=== PATIENT | male | born 1975 | race Caucasian/White ===

== ENCOUNTER 2020-07-18 20:31 | Emergency (ER) | payer OTHER, SELFPAY ==
[2020-07-18 20:39] VITALS: BP 130/70; PULSE 77; RESP 16; TEMP 36.6; O2SAT 97; BMI 44.6
[2020-07-18 20:55] LABS: Glucose, Whole Blood 136 mg/dL (60-115)
--- NOTE | 2020-07-18 21:54 | PC.NURSE ---
Pt asking for multiple sandwich and ice cream, offered and given diabetic friendly snacks/ liquids. Pt resting w/ eyes closed, appears to be in no apparent distress- no grimacing or guarding noted. Pt requesting fentanyl by name and dose.
--- NOTE | 2020-07-18 22:00 | ED_ITS ---
HPI - General Adult General Chief complaint: General Medical Stated complaint: leg pain Time Seen by Provider: 07/18/20 21:58 Source: patient Mode of arrival: EMS History of Present Illness HPI narrative: This is a 45-year-old male who presents with bilateral degenerative hip disease and was seen at [facility] earlier in the day where he had an x-ray that did not show any significant findings. Patient states that he began developing significant pain that he rated as a 10/10 and EMS provided him with IV push fentanyl. Otherwise patient states that he was recently discharged from [facility] after being an inpatient for 1 year, but states that he is now been considered competent to care for himself. He gets around with canes at baseline and is currently coordinating his outpatient medical care through the behavioral health care team. He denies fevers, chills, new onset of weakness/numbness/tingling in bilateral lower extremities. In addition, he denies any urinary pain/burning/frequency. Related Data Previous Rx's Medication Instructions Recorded cyclobenzaprine 5 mg PO BEDTIME PRN 2 Days #2 tab 07/19/20 ketorolac 10 mg PO Q6H PRN 5 Days #20 tab 07/19/20 Allergies Allergy/AdvReac Type Severity Reaction Status Date / Time shellfish derived Allergy Severe SWELLING Verified 07/18/20 22:56 [SHELLFISH DERIVED] WITH DIFFICULTY BREATHING haloperidol [From Haldol] Allergy Mild UNKNOWN Verified 07/18/20 22:56 garlic AdvReac Mild VOMITING Verified 07/18/20 22:56 Review of Systems Review of Systems: Pertinent positives and negatives as stated in HPI 10 point review of systems is otherwise negative. [facility] Past Medical History Source: nursing notes reviewed Medical History Acute diverticulitis Bipolar 1 disorder Cholecystectomy planned Degenerative disc disease Diabetes Kidney failure Surgical History H/O elbow surgery Social History Social History Alcohol intake: never Smoking Status: Never smoker Use of substances other than those prescribed or required for medical reasons: No Advance Directives: No Advance Directives Information Provided: No Physical Exam Vital Signs: Vital Signs: Last Vital Signs Temp 97.9 F 07/18/20 20:39 Pulse 97 07/18/20 22:55 Resp 16 07/18/20 22:55 BP 121/76 07/18/20 22:55 Pulse Ox 96 07/18/20 22:55 Body Mass Index 44.6 VITAL SIGNS: Reviewed. GENERAL: Well developed, well nourished, in no acute distress. HEAD: Normocephalic/atraumatic, EYES: PERRLA, EOMI NOSE: Nares patent bilateral OROPHARYNX: no oral lesions noted, posterior pharynx clear NECK: Supple, no adenopathy LUNGS: Normal breath sounds. No adventitious sounds or accessory muscle use. SpO2<96> CARDIOVASCULAR: Regular rate and rhythm without noted murmurs ABDOMEN: Obese, Soft, non-tender, non-distended with bowel sounds. Bilateral lower EXTREMITIES: Sensation intact, palpable DP/PT bilaterally, capillary refill less than 3 seconds NEUROLOGIC: Drowsy and oriented x 4. Strength and sensation to light touch were grossly intact x 4. Course Course Course Narrative: This is a 45-year-old male with history and clinical presentation consistent with chronic degenerative hip disease bilaterally and seen at [facility] earlier in the day with negative acute findings on imaging as per patient. As per patient he states that the EMS gave him fentanyl EN route and that that is why he is drowsy. It was explained to the patient that we would not be able to do any steroid injections here and that he would need to continue follow-up as an outpatient with his primary care provider for possible referral to Orthopedics. On review and re-evaluation there are no acute findings and patient has had good resolution of his pain. Patient states he use a walker/cane at baseline and he will be discharged in stable condition with recommendations to follow-up with his primary care provider for discussion regarding possible referral to Orthopedics. Medical Decision Making Lab Data Labs: Lab Results 07/18/20 07/18/20 Range/Units 20:50 23:04 POC Glucose 136 H (60-115) mg/dL Urine Color YELLOW Urine Appearance CLEAR Urine pH 6.5 (5.0-8.0) Ur Specific [place] 1.015 (1.005-1.025) Urine Protein NEG (NEG-TRACE) MG/DL Urine Glucose (UA) NEG (NEG) MG/DL Urine Ketones NEG (NEG) MG/DL Urine Blood NEG (NEG) Urine Nitrite NEG (NEG) Ur Leukocyte Esterase NEG (NEG) Discharge Plan Discharge Clinical Impression: Bilateral hip pain Patient Disposition: Home, Self-Care Instructions: Arthralgia (ED), Hip Pain (ED) Additional Instructions: Follow-up with your primary care provider by calling the office to set up an appointment for re-evaluation. Prescriptions: New ketorolac 10 mg tablet 10 mg PO Q6H PRN (Reason: pain) 5 Days Qty: 20 RF: 0 cyclobenzaprine 5 mg tablet 5 mg PO BEDTIME PRN (Reason: muscle spasm) 2 Days Qty: 2 RF: 0 Referrals: Physician,Unknown [Primary Care Provider] - 2 days
[2020-07-18 22:55] VITALS: BP 121/76; PULSE 97; RESP 16; O2SAT 96
[2020-07-18] MEDS: Ketorolac Tromethamine 15 MG/ML VIAL IM (22:57)
[2020-07-18] MEDS: Acetaminophen 325 MG TABLET 975 MG PO (22:57)
[2020-07-18 23:23] LABS: Glucose Urine UA NEG (NEG); Leukocyte Esterase Urine NEG (NEG); Nitrite Urine NEG (NEG); PH 6.5 (5.0-8.0); Specific Gravity - Urine 1.015 (1.005-1.025); Urine Blood NEG (NEG); Urine Ketones NEG (NEG); Urine Protein NEG (NEG-TRACE)
[2020-07-18 23:35] LABS: Appearance Urine CLEAR; Color Urine YELLOW
[2020-07-19 00:28] VITALS: BP 109/64; PULSE 78; RESP 16; O2SAT 96
--- NOTE | 2020-07-19 00:50 | PC.NURSE ---
pt ready for discharge, calling chair van for ride.
--- NOTE | 2020-07-19 01:46 | PC.NURSE ---
PT ABLE TO STAND AND USE WALKER FOR STABILITY. PT ABLE TO USE URINAL. PT THEN SEATED ON EMS STRETCHER FOR TRANSPORT HOME.
== END 2020-07-19 01:48 | disposition home or self-care (01) ==
PROVIDERS: Emergency Provider Student in an Organized Health Care Education/Training Program
DX: M25.552 Pain in left hip (principal); M25.551 Pain in right hip; E11.9 Type 2 diabetes mellitus without complications
CPT/HCPCS: 81003; 82947; 96372; 99284; J1885

== ENCOUNTER 2020-07-27 20:15 | Emergency (ER) | payer OTHER, SELFPAY ==
--- NOTE | ~2020-07-27 | CT_ITS ---
EXAMINATION: CT ABDOMEN AND PELVIS WITH CONTRAST CLINICAL INFORMATION: Abdominal pain. COMPARISON: 12/11/2013. TECHNIQUE: Contiguous axial thin section helical images of the abdomen and pelvis were performed following the administration of 85 mL of intravenous Omnipaque 350. The data set was reformatted in the coronal and sagittal planes and reviewed on an independent workstation. DLP: 1386 mGy-cm. FINDINGS: The visualized lung bases are clear. The visualized portions of the heart are unremarkable. The liver is of normal size and attenuation without focal lesions nor intrahepatic biliary ductal dilation. A normal gallbladder is identified. There is no wall thickening or discernible pericholecystic fluid. The spleen, pancreas, adrenal glands are unremarkable. Both kidneys are of normal size and attenuation without hydronephrosis or nephrolithiasis. Following the administration of IV contrast, prompt symmetric nephrograms are displayed. There is no abdominal free fluid. There is neither mesenteric nor retroperitoneal lymphadenopathy. Normal unopacified loops of small and large bowel are identified. A normal appendix is identified. There is no pelvic free fluid. The urinary bladder is unremarkable. There is neither pelvic nor inguinal lymphadenopathy. Bone windows: Neither sclerotic nor lytic bone lesions are identified. There is moderate to advanced degenerative change within each hip. There is flattening to each femoral head. CT/CT abdomen pelvis w con IMPRESSION: No acute abdominal or pelvic inflammatory or infectious processes. Moderate to advanced degenerative change within each hip. Automated exposure control (Care Dose) Adjustment of the mA and/or kv according to patient size (this includes techniques or standardized protocols for targeted exams where dose is matched to indication / reason for exam; i.e. extremities or head).
--- NOTE | ~2020-07-27 | CT_ITS ---
EXAMINATION: CT HEAD WITHOUT CONTRAST CLINICAL INFORMATION: Hypertension. COMPARISON: 03/22/2015. TECHNIQUE: Contiguous helical images of the brain were obtained without IV contrast. Multiplanar reconstructions were performed. DLP: 772 mGy-cm. FINDINGS: There are no pathologic extra-axial fluid collections. The lateral, third, fourth ventricles are nondilated and concordant with the appearance of the sulci. There is no evidence for acute intraparenchymal hemorrhage or infarct. There is neither mass nor mass effect. There is no shift of midline structures. The paranasal sinuses and mastoid air cells are clear. There are no osseous lesions. CT/CT head/brain wo con IMPRESSION: No evidence for acute intracranial injury. Automated exposure control (Care Dose) Adjustment of the mA and/or kv according to patient size (this includes techniques or standardized protocols for targeted exams where dose is matched to indication / reason for exam; i.e. extremities or head).
[2020-07-27 20:23] VITALS: BP 154/96; PULSE 87; RESP 20; TEMP 37.1; O2SAT 100; BMI 43.0
[2020-07-27 20:25] VITALS: BP 220/124; PULSE 90; O2SAT 99
--- NOTE | 2020-07-27 20:29 | ECG_ITS ---
Test Reason : ABDOMINAL PAIN Blood Pressure : / mmHG Vent. Rate : 071 BPM Atrial Rate : 071 BPM P-R Int : 132 ms QRS Dur : 096 ms QT Int : 362 ms P-R-T Axes : 057 073 054 degrees QTc Int : 393 ms Normal sinus rhythm with sinus arrhythmia Normal ECG When compared with ECG of 27-APR-2019 20:16, No significant change was found Referred By: Manpreet Del Cid Electronically Signed By:JESUS SUN MD
--- NOTE | 2020-07-27 21:06 | ED_ITS ---
HPI - Abdominal Pain General Chief Complaint: Abdominal Pain Stated Complaint: nausea abd pain Time Seen by Provider: 07/27/20 20:27 Source: patient Mode of arrival: ambulatory Limitations: no limitations History of Present Illness HPI narrative: Patient presents to ED for epigastric pain that started suddenly a couple hours ago. Patient states symptoms started after eating spicy food. Patient states nausea and vomiting. Related Data Previous Rx's Medication Instructions Recorded cyclobenzaprine 5 mg PO BEDTIME PRN 2 Days #2 tab 07/19/20 ketorolac 10 mg PO Q6H PRN 5 Days #20 tab 07/19/20 famotidine [Pepcid] 20 mg PO BID 10 Days #20 tab 07/28/20 ondansetron HCl [Zofran] 4 mg PO Q6H PRN 3 Days #12 tab 07/28/20 Allergies Allergy/AdvReac Type Severity Reaction Status Date / Time shellfish derived Allergy Severe SWELLING Verified 07/18/20 22:56 [SHELLFISH DERIVED] WITH DIFFICULTY BREATHING haloperidol [From Haldol] Allergy Mild UNKNOWN Verified 07/18/20 22:56 garlic AdvReac Mild VOMITING Verified 07/18/20 22:56 Review of Systems Review of Systems Yes all other systems are reviewed and are negative Constitutional: Reports as per HPI and Reports no additional constitutional complaints Eyes: Reports as per HPI and Reports no additional eye complaints Reports system reviewed and no additional complaints, except as documented and Reports as per HPI Cardiovascular: Reports as per HPI and Reports no additional cardiovascular comp laints Respiratory: Reports as per HPI and Reports no additional respiratory complaints Gastrointestinal: Reports as per HPI, Reports no additional gastrointestinal complaints, Reports abdominal pain, Reports nausea and Reports vomiting Genitourinary: Reports no additional male genitourinary complaints and Reports as per HPI Musculoskeletal: Reports no additional musculoskeletal complaints and Reports as per HPI Reports system reviewed and no additional complaints, except as documented and Reports as per HPI Psychiatric: Reports no additional psychiatric complaints and Reports as per HPI Physical Exam Vital Signs: Vital Signs: Last Vital Signs Temp 97.4 F 07/28/20 01:47 Pulse 80 07/28/20 04:14 Resp 18 07/28/20 03:50 BP 157/96 H 07/28/20 03:50 Pulse Ox 98 07/28/20 01:47 Body Mass Index 43.0 Const: General: acute distress Orientation/consciousness: patient oriented x3 HENMT: Head: Yes normal to inspection, Yes No palpable skull fracture present, Yes normocephalic, Yes atraumatic, No abrasion, No Osorio's sign, No contusion, No cranial bruits, No hematoma, No laceration, No occipital foramen tenderness, No palpable skull fracture, No raccoon eyes, No scalp lesion, No scalp tenderness, No Temporal artery tenderness present and No periorbital ecchymosis Eyes: General: appearance normal, both eyes and all related structures Neck: Neck: Yes normal visual inspection, Yes full ROM, Yes no lymphadenopathy, Yes no meningeal signs, Yes trachea midline, Yes supple and No tender Chest: Chest palpation & inspection: normal inspection of the chest and normal palpation of entire chest wall Resp: Effort & Inspection: normal respiratory effort and able to speak in complete sentences Auscultation: clear to auscultation bilaterally Cardio: Jugular venous distension: no JVD Heart sounds: S1 normal heart sound present and S2 normal heart sound present GI: Inspection: Yes normal to inspection and No abdominal wall ecchymosis Palpation (GI): Soft to palpation, not firm, Tenderness to palpation present (GI) in the epigastrum; not at McBurney's point, not periumbilically, not suprapubicly, Gupta's sign negative, obturator sign negative, psoas sign negative, with no rebound tenderness and Rovsing's sign negative, no guarding and not rigid : General: No CVA tenderness and Yes no CVA tenderness Back/Spine/Pelvis: Back: no CVA tenderness, No CVA tenderness and No back tenderness Skin: General skin exam: no rashes or lesions noted and elasticity normal Neuro: Other: negative for any neuro deficit. General: patient oriented x3, no meningeal signs and CN's II-XI intact bilaterally Cranial nerves: Yes CN's II-XII intact bilaterally Extrem: General: Yes normal to inspection and Yes full ROM Psych: Appearance: grossly normal, well kempt and not disheveled Course Course Course Narrative: Patient most likely having GERD exacerbation. Due to history diabetes and obesity will do cardiac evaluation. GI cocktail ordered. Reevaluation(s) Reevaluation #1: Patient labs are not alarming. Patient will be sent for CT scan for evaluation ( due to patient complaining of epigastric pain). Patient constantly asking for narcotics. Reevaluation #2: I spoke with patient's mother, ирина Kirkpatrick, who was patient legal and medical guardian. She states she makes medical decision for patient. As per Ирина she informed me she does not want patient receiving any narcotics. Patient has strong history of opiate abuse and recently came out of detox. She states patient have a history of coming to the ED with drug-seeking behavior for narcotics in the form of abdominal pain.. She states before coming to the ER soren castañeda had the 12 inch sandwich, Soup, cookies, 6 pieces of chicken, pork, and rice. She states patient presently is in court for due to patient being not responsible for himself. She states under no circumstances once again patient should receive narcotics. In ED visit patient insisted requesting to receive narcotics. Evaluate patient's prior visit and [facility] EMR which shows patient has similar presentation of abdominal pain, forced himself to vomit, and asking for narcotics. Reevaluation #3: CT scan normal. Patient refused to give urine to be evaluated for possible UTI. Spoke with mother ирина and inform her of patient's CT scan that was normal. She states patient has had multiple CT scans in the past are normal with similar presentation. Once again she does not recommend patient receiving narcotics and patient can be sent back home by ambulance wheelchair. Additional Reevaluation(s): Patient's discharge was held due to elevated blood pressure so head CT scan was ordered and repeat troponin. Head CT scan came back negative. I realize patient had small cuff on extremities which which contributed to patient's elevated blood pressure and heart rate during ED visit. Larger proper cuff was placed and patient was no longer tachycardic or hypertensive. Repeat blood with proper cuff is 157/96 with HR of 67. Patient awaiting 2nd troponin result and will be discharged if troponin is negative. At 04:11 patient refused 2nd troponin. Patient to be discharged. Patient for 2nd troponin and make sure there is no cardiac etiology, and possibly if positive, but patient refused and like to be discharged. MDM - Abdominal Pain MDM Narrative Medical decision making narrative: GERD. Lab Data Result diagrams: 07/27/20 21:17 07/27/20 21:16 Labs: Lab Results 07/27/20 07/27/20 07/27/20 Range/Units 21:16 21:16 21:16 WBC (4.8-10.8) X10*3/uL RBC (4.60-5.80) X10*6/uL Hgb (14.0-18.0) g/dl Hct (42-52) % MCV (80-98) fL MCH (27.0-33.0) pg MCHC (31.0-36.0) g/dl RDW (11.0-16.0) % Plt Count (160-400) X10*3/uL MPV (9.4-12.4) fL Immature Gran % (Auto) (0.0-0.4) % Neut % (Auto) (45-73) % Lymph % (Auto) (20-40) % Powell % (Auto) (2-11) % Eos % (Auto) (0-4) % Baso % (Auto) (0-2) % Lymph # (Auto) (1.2-4.9) X10*3/uL Powell # (Auto) (0.1-1.2) X10*3/uL Eos # (Auto) (0.0-0.4) X10*3/uL Baso # (Auto) (0.0-0.2) X10*3/uL Abs Immat Gran (auto) (0.00-0.03) X10*3/uL Absolute Neuts (auto) (2.0-8.3) X10*3/uL Absolute Nucleated RBC (0.0-0.012) X10*3/uL Nucleated RBC % (auto) (0.0-0.2) /100WBC PT 11.0 (10.8-13.0) SEC INR 0.9 (0.9-1.1) APTT 26.8 (24.1-38.0) SEC Sodium 143 (135-145) mmol/L Potassium 4.6 (3.3-5.1) mmol/L Chloride 105 (96-108) mmol/L Carbon Dioxide 30 H (22-29) mmol/L Anion Gap 13 (12-20) BUN 29 H (9-16) mg/dL Creatinine 1.18 (0.5-1.4) mg/dL Estim Creat Clear Calc 104.2 Estimated GFR > 60 Random Glucose 158 H (60-115) mg/dL Calcium 9.3 (8.4-10.2) mg/dL Total Bilirubin 0.2 (0.0-1.0) mg/dL Direct Bilirubin < 0.2 (0.0-0.5) mg/dL AST 13 (5-37) U/L ALT 29 (0-40) U/L Alkaline Phosphatase 108 (39-117) U/L Troponin I High Sens < 3.5 (<3.5-35.0) ng/L Total Protein 7.3 (6.5-8.0) g/dL Albumin 4.2 (3.5-5.0) g/dL Lipase 45 (8-78) U/L /08/13 Range/Units 21:17 WBC 13.5 H (4.8-10.8) X10*3/uL RBC 5.03 (4.60-5.80) X10*6/uL Hgb 14.0 (14.0-18.0) g/dl Hct 43.7 (42-52) % MCV 86.9 (80-98) fL MCH 27.8 (27.0-33.0) pg MCHC 32.0 (31.0-36.0) g/dl RDW 14.3 (11.0-16.0) % Plt Count 285 (160-400) X10*3/uL MPV 10.6 (9.4-12.4) fL Immature Gran % (Auto) 1.4 H (0.0-0.4) % Neut % (Auto) 80.3 H (45-73) % Lymph % (Auto) 9.1 L (20-40) % Powell % (Auto) 9.1 (2-11) % Eos % (Auto) 0.0 (0-4) % Baso % (Auto) 0.1 (0-2) % Lymph # (Auto) 1.2 (1.2-4.9) X10*3/uL Powell # (Auto) 1.2 (0.1-1.2) X10*3/uL Eos # (Auto) 0.0 (0.0-0.4) X10*3/uL Baso # (Auto) 0.0 (0.0-0.2) X10*3/uL Abs Immat Gran (auto) 0.19 H (0.00-0.03) X10*3/uL Absolute Neuts (auto) 10.9 H (2.0-8.3) X10*3/uL Absolute Nucleated RBC 0.000 (0.0-0.012) X10*3/uL Nucleated RBC % (auto) 0.0 (0.0-0.2) /100WBC PT (10.8-13.0) SEC INR (0.9-1.1) APTT (24.1-38.0) SEC Sodium (135-145) mmol/L Potassium (3.3-5.1) mmol/L Chloride (96-108) mmol/L Carbon Dioxide (22-29) mmol/L Anion Gap (12-20) BUN (9-16) mg/dL Creatinine (0.5-1.4) mg/dL Estim Creat Clear Calc Estimated GFR Random Glucose (60-115) mg/dL Calcium (8.4-10.2) mg/dL Total Bilirubin (0.0-1.0) mg/dL Direct Bilirubin (0.0-0.5) mg/dL AST (5-37) U/L ALT (0-40) U/L Alkaline Phosphatase (39-117) U/L Troponin I High Sens (<3.5-35.0) ng/L Total Protein (6.5-8.0) g/dL Albumin (3.5-5.0) g/dL Lipase (8-78) U/L ECG Data Interpretation: Normal sinus rhythm. Ventricular rate 71. CA interval 132. QRS 96. QTC 393. Negative STEMI Discharge Plan Discharge Clinical Impression: GERD (gastroesophageal reflux disease) Patient Disposition: Home, Self-Care Instructions: Gastroesophageal Reflux Disease (ED), Abdominal Pain (ED) Additional Instructions: Return to the ED immediately for worsening abdominal pain, nausea, vomiting, fever, chills, flank pain, dysuria, hematuria, or any other concerning symptoms. Prescriptions: New ondansetron HCl [Zofran] 4 mg tablet 4 mg PO Q6H PRN (Reason: nausea and vomiting) 3 Days Qty: 12 RF: 0 famotidine [Pepcid] 20 mg tablet 20 mg PO BID 10 Days Qty: 20 RF: 0 No Action ketorolac 10 mg tablet 10 mg PO Q6H PRN (Reason: pain) 5 Days Qty: 20 RF: 0 cyclobenzaprine 5 mg tablet 5 mg PO BEDTIME PRN (Reason: muscle spasm) 2 Days Qty: 2 RF: 0 Interventions: ED Discharge Assessment Last Done: 07/28/20 01:45 Discharge Date/Time: 07/28/20 05:09 Print Language: Ivorian [facility] Past Medical History Medical History (Updated 07/29/20 @ 00:00 by Sarah Maloney) Acute diverticulitis Bipolar 1 disorder Cholecystectomy planned Degenerative disc disease Diabetes Kidney failure Obese Surgical History H/O elbow surgery Social History Social History Alcohol intake: never Smoking Status: Never smoker Use of substances other than those prescribed or required for medical reasons: No Advance Directives: No Advance Directives Information Provided: Yes
[2020-07-27] MEDS: diphenhydrAMINE HCL 50 MG/ML VIAL IVPUSH (21:21)
[2020-07-27] MEDS: Magnesium Hydrox/Alum Hydrox 30 ML ORAL.SUSP PO (21:21)
[2020-07-27] MEDS: PHENobarb/Hyoscy/Atropine/Scop 10 ML ELIXIR PO (21:21)
[2020-07-27] MEDS: Famotidine/PF 20 MG/2 ML VIAL IVPUSH (21:21)
[2020-07-27 21:22] LABS: MANUAL DIFF FLAG NO
[2020-07-27 21:23] LABS: Basophils Percent Auto 0.1 % (0-2); Hematocrit 43.7 % (42-52); Imm Gran Abs Auto 0.19 X10*3/uL (0.00-0.03); Imm Gran Pct Auto 1.4 % (0.0-0.4); Lymphocytes Absolute Auto 1.2 X10*3/uL (1.2-4.9); Lymphocytes Percent Auto 9.1 % (20-40); Mean Corpuscular Hemoglobin 27.8 pg (27.0-33.0); Mean Corpuscular Volume 86.9 fL (80-98); Mean Platelet Volume 10.6 fL (9.4-12.4); Monocytes Absolute Auto 1.2 X10*3/uL (0.1-1.2); Monocytes Percent Auto 9.1 % (2-11); Neutrophils Absolute Auto 10.9 X10*3/uL (2.0-8.3); Neutrophils Percent Auto 80.3 % (45-73); Platelet Count 285 X10*3/uL (160-400); Red Blood Count 5.03 X10*6/uL (4.60-5.80); Red Cell Distribution Width 14.3 % (11.0-16.0); White Blood Count 13.5 X10*3/uL (4.8-10.8)
[2020-07-27 21:29] LABS: INTERNATIONAL NORM RATIO 0.9 (0.9-1.1)
[2020-07-27 21:31] LABS: Partial Thromboplastin Time 26.8 SEC (24.1-38.0)
[2020-07-27 21:52] LABS: Alanine Aminotransferase 29 U/L (0-40); Albumin Level 4.2 g/dL (3.5-5.0); Alkaline Phosphatase 108 U/L (39-117); Anion Gap 13 (12-20); Aspartate Amino Transferase 13 U/L (5-37); Bilirubin Direct < 0.2 mg/dL (0.0-0.5); Bilirubin Total 0.2 mg/dL (0.0-1.0); Blood Urea Nitrogen 29 mg/dL (9-16); Calcium 9.3 mg/dL (8.4-10.2); Carbon Dioxide 30 mmol/L (22-29); Chloride 105 mmol/L (96-108); Creatinine Clr Calc Pharmacy 104.2; Estimated Glomerular Filt Rate > 60; Glucose Random 158 mg/dL (60-115); Lipase 45 U/L (8-78); Potassium 4.6 mmol/L (3.3-5.1); Sodium 143 mmol/L (135-145); Total Protein 7.3 g/dL (6.5-8.0)
[2020-07-27 21:53] VITALS: BP 168/96; PULSE 70; RESP 18; TEMP 36.6; O2SAT 98
[2020-07-27 21:59] LABS: Troponin-I High Sensitivity < 3.5 ng/L (<3.5-35.0)
--- NOTE | 2020-07-27 23:05 | PC.NURSE ---
PT REPEATEDLY YELLING OUT REQUESTING SPECIFICALLY NARCOTIC MEDICATIONS, WHEN THIS RN ADVISED PT THE DR WOULD NOT BE ORDERING THEM HE APPEARED TO SELF INDUCE VOMITING ON THE FLOOR, SPITTING REPEATEDLY ON THE FLOOR. PT ASKING TO GET OOB TO COMMODE, NEEDS 1 PERSON ASSIST TO DO SO. PT ASSISTED TO COMMODE, PASSED FORMED BM.
[2020-07-27 23:32] VITALS: BP 162/100; PULSE 65; RESP 18; TEMP 36.6; O2SAT 96
[2020-07-27] MEDS: ondansetron HCL 4 MG/2 ML VIAL IVPUSH (23:32)
[2020-07-27] MEDS: LORazepam 2 MG/ML VIAL IVPUSH (23:32)
[2020-07-28] MEDS: Metoclopramide HCl 10 MG/2 ML VIAL IVPUSH (01:45)
[2020-07-28 01:47] VITALS: BP 188/111; PULSE 83; RESP 20; TEMP 36.3; O2SAT 98
[2020-07-28 03:50] VITALS: BP 157/96; PULSE 66; RESP 18
[2020-07-28 04:14] VITALS: PULSE 80
--- NOTE | 2020-07-28 04:14 | PC.NURSE ---
Report received from PEYMAN Stockton. Care assumed at 2300. Pt vomited multiple times despite of zofran and regran ivp. Refused to have trop drawn. Awaiting for ambulance for discharge. currently sleeping.
== END 2020-07-28 05:09 | disposition home or self-care (01) ==
PROVIDERS: Physician Assistant; Emergency Provider Internal Medicine
DX: K21.9 Gastro-esophageal reflux disease without esophagitis (principal); Z76.5 Malingerer [conscious simulation]; E11.9 Type 2 diabetes mellitus without complications; F11.10 Opioid abuse, uncomplicated
CPT/HCPCS: 36415; 70450; 74177; 80053; 80076; 82248; 83690; 84484; 85025; 85610; 85730; 93005; 96374; 96375; 99284; J1200; J2060; J2405; J2765; Q9967

== ENCOUNTER 2020-09-16 07:46 | Emergency (ER) | payer OTHER, SELFPAY ==
--- NOTE | ~2020-09-16 | CT_ITS ---
EXAMINATION: CT ABDOMEN AND PELVIS WITH CONTRAST CLINICAL INFORMATION: Upper abdominal pain. Rule out pancreatitis. COMPARISON: CT abdomen 07/28/2020 TECHNIQUE: Multidetector volumetric images were obtained from the superior aspect of the liver through the pubic symphysis following administration 85 mL of Omnipaque 350 intravenous contrast. Sagittal and coronal reformatted images were obtained on the technologist's workstation. Oral contrast: No This CT examination was performed using dose optimization techniques as appropriate, variously including the following: *Automated exposure control *Adjustment of mA and/or kV according to patient size (this includes techniques or standardized protocols for targeted exams where dose is matched to indication/reason for exam; i.e. extremities or head) *Use of iterative reconstruction technique DLP: 1641 mGy-cm FINDINGS: LUNG BASES: The visualized lung bases are unremarkable. Suspect small hiatal hernia. LIVER, GALLBLADDER, AND BILIARY TREE: The liver is normal in size, shape, and attenuation. No focal hepatic lesion or biliary ductal dilatation is present. The gallbladder is not visualized, contracted or removed. PANCREAS: Unremarkable. SPLEEN: Unremarkable. ADRENAL GLANDS: Unremarkable. KIDNEYS AND URETERS: The kidneys are normal in size, shape, and attenuation. No hydronephrosis, hydroureter, or calculi seen. No perinephric stranding. BLADDER: Unremarkable. GASTROINTESTINAL TRACT: There is scattered stool and gas seen throughout the colon without significant distention. The small bowel loops are normal caliber. Appendix is normal caliber. ABDOMINAL WALL: No significant hernia is appreciated. LYMPH NODES: Normal. VASCULAR: Unremarkable. PELVIC VISCERA: Unremarkable. OSSEOUS STRUCTURES: Unremarkable. CT/CT abdomen pelvis w con IMPRESSION: No acute intra-abdominal process seen. Especially the pancreas is unremarkable. Mild constipation.
[2020-09-16 07:54] VITALS: BP 149/93; BP 171/111; PULSE 94; PULSE 96; RESP 18; TEMP 36.6; O2SAT 96; O2SAT 97; BMI 44.9
[2020-09-16 08:13] VITALS: BP 153/101; PULSE 92; RESP 16; O2SAT 97
--- NOTE | 2020-09-16 08:16 | ECG_ITS ---
Test Reason : ABDOMINAL PAIN Blood Pressure : / mmHG Vent. Rate : 090 BPM Atrial Rate : 090 BPM P-R Int : 146 ms QRS Dur : 110 ms QT Int : 352 ms P-R-T Axes : 067 071 050 degrees QTc Int : 430 ms Normal sinus rhythm Normal ECG When compared with ECG of 27-JUL-2020 20:56, No significant change was found Referred By: Rachel Rodriguez Electronically Signed By:MARGUERITE SIMS
--- NOTE | 2020-09-16 08:20 | ED.ABDPAIN ---
HPI - Abdominal Pain General Chief Complaint: Abdominal Pain Stated Complaint: ABD PAIN Time Seen by Provider: 09/16/20 08:11 Source: patient and EMS Mode of arrival: EMS Limitations: no limitations History of Present Illness HPI narrative: 45-year-old male with a past medical history of uuk-xrcucen-ibgtaozay diabetes, polysubstance abuse here with complaints of upper abdominal pain. The patient tells me that he has had this pain for 4 days and has been seen at [facility] [place] several times with a diagnosis of pancreatitis. He tells me he was initially admitted and then was discharged home. He has worsening pain since last evening with nausea and vomiting. No diarrhea or constipation. No urinary symptoms. No fevers or chills. Related Data Previous Rx's Medication Instructions Recorded cyclobenzaprine 5 mg PO BEDTIME PRN 2 Days #2 tab 07/19/20 ketorolac 10 mg PO Q6H PRN 5 Days #20 tab 07/19/20 famotidine [Pepcid] 20 mg PO BID 10 Days #20 tab 07/28/20 ondansetron HCl [Zofran] 4 mg PO Q6H PRN 3 Days #12 tab 07/28/20 Allergies Allergy/AdvReac Type Severity Reaction Status Date / Time shellfish derived Allergy Severe SWELLING Verified 07/18/20 22:56 [SHELLFISH DERIVED] WITH DIFFICULTY BREATHING haloperidol [From Haldol] Allergy Mild UNKNOWN Verified 07/18/20 22:56 garlic AdvReac Mild VOMITING Verified 07/18/20 22:56 Review of Systems Review of Systems Yes all other systems are reviewed and are negative Constitutional: Reports no additional constitutional complaints, Denies body ache(s), Denies chills, Denies fever(s), Denies headache(s) and Denies weakness Eyes: Reports no additional eye complaints and Denies change in vision Reports system reviewed and no additional complaints, except as documented, Denies dizziness, Denies headache(s), Denies nasal congestion, Denies nasal discharge and Denies neck pain Cardiovascular: Reports no additional cardiovascular complaints, Denies chest pain, Denies leg edema and Denies dyspnea Respiratory: Reports no additional respiratory complaints, Denies cough and Denies dyspnea Gastrointestinal: Reports no additional gastrointestinal complaints, Reports abdominal pain, Denies constipation, Denies diarrhea, Denies nausea and Reports vomiting Genitourinary: Denies urinary incontinence Musculoskeletal: Reports no additional musculoskeletal complaints, Denies back pain, Denies arthralgias, Denies joint swelling, Denies neck pain, Denies numbness and Denies tingling Skin/Breast: Reports system reviewed and no additional complaints, except as docu and Denies rash Reports system reviewed and no additional complaints, except as documented, Denies Abnormal speech present, Denies dizziness, Denies headache(s), Denies numbness, Denies tingling and Denies weakness Physical Exam Vital Signs: Vital Signs: Last Vital Signs Temp 97.9 F 09/16/20 07:54 Pulse 94 09/16/20 11:39 Resp 16 09/16/20 11:39 BP 185/95 H 09/16/20 11:39 Pulse Ox 98 09/16/20 11:39 Body Mass Index 44.9 Const: General: cooperative, healthy appearing, comfortable and no acute distress Orientation/consciousness: patient oriented x3 Limitations: no limitations HENMT: Head: Yes normal to inspection Ears: hearing grossly normal bilaterally General nose exam: Normal external nose present Face and sinus: Yes normal facial exam Mouth: Normal oral and palatal mucosa present Throat: Yes posterior oropharynx normal Eyes: General: appearance normal, both eyes and all related structures Pupils: Equal, round and reactive pupils present Neck: Neck: Yes normal visual inspection Chest: Chest palpation & inspection: normal inspection of the chest Resp: Effort & Inspection: normal respiratory effort Auscultation: clear to auscultation bilaterally Cardio: Rate: regular rate Rhythm: regular rhythm Peripheral pulses: Peripheral pulses 2+ throughout GI: Inspection: Yes normal to inspection Palpation (GI): Soft to palpation and Tenderness to palpation present (GI) (Moderate. No rebound or guarding) in the epigastrum Auscultation: normal bowel sounds Back/Spine/Pelvis: Thoracic/Lumbar Spine: thoracic and lumbar spine normal to inspection Skin: General skin exam: no rashes or lesions noted Neuro: Other: Drowsy rouses to verbal General: patient oriented x3, no focal motor deficits and normal sensation to monofilament Cranial nerves: Yes Equal, round and reactive pupils present Cognition (Neuro): normal cognition Speech: No Abnormal speech present Gait exam (Neuro): Normal gait present Motor exam (neuro): 5/5 motor strength present throughout Extrem: General: Yes normal to inspection, Yes no pedal edema and Yes no calf tenderness Course Course Course Narrative: 45-year-old male here with epigastric pain, nausea and vomiting acute on chronic since yesterday. Per patient multiple ED visits with admission for pancreatitis a [facility] [place]. Feels pain is similar. Will need labs, UA, PIV, antiemetic,NSB. Will obtain records from [facility]. 1100-the nursing and phlebotomy have made multiple attempts to get blood work from the patient he continues to refuse. Nursing spoke to the patient's correction as well as his family. It appears that over the last 4-5 days he has gone to [facility] [place] as well as [facility] for similar complaints. Concern from both family and correction that patient is narcotic seeking. Per staff patient has a do not trespasss order currently at [facility] d/t poor behavior. He has been sleeping his entire time since being here >4hrs but when woken by staff he has been verbally abusive with profanities. 1230-Placed L EJG and labs sent. Patient had to be woken to place PIV and slept during entire procedure although when awake multiple requests for IV Dilaudid. 1340-labs show mild leukocytosis unchanged from previous. Otherwise unremarkable. Unable to obtain records from [facility]. Will check Ct A/P. 1600-CT abdomen and pelvis unremarkable. Patient has spent most of his time in the ER sleeping except when he is woken for interventions. When he is awake he is crying out multiple times asking for Dilaudid specifically. He has had multiple visits for same with no acute findings. At this point I am very concerned about his narcotic seeking behavior. Asked patient if he would like to be seen by our Care team but he declined this. No vomiting. Tolerating p.o.. After discharge patient fell back asleep. All records were faxed to the patient's correction and they will be picking him up. 1640-patient was picked up by correction staff. He drink 2 apple juices and a peanut butter sandwich with no issues MDM - Abdominal Pain Differential Diagnosis Differential diagnosis: Likely gastroenteritis, gastritis and pancreatitis Medical Records Attestation: I reviewed the patient's medical records. Lab Data Attestation: I reviewed the patient's lab results. Result diagrams: 09/16/20 12:24 09/16/20 12:24 Labs: Lab Results 05/09/16/20 09/16/20 Range/Units 09:18 12:24 12:24 WBC 14.0 H (4.8-10.8) X10*3/uL RBC 5.07 (4.60-5.80) X10*6/uL Hgb 14.3 (14.0-18.0) g/dl Hct 43.4 (42-52) % MCV 85.6 (80-98) fL MCH 28.2 (27.0-33.0) pg MCHC 32.9 (31.0-36.0) g/dl RDW 14.3 (11.0-16.0) % Plt Count 268 (160-400) X10*3/uL MPV 10.4 (9.4-12.4) fL Immature Gran % (Auto) 0.6 H (0.0-0.4) % Neut % (Auto) 85.8 H (45-73) % Lymph % (Auto) 7.2 L (20-40) % Gregory % (Auto) 6.2 (2-11) % Eos % (Auto) 0.0 (0-4) % Baso % (Auto) 0.2 (0-2) % Lymph # (Auto) 1.0 L (1.2-4.9) X10*3/uL Gregory # (Auto) 0.9 (0.1-1.2) X10*3/uL Eos # (Auto) 0.0 (0.0-0.4) X10*3/uL Baso # (Auto) 0.0 (0.0-0.2) X10*3/uL Abs Immat Gran (auto) 0.09 H (0.00-0.03) X10*3/uL Absolute Neuts (auto) 12.0 H (2.0-8.3) X10*3/uL Absolute Nucleated RBC 0.000 (0.0-0.012) X10*3/uL Nucleated RBC % (auto) 0.0 (0.0-0.2) /100WBC Hold Blue Top SEE NOTE Sodium (135-145) mmol/L Potassium (3.3-5.1) mmol/L Chloride (96-108) mmol/L Carbon Dioxide (22-29) mmol/L Anion Gap (12-20) BUN (9-16) mg/dL Creatinine (0.5-1.4) mg/dL Estim Creat Clear Calc Estimated GFR Random Glucose (60-115) mg/dL Calcium (8.4-10.2) mg/dL Magnesium (1.6-2.6) mg/dL Total Bilirubin (0.0-1.0) mg/dL Direct Bilirubin (0.0-0.5) mg/dL AST (5-37) U/L ALT (0-40) U/L Alkaline Phosphatase (39-117) U/L Total Protein (6.5-8.0) g/dL Albumin (3.5-5.0) g/dL Lipase (8-78) U/L Urine Color YELLOW Urine Appearance HAZY Urine pH 7.5 (5.0-8.0) Ur Specific [place] 1.015 (1.005-1.025) Urine Protein TRACE (NEG-TRACE) MG/DL Urine Glucose (UA) NEG (NEG) MG/DL Urine Ketones NEG (NEG) MG/DL Urine Blood NEG (NEG) Urine Nitrite NEG (NEG) Ur Leukocyte Esterase NEG (NEG) 09/16/20 Range/Units 12:24 WBC (4.8-10.8) X10*3/uL RBC (4.60-5.80) X10*6/uL Hgb (14.0-18.0) g/dl Hct (42-52) % MCV (80-98) fL MCH (27.0-33.0) pg MCHC (31.0-36.0) g/dl RDW (11.0-16.0) % Plt Count (160-400) X10*3/uL MPV (9.4-12.4) fL Immature Gran % (Auto) (0.0-0.4) % Neut % (Auto) (45-73) % Lymph % (Auto) (20-40) % Gregory % (Auto) (2-11) % Eos % (Auto) (0-4) % Baso % (Auto) (0-2) % Lymph # (Auto) (1.2-4.9) X10*3/uL Gregory # (Auto) (0.1-1.2) X10*3/uL Eos # (Auto) (0.0-0.4) X10*3/uL Baso # (Auto) (0.0-0.2) X10*3/uL Abs Immat Gran (auto) (0.00-0.03) X10*3/uL Absolute Neuts (auto) (2.0-8.3) X10*3/uL Absolute Nucleated RBC (0.0-0.012) X10*3/uL Nucleated RBC % (auto) (0.0-0.2) /100WBC Hold Blue Top Sodium 138 (135-145) mmol/L Potassium 4.3 (3.3-5.1) mmol/L Chloride 103 (96-108) mmol/L Carbon Dioxide 27 (22-29) mmol/L Anion Gap 12 (12-20) BUN 19 H (9-16) mg/dL Creatinine 0.84 (0.5-1.4) mg/dL Estim Creat Clear Calc 145.5 Estimated GFR > 60 Random Glucose 151 H (60-115) mg/dL Calcium 9.1 (8.4-10.2) mg/dL Magnesium 2.1 (1.6-2.6) mg/dL Total Bilirubin < 0.2 (0.0-1.0) mg/dL Direct Bilirubin < 0.2 (0.0-0.5) mg/dL AST 21 D (5-37) U/L ALT 43 H (0-40) U/L Alkaline Phosphatase 110 (39-117) U/L Total Protein 6.8 (6.5-8.0) g/dL Albumin 3.9 (3.5-5.0) g/dL Lipase 39 (8-78) U/L Urine Color Urine Appearance Urine pH (5.0-8.0) Ur Specific [place] (1.005-1.025) Urine Protein (NEG-TRACE) MG/DL Urine Glucose (UA) (NEG) MG/DL Urine Ketones (NEG) MG/DL Urine Blood (NEG) Urine Nitrite (NEG) Ur Leukocyte Esterase (NEG) Imaging Data CT scan - abdomen: Attestation: I personally reviewed and interpreted this imaging study as follows: Radiologist's impression: EXAMINATION: CT ABDOMEN AND PELVIS WITH CONTRAST CLINICAL INFORMATION: Upper abdominal pain. Rule out pancreatitis. COMPARISON: CT abdomen 07/28/2020 TECHNIQUE: Multidetector volumetric images were obtained from the superior aspect of the liver through the pubic symphysis following administration 85 mL of Omnipaque 350 intravenous contrast. Sagittal and coronal reformatted images were obtained on the technologist's workstation. Oral contrast: No This CT examination was performed using dose optimization techniques as appropriate, variously including the following: *Automated exposure control *Adjustment of mA and/or kV according to patient size (this includes techniques or standardized protocols for targeted exams where dose is matched to indication/reason for exam; i.e. extremities or head) *Use of iterative reconstruction technique DLP: 1641 mGy-cm FINDINGS: LUNG BASES: The visualized lung bases are unremarkable. Suspect small hiatal hernia. LIVER, GALLBLADDER, AND BILIARY TREE: The liver is normal in size, shape, and attenuation. No focal hepatic lesion or biliary ductal dilatation is present. The gallbladder is not visualized, contracted or removed. PANCREAS: Unremarkable. SPLEEN: Unremarkable. ADRENAL GLANDS: Unremarkable. KIDNEYS AND URETERS: The kidneys are normal in size, shape, and attenuation. No hydronephrosis, hydroureter, or calculi seen. No perinephric stranding. BLADDER: Unremarkable. GASTROINTESTINAL TRACT: There is scattered stool and gas seen throughout the colon without significant distention. The small bowel loops are normal caliber. Appendix is normal caliber. ABDOMINAL WALL: No significant hernia is appreciated. LYMPH NODES: Normal. VASCULAR: Unremarkable. PELVIC VISCERA: Unremarkable. OSSEOUS STRUCTURES: Unremarkable. CT/CT abdomen pelvis w con IMPRESSION: No acute intra-abdominal process seen. Especially the pancreas is unremarkable. Mild constipation. ECG Data Attestation: I personally reviewed and interpreted this ECG as follows: ECG interpretation date: 09/16/20 ECG interpretation time: 08:29 Interpretation: Normal sinus rhythm with a rate of 90, normal CO, normal QRS, normal QTC Discharge Plan Discharge Clinical Impression: Abdominal pain Qualifiers: Abdominal location: generalized Qualified Code(s): R10.84 - Generalized abdominal pain Patient Disposition: Home, Self-Care Instructions: Abdominal Pain (ED) Additional Instructions: Your CT scan today was normal Your bloodwork and urine tests were also normal You have been seen multiple times for the same complaint. You need to follow-up with your primary care doctor. Prescriptions: No Action ketorolac 10 mg tablet 10 mg PO Q6H PRN (Reason: pain) 5 Days Qty: 20 RF: 0 cyclobenzaprine 5 mg tablet 5 mg PO BEDTIME PRN (Reason: muscle spasm) 2 Days Qty: 2 RF: 0 ondansetron HCl [Zofran] 4 mg tablet 4 mg PO Q6H PRN (Reason: nausea and vomiting) 3 Days Qty: 12 RF: 0 famotidine [Pepcid] 20 mg tablet 20 mg PO BID 10 Days Qty: 20 RF: 0 Referrals: Physician,None [Primary Care Provider] - 2 days Interventions: ED Discharge Assessment Last Done: 09/16/20 16:32 Discharge Date/Time: 09/16/20 16:36 [facility] Past Medical History Attestation statement: The following information was validated with the patient. Source: old records reviewed and nursing notes reviewed Medical History Acute diverticulitis Bipolar 1 disorder Cholecystectomy planned Degenerative disc disease Diabetes Kidney failure Obese Surgical History H/O elbow surgery Social History Social History Alcohol intake: never Smoking Status: Never smoker Advance Directives: Yes Advance Directives Information Provided: No Advance Directives on File: No
--- NOTE | 2020-09-16 09:24 | PC.NURSE ---
pt is difficult to obtain labs and iv access, phlebotomy called
[2020-09-16 09:29] LABS: Appearance Urine HAZY; Color Urine YELLOW; Glucose Urine UA NEG (NEG); Leukocyte Esterase Urine NEG (NEG); Nitrite Urine NEG (NEG); PH 7.5 (5.0-8.0); Specific Gravity - Urine 1.015 (1.005-1.025); Urine Blood NEG (NEG); Urine Ketones NEG (NEG); Urine Protein TRACE MG/DL (NEG-TRACE)
--- NOTE | 2020-09-16 09:47 | PC.NURSE ---
pt refusing medications
--- NOTE | 2020-09-16 09:47 | PC.NURSE ---
pt refusing to have labs done
--- NOTE | 2020-09-16 09:48 | PC.NURSE ---
PT REFUSING BLOOD DRAW BY PHLEBOTOMY.
[2020-09-16 11:39] VITALS: BP 185/95; PULSE 94; RESP 16; O2SAT 98
[2020-09-16 12:28] LABS: MANUAL DIFF FLAG NO
[2020-09-16 12:30] LABS: Basophils Percent Auto 0.2 % (0-2); Hematocrit 43.4 % (42-52); Hemoglobin 14.3 g/dl (14.0-18.0); Imm Gran Abs Auto 0.09 X10*3/uL (0.00-0.03); Imm Gran Pct Auto 0.6 % (0.0-0.4); Lymphocytes Percent Auto 7.2 % (20-40); Mean Corpuscular HGB Conc 32.9 g/dl (31.0-36.0); Mean Corpuscular Hemoglobin 28.2 pg (27.0-33.0); Mean Corpuscular Volume 85.6 fL (80-98); Mean Platelet Volume 10.4 fL (9.4-12.4); Monocytes Absolute Auto 0.9 X10*3/uL (0.1-1.2); Monocytes Percent Auto 6.2 % (2-11); Neutrophils Percent Auto 85.8 % (45-73); Platelet Count 268 X10*3/uL (160-400); Red Blood Count 5.07 X10*6/uL (4.60-5.80); Red Cell Distribution Width 14.3 % (11.0-16.0)
[2020-09-16] MEDS: 0.9 % Sodium Chloride 1,000 ML 999 ML IV (12:46)
[2020-09-16] MEDS: ondansetron HCL 4 MG/2 ML VIAL IVPUSH (12:46)
[2020-09-16] MEDS: Famotidine/PF 20 MG/2 ML VIAL IVPUSH (12:46)
--- NOTE | 2020-09-16 12:50 | PC.NURSE ---
Addendum entered by Chloé French 09/16/20 13:25: pt has been sleeping since arrival, patient slept through ej placement Original Note: PT ATTEMPTED SEVERAL TIMES BY STAFF FOR IV ACCESS AND LAB WORK, BETWEEN PT REFUSING AND BEING A DIFFICULT STICK, DR LEYVA WAS ABLE TO OBTAIN A LEFT EJ, LABS SENT MEDS GIVEN ORDERED. PT IS DEMANDING IV DILATED, PROVIDER AWARE
[2020-09-16 12:59] LABS: Alanine Aminotransferase 43 U/L (0-40); Albumin Level 3.9 g/dL (3.5-5.0); Alkaline Phosphatase 110 U/L (39-117); Anion Gap 12 (12-20); Aspartate Amino Transferase 21 U/L (5-37); Bilirubin Direct < 0.2 mg/dL (0.0-0.5); Bilirubin Total < 0.2 mg/dL (0.0-1.0); Blood Urea Nitrogen 19 mg/dL (9-16); Calcium 9.1 mg/dL (8.4-10.2); Carbon Dioxide 27 mmol/L (22-29); Chloride 103 mmol/L (96-108); Creatinine Clr Calc Pharmacy 145.5; Estimated Glomerular Filt Rate > 60; Glucose Random 151 mg/dL (60-115); Lipase 39 U/L (8-78); Magnesium 2.1 mg/dL (1.6-2.6); Potassium 4.3 mmol/L (3.3-5.1); Sodium 138 mmol/L (135-145); Total Protein 6.8 g/dL (6.5-8.0)
[2020-09-16] MEDS: iohexoL 350 MG/ML 100 ML INFUS..BTL IV (14:29)
[2020-09-16] MEDS: Ketorolac Tromethamine 30 MG/ML VIAL IVPUSH (15:10)
== END 2020-09-16 16:36 | disposition home or self-care (01) ==
PROVIDERS: Nurse Practitioner Family; Emergency Provider Emergency Medicine
DX: R10.84 Generalized abdominal pain (principal); K59.00 Constipation, unspecified; R11.2 Nausea with vomiting, unspecified; Z76.5 Malingerer [conscious simulation]
CPT/HCPCS: 36415; 36569; 74177; 80048; 80076; 81003; 83690; 83735; 85025; 93005; 96361; 96374; 96375; 99284; 99285; J1885; J2405; Q9967

== ENCOUNTER → 2020-10-20 11:08 | Outpatient (BNVA) | payer OTHER, SELFPAY | PROVIDERS: Visit Provider Surgery | DX: E66.01 Morbid (severe) obesity due to excess calories (principal); Z68.42 Body mass index [BMI] 45.0-49.9, adult | CPT/HCPCS: 99202 ==

== ENCOUNTER → 2020-11-03 08:04 | Outpatient (BNVA) | payer OTHER, SELFPAY | PROVIDERS: Visit Provider Surgery | DX: E66.01 Morbid (severe) obesity due to excess calories (principal); Z68.42 Body mass index [BMI] 45.0-49.9, adult | CPT/HCPCS: 99212 ==

== ENCOUNTER 2020-11-07 10:14 | Emergency (ER) | payer OTHER, SELFPAY ==
--- NOTE | ~2020-11-07 | CT_ITS ---
EXAMINATION: CT ABDOMEN AND PELVIS WITHOUT CONTRAST CLINICAL INFORMATION: Two bouts of bloody stool and left-sided abdominal pain. COMPARISON: CT abdomen/pelvis 09/16/2020 TECHNIQUE: Multidetector volumetric imaging was performed from the superior aspect of the liver through the pubic symphysis. Sagittal and coronal reformatted images were obtained on the technologist's workstation. This CT examination was performed using dose optimization techniques as appropriate, variously including the following: *Automated exposure control *Adjustment of mA and/or kV according to patient size (this includes techniques or standardized protocols for targeted exams where dose is matched to indication/reason for exam; i.e. extremities or head) *Use of iterative reconstruction technique DLP: 1325 mGy-cm FINDINGS: LUNG BASES: There are mild atelectatic changes in both lung bases. The heart size is normal. LIVER, GALLBLADDER, AND BILIARY TREE: The liver is normal in size, shape, and attenuation. No focal hepatic lesion or biliary ductal dilatation is present. The gallbladder is not visualized. It was not visualized in the last exam, as well. PANCREAS: Unremarkable. SPLEEN: Unremarkable. ADRENAL GLANDS: Unremarkable. KIDNEYS AND URETERS: The kidneys are normal in size, shape, and attenuation. No hydronephrosis, hydroureter, or calculi seen. No perinephric stranding. BLADDER: Unremarkable. GASTROINTESTINAL TRACT: There is scattered stool and gas seen throughout the colon without any significant distention. The small bowel loops are normal caliber. The IC junction and the appendix are normal. The stomach is nondistended and appears unremarkable. No inflammatory process seen in the abdomen. There is no wall thickening. ABDOMINAL WALL: No significant hernia is appreciated. LYMPH NODES: Normal. VASCULAR: Unremarkable. PELVIC VISCERA: The prostate gland is normal size with central gland calcification. No free fluid. No abnormal pelvic or inguinal lymph nodes seen. OSSEOUS STRUCTURES: There is mild ventral spondylosis mid lumbar spine. No lytic or sclerotic process seen. There is moderate loss of bilateral hip joint space with subchondral cystic changes consistent with degenerative changes. CT/CT abdomen pelvis wo con IMPRESSION: No acute intra-abdominal process seen. Mild constipation. Normal appendix. No obstruction. Moderate degenerative changes bilateral hip joints.
[2020-11-07 10:23] VITALS: BP 118/72; PULSE 110; RESP 18; TEMP 36.8; O2SAT 96; BMI 47.5
--- NOTE | 2020-11-07 10:24 | ED_ITS ---
HPI - GI Bleed General Chief complaint: General Medical Stated complaint: gi bleed Time Seen by Provider: 11/07/20 10:24 Source: patient and EMS Mode of arrival: EMS Limitations: no limitations History of Present Illness HPI Narrative: 45 yo male with hx of obesity, diverticulosis, schizoaffective disorder here with LLQ pain and 2 bouts of bloody stools hx of diverticulosis no prior GIB not on ASA or AC therapy MD complaint: gross hematochezia Severity: moderate Relieving factors: none Exacerbating factors: none Context: other (diverticulosis) Associated symptoms: abdominal pain, nausea and other (has cough has been recently seen for bronchitis) Related Data Home Medications Medication Instructions Recorded Confirmed citalopram 20 mg tablet 20 mg PO DAILY 10/15/20 11/03/20 desmopressin 0.1 mg tablet 0.05 mg PO Q12H 10/15/20 11/03/20 metformin 1,000 mg tablet 1,000 mg PO BID 10/15/20 11/03/20 naproxen 500 mg tablet 500 mg PO BID 10/15/20 11/03/20 paliperidone palmitate 156 mg/mL 156 mg IM Q30D 10/15/20 11/03/20 intramuscular syringe topiramate 25 mg sprinkle capsule 25 mg PO BID 10/15/20 11/03/20 aluminum hydrox-magnesium carb 95 15 ml PO TID-QID PRN 10/20/20 11/03/20 mg-358 mg/15 mL oral suspension cyclobenzaprine 5 mg tablet 5 mg PO BEDTIME 10/20/20 11/03/20 famotidine 20 mg tablet 20 mg PO BEDTIME 10/20/20 11/03/20 nicotine (polacrilex) 2 mg gum 2 mg BUCCAL Q2H 10/20/20 11/03/20 omeprazole 10 mg capsule,delayed 20 mg PO BID cap 10/20/20 11/03/20 release ondansetron HCl 4 mg tablet 4 mg PO Q8H PRN 10/20/20 11/03/20 sucralfate 1 gram tablet 1 g PO QIDACHS 10/20/20 11/03/20 Previous Rx's Medication Instructions Recorded ondansetron HCl [Zofran] 4 mg PO Q6H PRN 3 Days #12 tab 07/28/20 amoxicillin-pot clavulanate 1 tab PO BID #14 tab 11/07/20 [Augmentin] hydrocodone-acetaminophen 1 tab PO Q6H PRN #12 tab 11/07/20 ondansetron 4 mg PO Q8H PRN #20 tab 11/07/20 prednisone 20 mg PO DAILY 5 Days #5 tab 11/07/20 Allergies Allergy/AdvReac Type Severity Reaction Status Date / Time shellfish derived Allergy Severe SWELLING Verified 11/03/20 10:53 [SHELLFISH DERIVED] WITH DIFFICULTY BREATHING haloperidol [From Haldol] Allergy Mild UNKNOWN Verified 11/03/20 10:53 pork derived (porcine) AdvReac Intermediate swelling Verified 11/03/20 10:53 garlic AdvReac Mild VOMITING Verified 11/03/20 10:53 Review of Systems Review of Systems: Constitutional : No Weight loss, No Fever, No Chills ENT/Mouth : No sore throat, No Rhinorrhea Eyes: No Swelling, No Redness Cardiovascular : No Chest Pain, No SOB, NoEdema Respiratory : No Cough, No Sputum, No Wheezing Gastrointestinal : Positive Nausea, no Vomiting, no Diarrhea, positive abdominal Pain, pos Hematochezia, No Melena Genitourinary : No Dysuria, No Urinary Frequency, No Hematuria, No Urgency Musculoskeletal : No joint pain, No Myalgias, No Joint Swelling Skin : No Skin Lesions, No rash Neuro : No Weakness, No Numbness, No Dizziness, No Headache Psych : No Anxiety/Panic, No Depression Heme/Lymph: No Bruising, No Lymphadenopathy Endocrine : No Polyuria, No Polydipsia All other systems reviewed and are negative. COUNTS INCLUDE 234 BEDS AT THE [facility] Past Medical History Attestation statement: The following information was validated with the patient. Medical History Anxiety Bipolar 1 disorder Degenerative disc disease Depression Diabetes Diverticulosis HTN (hypertension) Obese PTSD (post-traumatic stress disorder) Surgical History H/O elbow surgery History of surgery of head Hx of cholecystectomy Family History Family History Mother Hx of cholecystectomy Hypertension A-fib Father No problems noted. Brother No problems noted. Brother No problems noted. Son No problems noted. Social History Social History Alcohol intake: never Patient Tobacco Use Status: Current everyday Tobacco user Tobacco use type: Cigarette Cigarettes Per Day: 17 Substance Use Type: Marijuana Advance Directives: No Advance Directives Information Provided: No Physical Exam Vital Signs: Vital Signs: Last Vital Signs Temp 98.3 F 11/07/20 10:23 Pulse 114 H 11/07/20 10:41 Resp 18 11/07/20 10:23 BP 118/72 11/07/20 10:23 Pulse Ox 96 11/07/20 10:23 Body Mass Index 47.5 Appearance: Alert. Oriented X3. No acute distress. Eyes: Pupils equal, round and reactive to light. ENT: Pharynx normal. Neck: Normal inspection. Neck supple. CVS: Normal heart rate and rhythm. Pulses normal. Respiratory: No respiratory distress. Breath sounds diffuse mild end exp wheezes Abdomen: Soft and obese mild ttp in LLQ no rebound or guarding Rectal: brown stool Skin: Skin warm and dry. Normal skin color. Normal skin turgor. Extremities: No lower extremity edema. No calf ttp Neuro: Oriented X 3. No motor deficit. No sensory deficit. Course Course Course Narrative: H/H stable no bleeding while in ED - only 2 bouts at home, will DC home with augmentin and pain medications, referral to GI does not need admission or emergent scope he is tachy from [facility] MDM - GI Bleed MDM Narrative Medical decision making narrative: 45 yo male with hx of obesity, diverticulosis, schizoaffective disorder here with LLQ pain and 2 bouts of bloody stools hx of diverticulosis no prior GIB not on ASA or AC therapy at this time the patient will need labs, CT scan for diverticulitis, IV morphine for pain, dispo per results and findings. albuterol ordered for wheezing Lab Data Result diagrams: 11/07/20 10:49 11/07/20 10:49 Labs: Lab Results 11/07/20 11/07/20 11/07/20 Range/Units 10:39 10:49 10:49 WBC 11.8 H (4.8-10.8) X10*3/uL RBC 4.83 (4.60-5.80) X10*6/uL Hgb 13.5 L (14.0-18.0) g/dl Hct 40.7 L (42-52) % MCV 84.3 (80-98) fL MCH 28.0 (27.0-33.0) pg MCHC 33.2 (31.0-36.0) g/dl RDW 13.8 (11.0-16.0) % Plt Count 255 (160-400) X10*3/uL MPV 10.3 (9.4-12.4) fL Immature Gran % (Auto) 0.6 H (0.0-0.4) % Neut % (Auto) 73.9 H (45-73) % Lymph % (Auto) 15.0 L (20-40) % [place] % (Auto) 10.1 (2-11) % Eos % (Auto) 0.0 (0-4) % Baso % (Auto) 0.4 (0-2) % Lymph # (Auto) 1.8 (1.2-4.9) X10*3/uL [place] # (Auto) 1.2 (0.1-1.2) X10*3/uL Eos # (Auto) 0.0 (0.0-0.4) X10*3/uL Baso # (Auto) 0.1 (0.0-0.2) X10*3/uL Abs Immat Gran (auto) 0.07 H (0.00-0.03) X10*3/uL Absolute Neuts (auto) 8.7 H (2.0-8.3) X10*3/uL Absolute Nucleated RBC 0.000 (0.0-0.012) X10*3/uL Nucleated RBC % (auto) 0.0 (0.0-0.2) /100WBC Sodium 141 (135-145) mmol/L Potassium 4.6 (3.3-5.1) mmol/L Chloride 108 (96-108) mmol/L Carbon Dioxide 23 (22-29) mmol/L Anion Gap 15 (12-20) BUN 30 H D (9-16) mg/dL Creatinine 1.04 (0.5-1.4) mg/dL Estim Creat Clear Calc 125.2 Estimated GFR > 60 Random Glucose 166 H (60-115) mg/dL Lactic Acid (0.5-2.0) mmol/L Calcium 9.5 (8.4-10.2) mg/dL Magnesium (1.6-2.6) mg/dL Total Bilirubin (0.0-1.0) mg/dL Direct Bilirubin (0.0-0.5) mg/dL AST (5-37) U/L ALT (0-40) U/L Alkaline Phosphatase (39-117) U/L Total Protein (6.5-8.0) g/dL Albumin (3.5-5.0) g/dL Lipase (8-78) U/L Stool Occult Blood POSITIVE (NEGATIVE) 11/07/20 11/07/20 Range/Units 10:49 10:49 WBC (4.8-10.8) X10*3/uL RBC (4.60-5.80) X10*6/uL Hgb (14.0-18.0) g/dl Hct (42-52) % MCV (80-98) fL MCH (27.0-33.0) pg MCHC (31.0-36.0) g/dl RDW (11.0-16.0) % Plt Count (160-400) X10*3/uL MPV (9.4-12.4) fL Immature Gran % (Auto) (0.0-0.4) % Neut % (Auto) (45-73) % Lymph % (Auto) (20-40) % [place] % (Auto) (2-11) % Eos % (Auto) (0-4) % Baso % (Auto) (0-2) % Lymph # (Auto) (1.2-4.9) X10*3/uL [place] # (Auto) (0.1-1.2) X10*3/uL Eos # (Auto) (0.0-0.4) X10*3/uL Baso # (Auto) (0.0-0.2) X10*3/uL Abs Immat Gran (auto) (0.00-0.03) X10*3/uL Absolute Neuts (auto) (2.0-8.3) X10*3/uL Absolute Nucleated RBC (0.0-0.012) X10*3/uL Nucleated RBC % (auto) (0.0-0.2) /100WBC Sodium (135-145) mmol/L Potassium (3.3-5.1) mmol/L Chloride (96-108) mmol/L Carbon Dioxide (22-29) mmol/L Anion Gap (12-20) BUN (9-16) mg/dL Creatinine (0.5-1.4) mg/dL Estim Creat Clear Calc Estimated GFR Random Glucose (60-115) mg/dL Lactic Acid 1.9 (0.5-2.0) mmol/L Calcium (8.4-10.2) mg/dL Magnesium 1.9 (1.6-2.6) mg/dL Total Bilirubin 0.3 (0.0-1.0) mg/dL Direct Bilirubin < 0.2 (0.0-0.5) mg/dL AST 14 (5-37) U/L ALT 11 (0-40) U/L Alkaline Phosphatase 98 (39-117) U/L Total Protein 6.7 (6.5-8.0) g/dL Albumin 3.8 (3.5-5.0) g/dL Lipase 45 (8-78) U/L Stool Occult Blood (NEGATIVE) Discharge Plan Discharge Clinical Impression: Diverticulosis, Bronchitis GIB (gastrointestinal bleeding) Qualifiers: GI bleed type/associated pathology: unspecified gastrointestinal hemorrhage type Qualified Code(s): K92.2 - Gastrointestinal hemorrhage, unspecified Patient Disposition: Home, Self-Care Instructions: Gastrointestinal Bleeding (ED), Diverticulosis (ED), Acute Bronchitis (ED) Additional Instructions: return to ED for any worsening symptoms or concerns avoid aspirin, motrin, aleve, ibuprofen Prescriptions: New hydrocodone-acetaminophen 5-325 mg tablet 1 tab PO Q6H PRN (Reason: pain) Qty: 12 RF: 0 prednisone 20 mg tablet 20 mg PO DAILY 5 Days Qty: 5 RF: 0 ondansetron 4 mg tablet,disintegrating 4 mg PO Q8H PRN (Reason: nausea and vomiting) Qty: 20 RF: 0 amoxicillin-pot clavulanate [Augmentin] 875-125 mg tablet 1 tab PO BID Qty: 14 RF: 0 No Action ondansetron HCl [Zofran] 4 mg tablet 4 mg PO Q6H PRN (Reason: nausea and vomiting) 3 Days Qty: 12 RF: 0 desmopressin 0.1 mg tablet 0.05 mg PO Q12H RF: 0 naproxen [Naprosyn] 500 mg tablet 500 mg PO BID RF: 0 metformin 1,000 mg tablet 1,000 mg PO BID RF: 0 citalopram 20 mg tablet 20 mg PO DAILY RF: 0 Invega Sustenna 156 mg/mL syringe 156 mg IM Q30D RF: 0 topiramate 25 mg capsule, sprinkle 25 mg PO BID RF: 0 cyclobenzaprine 5 mg tablet 5 mg PO BEDTIME RF: 0 aluminum hydrox-magnesium carb 95-358 mg/15 mL suspension 15 ml PO TID-QID PRNRF: 0 nicotine (polacrilex) 2 mg gum 2 mg buccal Q2H RF: 0 famotidine 20 mg tablet 20 mg PO BEDTIME RF: 0 sucralfate 1 gram tablet 1 g PO QIDACHS RF: 0 omeprazole 10 mg capsule,delayed release(DR/EC) 20 mg PO BID RF: 0 ondansetron HCl 4 mg tablet 4 mg PO Q8H PRNRF: 0 Referrals: Physician,Unknown [Primary Care Provider] - 2 days (call PCP)
[2020-11-07] MEDS: Albuterol Sulfate (0.083%) 2.5 MG/3 ML VIAL.NEB INHALE (10:40)
[2020-11-07 10:41] VITALS: PULSE 114; O2SAT 96
[2020-11-07 10:55] LABS: MANUAL DIFF FLAG NO
[2020-11-07 10:56] LABS: Basophils Absolute Auto 0.1 X10*3/uL (0.0-0.2); Basophils Percent Auto 0.4 % (0-2); Hematocrit 40.7 % (42-52); Hemoglobin 13.5 g/dl (14.0-18.0); Imm Gran Abs Auto 0.07 X10*3/uL (0.00-0.03); Imm Gran Pct Auto 0.6 % (0.0-0.4); Lymphocytes Absolute Auto 1.8 X10*3/uL (1.2-4.9); Mean Corpuscular HGB Conc 33.2 g/dl (31.0-36.0); Mean Corpuscular Volume 84.3 fL (80-98); Mean Platelet Volume 10.3 fL (9.4-12.4); Monocytes Absolute Auto 1.2 X10*3/uL (0.1-1.2); Monocytes Percent Auto 10.1 % (2-11); Neutrophils Absolute Auto 8.7 X10*3/uL (2.0-8.3); Neutrophils Percent Auto 73.9 % (45-73); Platelet Count 255 X10*3/uL (160-400); Red Blood Count 4.83 X10*6/uL (4.60-5.80); Red Cell Distribution Width 13.8 % (11.0-16.0); White Blood Count 11.8 X10*3/uL (4.8-10.8)
[2020-11-07 11:04] LABS: OBS1 POSITIVE (NEGATIVE)
[2020-11-07 11:05] LABS: OBS Int Ctl Valid YES
[2020-11-07] MEDS: ondansetron HCL 4 MG/2 ML VIAL IVPUSH (11:17)
[2020-11-07] MEDS: Morphine Sulfate 4 MG/ML CARTRIDGE IVPUSH (11:17)
[2020-11-07] MEDS: diphenhydrAMINE HCL 50 MG/ML VIAL 25 MG IVPUSH (11:18)
[2020-11-07 11:19] LABS: Lactic Acid 1.9 mmol/L (0.5-2.0)
[2020-11-07 11:22] LABS: Anion Gap 15 (12-20); Blood Urea Nitrogen 30 mg/dL (9-16); Calcium 9.5 mg/dL (8.4-10.2); Carbon Dioxide 23 mmol/L (22-29); Chloride 108 mmol/L (96-108); Creatinine Clr Calc Pharmacy 125.2; Estimated Glomerular Filt Rate > 60; Glucose Random 166 mg/dL (60-115); Potassium 4.6 mmol/L (3.3-5.1); Sodium 141 mmol/L (135-145)
[2020-11-07 11:25] LABS: Alanine Aminotransferase 11 U/L (0-40); Albumin Level 3.8 g/dL (3.5-5.0); Alkaline Phosphatase 98 U/L (39-117); Aspartate Amino Transferase 14 U/L (5-37); Bilirubin Direct < 0.2 mg/dL (0.0-0.5); Bilirubin Total 0.3 mg/dL (0.0-1.0); Lipase 45 U/L (8-78); Magnesium 1.9 mg/dL (1.6-2.6); Total Protein 6.7 g/dL (6.5-8.0)
[2020-11-07] MEDS: Amoxicillin/Potassium Clav 875 MG TABLET PO (13:34)
--- NOTE | 2020-11-07 13:43 | PC.NURSE ---
patient medicated per order, discharge was reviewed with patient, ed hospital secretary securing transportation back to senior living.
== END 2020-11-07 14:57 | disposition home or self-care (01) ==
PROVIDERS: Emergency Provider Emergency Medicine
DX: K92.2 Gastrointestinal hemorrhage, unspecified (principal); K57.90 Diverticulosis of intestine, part unspecified, without perforation or abscess without bleeding; J40 Bronchitis, not specified as acute or chronic; E11.9 Type 2 diabetes mellitus without complications; I10 Essential (primary) hypertension; Z79.84 Long term (current) use of oral hypoglycemic drugs; Z79.899 Other long term (current) drug therapy
CPT/HCPCS: 36415; 74176; 80048; 80076; 82272; 83605; 83690; 83735; 85025; 87040; 94640; 96374; 96375; 99283; 99284; J1200; J2270; J2405

== ENCOUNTER 2020-11-16 05:54 | Emergency (ER) | payer OTHER, SELFPAY ==
--- NOTE | ~2020-11-16 | CT_ITS ---
EXAMINATION: CT ABDOMEN AND PELVIS WITHOUT CONTRAST CLINICAL INFORMATION: Right flank pain COMPARISON: 11/07/20 TECHNIQUE: Multidetector volumetric imaging was performed from the superior aspect of the liver through the pubic symphysis. Sagittal and coronal reformatted images were obtained on the technologist's workstation. This CT examination was performed using dose optimization techniques as appropriate, variously including the following: *Automated exposure control *Adjustment of mA and/or kV according to patient size (this includes techniques or standardized protocols for targeted exams where dose is matched to indication/reason for exam; i.e. extremities or head) *Use of iterative reconstruction technique DLP: 1505 mGy-cm FINDINGS: Digital Molding Technician: Gas and fecal residue throughout the colon to level of the rectum. No significant small bowel distention. There is some pleural reaction in the right lower chest. I suspect some lower right rib deformities. Arthritic changes around both hips. LUNG BASES: There is a small amount of pericardial fluid or thickening anteriorly. This is similar to 11/07/20. No suspicious abnormality in the visualized lower chest. LIVER, GALLBLADDER, AND BILIARY TREE: The liver contour appears smooth. No focal lesion. The gallbladder is not demonstrated and may be surgically absent. There is no biliary dilation. PANCREAS: No suspicious abnormality SPLEEN: Within normal limits ADRENAL GLANDS: Within normal limits KIDNEYS AND URETERS: There is no dilation of the urinary collecting system on either side. There is no opaque urinary calculus. No suspicious renal mass. BLADDER: Within normal limits GASTROINTESTINAL TRACT: Gas and fecal residue throughout the colon. No localized colonic wall thickening. No pericolonic fat stranding. The appendix is normal. There is no significant small bowel dilation. ABDOMINAL WALL: There are vascular collaterals in the lower abdominal wall. No significant hernia demonstrated. LYMPH NODES: There are no measurably enlarged abdominal or pelvic lymph nodes. There is no fringe peritoneal fluid. VASCULAR: There is no abdominal aortic aneurysm. PELVIC VISCERA: The uterus is not visualized and is likely surgically absent. No suspicious adnexal mass or collection. OSSEOUS STRUCTURES: Severe arthritic changes involving both femoral acetabular joints. There is an unchanged mild irregularity involving the superior endplate of S1 on the right. This is of uncertain if any significance. CT/CT abdomen pelvis wo con IMPRESSION: No evidence of urinary, biliary or GI tract obstruction. No abscess. No suspicious interval change
[2020-11-16 05:59] VITALS: BP 123/81; BP 150/100; PULSE 104; PULSE 112; RESP 18; TEMP 36.8; O2SAT 95; O2SAT 97; BMI 48.6
--- NOTE | 2020-11-16 06:14 | ED_ITS ---
HPI - Abdominal Pain General Chief Complaint: Abdominal Pain Stated Complaint: Abdominal pain x4 hours Time Seen by Provider: 11/16/20 06:04 Source: patient Mode of arrival: EMS Limitations: no limitations History of Present Illness HPI narrative: Patient comes emergency room complaining of right-sided flank pain. Patient states 4 hours ago he was sleeping, he woke up by a very sharp stabbing pain in the right flank. Patient states since then he has been having this pain. Complaining of nausea, no vomiting had 1 episode of diarrhea. MD elicited complaint: flank pain Related Data Home Medications Medication Instructions Recorded Confirmed citalopram 20 mg tablet 20 mg PO DAILY 10/15/20 11/03/20 desmopressin 0.1 mg tablet 0.05 mg PO Q12H 10/15/20 11/03/20 metformin 1,000 mg tablet 1,000 mg PO BID 10/15/20 11/03/20 naproxen 500 mg tablet 500 mg PO BID 10/15/20 11/03/20 paliperidone palmitate 156 mg/mL 156 mg IM Q30D 10/15/20 11/03/20 intramuscular syringe topiramate 25 mg sprinkle capsule 25 mg PO BID 10/15/20 11/03/20 aluminum hydrox-magnesium carb 95 15 ml PO TID-QID PRN 10/20/20 11/03/20 mg-358 mg/15 mL oral suspension cyclobenzaprine 5 mg tablet 5 mg PO BEDTIME 10/20/20 11/03/20 famotidine 20 mg tablet 20 mg PO BEDTIME 10/20/20 11/03/20 nicotine (polacrilex) 2 mg gum 2 mg BUCCAL Q2H 10/20/20 11/03/20 omeprazole 10 mg capsule,delayed 20 mg PO BID cap 10/20/20 11/03/20 release ondansetron HCl 4 mg tablet 4 mg PO Q8H PRN 10/20/20 11/03/20 sucralfate 1 gram tablet 1 g PO QIDACHS 10/20/20 11/03/20 Previous Rx's Medication Instructions Recorded ondansetron HCl [Zofran] 4 mg PO Q6H PRN 3 Days #12 tab 07/28/20 amoxicillin-pot clavulanate 1 tab PO BID #14 tab 11/07/20 [Augmentin] hydrocodone-acetaminophen 1 tab PO Q6H PRN #12 tab 11/07/20 ondansetron 4 mg PO Q8H PRN #20 tab 11/07/20 prednisone 20 mg PO DAILY 5 Days #5 tab 11/07/20 Allergies Allergy/AdvReac Type Severity Reaction Status Date / Time fish derived [fish] Allergy Severe Anaphylaxis Verified 11/16/20 06:06 shellfish derived Allergy Severe SWELLING Verified 11/03/20 10:53 [SHELLFISH DERIVED] WITH DIFFICULTY BREATHING haloperidol [From Haldol] Allergy Mild UNKNOWN Verified 11/03/20 10:53 pork derived (porcine) AdvReac Intermediate swelling Verified 11/03/20 10:53 garlic AdvReac Mild VOMITING Verified 11/03/20 10:53 Review of Systems Review of Systems Constitutional : No Weight loss, No Fever, No Chills, No Night Sweats, No Fatigue, No Malaise ENT/Mouth : No Hearing loss, No Ear Pain, No Nasal Congestion, No Sinus Pain, No Hoarseness, No sore throat, No Rhinorrhea, No Swallowing Difficulty Eyes: No Eye Pain, No Swelling, No Redness, No Foreign Body, No Discharge, No Vision Changes Cardiovascular : No Chest Pain, No SOB, No Dyspnea on Exertion, No Orthopnea, No Edema, No Palpitations Respiratory : No Cough, No Sputum, No Wheezing, No Smoke Exposure, No Dyspnea Gastrointestinal : Complaining of Nausea, No Vomiting, No Diarrhea, No Constipation, complaining of mild right lower quadrant pain, complaining of right flank pain No Hematochezia, No Melena Genitourinary : no irregular bleeding, No Dysuria, No Urinary Frequency, No Hematuria, No Urinary Incontinence, No Urgency, complaining of right flank pain , No Urinary Flow Changes, No Hesitancy Musculoskeletal : No joint pain, No Myalgias, No Joint Swelling Skin : No Skin Lesions, No rash Neuro : No Weakness, No Numbness, No Paresthesias, No Loss of Consciousness, No Dizziness, No Headache Psych : No Anxiety/Panic, No Depression, No SI/HI/AH/VH, No Social Issues, Heme/Lymph: No Bruising, No Bleeding,No Lymphadenopathy Endocrine : No Polyuria, No Polydipsia, No Temperature Intolerance Physical Exam Vital Signs: Vital Signs: Last Vital Signs Temp 98.3 F 11/16/20 05:59 Pulse 104 H 11/16/20 05:59 Resp 18 11/16/20 05:59 BP 123/81 11/16/20 05:59 Pulse Ox 95 11/16/20 05:59 Body Mass Index 48.6 Appearance: Alert. Oriented X3. No acute distress. Eyes: Pupils equal, round and reactive to light. ENT: Pharynx normal. Neck: Normal inspection. Neck supple. No lymph nodes noted. No crepitus CVS: Normal heart rate and rhythm. Pulses normal. Normal S1 and S2 Respiratory: No respiratory distress. Breath sounds normal. No Wheezing. No rales Abdomen: Soft , mild tenderness to palpation over the right lower quadrant, positive CVA tenderness right side No rigidity. No distention Skin: Skin warm and dry. Normal skin color. Normal skin turgor. Extremities: No lower extremity edema. No lower extremity edema. No Lacerations. No Rash Neuro: Oriented X 3. No motor deficit. No sensory deficit. Moving all extermities. No slurred speech. Course Course Course Narrative: All the labs and CT scan pending. Patient likely having renal colic versus appendicitis. Sign-out given to Dr. Montoya [facility] - Abdominal Pain Lab Data Result diagrams: 11/16/20 06:29 11/16/20 06:29 Discharge Plan Discharge Prescriptions: No Action hydrocodone-acetaminophen 5-325 mg tablet 1 tab PO Q6H PRN (Reason: pain) Qty: 12 RF: 0 prednisone 20 mg tablet 20 mg PO DAILY 5 Days Qty: 5 RF: 0 ondansetron 4 mg tablet,disintegrating 4 mg PO Q8H PRN (Reason: nausea and vomiting) Qty: 20 RF: 0 amoxicillin-pot clavulanate [Augmentin] 875-125 mg tablet 1 tab PO BID Qty: 14 RF: 0 ondansetron HCl [Zofran] 4 mg tablet 4 mg PO Q6H PRN (Reason: nausea and vomiting) 3 Days Qty: 12 RF: 0 desmopressin 0.1 mg tablet 0.05 mg PO Q12H RF: 0 naproxen [Naprosyn] 500 mg tablet 500 mg PO BID RF: 0 metformin 1,000 mg tablet 1,000 mg PO BID RF: 0 citalopram 20 mg tablet 20 mg PO DAILY RF: 0 Invega Sustenna 156 mg/mL syringe 156 mg IM Q30D RF: 0 topiramate 25 mg capsule, sprinkle 25 mg PO BID RF: 0 cyclobenzaprine 5 mg tablet 5 mg PO BEDTIME RF: 0 aluminum hydrox-magnesium carb 95-358 mg/15 mL suspension 15 ml PO TID-QID PRNRF: 0 nicotine (polacrilex) 2 mg gum 2 mg buccal Q2H RF: 0 famotidine 20 mg tablet 20 mg PO BEDTIME RF: 0 sucralfate 1 gram tablet 1 g PO QIDACHS RF: 0 omeprazole 10 mg capsule,delayed release(DR/EC) 20 mg PO BID RF: 0 ondansetron HCl 4 mg tablet 4 mg PO Q8H PRNRF: 0 PMFSH Past Medical History Medical History Anxiety Bipolar 1 disorder Degenerative disc disease Depression Diabetes Diabetes type 2, controlled Diverticulosis Hip problem HTN (hypertension) Obese Osteoarthritis PTSD (post-traumatic stress disorder) Surgical History H/O elbow surgery History of surgery of head Hx of cholecystectomy Family History Family History Mother Hx of cholecystectomy Hypertension A-fib Father No problems noted. Brother No problems noted. Brother No problems noted. Son No problems noted. Social History Social History Alcohol intake: never Patient Tobacco Use Status: Current everyday Tobacco user Tobacco use type: Cigarette Cigarettes Per Day: 17 Substance Use Type: Marijuana Advance Directives: No Advance Directives Information Provided: Yes
[2020-11-16 06:35] LABS: MANUAL DIFF FLAG NO
[2020-11-16 06:41] LABS: Basophils Percent Auto 0.4 % (0-2); Hematocrit 45.1 % (42-52); Hemoglobin 14.4 g/dl (14.0-18.0); Imm Gran Abs Auto 0.05 X10*3/uL (0.00-0.03); Imm Gran Pct Auto 0.5 % (0.0-0.4); Lymphocytes Absolute Auto 1.3 X10*3/uL (1.2-4.9); Lymphocytes Percent Auto 12.4 % (20-40); Mean Corpuscular HGB Conc 31.9 g/dl (31.0-36.0); Mean Corpuscular Hemoglobin 27.1 pg (27.0-33.0); Mean Corpuscular Volume 84.9 fL (80-98); Mean Platelet Volume 10.2 fL (9.4-12.4); Monocytes Percent Auto 10.3 % (2-11); Neutrophils Absolute Auto 7.7 X10*3/uL (2.0-8.3); Neutrophils Percent Auto 76.4 % (45-73); Platelet Count 277 X10*3/uL (160-400); Red Blood Count 5.31 X10*6/uL (4.60-5.80); Red Cell Distribution Width 14.1 % (11.0-16.0); White Blood Count 10.1 X10*3/uL (4.8-10.8)
[2020-11-16 07:00] LABS: Alanine Aminotransferase 12 U/L (0-40); Albumin Level 3.8 g/dL (3.5-5.0); Alkaline Phosphatase 87 U/L (39-117); Anion Gap 12 (12-20); Aspartate Amino Transferase 16 U/L (5-37); Bilirubin Direct 0.2 mg/dL (0.0-0.5); Bilirubin Total 0.3 mg/dL (0.0-1.0); Blood Urea Nitrogen 28 mg/dL (9-16); Calcium 9.4 mg/dL (8.4-10.2); Carbon Dioxide 23 mmol/L (22-29); Chloride 109 mmol/L (96-108); Creatinine Clr Calc Pharmacy 144.9; Estimated Glomerular Filt Rate > 60; Glucose Random 105 mg/dL (60-115); Lipase 28 U/L (8-78); Potassium 4.4 mmol/L (3.3-5.1); Sodium 140 mmol/L (135-145); Total Protein 6.9 g/dL (6.5-8.0)
--- NOTE | 2020-11-16 07:28 | PC.NURSE ---
pt with complaint of right flank pain. states it hurst when he coughs. Meds ordered; patient with challenging IV access. 1st IV inflitated per reporting RN. 2nd attempt failed.Hot packs applied in anticipation of obtaining access.
[2020-11-16] MEDS: Ketorolac Tromethamine 60 MG/2 ML VIAL IM (08:37)
[2020-11-16 08:48] LABS: Glucose Urine UA NEG (NEG); Leukocyte Esterase Urine NEG (NEG); Nitrite Urine NEG (NEG); PH 6.5 (5.0-8.0); Specific Gravity - Urine 1.015 (1.005-1.025); Urine Blood NEG (NEG); Urine Ketones NEG (NEG); Urine Protein NEG (NEG-TRACE)
[2020-11-16 08:49] LABS: Appearance Urine CLEAR; Color Urine YELLOW
== END 2020-11-16 09:40 | disposition home or self-care (01) ==
PROVIDERS: Emergency Provider Emergency Medicine
DX: M54.9 Dorsalgia, unspecified (principal); R10.31 Right lower quadrant pain
CPT/HCPCS: 36415; 74176; 80048; 80076; 81003; 83690; 85025; 96372; 96374; 99283; 99284; J1885

== ENCOUNTER → 2020-11-19 08:04 | Outpatient (BNVA) | payer OTHER, SELFPAY | PROVIDERS: Visit Provider Dietitian, Registered ==

== ENCOUNTER 2020-11-19 18:53 | Emergency (ER) | payer OTHER, SELFPAY ==
[2020-11-19 19:07] VITALS: BP 134/79; PULSE 93; RESP 18; TEMP 37.3; O2SAT 99; BMI 53.8
[2020-11-19 19:11] VITALS: BP 134/79; PULSE 94; RESP 18; TEMP 37.3; O2SAT 95
[2020-11-19 19:21] LABS: Glucose, Whole Blood 164 mg/dL (60-115)
--- NOTE | 2020-11-19 19:35 | ED.MEDCLEAR ---
HPI - Medical Clearance General Chief complaint: Medical Clearance Stated complaint: MED CLEARANCE Time Seen by Provider: 11/19/20 19:35 History of Present Illness HPI Narrative: Patient is a 45-year-old male going to rehab. On the way to rehab patient drank 2 cups of coffee. [place] nauseous got car sick vomited. Their care home felt that patient needs to be medically cleared prior to them accepting the patient again. He was brought to [facility] for further evaluation. Patient at this time is no longer nauseous. He is extremely hungry. He asked for sandwich. He wanted real zulay larissa he denies having any fever chills. No abdominal pain no nausea no vomiting. No dizziness. Patient has chronic pain to his hips. He is due for surgery in January. Patient is going to rehab to help strengthen his hips. Related Information Home Medications Medication Instructions Recorded Confirmed citalopram 20 mg tablet 20 mg PO DAILY 10/15/20 11/03/20 desmopressin 0.1 mg tablet 0.05 mg PO Q12H 10/15/20 11/03/20 metformin 1,000 mg tablet 1,000 mg PO BID 10/15/20 11/03/20 naproxen 500 mg tablet (Naprosyn) 500 mg PO BID 10/15/20 11/03/20 paliperidone palmitate 156 mg/mL 156 mg IM Q30D 10/15/20 11/03/20 intramuscular syringe (Invega Sustenna) topiramate 25 mg sprinkle capsule 25 mg PO BID 10/15/20 11/03/20 aluminum hydrox-magnesium carb 95 15 ml PO TID-QID PRN 10/20/20 11/03/20 mg-358 mg/15 mL oral suspension cyclobenzaprine 5 mg tablet 5 mg PO BEDTIME 10/20/20 11/03/20 famotidine 20 mg tablet 20 mg PO BEDTIME 10/20/20 11/03/20 nicotine (polacrilex) 2 mg gum 2 mg BUCCAL Q2H 10/20/20 11/03/20 omeprazole 10 mg capsule,delayed 20 mg PO BID cap 10/20/20 11/03/20 release ondansetron HCl 4 mg tablet 4 mg PO Q8H PRN 10/20/20 11/03/20 sucralfate 1 gram tablet 1 g PO QIDACHS 10/20/20 11/03/20 Previous Rx's Medication Instructions Recorded ondansetron HCl 4 mg tablet 4 mg PO Q6H PRN 3 Days #12 tab 07/28/20 (Zofran) amoxicillin 875 mg-potassium 1 tab PO BID #14 tab 11/07/20 clavulanate 125 mg tablet (Augmentin) hydrocodone 5 mg-acetaminophen 325 1 tab PO Q6H PRN #12 tab 11/07/20 mg tablet ondansetron 4 mg disintegrating 4 mg PO Q8H PRN #20 tab 11/07/20 tablet prednisone 20 mg tablet 20 mg PO DAILY 5 Days #5 tab 11/07/20 cyclobenzaprine 10 mg tablet 10 mg PO TID #10 tab 11/16/20 naproxen 500 mg tablet (Naprosyn) 500 mg PO BID #20 tab 11/16/20 Allergies Allergy/AdvReac Type Severity Reaction Status Date / Time fish derived [fish] Allergy Severe Anaphylaxis Verified 11/16/20 06:06 shellfish derived Allergy Severe SWELLING Verified 11/03/20 10:53 [SHELLFISH DERIVED] WITH DIFFICULTY BREATHING haloperidol [From Haldol] Allergy Mild UNKNOWN Verified 11/03/20 10:53 pork derived (porcine) AdvReac Intermediate swelling Verified 11/03/20 10:53 garlic AdvReac Mild VOMITING Verified 11/03/20 10:53 Review of Systems Review of Systems: No fever no chills no chest pain or shortness breath no cough no congestion or upper respiratory symptoms. Patient is vaccinated. Yes all other systems are reviewed and are negative PMFSH Past Medical History Attestation statement: The following information was validated with the patient. Medical History Anxiety Bipolar 1 disorder Degenerative disc disease Depression Diabetes Diabetes type 2, controlled Diverticulosis Hip problem HTN (hypertension) Obese Osteoarthritis PTSD (post-traumatic stress disorder) Surgical History H/O elbow surgery History of surgery of head Hx of cholecystectomy Family History Family History Mother Hx of cholecystectomy Hypertension A-fib Father No problems noted. Brother No problems noted. Brother No problems noted. Son No problems noted. Social History Social History Alcohol intake: current Patient Tobacco Use Status: Current everyday Tobacco user Tobacco use type: Cigarette Cigarettes Per Day: 17 Smoked in Last 30 Days: Yes Use of substances other than those prescribed or required for medical reasons: No Substance Use Type: Marijuana Advance Directives: No Advance Directives Information Provided: Yes Physical Exam Vital Signs: Vital Signs: Last Vital Signs Temp 99.1 F 11/19/20 19:11 Pulse 94 11/19/20 19:11 Resp 18 11/19/20 19:11 BP 134/79 11/19/20 19:11 Pulse Ox 95 11/19/20 19:11 Body Mass Index 53.8 Appearance: Alert. Oriented X3. No acute distress. Eyes: Pupils equal, round and reactive to light. ENT: Pharynx normal. Neck: Normal inspection. Neck supple. No lymph nodes noted. No crepitus CVS: Normal heart rate and rhythm. Pulses normal. Normal S1 and S2 Respiratory: No respiratory distress. Breath sounds normal. No Wheezing. No rales Abdomen: Soft and nontender. No rigidity. No distention. good BS x4 Skin: Skin warm and dry. Normal skin color. Normal skin turgor. Extremities: No lower extremity edema. Neurovascular intact to all extremities. No Lacerations. No Rash Neuro: Oriented X 3. No motor deficit. No sensory deficit. Moving all extermities. No slurred speech MDM - Medical Clearance MDM Narrative Medical decision making narrative: Patient is well-appearing no acute distress. Sugar is in the right 150 range. He is extremely hungry patient was given a sandwich in the emergency department. Given diet zulay larissa. He tolerated it without any difficulty. We will contact the care home/rehab to take patient back. Currently in stable condition. Repeat abdominal exam is soft nontender nondistended. Lab Data Labs: Lab Results 11/19/20 Range/Units 19:19 POC Glucose 164 H (60-115) mg/dL Discharge Plan Discharge Clinical Impression: Obese, Vomiting Patient Disposition: Home, Self-Care Instructions: Motion Sickness (ED) Prescriptions: No Action hydrocodone-acetaminophen 5-325 mg tablet 1 tab PO Q6H PRN (Reason: pain) Qty: 12 RF: 0 prednisone 20 mg tablet 20 mg PO DAILY 5 Days Qty: 5 RF: 0 ondansetron 4 mg tablet,disintegrating 4 mg PO Q8H PRN (Reason: nausea and vomiting) Qty: 20 RF: 0 amoxicillin-pot clavulanate [Augmentin] 875-125 mg tablet 1 tab PO BID Qty: 14 RF: 0 cyclobenzaprine 10 mg tablet 10 mg PO TID Qty: 10 RF: 0 naproxen [Naprosyn] 500 mg tablet 500 mg PO BID Qty: 20 RF: 0 ondansetron HCl [Zofran] 4 mg tablet 4 mg PO Q6H PRN (Reason: nausea and vomiting) 3 Days Qty: 12 RF: 0 desmopressin 0.1 mg tablet 0.05 mg PO Q12H RF: 0 naproxen [Naprosyn] 500 mg tablet 500 mg PO BID RF: 0 metformin 1,000 mg tablet 1,000 mg PO BID RF: 0 citalopram 20 mg tablet 20 mg PO DAILY RF: 0 Invega Sustenna 156 mg/mL syringe 156 mg IM Q30D RF: 0 topiramate 25 mg capsule, sprinkle 25 mg PO BID RF: 0 cyclobenzaprine 5 mg tablet 5 mg PO BEDTIME RF: 0 aluminum hydrox-magnesium carb 95-358 mg/15 mL suspension 15 ml PO TID-QID PRNRF: 0 nicotine (polacrilex) 2 mg gum 2 mg buccal Q2H RF: 0 famotidine 20 mg tablet 20 mg PO BEDTIME RF: 0 sucralfate 1 gram tablet 1 g PO QIDACHS RF: 0 omeprazole 10 mg capsule,delayed release(DR/EC) 20 mg PO BID RF: 0 ondansetron HCl 4 mg tablet 4 mg PO Q8H PRNRF: 0 Referrals: Physician,Unknown [Primary Care Provider] - 2 days
[2020-11-19 20:00] VITALS: RESP 18
--- NOTE | 2020-11-19 20:53 | PC.NURSE ---
RN MATHEW MADE THIS NURSE AWARE [facility] WAS REFUSING TO TAKE PT BACK. CHARGE NURSE I SPOKE TO LENS MOLDING EQUIPMENT OPERATOR LUIS ENRIQUE WHO HAD SPOKEN W/ [facility]. PT DOES HAVE AN APT THAT HE HAS BEEN GOING TO AND FROM THIS PAST WEEK. PT DOES HAVE KEYS, AND IS AGREEABLE TO GO BACK TO APT W/PLAN TO RE-EVAL IF [facility] IS NEEDED TOMORROW MORNING. LUIS ENRIQUE STATES PT IS AT THE [facility] A STEP DOWN W/THE PLAN TO PERMANENTLY RESIDE IN HIS APPT. [facility] WORKING ON TRANSPORTATION FOR PT, IF UNABLE TO OBTAIN PT DOES QUALIFY FOR AMBULACE [place] HOME D/T COMORBDITIES
[2020-11-19 22:00] VITALS: RESP 18
--- NOTE | 2020-11-19 22:01 | PC.NURSE ---
PT STATED TO THIS RN, I'M GOING TO VOMIT. WHEN SAT UP IN BED FUCKING PUT ME DOWN I DON'T WANT THIS FUCK YOU PT EDUCATED THAT SITTING UP IS TO PROMOTE AIRWAY CLEARANCE. PT CONTINUES TO BE VERBALLY AGRESSIVE TO THIS ART HISTORIAN AND OTHER STAFF AFTER EDUCATION. PT INSISTED TO LAY BACK DOWN AND THEN PRECEEDED TO SAY FUCK YOU BITCH .
== END 2020-11-19 22:19 | disposition home or self-care (01) ==
PROVIDERS: Emergency Provider Emergency Medicine Emergency Medical Services
DX: R11.10 Vomiting, unspecified (principal); E66.01 Morbid (severe) obesity due to excess calories; Z68.42 Body mass index [BMI] 45.0-49.9, adult
CPT/HCPCS: 82947; 99282; 99284

== ENCOUNTER 2020-12-01 17:46 | Emergency (ER) | payer OTHER, SELFPAY ==
--- NOTE | ~2020-12-01 | XR_ITS ---
EXAMINATION: XR BILATERAL HIPS WITH AP PELVIS CLINICAL INFORMATION: Hip pain. COMPARISON: CT dated 11/16/2020 TECHNIQUE: AP and frog-leg lateral views of each hip and an AP view of the pelvis. FINDINGS: Severe, end-stage degenerative arthritis is present in both hips, characterized by severe cephalad joint space narrowing, articular surface remodeling, atherosclerosis, marginal osteophytes, and osseous fragmentation. This appearance is similar to the prior study from 11/16/2020. No fractures are identified. Pubic symphysis and SI joints appear relatively well-preserved. Phleboliths are present in the pelvis. Soft tissues are otherwise unremarkable. XR/XR hip BI w PEL1V IMPRESSION: Severe end-stage osteoarthritis in both hips, unchanged from prior. No new findings.
[2020-12-01 18:39] VITALS: BP 150/82; PULSE 110; RESP 16; TEMP 36.9; O2SAT 97; BMI 48.6
--- NOTE | 2020-12-01 18:46 | ED_ITS ---
HPI - General Adult General Chief complaint: General Medical Stated complaint: lower back pain, no injury Time Seen by Provider: 12/01/20 18:39 History of Present Illness HPI narrative: PATIENT IS A 45-YEAR-OLD MALE WITH A HISTORY OF degenerative joint disease in bilateral hips. Complaining of back pain and hip pain that is chronic. No new bowel urinary incontinence. No focal weakness. Patient normally is on Flexeril, steroids, NSAIDs for this pain. Patient ran out of his medication. Denies any fever chills. No coughing or congestion or upper respiratory symptoms. Patient denies any focal weakness. Pain worsen with movement. Patient states that he needs a new hip. This pain is very similar to previous episodes which has brought him to the emergency department in the past. Related Data Home Medications Medication Instructions Recorded Confirmed citalopram 20 mg tablet 20 mg PO DAILY 10/15/20 11/03/20 desmopressin 0.1 mg tablet 0.05 mg PO Q12H 10/15/20 11/03/20 metformin 1,000 mg tablet 1,000 mg PO BID 10/15/20 11/03/20 naproxen 500 mg tablet (Naprosyn) 500 mg PO BID 10/15/20 11/03/20 paliperidone palmitate 156 mg/mL 156 mg IM Q30D 10/15/20 11/03/20 intramuscular syringe (Invega Sustenna) topiramate 25 mg sprinkle capsule 25 mg PO BID 10/15/20 11/03/20 aluminum hydrox-magnesium carb 95 15 ml PO TID-QID PRN 10/20/20 11/03/20 mg-358 mg/15 mL oral suspension cyclobenzaprine 5 mg tablet 5 mg PO BEDTIME 10/20/20 11/03/20 famotidine 20 mg tablet 20 mg PO BEDTIME 10/20/20 11/03/20 nicotine (polacrilex) 2 mg gum 2 mg BUCCAL Q2H 10/20/20 11/03/20 omeprazole 10 mg capsule,delayed 20 mg PO BID cap 10/20/20 11/03/20 release ondansetron HCl 4 mg tablet 4 mg PO Q8H PRN 10/20/20 11/03/20 sucralfate 1 gram tablet 1 g PO QIDACHS 10/20/20 11/03/20 Previous Rx's Medication Instructions Recorded ondansetron HCl 4 mg tablet 4 mg PO Q6H PRN 3 Days #12 tab 07/28/20 (Zofran) amoxicillin 875 mg-potassium 1 tab PO BID #14 tab 11/07/20 clavulanate 125 mg tablet (Augmentin) hydrocodone 5 mg-acetaminophen 325 1 tab PO Q6H PRN #12 tab 11/07/20 mg tablet ondansetron 4 mg disintegrating 4 mg PO Q8H PRN #20 tab 11/07/20 tablet prednisone 20 mg tablet 20 mg PO DAILY 5 Days #5 tab 11/07/20 cyclobenzaprine 10 mg tablet 10 mg PO TID #10 tab 11/16/20 naproxen 500 mg tablet (Naprosyn) 500 mg PO BID #20 tab 11/16/20 Allergies Allergy/AdvReac Type Severity Reaction Status Date / Time fish derived [fish] Allergy Severe Anaphylaxis Verified 12/01/20 18:42 shellfish derived Allergy Severe SWELLING Verified 12/01/20 18:42 [SHELLFISH DERIVED] WITH DIFFICULTY BREATHING haloperidol [From Haldol] Allergy Mild UNKNOWN Verified 12/01/20 18:42 pork derived (porcine) AdvReac Intermediate swelling Verified 12/01/20 18:42 garlic AdvReac Mild VOMITING Verified 12/01/20 18:42 Review of Systems Review of Systems: No new bowel or urinary issues. No focal weakness All systems reviewed otherwise negative Yes all other systems are reviewed and are negative COUNTS INCLUDE 234 BEDS AT THE [facility] Past Medical History Attestation statement: The following information was validated with the patient. Medical History Anxiety Bipolar 1 disorder Degenerative disc disease Depression Diabetes Diabetes type 2, controlled Diverticulosis Hip problem HTN (hypertension) Obese Osteoarthritis PTSD (post-traumatic stress disorder) Surgical History H/O elbow surgery History of surgery of head Hx of cholecystectomy Family History Family History Mother Hx of cholecystectomy Hypertension A-fib Father No problems noted. Brother No problems noted. Brother No problems noted. Son No problems noted. Social History Social History Alcohol intake: current Patient Tobacco Use Status: Current everyday Tobacco user Tobacco use type: Cigarette Cigarettes Per Day: 17 Substance Use Type: Marijuana Advance Directives: No Advance Directives Information Provided: Yes Physical Exam Vital Signs: Vital Signs: Last Vital Signs Temp 98.4 F 12/01/20 18:39 Pulse 110 H 12/01/20 18:39 Resp 16 12/01/20 18:39 Pulse Ox 97 12/01/20 18:39 Body Mass Index 48.6 Appearance: Alert. Oriented X3. No acute distress. Eyes: Pupils equal, round and reactive to light. ENT: Pharynx normal. Neck: Normal inspection. Neck supple. No lymph nodes noted. No crepitus CVS: Normal heart rate and rhythm. Pulses normal. Normal S1 and S2 Respiratory: No respiratory distress. Breath sounds normal. No Wheezing. No rales Abdomen: Soft and nontender. No rigidity. No distention. good BS x4 Skin: Skin warm and dry. Normal skin color. Normal skin turgor. Extremities: Positive bilateral lower edema. Neurovascular intact to all extremities. No Lacerations. No Rash. Pain on movement of bilateral hips. Able to flex hip but limited secondary to patient's size. Sensation in lower extremity intact. No rash noted. No spinal tenderness elicited on palpation no step-offs noted. Neuro: Oriented X 3. No motor deficit. No sensory deficit. Moving all exterm ities. No slurred speech Medical Decision Making MDM Narrative Medical decision making narrative: Patient's x-ray showed no acute fractures. Given pain medication. Patient still unable to ambulate. Patient states he needs additional services at home. Will get physical therapy to evaluate patien t in the a.m.. We will get case management to evaluate patient for possible placement. Lab Data Result diagrams: 12/01/20 20:52 12/01/20 20:52 Discharge Plan Discharge Clinical Impression: Osteoarth NOS-pelvis Prescriptions: No Action hydrocodone-acetaminophen 5-325 mg tablet 1 tab PO Q6H PRN (Reason: pain) Qty: 12 RF: 0 prednisone 20 mg tablet 20 mg PO DAILY 5 Days Qty: 5 RF: 0 ondansetron 4 mg tablet,disintegrating 4 mg PO Q8H PRN (Reason: nausea and vomiting) Qty: 20 RF: 0 amoxicillin-pot clavulanate [Augmentin] 875-125 mg tablet 1 tab PO BID Qty: 14 RF: 0 cyclobenzaprine 10 mg tablet 10 mg PO TID Qty: 10 RF: 0 naproxen [Naprosyn] 500 mg tablet 500 mg PO BID Qty: 20 RF: 0 ondansetron HCl [Zofran] 4 mg tablet 4 mg PO Q6H PRN (Reason: nausea and vomiting) 3 Days Qty: 12 RF: 0 desmopressin 0.1 mg tablet 0.05 mg PO Q12H RF: 0 naproxen [Naprosyn] 500 mg tablet 500 mg PO BID RF: 0 metformin 1,000 mg tablet 1,000 mg PO BID RF: 0 citalopram 20 mg tablet 20 mg PO DAILY RF: 0 Invega Sustenna 156 mg/mL syringe 156 mg IM Q30D RF: 0 topiramate 25 mg capsule, sprinkle 25 mg PO BID RF: 0 cyclobenzaprine 5 mg tablet 5 mg PO BEDTIME RF: 0 aluminum hydrox-magnesium carb 95-358 mg/15 mL suspension 15 ml PO TID-QID PRNRF: 0 nicotine (polacrilex) 2 mg gum 2 mg buccal Q2H RF: 0 famotidine 20 mg tablet 20 mg PO BEDTIME RF: 0 sucralfate 1 gram tablet 1 g PO QIDACHS RF: 0 omeprazole 10 mg capsule,delayed release(DR/EC) 20 mg PO BID RF: 0 ondansetron HCl 4 mg tablet 4 mg PO Q8H PRNRF: 0
[2020-12-01] MEDS: Ketorolac Tromethamine 15 MG/ML VIAL 30 MG IVPUSH (19:11)
[2020-12-01] MEDS: HYDROmorphone HCl 0.5 MG/0.5 ML SYRINGE 1 MG IVPUSH (19:11)
[2020-12-01 21:00] LABS: MANUAL DIFF FLAG NO
--- NOTE | 2020-12-01 21:00 | PC.NURSE ---
pt ambulated independently with walker though was in immense pain, unable to flatten his feet to the ground. he lives alone at home and stated he felt he needed more help at home as he cannot function and take care appropriate care of himself.
[2020-12-01 21:19] LABS: Basophils Absolute Auto 0.1 X10*3/uL (0.0-0.2); Basophils Percent Auto 0.4 % (0-2); Hemoglobin 12.9 g/dl (14.0-18.0); Imm Gran Abs Auto 0.04 X10*3/uL (0.00-0.03); Imm Gran Pct Auto 0.3 % (0.0-0.4); Lymphocytes Percent Auto 16.3 % (20-40); Mean Corpuscular HGB Conc 32.3 g/dl (31.0-36.0); Mean Corpuscular Hemoglobin 27.4 pg (27.0-33.0); Mean Corpuscular Volume 84.9 fL (80-98); Mean Platelet Volume 10.8 fL (9.4-12.4); Monocytes Absolute Auto 1.5 X10*3/uL (0.1-1.2); Monocytes Percent Auto 11.6 % (2-11); Neutrophils Percent Auto 71.4 % (45-73); Platelet Count 254 X10*3/uL (160-400); Red Blood Count 4.71 X10*6/uL (4.60-5.80); White Blood Count 12.6 X10*3/uL (4.8-10.8)
[2020-12-01 21:23] LABS: Anion Gap 15 (12-20); Blood Urea Nitrogen 21 mg/dL (9-16); Carbon Dioxide 22 mmol/L (22-29); Chloride 111 mmol/L (96-108); Creatinine Clr Calc Pharmacy 99.9; Estimated Glomerular Filt Rate 58; Glucose Random 229 mg/dL (60-115); Potassium 3.7 mmol/L (3.3-5.1); Sodium 144 mmol/L (135-145)
--- NOTE | 2020-12-01 22:00 | MHC.CM.ED ---
CM received consult for this patient. Pt had been yelling and screaming at staff. Verbally abusive. Pt now quiet and sleeping. CM will not wake pt at this time for interview. Reviewed medical record. Pt lives alone. Mother is contact-Briana Kirkpatrick ([phone]). No HCP on file. No PCP listed. Pt has PMHX of bipolar 1, anxiety, obesity, degenerative disc disease, osteoarthritis of both hips, HTN, DM, and PTSD. Pt has CCA. Will call in am to verify if any services. Pending PT evaluation in the am. CM to follow for d/c needs.
--- NOTE | 2020-12-01 23:00 | PC.NURSE ---
pt has been demanding since arrival to facility, using callbell frequently, demanding zulay dias. pt became belligerent after he was told he would not receive anymore after 3 had been given to him and he is a known diabetic. pt currently refusing COVID swab.
[2020-12-01 23:35] VITALS: BP 129/87; PULSE 90; RESP 20; O2SAT 95
[2020-12-02 05:54] LABS: Influenza A PCR NEGATIVE (Negative); Influenza B PCR NEGATIVE (Negative); Resp Syncy Virus RNA Qual PCR NEGATIVE (Negative); SARS COV2 PCR INHOUSE NEGATIVE (Negative)
--- NOTE | 2020-12-02 07:30 | PC.NURSE ---
Pt alert and oriented x3. vss, falls asleep easily while this senior copywriter at bedside. Pt woke up to eat breakfast and went back to sleep. Physical Therapy at bedside at this time.
[2020-12-02 07:32] VITALS: BP 129/87; PULSE 90; O2SAT 95
[2020-12-02 07:41] VITALS: BP 132/88; PULSE 86; RESP 17; TEMP 36.6; O2SAT 97
--- NOTE | 2020-12-02 09:46 | MHC.CM.ED ---
Patient remains in ER. Physical therapy eval completed. Home therapy is recommended. Met with patient in regards to discharge planning. Patient lives alone, ambulates with a walker and had no services prior to coming to the ER. PCP is Dr Paul. Patient received [employer] on 07/22/20. Patient will need a chair van for transport home. Patient requesting home health aide. Patient is active with [facility]. Spoke with Jillian at [facility]. They will authorize physical therapy through [facility]. Referral made via [employer]. Jillian will reach out to care transitions manager to assess for need for home health aide. [facility] chair van booked for 10:30am. Patient, Nora GÓMEZ and Adán RN are aware.
--- NOTE | 2020-12-02 10:16 | PHA.MEDREC ---
Pharmacy Consult ? Medication Reconciliation Pharmacy has completed the medication reconciliation.
--- NOTE | 2020-12-02 10:20 | PC.NURSE ---
Gavi, nurse from pt's long-term called for update on pt's plan of care. this mortgage loan underwriter updated Gavi with pt's permission.
[2020-12-02] MEDS: Sucralfate 1 GM TABLET PO (10:55)
[2020-12-02] MEDS: metFORMIN HCl 1,000 MG TABLET 1000 MG PO (10:55)
[2020-12-02] MEDS: Topiramate 25 MG TABLET PO (10:56)
[2020-12-02] MEDS: Omeprazole 20 MG CAPSULE.DR PO (10:56)
[2020-12-02] MEDS: NaPROXEN 500 MG TABLET PO (10:56)
== END 2020-12-02 10:59 | disposition home or self-care (01) ==
PROVIDERS: Emergency Provider Emergency Medicine Emergency Medical Services; PCP Internal Medicine
DX: M16.0 Bilateral primary osteoarthritis of hip (principal); M54.5 Low back pain; F17.210 Nicotine dependence, cigarettes, uncomplicated; Z20.822 Contact with and (suspected) exposure to COVID-19; Z71.6 Tobacco abuse counseling; Z79.899 Other long term (current) drug therapy
CPT/HCPCS: 0241U; 36415; 73521; 80048; 85025; 96374; 96375; 97162; 99284; 99285; J1170; J1885

== ENCOUNTER 2020-12-08 03:18 | Emergency (ER) | payer OTHER, SELFPAY ==
[2020-12-08 03:21] VITALS: BP 139/86; PULSE 102; RESP 18; TEMP 36.9; O2SAT 97; BMI 48.6
--- NOTE | 2020-12-08 03:48 | ED.GENADULT ---
HPI - General Adult General Chief complaint: General Medical Stated complaint: bilateral hip pain Time Seen by Provider: 12/08/20 03:48 Source: patient Mode of arrival: EMS History of Present Illness HPI narrative: This is a 45-year-old male with history of diabetes, schizoaffective disorder who comes in with significant bilateral hip pain for which he was evaluated on 12/01. He denies any associated fever, chills, shortness breath, chest pain/palpitations, GI or symptoms. Patient also states he is run out of his diabetic medication and has not seen his primary care provider ?for months?. Patient otherwise states that he has been at [facility] in [place] and has scheduled hip surgery in February but otherwise continues to complain of bilateral hip pain with difficulty in walking. He states that he left [facility] because he was ?tired of being there?. Related Data Home Medications Medication Instructions Recorded Confirmed citalopram 20 mg tablet 20 mg PO DAILY 10/15/20 12/02/20 desmopressin 0.1 mg tablet 0.2 mg PO Q12H 10/15/20 12/02/20 metformin 1,000 mg tablet 1,000 mg PO BID 10/15/20 12/02/20 naproxen 500 mg tablet (Naprosyn) 500 mg PO BID 10/15/20 12/02/20 paliperidone palmitate 156 mg/mL 156 mg IM Q30D 10/15/20 12/02/20 intramuscular syringe (Invega Sustenna) cyclobenzaprine 5 mg tablet 5 mg PO TID PRN 10/20/20 12/02/20 famotidine 20 mg tablet 20 mg PO BEDTIME 10/20/20 12/02/20 sucralfate 1 gram tablet 1 g PO QIDACHS 10/20/20 12/02/20 cyclobenzaprine 10 mg tablet 5 mg PO TID PRN 12/02/20 12/02/20 omeprazole 20 mg capsule,delayed 1 cap PO DAILY@0630 12/02/20 12/02/20 release topiramate 25 mg tablet 25 tab PO BID 12/02/20 12/02/20 trazodone 50 mg tablet 50 mg PO BEDTIME 12/02/20 12/02/20 Previous Rx's Medication Instructions Recorded ondansetron 4 mg disintegrating 4 mg PO Q8H PRN #20 tab 11/07/20 tablet prednisone 20 mg tablet 20 mg PO DAILY 5 Days #5 tab 11/07/20 hydrocodone 5 mg-acetaminophen 325 1 tab PO Q8H PRN #10 tab 12/02/20 mg tablet Allergies Allergy/AdvReac Type Severity Reaction Status Date / Time fish derived [fish] Allergy Severe Anaphylaxis Verified 12/08/20 03:21 shellfish derived Allergy Severe SWELLING Verified 12/08/20 03:21 [SHELLFISH DERIVED] WITH DIFFICULTY BREATHING haloperidol [From Haldol] Allergy Mild UNKNOWN Verified 12/08/20 03:21 pork derived (porcine) AdvReac Intermediate swelling Verified 12/08/20 03:21 garlic AdvReac Mild VOMITING Verified 12/08/20 03:21 Review of Systems Review of Systems: Pertinent positives and negatives as stated in HPI 10 point review of systems is otherwise negative. PMFSH Past Medical History Source: nursing notes reviewed Medical History Anxiety Bipolar 1 disorder Degenerative disc disease Depression Diabetes Diabetes type 2, controlled Diverticulosis Hip problem HTN (hypertension) Obese Osteoarthritis PTSD (post-traumatic stress disorder) Surgical History H/O elbow surgery History of surgery of head Hx of cholecystectomy Family History Family History Mother Hx of cholecystectomy Hypertension A-fib Father No problems noted. Brother No problems noted. Brother No problems noted. Son No problems noted. Social History Social History Alcohol intake: current Patient Tobacco Use Status: Current everyday Tobacco user Tobacco use type: Cigarette Cigarettes Per Day: 17 Substance Use Type: Marijuana Advance Directives: No Advance Directives Information Provided: Yes Physical Exam Vital Signs: Vital Signs: Last Vital Signs Temp 98.5 F 12/08/20 03:21 Pulse 102 H 12/08/20 03:21 Resp 18 12/08/20 03:21 BP 139/86 12/08/20 03:21 Pulse Ox 97 12/08/20 03:21 Body Mass Index 48.6 VITAL SIGNS: Reviewed. GENERAL: Well developed, well nourished, in no acute distress. HEAD: Normocephalic/atraumatic EYES: PERRLA, EOMI OROPHARYNX: no oral lesions noted, posterior pharynx clear LUNGS: Normal breath sounds. No adventitious sounds or accessory muscle use. SpO2<97> CARDIOVASCULAR: Regular rate and rhythm without noted murmurs ABDOMEN: Obese, Soft, non-tender, non-distended with bowel sounds. MUSCULOSKELETAL: No tenderness, deformities, or effusions noted on gross inspection. EXTREMITIES: No cyanosis, clubbing or edema, symmetrical palpable pulses, bilateral feet are warm to touch with good capillary refill and sensation is intact. SKIN: Inspection of the skin reveals no rashes NEUROLOGIC: Alert and oriented x 4. Strength and sensation to light touch were grossly intact x 4. Course Course Course Narrative: 45-year-old male with history and clinical presentation consistent with severe end-stage osteoarthritis in both hips and comes in with complaints of pain. Review of all investigations is negative for any acute findings and combination analgesics on re-evaluation was able to decrease patient's pain. Arrangements are being made through his primary care provider for follow-up today either through telemedicine interview and for refills on his medications. Review of all investigations is negative for any acute findings in on re-evaluation after patient received combination analgesics he has had good resolution of his discomfort and his hips. All results were discussed with him at bedside and he was discharged home in otherwise stable condition. Medical Decision Making Lab Data Result diagrams: 12/08/20 04:07 12/08/20 04:07 Labs: Lab Results 12/08/20 12/08/20 12/08/20 Range/Units 04:07 04:07 05:04 WBC 10.4 (4.8-10.8) X10*3/uL RBC 5.06 (4.60-5.80) X10*6/uL Hgb 13.8 L (14.0-18.0) g/dl Hct 42.9 (42-52) % MCV 84.8 (80-98) fL MCH 27.3 (27.0-33.0) pg MCHC 32.2 (31.0-36.0) g/dl RDW 14.2 (11.0-16.0) % Plt Count 239 (160-400) X10*3/uL MPV 10.7 (9.4-12.4) fL Immature Gran % (Auto) 0.4 (0.0-0.4) % Neut % (Auto) 75.5 H (45-73) % Lymph % (Auto) 14.1 L (20-40) % [place] % (Auto) 9.6 (2-11) % Eos % (Auto) 0.0 (0-4) % Baso % (Auto) 0.4 (0-2) % Lymph # (Auto) 1.5 (1.2-4.9) X10*3/uL [place] # (Auto) 1.0 (0.1-1.2) X10*3/uL Eos # (Auto) 0.0 (0.0-0.4) X10*3/uL Baso # (Auto) 0.0 (0.0-0.2) X10*3/uL Abs Immat Gran (auto) 0.04 H (0.00-0.03) X10*3/uL Absolute Neuts (auto) 7.9 (2.0-8.3) X10*3/uL Absolute Nucleated RBC 0.000 (0.0-0.012) X10*3/uL Nucleated RBC % (auto) 0.0 (0.0-0.2) /100WBC Sodium 141 (135-145) mmol/L Potassium 4.2 (3.3-5.1) mmol/L Chloride 109 H (96-108) mmol/L Carbon Dioxide 24 (22-29) mmol/L Anion Gap 12 (12-20) BUN 11 (9-16) mg/dL Creatinine 1.04 (0.5-1.4) mg/dL Estim Creat Clear Calc 126.9 Estimated GFR > 60 Random Glucose 158 H (60-115) mg/dL Calcium 8.9 (8.4-10.2) mg/dL Total Bilirubin 0.2 (0.0-1.0) mg/dL AST 10 (5-37) U/L ALT 13 (0-40) U/L Alkaline Phosphatase 93 (39-117) U/L Total Protein 6.3 L (6.5-8.0) g/dL Albumin 3.5 (3.5-5.0) g/dL Urine Color YELLOW Urine Appearance CLEAR Urine pH 6.5 (5.0-8.0) Ur Specific [place] 1.010 (1.005-1.025) Urine Protein NEG (NEG-TRACE) MG/DL Urine Glucose (UA) NEG (NEG) MG/DL Urine Ketones NEG (NEG) MG/DL Urine Blood NEG (NEG) Urine Nitrite NEG (NEG) Ur Leukocyte Esterase NEG (NEG) Discharge Plan Discharge Clinical Impression: Chronic hip pain Patient Disposition: Home, Self-Care Instructions: Hip Pain (ED) Additional Instructions: 1. Resume all home medications as prescribed. 2. Follow-up with your primary care provider, Dr Anai Delacruz, by calling the office today. Return to the ER for acute worsening of your symptoms. Prescriptions: No Action prednisone 20 mg tablet 20 mg PO DAILY 5 Days Qty: 5 RF: 0 ondansetron 4 mg tablet,disintegrating 4 mg PO Q8H PRN (Reason: nausea and vomiting) Qty: 20 RF: 0 trazodone 50 mg tablet 50 mg PO BEDTIME RF: 0 omeprazole 20 mg capsule,delayed release(DR/EC) 1 cap PO DAILY@0630 RF: 0 cyclobenzaprine 10 mg tablet 5 mg PO TID PRN (Reason: Muscle Spasm) RF: 0 topiramate 25 mg tablet 25 tab PO BID RF: 0 hydrocodone-acetaminophen 5-325 mg tablet 1 tab PO Q8H PRN (Reason: pain) Qty: 10 RF: 0 desmopressin 0.1 mg tablet 0.2 mg PO Q12H RF: 0 naproxen [Naprosyn] 500 mg tablet 500 mg PO BID RF: 0 metformin 1,000 mg tablet 1,000 mg PO BID RF: 0 citalopram 20 mg tablet 20 mg PO DAILY RF: 0 Invega Sustenna 156 mg/mL syringe 156 mg IM Q30D RF: 0 cyclobenzaprine 5 mg tablet 5 mg PO TID PRN (Reason: Muscle Spasm) RF: 0 famotidine 20 mg tablet 20 mg PO BEDTIME RF: 0 sucralfate 1 gram tablet 1 g PO QIDACHS RF: 0 Referrals: [facility] [Outside] - 2 days (Re-evaluation for bilateral chronic hip pain.)
[2020-12-08 04:12] LABS: MANUAL DIFF FLAG NO
[2020-12-08 04:13] LABS: Basophils Percent Auto 0.4 % (0-2); Hematocrit 42.9 % (42-52); Hemoglobin 13.8 g/dl (14.0-18.0); Imm Gran Abs Auto 0.04 X10*3/uL (0.00-0.03); Imm Gran Pct Auto 0.4 % (0.0-0.4); Lymphocytes Absolute Auto 1.5 X10*3/uL (1.2-4.9); Lymphocytes Percent Auto 14.1 % (20-40); Mean Corpuscular HGB Conc 32.2 g/dl (31.0-36.0); Mean Corpuscular Hemoglobin 27.3 pg (27.0-33.0); Mean Corpuscular Volume 84.8 fL (80-98); Mean Platelet Volume 10.7 fL (9.4-12.4); Monocytes Percent Auto 9.6 % (2-11); Neutrophils Absolute Auto 7.9 X10*3/uL (2.0-8.3); Neutrophils Percent Auto 75.5 % (45-73); Platelet Count 239 X10*3/uL (160-400); Red Blood Count 5.06 X10*6/uL (4.60-5.80); Red Cell Distribution Width 14.2 % (11.0-16.0); White Blood Count 10.4 X10*3/uL (4.8-10.8)
[2020-12-08 04:37] LABS: Alanine Aminotransferase 13 U/L (0-40); Albumin Level 3.5 g/dL (3.5-5.0); Alkaline Phosphatase 93 U/L (39-117); Anion Gap 12 (12-20); Aspartate Amino Transferase 10 U/L (5-37); Bilirubin Total 0.2 mg/dL (0.0-1.0); Blood Urea Nitrogen 11 mg/dL (9-16); Calcium 8.9 mg/dL (8.4-10.2); Carbon Dioxide 24 mmol/L (22-29); Chloride 109 mmol/L (96-108); Creatinine Clr Calc Pharmacy 126.9; Estimated Glomerular Filt Rate > 60; Glucose Random 158 mg/dL (60-115); Potassium 4.2 mmol/L (3.3-5.1); Sodium 141 mmol/L (135-145); Total Protein 6.3 g/dL (6.5-8.0)
--- NOTE | 2020-12-08 05:00 | PC.NURSE ---
This RN at bedside to administer medications. Pt sleeping in bed in NAD, wakes easily to verbal stimuli. Pt refusing Tylenol and Toradol, states THAT DOESN'T DO ANYTHING FOR ME! I DON'T WANT TYLENOL AND TORADOL! MD aware.
[2020-12-08 05:09] LABS: Glucose Urine UA NEG (NEG); Leukocyte Esterase Urine NEG (NEG); Nitrite Urine NEG (NEG); PH 6.5 (5.0-8.0); Urine Blood NEG (NEG); Urine Ketones NEG (NEG); Urine Protein NEG (NEG-TRACE)
[2020-12-08 05:10] LABS: Appearance Urine CLEAR; Color Urine YELLOW
[2020-12-08] MEDS: Ketorolac Tromethamine 15 MG/ML VIAL IM (05:56)
== END 2020-12-08 07:36 | disposition home or self-care (01) ==
PROVIDERS: Emergency Provider Student in an Organized Health Care Education/Training Program
DX: G89.29 Other chronic pain (principal); M25.552 Pain in left hip; M25.551 Pain in right hip; E11.9 Type 2 diabetes mellitus without complications; I10 Essential (primary) hypertension; F25.0 Schizoaffective disorder, bipolar type; F17.210 Nicotine dependence, cigarettes, uncomplicated; F12.90 Cannabis use, unspecified, uncomplicated; Z91.14 Patient's other noncompliance with medication regimen; E66.01 Morbid (severe) obesity due to excess calories; Z68.42 Body mass index [BMI] 45.0-49.9, adult
CPT/HCPCS: 36415; 80053; 81003; 85025; 96372; 99283; 99284; J1885

== ENCOUNTER 2020-12-13 02:36 | Emergency (ER) | payer OTHER, SELFPAY ==
[2020-12-13 02:38] VITALS: BP 136/67; PULSE 93; RESP 18; TEMP 37.1; O2SAT 94; BMI 51.5
--- NOTE | 2020-12-13 02:46 | PC.NURSE ---
pt is vauge historian and has flat affect. upon triage, pt asked for this policy writer sales to turn down the lights and let him sleep. Pt appears to be in no acute distress.
--- NOTE | 2020-12-13 04:13 | ED_ITS ---
HPI - Extremity Problem General Chief complaint: Extremity Problem Stated complaint: bilateral hip pain Time Seen by Provider: 12/13/20 04:13 Source: patient Mode of arrival: ambulatory Limitations: no limitations History of Present Illness HPI Narrative: Patient with known hip degenerative hips, needs surgery now with pain. Patient has been here weekly for the same. Onset (ago): month(s) Pain Consistency: constant Location: left, right and other (hips) Relieving factors: nothing Associated symptoms: denies other symptoms Context: recent travel Related Data Home Medications Medication Instructions Recorded Confirmed citalopram 20 mg tablet 20 mg PO DAILY 10/15/20 12/02/20 desmopressin 0.1 mg tablet 0.2 mg PO Q12H 10/15/20 12/02/20 metformin 1,000 mg tablet 1,000 mg PO BID 10/15/20 12/02/20 naproxen 500 mg tablet (Naprosyn) 500 mg PO BID 10/15/20 12/02/20 paliperidone palmitate 156 mg/mL 156 mg IM Q30D 10/15/20 12/02/20 intramuscular syringe (Invega Sustenna) cyclobenzaprine 5 mg tablet 5 mg PO TID PRN 10/20/20 12/02/20 famotidine 20 mg tablet 20 mg PO BEDTIME 10/20/20 12/02/20 sucralfate 1 gram tablet 1 g PO QIDACHS 10/20/20 12/02/20 cyclobenzaprine 10 mg tablet 5 mg PO TID PRN 12/02/20 12/02/20 omeprazole 20 mg capsule,delayed 1 cap PO DAILY@0630 12/02/20 12/02/20 release topiramate 25 mg tablet 25 tab PO BID 12/02/20 12/02/20 trazodone 50 mg tablet 50 mg PO BEDTIME 12/02/20 12/02/20 Previous Rx's Medication Instructions Recorded ondansetron 4 mg disintegrating 4 mg PO Q8H PRN #20 tab 11/07/20 tablet prednisone 20 mg tablet 20 mg PO DAILY 5 Days #5 tab 11/07/20 hydrocodone 5 mg-acetaminophen 325 1 tab PO Q8H PRN #10 tab 12/02/20 mg tablet meloxicam 15 mg tablet (Mobic) 15 mg PO DAILY #10 tab 12/13/20 Allergies Allergy/AdvReac Type Severity Reaction Status Date / Time fish derived [fish] Allergy Severe Anaphylaxis Verified 12/08/20 03:21 shellfish derived Allergy Severe SWELLING Verified 12/08/20 03:21 [SHELLFISH DERIVED] WITH DIFFICULTY BREATHING haloperidol [From Haldol] Allergy Mild UNKNOWN Verified 12/08/20 03:21 pork derived (porcine) AdvReac Intermediate swelling Verified 12/08/20 03:21 garlic AdvReac Mild VOMITING Verified 12/08/20 03:21 Review of Systems Constitutional: Constitutional: Reports no additional constitutional complaints Eyes: Eyes: Reports no additional eye complaints ENT: Denies dizziness Cardiovascular: Cardiovascular: Reports no additional cardiovascular compl aints Respiratory: Respiratory: Reports as per HPI Gastrointestinal: Gastrointestinal: Reports no additional gastrointestinal complaints Musculoskeletal: Musculoskeletal: Reports no additional musculoskeletal complaints Integumentary/Breasts: Skin/Breast: Denies rash Neurologic: Reports system reviewed and no additional complaints, except as documented, Denies dizziness and Denies Sensory deficit (Neuro) Psychiatric: Psychiatric: Denies anxiety PMFSH Past Medical History Medical History Anxiety Bipolar 1 disorder Degenerative disc disease Depression Diabetes Diabetes type 2, controlled Diverticulosis Hip problem HTN (hypertension) Obese Osteoarthritis PTSD (post-traumatic stress disorder) Surgical History H/O elbow surgery History of surgery of head Hx of cholecystectomy Family History Family History Mother Hx of cholecystectomy Hypertension A-fib Father No problems noted. Brother No problems noted. Brother No problems noted. Son No problems noted. Social History Social History Alcohol intake: current Patient Tobacco Use Status: Current everyday Tobacco user Tobacco use type: Cigarette Cigarettes Per Day: 17 Substance Use Type: Marijuana Advance Directives: No Advance Directives Information Provided: Yes Physical Exam Vital Signs: Vital Signs: Last Vital Signs Temp 98.7 F 12/13/20 02:38 Pulse 93 12/13/20 02:38 Resp 18 12/13/20 02:38 BP 136/67 12/13/20 02:38 Pulse Ox 94 12/13/20 02:38 Body Mass Index 51.5 Const: Other: morbidly obese male looking older than stated age Orientation/consciousness: oriented to person and patient oriented x3 Limitations: no limitations HENMT: Head: Yes normal to inspection Ears: external ears normal General nose exam: Normal external nose present Mouth: Normal oral and palatal mucosa present and oropharynx normal Throat: Yes posterior oropharynx normal Eyes: General: appearance normal, both eyes and all related structures Neck: Other: supple Neck: Yes normal visual inspection Chest: Chest palpation & inspection: normal inspection of the chest Resp: Auscultation: clear to auscultation bilaterally Cardio: Jugular venous distension: no JVD Rate: regular rate Rhythm: regular rhythm Heart sounds: S1 normal heart sound present and S2 normal heart sound present GI: Inspection: Yes normal to inspection Palpation (GI): Soft to palpation, nontender and No hepatosplenomegaly present Auscultation: normal bowel sounds : General: Yes no CVA tenderness Back/Spine/Pelvis: Back: no CVA tenderness Skin: General skin exam: no rashes or lesions noted Neuro: General: oriented to person and patient oriented x3 Cranial nerves: Yes CN's II-XII intact bilaterally Motor exam (neuro): 5/5 motor strength present throughout Sensory Exam: No Sensory deficit (Neuro) Extrem: General: Yes normal to inspection Psych: Appearance: grossly normal Course Reevaluation(s) Reevaluation #1: patient with chronic pain will give a shot of toradol and dc on mobic Time: 04:35 Discharge Plan Discharge Clinical Impression: Degenerative joint disease of both hips Qualifiers: Osteoarthritis type: primary Qualified Code(s): M16.0 - Bilateral primary osteoarthritis of hip Patient Disposition: Home, Self-Care Instructions: Hip Arthroscopy (DC), Steroid Joint Injection (DC), Joint Aspiration (DC) Prescriptions: New meloxicam [Mobic] 15 mg tablet 15 mg PO DAILY Qty: 10 RF: 0 No Action prednisone 20 mg tablet 20 mg PO DAILY 5 Days Qty: 5 RF: 0 ondansetron 4 mg tablet,disintegrating 4 mg PO Q8H PRN (Reason: nausea and vomiting) Qty: 20 RF: 0 trazodone 50 mg tablet 50 mg PO BEDTIME RF: 0 omeprazole 20 mg capsule,delayed release(DR/EC) 1 cap PO DAILY@0630 RF: 0 cyclobenzaprine 10 mg tablet 5 mg PO TID PRN (Reason: Muscle Spasm) RF: 0 topiramate 25 mg tablet 25 tab PO BID RF: 0 hydrocodone-acetaminophen 5-325 mg tablet 1 tab PO Q8H PRN (Reason: pain) Qty: 10 RF: 0 desmopressin 0.1 mg tablet 0.2 mg PO Q12H RF: 0 naproxen [Naprosyn] 500 mg tablet 500 mg PO BID RF: 0 metformin 1,000 mg tablet 1,000 mg PO BID RF: 0 citalopram 20 mg tablet 20 mg PO DAILY RF: 0 Invega Sustenna 156 mg/mL syringe 156 mg IM Q30D RF: 0 cyclobenzaprine 5 mg tablet 5 mg PO TID PRN (Reason: Muscle Spasm) RF: 0 famotidine 20 mg tablet 20 mg PO BEDTIME RF: 0 sucralfate 1 gram tablet 1 g PO QIDACHS RF: 0 Referrals: Physician,Unknown [Primary Care Provider] - 1 week
[2020-12-13 05:05] VITALS: BP 119/71; PULSE 90; RESP 16; TEMP 36.6; O2SAT 97
--- NOTE | 2020-12-13 05:06 | PC.NURSE ---
PER PATIENT FUCK YOU TORADOL NEVER WORK FOR ME ANYWAY. i'M NOT GOING TO TAKE THE MELOXICAM-ONLY REAL MEDS WORK FOR ME.
== END 2020-12-13 05:45 | disposition home or self-care (01) ==
PROVIDERS: Emergency Provider Emergency Medicine
DX: M16.0 Bilateral primary osteoarthritis of hip (principal); I10 Essential (primary) hypertension; E11.9 Type 2 diabetes mellitus without complications; E66.01 Morbid (severe) obesity due to excess calories; Z68.42 Body mass index [BMI] 45.0-49.9, adult; F25.0 Schizoaffective disorder, bipolar type; Z79.899 Other long term (current) drug therapy
CPT/HCPCS: 96372; 99283; 99284

== ENCOUNTER 2020-12-17 22:05 | Emergency (ER) | payer OTHER, SELFPAY ==
[2020-12-17 22:19] VITALS: BP 130/80; PULSE 115; O2SAT 95
[2020-12-17 22:38] VITALS: BP 129/80; PULSE 101; RESP 22; O2SAT 95
[2020-12-17 22:53] VITALS: BP 144/72; PULSE 74; RESP 16; TEMP 36.3; O2SAT 96; BMI 44.5
--- NOTE | 2020-12-18 00:32 | ED_ITS ---
HPI - General Adult General Chief complaint: Fall Stated complaint: bilaterial hip pain Time Seen by Provider: 12/18/20 00:32 Source: patient Mode of arrival: EMS History of Present Illness HPI narrative: 45-year-old male who states that he fell from his wheelchair by sliding out of it without head strike or loss of consciousness and called 911 for lift assist. On arrival EMS noted the patient was able to stand and pivot. However, patient reporting bilateral hip pain. Related Data Home Medications Medication Instructions Recorded Confirmed citalopram 20 mg tablet 20 mg PO DAILY 10/15/20 12/02/20 desmopressin 0.1 mg tablet 0.2 mg PO Q12H 10/15/20 12/02/20 metformin 1,000 mg tablet 1,000 mg PO BID 10/15/20 12/02/20 naproxen 500 mg tablet (Naprosyn) 500 mg PO BID 10/15/20 12/02/20 paliperidone palmitate 156 mg/mL 156 mg IM Q30D 10/15/20 12/02/20 intramuscular syringe (Invega Sustenna) cyclobenzaprine 5 mg tablet 5 mg PO TID PRN 10/20/20 12/02/20 famotidine 20 mg tablet 20 mg PO BEDTIME 10/20/20 12/02/20 sucralfate 1 gram tablet 1 g PO QIDACHS 10/20/20 12/02/20 cyclobenzaprine 10 mg tablet 5 mg PO TID PRN 12/02/20 12/02/20 omeprazole 20 mg capsule,delayed 1 cap PO DAILY@0630 12/02/20 12/02/20 release topiramate 25 mg tablet 25 tab PO BID 12/02/20 12/02/20 trazodone 50 mg tablet 50 mg PO BEDTIME 12/02/20 12/02/20 Previous Rx's Medication Instructions Recorded ondansetron 4 mg disintegrating 4 mg PO Q8H PRN #20 tab 11/07/20 tablet prednisone 20 mg tablet 20 mg PO DAILY 5 Days #5 tab 11/07/20 hydrocodone 5 mg-acetaminophen 325 1 tab PO Q8H PRN #10 tab 12/02/20 mg tablet meloxicam 15 mg tablet (Mobic) 15 mg PO DAILY #10 tab 12/13/20 Allergies Allergy/AdvReac Type Severity Reaction Status Date / Time fish derived [fish] Allergy Severe Anaphylaxis Verified 12/08/20 03:21 shellfish derived Allergy Severe SWELLING Verified 12/08/20 03:21 [SHELLFISH DERIVED] WITH DIFFICULTY BREATHING haloperidol [From Haldol] Allergy Mild UNKNOWN Verified 12/08/20 03:21 pork derived (porcine) AdvReac Intermediate swelling Verified 12/08/20 03:21 garlic AdvReac Mild VOMITING Verified 12/08/20 03:21 Review of Systems Review of Systems: Pertinent positives and negatives as stated in HPI 10 point review of systems is otherwise negative. PMFSH Past Medical History Source: nursing notes reviewed Medical History Anxiety Bipolar 1 disorder Degenerative disc disease Depression Diabetes Diabetes type 2, controlled Diverticulosis Hip problem HTN (hypertension) Obese Osteoarthritis PTSD (post-traumatic stress disorder) Surgical History H/O elbow surgery History of surgery of head Hx of cholecystectomy Family History Family History Mother Hx of cholecystectomy Hypertension A-fib Father No problems noted. Brother No problems noted. Brother No problems noted. Son No problems noted. Social History Social History Alcohol intake: current Patient Tobacco Use Status: Current everyday Tobacco user Tobacco use type: Cigarette Cigarettes Per Day: 17 Substance Use Type: Marijuana Advance Directives: No Advance Directives Information Provided: No Physical Exam Vital Signs: Vital Signs: Last Vital Signs Temp 97.3 F 12/17/20 22:53 Pulse 74 12/17/20 22:53 Resp 18 12/18/20 05:16 BP 144/72 H 12/17/20 22:53 Pulse Ox 96 12/17/20 22:53 Body Mass Index 44.5 VITAL SIGNS: Reviewed. GENERAL: Well developed, well nourished, in no acute distress. HEAD: Normocephalic/atraumatic EYES: PERRLA, EOMI LUNGS: Normal breath sounds. No adventitious sounds or accessory muscle use. SpO2<96> CARDIOVASCULAR: Regular rate and rhythm without noted murmurs, no JVD or lower extremity edema. ABDOMEN: Soft, non-tender, non-distended with bowel sounds. Pelvis is stable. MUSCULOSKELETAL: No tenderness, deformities, or effusions noted on gross inspection. EXTREMITIES: No cyanosis, clubbing or edema. SKIN: Inspection of the skin reveals no rashes, ulcerations, jaundice, pallor, or petechiae. NEUROLOGIC: Alert and oriented x 4. Strength and sensation to light touch were grossly intact x 4. Course Course Course Narrative: This is a 45-year-old male with history and clinical presentation consistent with chronic bilateral hip pain that is consistent with patient's known hip arthritis that he has had imaged several times here in the emergency room and has been tentatively scheduled for intervention, however it is unclear how well patient has been following up for the planned elective procedure. Otherwise, patient has rested comfortably here in the emergency room overnight and is not noted to be hyperglycemic and there are no clinical findings to suggest that patient is otherwise unstable. Medical Decision Making Lab Data Labs: Lab Results 12/18/20 Range/Units 00:49 POC Glucose 165 H (60-115) mg/dL Discharge Plan Discharge Clinical Impression: Chronic hip pain, Degenerative joint disease of both hips Patient Disposition: Home, Self-Care Instructions: Osteoarthritis (ED), Arthritis (ED) Additional Instructions: 1. Resume all home medications as prescribed. 2. Please continue to follow-up for further management of your known chronic hip condition for definitive treatment. 3. Follow-up with your primary care provider in the next 2-3 days for re- evaluation. Return to the ER for acute worsening of your symptoms. Prescriptions: No Action prednisone 20 mg tablet 20 mg PO DAILY 5 Days Qty: 5 RF: 0 ondansetron 4 mg tablet,disintegrating 4 mg PO Q8H PRN (Reason: nausea and vomiting) Qty: 20 RF: 0 meloxicam [Mobic] 15 mg tablet 15 mg PO DAILY Qty: 10 RF: 0 trazodone 50 mg tablet 50 mg PO BEDTIME RF: 0 omeprazole 20 mg capsule,delayed release(DR/EC) 1 cap PO DAILY@0630 RF: 0 cyclobenzaprine 10 mg tablet 5 mg PO TID PRN (Reason: Muscle Spasm) RF: 0 topiramate 25 mg tablet 25 tab PO BID RF: 0 hydrocodone-acetaminophen 5-325 mg tablet 1 tab PO Q8H PRN (Reason: pain) Qty: 10 RF: 0 desmopressin 0.1 mg tablet 0.2 mg PO Q12H RF: 0 naproxen [Naprosyn] 500 mg tablet 500 mg PO BID RF: 0 metformin 1,000 mg tablet 1,000 mg PO BID RF: 0 citalopram 20 mg tablet 20 mg PO DAILY RF: 0 Invega Sustenna 156 mg/mL syringe 156 mg IM Q30D RF: 0 cyclobenzaprine 5 mg tablet 5 mg PO TID PRN (Reason: Muscle Spasm) RF: 0 famotidine 20 mg tablet 20 mg PO BEDTIME RF: 0 sucralfate 1 gram tablet 1 g PO QIDACHS RF: 0 Referrals: Idalmis Paul MD [Primary Care Provider] - 2 days
[2020-12-18 00:52] LABS: Glucose, Whole Blood 165 mg/dL (60-115)
[2020-12-18 05:16] VITALS: RESP 18
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
== END 2020-12-18 06:30 | disposition home or self-care (01) ==
PROVIDERS: Emergency Provider Student in an Organized Health Care Education/Training Program; PCP Internal Medicine
DX: M16.0 Bilateral primary osteoarthritis of hip (principal); F17.210 Nicotine dependence, cigarettes, uncomplicated; Z71.6 Tobacco abuse counseling; Z79.899 Other long term (current) drug therapy
CPT/HCPCS: 82947; 99283

== ENCOUNTER 2021-02-05 18:02 | Emergency (ER) | payer OTHER, SELFPAY ==
--- NOTE | 2021-02-05 18:13 | ED.EXTPRO ---
HPI - Extremity Problem General Stated complaint: HIP PAIN Time Seen by Provider: 02/05/21 18:09 History of Present Illness HPI Narrative: Patient is a 45-year-old male with a history of osteoarthritis to bilateral hips. Ran out of his medication which include naproxen, steroid, muscle relaxant. Complaining of similar pain that he has had in the past. Patient has an orthopedic follow-up for surgery. However his increase in weight put him out of surgery range. Patient complaining of pain again. This is same as prior. There was no trauma. No fever no chills. Patient from home. Related Data Home Medications Medication Instructions Recorded Confirmed citalopram 20 mg tablet 20 mg PO DAILY 10/15/20 12/02/20 desmopressin 0.1 mg tablet 0.2 mg PO Q12H 10/15/20 12/02/20 metformin 1,000 mg tablet 1,000 mg PO BID 10/15/20 12/02/20 naproxen 500 mg tablet (Naprosyn) 500 mg PO BID 10/15/20 12/02/20 paliperidone palmitate 156 mg/mL 156 mg IM Q30D 10/15/20 12/02/20 intramuscular syringe (Invega Sustenna) cyclobenzaprine 5 mg tablet 5 mg PO TID PRN 10/20/20 12/02/20 famotidine 20 mg tablet 20 mg PO BEDTIME 10/20/20 12/02/20 sucralfate 1 gram tablet 1 g PO QIDACHS 10/20/20 12/02/20 cyclobenzaprine 10 mg tablet 5 mg PO TID PRN 12/02/20 12/02/20 omeprazole 20 mg capsule,delayed 1 cap PO DAILY@0630 12/02/20 12/02/20 release topiramate 25 mg tablet 25 tab PO BID 12/02/20 12/02/20 trazodone 50 mg tablet 50 mg PO BEDTIME 12/02/20 12/02/20 Previous Rx's Medication Instructions Recorded ondansetron 4 mg disintegrating 4 mg PO Q8H PRN #20 tab 11/07/20 tablet prednisone 20 mg tablet 20 mg PO DAILY 5 Days #5 tab 11/07/20 hydrocodone 5 mg-acetaminophen 325 1 tab PO Q8H PRN #10 tab 12/02/20 mg tablet meloxicam 15 mg tablet (Mobic) 15 mg PO DAILY #10 tab 12/13/20 cyclobenzaprine 10 mg tablet 10 mg PO TID PRN #14 tab 02/05/21 naproxen 500 mg tablet 500 mg PO BID PRN 14 Days #20 tab 02/05/21 prednisone 20 mg tablet 20 mg PO DAILY 5 Days #5 tab 02/05/21 Allergies Allergy/AdvReac Type Severity Reaction Status Date / Time fish derived [fish] Allergy Severe Anaphylaxis Verified 12/08/20 03:21 shellfish derived Allergy Severe SWELLING Verified 12/08/20 03:21 [SHELLFISH DERIVED] WITH DIFFICULTY BREATHING haloperidol [From Haldol] Allergy Mild UNKNOWN Verified 12/08/20 03:21 pork derived (porcine) AdvReac Intermediate swelling Verified 12/08/20 03:21 garlic AdvReac Mild VOMITING Verified 12/08/20 03:21 Review of Systems Review of Systems: Positive hip pain No chest pain or shortness of breath No bowel urinary incontinence No focal weakness All systems reviewed otherwise negative Yes all other systems are reviewed and are negative [facility] Past Medical History Attestation statement: The following information was validated with the patient. Medical History Anxiety Bipolar 1 disorder Degenerative disc disease Depression Diabetes Diabetes type 2, controlled Diverticulosis Hip problem HTN (hypertension) Obese Osteoarthritis PTSD (post-traumatic stress disorder) Surgical History H/O elbow surgery History of surgery of head Hx of cholecystectomy Family History Family History Mother Hx of cholecystectomy Hypertension A-fib Father No problems noted. Brother No problems noted. Brother No problems noted. Son No problems noted. Social History Social History Alcohol intake: current Patient Tobacco Use Status: Current everyday Tobacco user Tobacco use type: Cigarette Cigarettes Per Day: 17 Substance Use Type: Marijuana Advance Directives: No Advance Directives Information Provided: Yes Physical Exam Vital Signs: Appearance: Alert. Oriented X3. No acute distress. Eyes: Pupils equal, round and reactive to light. ENT: Pharynx normal. Neck: Normal inspection. Neck supple. No lymph nodes noted. No crepitus CVS: Normal heart rate and rhythm. Pulses normal. Normal S1 and S2 Respiratory: No respiratory distress. Breath sounds normal. No Wheezing. No rales Abdomen: Soft and nontender. No rigidity. No distention. good BS x4 Skin: Skin warm and dry. Normal skin color. Normal skin turgor. Extremities: No lower extremity edema. Neurovascular intact to all extremities. No Lacerations. No Rash Neuro: Oriented X 3. No motor deficit. No sensory deficit. Moving all extermities. No slurred speech MDM - Extremity (Nontraumatic) MDM Narrative Medical decision making narrative: Chronic hip pain ran out of medication. Will go ahead and refill patient's naproxen, Flexeril, steroids. Will have patient follow-up with orthopedics on an outpatient basis. He is in stable condition. No distress. There is no trauma. There is no gross exam evidence for fracture. Patient is in stable condition with discharge Discharge Plan Discharge Clinical Impression: Osteoarthritis Patient Disposition: Home, Self-Care Prescriptions: New prednisone 20 mg tablet 20 mg PO DAILY 5 Days Qty: 5 RF: 0 naproxen 500 mg tablet 500 mg PO BID PRN (Reason: pain) 14 Days Qty: 20 RF: 0 cyclobenzaprine 10 mg tablet 10 mg PO TID PRN (Reason: pain) Qty: 14 RF: 0 No Action prednisone 20 mg tablet 20 mg PO DAILY 5 Days Qty: 5 RF: 0 ondansetron 4 mg tablet,disintegrating 4 mg PO Q8H PRN (Reason: nausea and vomiting) Qty: 20 RF: 0 meloxicam [Mobic] 15 mg tablet 15 mg PO DAILY Qty: 10 RF: 0 trazodone 50 mg tablet 50 mg PO BEDTIME RF: 0 omeprazole 20 mg capsule,delayed release(DR/EC) 1 cap PO DAILY@0630 RF: 0 cyclobenzaprine 10 mg tablet 5 mg PO TID PRN (Reason: Muscle Spasm) RF: 0 topiramate 25 mg tablet 25 tab PO BID RF: 0 hydrocodone-acetaminophen 5-325 mg tablet 1 tab PO Q8H PRN (Reason: pain) Qty: 10 RF: 0 desmopressin 0.1 mg tablet 0.2 mg PO Q12H RF: 0 naproxen [Naprosyn] 500 mg tablet 500 mg PO BID RF: 0 metformin 1,000 mg tablet 1,000 mg PO BID RF: 0 citalopram 20 mg tablet 20 mg PO DAILY RF: 0 Invega Sustenna 156 mg/mL syringe 156 mg IM Q30D RF: 0 cyclobenzaprine 5 mg tablet 5 mg PO TID PRN (Reason: Muscle Spasm) RF: 0 famotidine 20 mg tablet 20 mg PO BEDTIME RF: 0 sucralfate 1 gram tablet 1 g PO QIDACHS RF: 0 Referrals: Physician,Unknown J [Primary Care Provider] - 2 days
[2021-02-05 18:24] VITALS: BP 136/85; BP 160/70; PULSE 100; PULSE 60; RESP 18; TEMP 36.9; O2SAT 96; BMI 46.9
[2021-02-05] MEDS: NaPROXEN 500 MG TABLET PO (18:31)
[2021-02-05] MEDS: predniSONE 20 MG TABLET PO (18:33)
[2021-02-05] MEDS: Cyclobenzaprine HCl 10 MG TABLET PO (18:33)
== END 2021-02-05 18:59 | disposition home or self-care (01) ==
PROVIDERS: Emergency Provider Emergency Medicine Emergency Medical Services
DX: M16.0 Bilateral primary osteoarthritis of hip (principal); I10 Essential (primary) hypertension; E11.9 Type 2 diabetes mellitus without complications
CPT/HCPCS: 99283

== ENCOUNTER 2021-02-10 20:24 | Emergency (ER) | payer OTHER, SELFPAY ==
--- NOTE | 2021-02-10 | ECG_ITS ---
Test Reason : TACHYCARDIA Blood Pressure : / mmHG Vent. Rate : 106 BPM Atrial Rate : 106 BPM P-R Int : 136 ms QRS Dur : 088 ms QT Int : 342 ms P-R-T Axes : 083 080 052 degrees QTc Int : 454 ms Sinus tachycardia RSR' or QR pattern in V1 suggests right ventricular conduction delay Otherwise normal ECG Heart rate has increased Referred By: Generic ED Physician Electronically Signed By:AVRIL RIZZO MD
--- NOTE | ~2021-02-10 | CT_ITS ---
EXAMINATION: CT ABDOMEN AND PELVIS WITHOUT CONTRAST CLINICAL INFORMATION: Abdominal pain, hip pain COMPARISON: 11/16/2020 TECHNIQUE: Multidetector volumetric imaging was performed from the superior aspect of the liver through the pubic symphysis. Sagittal and coronal reformatted images were obtained on the technologist's workstation. This CT examination was performed using dose optimization techniques as appropriate, variously including the following: *Automated exposure control *Adjustment of mA and/or kV according to patient size (this includes techniques or standardized protocols for targeted exams where dose is matched to indication/reason for exam; i.e. extremities or head) *Use of iterative reconstruction technique DLP: 1422 mGy-cm FINDINGS: LUNG BASES: The visualized lung bases are unremarkable. LIVER, GALLBLADDER, AND BILIARY TREE: The liver is normal in size, shape, and attenuation. No focal hepatic lesion or biliary ductal dilatation is present. The gallbladder is not visualized. PANCREAS: Unremarkable. SPLEEN: Unremarkable. ADRENAL GLANDS: Unremarkable. KIDNEYS AND URETERS: The kidneys are normal in size, shape, and attenuation. No hydronephrosis, hydroureter, or calculi seen. BLADDER: Unremarkable. GASTROINTESTINAL TRACT: The small and large bowel are unremarkable. The appendix is unremarkable. No free fluid or free air is seen. ABDOMINAL WALL: No significant hernia is appreciated. LYMPH NODES: Normal. VASCULAR: There is mild scattered atherosclerotic calcification. PELVIC VISCERA: Unremarkable. OSSEOUS STRUCTURES: There are severe degenerative changes of the bilateral hips with joint space narrowing, osteophyte formation, some flattening of the femoral heads, and subchondral cyst formation. CT/CT abdomen pelvis wo con IMPRESSION: No acute findings identified in the abdomen/pelvis. Severe degenerative changes of the hips.
[2021-02-10 20:38] VITALS: BP 150/90; PULSE 115; O2SAT 95
[2021-02-10 20:52] VITALS: BP 177/107; PULSE 117; RESP 20; TEMP 36.6; O2SAT 97; BMI 46.9
--- NOTE | 2021-02-10 21:51 | PC.NURSE ---
called pt to triage area for protocol blood draw and EKG. Pt did not wan t to get up, stated they can do it when I get in there . Pt is not chest pain protocol.
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
--- NOTE | 2021-02-11 00:41 | PC.NURSE ---
multiple attempts to place Iv line. provider is aware.
[2021-02-11 00:44] LABS: MANUAL DIFF FLAG NO
[2021-02-11 00:46] LABS: Basophils Absolute Auto 0.1 X10*3/uL (0.0-0.2); Basophils Percent Auto 0.3 % (0-2); Hematocrit 42.1 % (42-52); Hemoglobin 13.8 g/dl (14.0-18.0); Imm Gran Abs Auto 0.08 X10*3/uL (0.00-0.03); Imm Gran Pct Auto 0.5 % (0.0-0.4); Lymphocytes Absolute Auto 2.3 X10*3/uL (1.2-4.9); Lymphocytes Percent Auto 14.2 % (20-40); Mean Corpuscular HGB Conc 32.8 g/dl (31.0-36.0); Mean Corpuscular Volume 82.2 fL (80-98); Monocytes Absolute Auto 1.5 X10*3/uL (0.1-1.2); Monocytes Percent Auto 9.1 % (2-11); Neutrophils Absolute Auto 12.1 X10*3/uL (2.0-8.3); Neutrophils Percent Auto 75.9 % (45-73); Platelet Count 272 X10*3/uL (160-400); Red Blood Count 5.12 X10*6/uL (4.60-5.80); Red Cell Distribution Width 14.8 % (11.0-16.0)
[2021-02-11] MEDS: Ketorolac Tromethamine 60 MG/2 ML VIAL IM (01:07)
--- NOTE | 2021-02-11 01:10 | PC.NURSE ---
Pt back from Ct Scan. medicated per Jun.
[2021-02-11 01:19] LABS: Alanine Aminotransferase 15 U/L (0-40); Alkaline Phosphatase 101 U/L (39-117); Anion Gap 15 (12-20); Aspartate Amino Transferase 14 U/L (5-37); Bilirubin Direct 0.2 mg/dL (0.0-0.5); Bilirubin Total 0.4 mg/dL (0.0-1.0); Blood Urea Nitrogen 12 mg/dL (9-16); Calcium 9.8 mg/dL (8.4-10.2); Carbon Dioxide 26 mmol/L (22-29); Chloride 103 mmol/L (96-108); Creatinine Clr Calc Pharmacy 118.6; Estimated Glomerular Filt Rate > 60; Glucose Random 143 mg/dL (60-115); Lipase 13 U/L (8-78); Sodium 140 mmol/L (135-145); Total Protein 7.6 g/dL (6.5-8.0)
[2021-02-11] MEDS: Lidocaine HCl Viscous 2 % 15 ML SOLUTION MUCOUS MEM (01:25)
[2021-02-11] MEDS: Magnesium Hydrox/Alum Hydrox 30 ML ORAL.SUSP PO (01:25)
[2021-02-11 01:44] VITALS: RESP 16
--- NOTE | 2021-02-11 01:44 | PC.NURSE ---
pt sleeping with no sign of distress at this time.
--- NOTE | 2021-02-11 01:55 | PC.NURSE ---
provider in to assess pt. plan is for pt to be discharge home.
[2021-02-11 03:22] VITALS: RESP 16
== END 2021-02-11 03:32 | disposition home or self-care (01) ==
PROVIDERS: Emergency Provider Emergency Medicine
DX: R10.9 Unspecified abdominal pain (principal); M16.0 Bilateral primary osteoarthritis of hip; R11.10 Vomiting, unspecified; E11.9 Type 2 diabetes mellitus without complications; I10 Essential (primary) hypertension; Z91.81 History of falling
CPT/HCPCS: 36415; 74176; 80053; 82248; 83690; 85025; 93005; 96372; 99284; J1885

== ENCOUNTER 2021-02-12 22:32 | Emergency (ER) | payer OTHER, SELFPAY ==
--- NOTE | ~2021-02-12 | XR_ITS ---
EXAMINATION: XR CHEST CLINICAL INFORMATION: Cough COMPARISON: 08/08/2016 TECHNIQUE: Frontal view of the chest was obtained. FINDINGS: Lung volumes are symmetric. No focal consolidation is seen. Mild central peribronchial thickening. No evidence of pneumothorax, pleural effusion, or pulmonary edema. The cardiomediastinal contour is unremarkable. Chronic right rib deformities noted. XR/XR chest 1V IMPRESSION: Mild central peribronchial thickening may represent airways disease. No focal consolidation.
[2021-02-12 22:45] VITALS: BP 120/90; BP 130/80; PULSE 111; PULSE 115; RESP 22; TEMP 37; O2SAT 94; O2SAT 96; BMI 46.9
--- NOTE | 2021-02-12 23:40 | ED_ITS ---
HPI - URI/Sore Throat General Chief Complaint: Upper Respiratory Symptoms Stated Complaint: mulitple complaints Time Seen by Provider: 02/12/21 23:40 Source: patient Mode of arrival: EMS Limitations: no limitations History of Present Illness HPI Narrative: Patient with history of schizophrenia morbidly obese multiple ED visits comes by ambulance for few hours of cough chills mal[place] up-to-date in [facility]. On arrival patient was sleeping saturating 96% at room air patient was here 2 days ago for abdominal pain Related Data Home Medications Medication Instructions Recorded Confirmed citalopram 20 mg tablet 20 mg PO DAILY 10/15/20 12/02/20 desmopressin 0.1 mg tablet 0.2 mg PO Q12H 10/15/20 12/02/20 metformin 1,000 mg tablet 1,000 mg PO BID 10/15/20 12/02/20 naproxen 500 mg tablet (Naprosyn) 500 mg PO BID 10/15/20 12/02/20 paliperidone palmitate 156 mg/mL 156 mg IM Q30D 10/15/20 12/02/20 intramuscular syringe (Invega Sustenna) cyclobenzaprine 5 mg tablet 5 mg PO TID PRN 10/20/20 12/02/20 famotidine 20 mg tablet 20 mg PO BEDTIME 10/20/20 12/02/20 sucralfate 1 gram tablet 1 g PO QIDACHS 10/20/20 12/02/20 cyclobenzaprine 10 mg tablet 5 mg PO TID PRN 12/02/20 12/02/20 omeprazole 20 mg capsule,delayed 1 cap PO DAILY@0630 12/02/20 12/02/20 release topiramate 25 mg tablet 25 tab PO BID 12/02/20 12/02/20 trazodone 50 mg tablet 50 mg PO BEDTIME 12/02/20 12/02/20 Previous Rx's Medication Instructions Recorded ondansetron 4 mg disintegrating 4 mg PO Q8H PRN #20 tab 11/07/20 tablet prednisone 20 mg tablet 20 mg PO DAILY 5 Days #5 tab 11/07/20 hydrocodone 5 mg-acetaminophen 325 1 tab PO Q8H PRN #10 tab 12/02/20 mg tablet meloxicam 15 mg tablet (Mobic) 15 mg PO DAILY #10 tab 12/13/20 cyclobenzaprine 10 mg tablet 10 mg PO TID PRN #14 tab 02/05/21 naproxen 500 mg tablet 500 mg PO BID PRN 14 Days #20 tab 02/05/21 prednisone 20 mg tablet 20 mg PO DAILY 5 Days #5 tab 02/05/21 albuterol sulfate 90 mcg/actuation 2 puff INHALATION Q4-6H PRN #8.5 g 02/13/21 aerosol inhaler (ProAir HFA) doxycycline hyclate 100 mg tablet 100 mg PO BID #20 tab 02/13/21 prednisone 20 mg tablet 40 mg PO DAILY #10 tab 02/13/21 Allergies Allergy/AdvReac Type Severity Reaction Status Date / Time fish derived [fish] Allergy Severe Anaphylaxis Verified 02/10/21 20:51 haloperidol [From Haldol] Allergy Severe Seizure Verified 02/10/21 20:51 shellfish derived Allergy Severe SWELLING Verified 02/10/21 20:51 [SHELLFISH DERIVED] WITH DIFFICULTY BREATHING pork derived (porcine) AdvReac Intermediate swelling Verified 02/10/21 20:51 garlic AdvReac Mild VOMITING Verified 02/10/21 20:51 Review of Systems Review of Systems: Yes all other systems are reviewed and are negative PMF Past Medical History Medical History Anxiety Bipolar 1 disorder Degenerative disc disease Depression Diabetes Diabetes type 2, controlled Diverticulosis Hip problem HTN (hypertension) Obese Osteoarthritis PTSD (post-traumatic stress disorder) Surgical History H/O elbow surgery History of surgery of head Hx of cholecystectomy Family History Family History Mother Hx of cholecystectomy Hypertension A-fib Father No problems noted. Brother No problems noted. Brother No problems noted. Son No problems noted. Social History Social History Alcohol intake: current Alcohol intake frequency: holidays/special occasions only Patient Tobacco Use Status: Current everyday Tobacco user Tobacco use type: Cigarette Cigarettes Per Day: 17 Substance Use Type: Marijuana Advance Directives: No Physical Exam Vital Signs: Vital Signs: Last Vital Signs Temp 98.6 F 10/21/21 22:45 Pulse 104 H 02/13/21 00:18 Resp 22 H 02/12/21 22:45 BP 130/80 02/12/21 22:45 Pulse Ox 96 02/12/21 22:45 Body Mass Index 46.9 Appearance: Alert. Oriented X3. No acute distress. Obese sleeping Eyes: PERRLA, No Nystagmus ENT: Pharynx normal. Oral Mucosa moist Neck: Normal inspection. Neck supple. CVS: Normal heart rate and rhythm. Pulses normal. Respiratory: No respiratory distress. Equal air entry bilateral, bilateral wheezing no rales Abdomen: Soft and nontender. Bowel sounds are present, no mass palpable, no CVA tenderness Skin: Skin warm and dry. Normal skin color. Normal skin turgor. Extremities: No lower extremity edema. No calf tenderness Neuro: Oriented X 3. MDM - URI/Sore Throat Medical Records Attestation: I reviewed the patient's medical records. Lab Data Attestation: I reviewed the patient's lab results. Labs: Lab Results 02/13/21 Range/Units 00:32 COVID-19 (THI) Negative (Negative) COVID-19 Clin Com See Note Discharge Plan Discharge Clinical Impression: Bronchitis Patient Disposition: Home, Self-Care Instructions: Acute Bronchitis (ED) Additional Instructions: Take antibiotic and prednisone and inhaler as prescribed Stop smoking Follow with PCP Prescriptions: New prednisone 20 mg tablet 40 mg PO DAILY Qty: 10 RF: 0 albuterol sulfate [ProAir HFA] 90 mcg/actuation HFA aerosol inhaler 2 puff inhalation Q4-6H PRN (Reason: Wheezing) Qty: 8.5 RF: 0 doxycycline hyclate 100 mg tablet 100 mg PO BID Qty: 20 RF: 0 No Action prednisone 20 mg tablet 20 mg PO DAILY 5 Days Qty: 5 RF: 0 ondansetron 4 mg tablet,disintegrating 4 mg PO Q8H PRN (Reason: nausea and vomiting) Qty: 20 RF: 0 meloxicam [Mobic] 15 mg tablet 15 mg PO DAILY Qty: 10 RF: 0 trazodone 50 mg tablet 50 mg PO BEDTIME RF: 0 omeprazole 20 mg capsule,delayed release(DR/EC) 1 cap PO DAILY@0630 RF: 0 cyclobenzaprine 10 mg tablet 5 mg PO TID PRN (Reason: Muscle Spasm) RF: 0 topiramate 25 mg tablet 25 tab PO BID RF: 0 hydrocodone-acetaminophen 5-325 mg tablet 1 tab PO Q8H PRN (Reason: pain) Qty: 10 RF: 0 prednisone 20 mg tablet 20 mg PO DAILY 5 Days Qty: 5 RF: 0 naproxen 500 mg tablet 500 mg PO BID PRN (Reason: pain) 14 Days Qty: 20 RF: 0 cyclobenzaprine 10 mg tablet 10 mg PO TID PRN (Reason: pain) Qty: 14 RF: 0 desmopressin 0.1 mg tablet 0.2 mg PO Q12H RF: 0 naproxen [Naprosyn] 500 mg tablet 500 mg PO BID RF: 0 metformin 1,000 mg tablet 1,000 mg PO BID RF: 0 citalopram 20 mg tablet 20 mg PO DAILY RF: 0 Invega Sustenna 156 mg/mL syringe 156 mg IM Q30D RF: 0 cyclobenzaprine 5 mg tablet 5 mg PO TID PRN (Reason: Muscle Spasm) RF: 0 famotidine 20 mg tablet 20 mg PO BEDTIME RF: 0 sucralfate 1 gram tablet 1 g PO QIDACHS RF: 0
[2021-02-13] MEDS: Albuterol/Iprat 2.5/0.5MG 3 ML AMPUL.NEB INHALE (00:16)
[2021-02-13] MEDS: Albuterol Sulfate (0.083%) 2.5 MG/3 ML VIAL.NEB 5 MG INHALE (00:17)
[2021-02-13 00:18] VITALS: PULSE 104; O2SAT 94
[2021-02-13 00:52] LABS: COVID-19 Test Negative (Negative)
[2021-02-13] MEDS: Albuterol Sulfate 90 MCG 8 GM INHALER 2 PUFF INHALE (01:54)
[2021-02-13] MEDS: predniSONE 20 MG TABLET 40 MG PO (01:54)
== END 2021-02-13 04:41 | disposition home or self-care (01) ==
PROVIDERS: Emergency Provider Internal Medicine
DX: J20.9 Acute bronchitis, unspecified (principal); E11.9 Type 2 diabetes mellitus without complications; Z20.822 Contact with and (suspected) exposure to COVID-19; Z79.899 Other long term (current) drug therapy; Z79.84 Long term (current) use of oral hypoglycemic drugs; F17.210 Nicotine dependence, cigarettes, uncomplicated; Z71.6 Tobacco abuse counseling
CPT/HCPCS: 36415; 71045; 87635; 94640; 94644; 99283; 99285

== ENCOUNTER 2021-02-16 19:41 | Emergency (ER) | payer OTHER, SELFPAY ==
--- NOTE | ~2021-02-16 | XR_ITS ---
EXAMINATION: X-RAY OF BOTH KNEES CLINICAL INFORMATION: Status post fall with pain. COMPARISON: No similar priors. TECHNIQUE: 2 views of each knee were obtained. FINDINGS: Right knee: No evidence of acute fractures or malalignment. Moderate tricompartmental degenerative changes with joint space narrowing and subcortical sclerosis, more prominent in the medial compartment. Small joint effusion. No chondrocalcinosis or erosions. Scattered vascular calcifications. Left knee: No acute fractures or malalignment. Similar to the right side, there are moderate tricompartmental degenerative changes, more prominent in the medial compartment. Small joint effusion. Scattered vascular calcifications. No chondrocalcinosis or erosive changes. XR/XR knee LT 2V IMPRESSION: No acute fractures or malalignment. Moderate bilateral degenerative changes as above.
--- NOTE | ~2021-02-16 | XR_ITS ---
EXAMINATION: XR BILATERAL HIPS WITH AP PELVIS CLINICAL INFORMATION: History status post fall. Hip pain. COMPARISON: Radiograph of the hips dated from 12/01/2020. TECHNIQUE: AP view of the pelvis and single views of each hip were obtained. FINDINGS: Redemonstration of severe end-stage degenerative arthritis in both hips characterize by severe joint space narrowing, articular surface remodeling, sclerosis, marginal osteophytes, and osseous fragmentation. This appearance is similar to prior studies. No acute fracture identified. SI joints and pubic symphysis are relatively preserved. Pelvic phleboliths. Otherwise, the soft tissues are unremarkable. XR/XR hips EDISON min 3V IMPRESSION: Severe end-stage osteoarthritis in both hips without significant change. No new findings.
--- NOTE | ~2021-02-16 | XR_ITS ---
EXAMINATION: X-RAY OF BOTH KNEES CLINICAL INFORMATION: Status post fall with pain. COMPARISON: No similar priors. TECHNIQUE: 2 views of each knee were obtained. FINDINGS: Right knee: No evidence of acute fractures or malalignment. Moderate tricompartmental degenerative changes with joint space narrowing and subcortical sclerosis, more prominent in the medial compartment. Small joint effusion. No chondrocalcinosis or erosions. Scattered vascular calcifications. Left knee: No acute fractures or malalignment. Similar to the right side, there are moderate tricompartmental degenerative changes, more prominent in the medial compartment. Small joint effusion. Scattered vascular calcifications. No chondrocalcinosis or erosive changes. XR/XR knee RT 2V IMPRESSION: No acute fractures or malalignment. Moderate bilateral degenerative changes as above.
[2021-02-16 19:44] VITALS: BP 128/82; PULSE 110; O2SAT 95
[2021-02-16 20:59] VITALS: BP 136/83; PULSE 123; RESP 20; TEMP 36.7; O2SAT 97; BMI 46.9
--- NOTE | 2021-02-16 21:52 | ECG_ITS ---
Test Reason : MEDICAL CLEARANCE Blood Pressure : / mmHG Vent. Rate : 110 BPM Atrial Rate : 110 BPM P-R Int : 136 ms QRS Dur : 090 ms QT Int : 336 ms P-R-T Axes : 073 073 048 degrees QTc Int : 454 ms Sinus tachycardia Intra-ventricular conduction delay Borderline ECG When compared with ECG of 11-FEB-2021 00:20, No significant change was found Referred By: Nora Castañeda Electronically Signed By:AVRIL RIZZO MD
--- NOTE | 2021-02-16 21:52 | ED.LOWEXIN ---
HPI - Extremity Injury (Lower) General Chief Complaint: Extremity Injury, Lower Stated Complaint: bilat hip px Time Seen by Provider: 02/16/21 21:25 Source: patient Mode of arrival: wheelchair Limitations: no limitations History of Present Illness HPI Narrative: 45-year-old male with a past medical history obesity, bipolar 1 disorder, schizoaffective disorder, depression, anxiety, PTSD, hypertension, non-insulin diabetic diabetes, polysubstance abuse and osteo arthritis presenting to the ED with complaints of bilateral hip and knee pain after he had a mechanical fall approximately 4 days ago were someone was pushing him in a wheelchair and they hit a wall and he fell over onto his bilateral knees and since then he has been having bilateral knee pain and hip pain and increased difficulty walking. He reports that over the past year since he was diagnosed with arthritis with bilateral hips that he has been unable to care for himself at home with ADLs or even cleaning himself when he has to urinate or has a bowel movement. He denies head injury or loss of consciousness. He is not on any blood thinners. He denies any other injuries complaints or concerns at this time. MD complaint: hip injury, knee injury and fall Onset (ago): day(s) (Approximately 4 days ago) Type of Injury: blunt Place: home Severity: severe Severity scale (1-10): >10 Relieving factors: nothing Exacerbating factors: weight bearing, movement and palpation Context: fall Associated symptoms: ambulatory Other symptoms: none Related Data Home Medications Medication Instructions Recorded Confirmed citalopram 20 mg tablet 20 mg PO DAILY 10/15/20 02/16/21 desmopressin 0.1 mg tablet 0.2 mg PO Q12H 10/15/20 12/02/20 metformin 1,000 mg tablet 1,000 mg PO BID 10/15/20 12/02/20 paliperidone palmitate 156 mg/mL 156 mg IM Q30D 10/15/20 02/16/21 intramuscular syringe (Invega Sustenna) sucralfate 1 gram tablet 1 g PO TIDAC 10/20/20 02/16/21 omeprazole 20 mg capsule,delayed 1 cap PO DAILY@0630 12/02/20 02/16/21 release topiramate 25 mg tablet 25 tab PO BID 12/02/20 02/16/21 oxycodone-acetaminophen 10 mg-325 1 tab PO TID PRN 02/16/21 02/16/21 mg tablet Previous Rx's Medication Instructions Recorded prednisone 20 mg tablet 20 mg PO DAILY 5 Days #5 tab 11/07/20 cyclobenzaprine 10 mg tablet 10 mg PO TID PRN #14 tab 02/05/21 naproxen 500 mg tablet 500 mg PO BID PRN 14 Days #20 tab 02/05/21 albuterol sulfate 90 mcg/actuation 2 puff INHALATION Q4-6H PRN #8.5 g 02/13/21 aerosol inhaler (ProAir HFA) Allergies Allergy/AdvReac Type Severity Reaction Status Date / Time fish derived [fish] Allergy Severe Anaphylaxis Verified 02/10/21 20:51 haloperidol [From Haldol] Allergy Severe Seizure Verified 02/10/21 20:51 shellfish derived Allergy Severe SWELLING Verified 02/10/21 20:51 [SHELLFISH DERIVED] WITH DIFFICULTY BREATHING pork derived (porcine) AdvReac Intermediate swelling Verified 02/10/21 20:51 garlic AdvReac Mild VOMITING Verified 02/10/21 20:51 Review of Systems Review of Systems: Constitutional : No Weight loss, No Fever, No Chills, No Night Sweats, No Fatigue, No Malaise ENT/Mouth : No Hearing loss, No Ear Pain, No Nasal Congestion, No Sinus Pain, No Hoarseness, No sore throat, No Rhinorrhea, No Swallowing Difficulty Eyes: No Eye Pain, No Swelling, No Redness, No Foreign Body, No Discharge, No Vision Changes Cardiovascular : No Chest Pain, No SOB, No Dyspnea on Exertion, No Orthopnea, No Edema, No Palpitations Respiratory : No Cough, No Sputum, No Wheezing, No Smoke Exposure, No Dyspnea Gastrointestinal : No Nausea, No Vomiting, No Diarrhea, No Constipation, No abdominal Pain, No Hematochezia, No Melena Genitourinary : no irregular bleeding, No Dysuria, No Urinary Frequency, No Hematuria, No Urinary Incontinence, No Urgency, No Flank Pain, No Urinary Flow Changes, No Hesitancy Musculoskeletal : + b/l hip/knee joint pain, No Myalgias, No Joint Swelling Skin : No Skin Lesions, No rash Neuro : No Weakness, No Numbness, No Paresthesias, No Loss of Consciousness, No Dizziness, No Headache Psych : No Anxiety/Panic, No Depression, No SI/HI/AH/VH, No Social Issues, Heme/Lymph: No Bruising, No Bleeding,No Lymphadenopathy Endocrine : No Polyuria, No Polydipsia, No Temperature Intolerance Yes all other systems are reviewed and are negative [facility] Past Medical History Attestation statement: The following information was validated with the patient. Medical History Anxiety Bipolar 1 disorder Degenerative disc disease Depression Diabetes Diabetes type 2, controlled Diverticulosis Hip problem HTN (hypertension) Obese Osteoarthritis PTSD (post-traumatic stress disorder) Surgical History H/O elbow surgery History of surgery of head Hx of cholecystectomy Family History Family History Mother Hx of cholecystectomy Hypertension A-fib Father No problems noted. Brother No problems noted. Brother No problems noted. Son No problems noted. Social History Social History Alcohol intake: current Alcohol intake frequency: holidays/special occasions only Patient Tobacco Use Status: Current everyday Tobacco user Tobacco use type: Cigarette Cigarettes Per Day: 17 Substance Use Type: Marijuana Advance Directives: No Advance Directives Information Provided: Yes Physical Exam Vital Signs: Vital Signs: Last Vital Signs Temp 98.1 F 02/16/21 20:59 Pulse 123 H 02/16/21 20:59 Resp 20 02/16/21 20:59 BP 136/83 02/16/21 20:59 Pulse Ox 97 02/16/21 20:59 Body Mass Index 46.9 vital signs have been reviewed as normal and appeared to be correct. Blood pressure normal Heart rate tachycardic at 123. Respiratory rate normal. Temperature normal. Oxygen saturation normal. Appearance: Alert. Oriented X3. No acute distress. Patient is covered in feces and urine. Head: Normal external exam. Normocephalic. Atraumatic. No Osorio signs noted. No raccoon eyes noted Eyes: PERRLA. EOMI. Conjunctiva and sclera normal. Eyelids normal. ENT: Pharynx normal. Uvula midline. Moist mucous membranes. No trismus noted. No drooling noted. No muffled voice noted. Neck: Normal inspection. Neck supple. FROM. No adenopathy. Thyroid Normal. No meningeal signs. No neck mass noted. CVS: Normal heart rate and rhythm. Heart sound normal. Pulses normal throughout. No murmurs/rales/gallops. Respiratory: No respiratory distress. Painless inspiration. Breath sounds normal. No wheezes/rales/rhonchi noted. Chest nontender. No accessory muscle usage noted or decreased air movement noted. Abdomen: Soft and nontender. Bowel sounds normal in all 4 quadrants. No distention noted. No organomegaly noted. No visible injury noted. Back: No CVA tenderness. Full range of motion noted. No rashes/lesion/induration/fluctuance or signs of infection noted. Skin: Skin warm and dry. Normal skin color. Normal skin turgor. No rashes/lesions/lacerations noted. Extremities: Patient with tenderness palpation to bilateral hip/bilateral knees no obvious deformities or ligamentous/tendon injuries noted on my exam. Patient reports pain with flexion of bilateral knees and bilateral hips otherwise has full extension no other limited range of motion. No obvious signs of infection. No calf tenderness is noted bilaterally. No lower extremity edema. Otherwise all other Extremities exhibit normal range of motion. and nontender. Neuro: Oriented X 3. No motor deficit. No sensory deficit. Reflexes normal. Normal steady gait. No focal neuro deficits noted. Vascular: + radial pulses/+ 2 distal pedal pulses/+2 dorsalis pedis b/l. Normal cap refill. No cyanosis noted to upper extremity nails and lower extremity toes nails. Course Course Course Narrative: 21:45pm - 45-year-old male with a past medical history obesity, bipolar 1 disorder, schizoaffective disorder, depression, anxiety, PTSD, hypertension, non-insulin diabetic diabetes, polysubstance abuse and osteo arthritis presenting to the ED with complaints of bilateral hip and knee pain after he had a mechanical fall approximately 4 days ago were someone was pushing him in a wheelchair and they hit a wall and he fell over onto his bilateral knees and since then he has been having bilateral knee pain and hip pain and increased difficulty walking. He reports that over the past year since he was diagnosed with arthritis with bilateral hips that he has been unable to care for himself at home with ADLs or even cleaning himself when he has to urinate or has a bowel movement. He denies head injury or loss of consciousness. He is not on any blood thinners. He denies any other injuries complaints or concerns at this time. On exam patient was noted to be completely soiled and in feces had to be cleaned and changed by myself and PEYMAN Rm. Otherwise has a normal steady gait. Has limited range of motion to bilateral hips and knees although no obvious deformities or ligamentous/tendon injuries. Plan: Labs, XRays of b/l hips/knee, place a prn order for 500 mg of naproxen every 12 hours, 10 mg of Flexeril every 8 hours/p.r.n., 5 mg of oxycodone every 6 hours p.r.n. and prednisone 20 mg daily x5 days then if all labs and imaging within normal limits patient will be medically cleared and placed in physician observation for physical therapy and case management for possible short-term rehab versus long-term care placement. Patient understands agrees with this plan. Reevaluation(s) Reevaluation #1: - x-ray of bilateral knees revealed moderate bilateral degenerative changes otherwise no other acute processes were noted. - x-ray of bilateral hips revealed severe end-stage osteoarthritis in both hips without significant changes no new findings. - Awaiting labs and UA. - manager banquet found out from Mother that he has a long mental history and his Mother is his legal guardian and has a Nav's order and has a nurse who brings meds from [facility]. He is currently being followed by [facility] and was with [facility] for [address] years[address] has [address] date tomorrow for eviction. Mother reports that he is currently also using drugs that she just went over to his house a few days ago and he had a lot of friends over and they are doing crack cocaine on the table. He has home pt scheduled through [facility]. Twice a week and walks with a walker. He was going to weight management but was in going to his appointments therefore he is to start all over again. He has to lose at least 35-45 lb before he will get any type of surgery. He was hospitalized for 1 year from August 08, 2019- August 12, 2020. He was in a fci in [facility] from August-October 2020. Time: 22:46 Reevaluation #2: - patient has an elevated white blood cell count at 12,000. He has a mild baseline anemia similar compared to prior. BUN 19. Random glucose 149. Total protein 6.3. Otherwise all other labs are within normal limits. COVID swab is negative. - awaiting a UA. - although at this time patient is medically cleared and placed in physician observation because the patient is more time to be evaluated by Physical therapy for possible short-term rehab placement. Will continue to monitor. Time: 23:24 Reevaluation #3: Patient medically cleared and placed in physician observation because the patient is more time to be evaluated by Physical therapy for possible short-term rehab with case management and patient should also be evaluated by crisis just to clear him psychiatrically Time: 00:11 MDM - Extremity Injury (Lower) Medical Records Attestation: I reviewed the patient's medical records. Lab Data Attestation: I reviewed the patient's lab results. Result diagrams: 02/16/21 22:50 02/16/21 22:50 Labs: Lab Results 02/16/21 02/16/21 02/16/21 Range/Units 22:50 22:50 22:50 WBC 12.3 H (4.8-10.8) X10*3/uL RBC 4.81 (4.60-5.80) X10*6/uL Hgb 13.3 L (14.0-18.0) g/dl Hct 40.0 L (42-52) % MCV 83.2 (80-98) fL MCH 27.7 (27.0-33.0) pg MCHC 33.3 (31.0-36.0) g/dl RDW 15.7 (11.0-16.0) % Plt Count 216 (160-400) X10*3/uL MPV 10.1 (9.4-12.4) fL Immature Gran % (Auto) 0.6 H (0.0-0.4) % Neut % (Auto) 70.2 (45-73) % Lymph % (Auto) 19.2 L (20-40) % [place] % (Auto) 9.8 (2-11) % Eos % (Auto) 0.0 (0-4) % Baso % (Auto) 0.2 (0-2) % Lymph # (Auto) 2.4 (1.2-4.9) X10*3/uL [place] # (Auto) 1.2 (0.1-1.2) X10*3/uL Eos # (Auto) 0.0 (0.0-0.4) X10*3/uL Baso # (Auto) 0.0 (0.0-0.2) X10*3/uL Abs Immat Gran (auto) 0.07 H (0.00-0.03) X10*3/uL Absolute Neuts (auto) 8.6 H (2.0-8.3) X10*3/uL Absolute Nucleated RBC 0.000 (0.0-0.012) X10*3/uL Nucleated RBC % (auto) 0.0 (0.0-0.2) /100WBC PT 11.3 (9.9-13.0) SEC INR 1.0 (0.9-1.1) Sodium 142 (135-145) mmol/L Potassium 3.6 (3.3-5.1) mmol/L Chloride 106 (96-108) mmol/L Carbon Dioxide 26 (22-29) mmol/L Anion Gap 14 (12-20) BUN 19 H D (9-16) mg/dL Creatinine 1.10 (0.5-1.4) mg/dL Estim Creat Clear Calc 117.5 Estimated GFR > 60 Random Glucose 149 H (60-115) mg/dL Lactic Acid (0.5-2.0) mmol/L Calcium 9.5 (8.4-10.2) mg/dL Magnesium 1.9 (1.6-2.6) mg/dL Total Bilirubin 0.3 (0.0-1.0) mg/dL AST 10 (5-37) U/L ALT 8 (0-40) U/L Alkaline Phosphatase 94 (39-117) U/L B-Natriuretic Peptide (<100) pg/mL Total Protein 6.3 L (6.5-8.0) g/dL Albumin 3.5 (3.5-5.0) g/dL COVID-19 (THI) (Negative) COVID-19 Clin Com 02/16/21 02/16/21 02/16/21 Range/Units 22:50 22:50 23:39 WBC (4.8-10.8) X10*3/uL RBC (4.60-5.80) X10*6/uL Hgb (14.0-18.0) g/dl Hct (42-52) % MCV (80-98) fL MCH (27.0-33.0) pg MCHC (31.0-36.0) g/dl RDW (11.0-16.0) % Plt Count (160-400) X10*3/uL MPV (9.4-12.4) fL Immature Gran % (Auto) (0.0-0.4) % Neut % (Auto) (45-73) % Lymph % (Auto) (20-40) % [place] % (Auto) (2-11) % Eos % (Auto) (0-4) % Baso % (Auto) (0-2) % Lymph # (Auto) (1.2-4.9) X10*3/uL [place] # (Auto) (0.1-1.2) X10*3/uL Eos # (Auto) (0.0-0.4) X10*3/uL Baso # (Auto) (0.0-0.2) X10*3/uL Abs Immat Gran (auto) (0.00-0.03) X10*3/uL Absolute Neuts (auto) (2.0-8.3) X10*3/uL Absolute Nucleated RBC (0.0-0.012) X10*3/uL Nucleated RBC % (auto) (0.0-0.2) /100WBC PT (9.9-13.0) SEC INR (0.9-1.1) Sodium (135-145) mmol/L Potassium (3.3-5.1) mmol/L Chloride (96-108) mmol/L Carbon Dioxide (22-29) mmol/L Anion Gap (12-20) BUN (9-16) mg/dL Creatinine (0.5-1.4) mg/dL Estim Creat Clear Calc Estimated GFR Random Glucose (60-115) mg/dL Lactic Acid 1.7 (0.5-2.0) mmol/L Calcium (8.4-10.2) mg/dL Magnesium (1.6-2.6) mg/dL Total Bilirubin (0.0-1.0) mg/dL AST (5-37) U/L ALT (0-40) U/L Alkaline Phosphatase (39-117) U/L B-Natriuretic Peptide < 10 (<100) pg/mL Total Protein (6.5-8.0) g/dL Albumin (3.5-5.0) g/dL COVID-19 (THI) Negative (Negative) COVID-19 Clin Com See Note Imaging Data Bilateral hips/knees x-ray: Attestation: I personally reviewed and interpreted this imaging study as follows: Radiologist's impression: FINDINGS: Right knee: No evidence of acute fractures or malalignment. Moderate tricompartmental degenerative changes with joint space narrowing and subcortical sclerosis, more prominent in the medial compartment. Small joint effusion. No chondrocalcinosis or erosions. Scattered vascular calcifications. Left knee: No acute fractures or malalignment. Similar to the right side, there are moderate tricompartmental degenerative changes, more prominent in the medial compartment. Small joint effusion. Scattered vascular calcifications. No chondrocalcinosis or erosive changes.? XR/XR knee RT 2V IMPRESSION: No acute fractures or malalignment. ? Moderate bilateral degenerative changes as above.? FINDINGS: Redemonstration of severe end-stage degenerative arthritis in both hips characterize by severe joint space narrowing, articular surface remodeling, sclerosis, marginal osteophytes, and osseous fragmentation. This appearance is similar to prior studies. No acute fracture identified. SI joints and pubic symphysis are relatively preserved. Pelvic phleboliths. Otherwise, the soft tissues are unremarkable. XR/XR hips EDISON min 3V IMPRESSION: Severe end-stage osteoarthritis in both hips without significant change. No new findings. ECG Data Attestation: I personally reviewed and interpreted this ECG as follows: ECG interpretation date: 02/16/21 ECG interpretation time: 22:31 Interpretation: Sinus tachycardia with ventricular rate of 110 with a normal SD interval normal QRS duration normal QT/QTC interval. No acute ischemic change noted similar compared to prior EKG 02/11/2021 Discharge Plan Discharge Clinical Impression: Fall, Osteoarthritis of both hips, Degenerative arthritis of knee, bilateral Patient Disposition: Still a Patient Prescriptions: No Action prednisone 20 mg tablet 20 mg PO DAILY 5 Days Qty: 5 RF: 0 omeprazole 20 mg capsule,delayed release(DR/EC) 1 cap PO DAILY@0630 RF: 0 topiramate 25 mg tablet 25 tab PO BID RF: 0 albuterol sulfate [ProAir HFA] 90 mcg/actuation HFA aerosol inhaler 2 puff inhalation Q4-6H PRN (Reason: Wheezing) Qty: 8.5 RF: 0 oxycodone-acetaminophen 10-325 mg tablet 1 tab PO TID PRN (Reason: Pain) RF: 0 naproxen 500 mg tablet 500 mg PO BID PRN (Reason: pain) 14 Days Qty: 20 RF: 0 cyclobenzaprine 10 mg tablet 10 mg PO TID PRN (Reason: pain) Qty: 14 RF: 0 desmopressin 0.1 mg tablet 0.2 mg PO Q12H RF: 0 metformin 1,000 mg tablet 1,000 mg PO BID RF: 0 citalopram 20 mg tablet 20 mg PO DAILY RF: 0 Invega Sustenna 156 mg/mL syringe 156 mg IM Q30D RF: 0 sucralfate 1 gram tablet 1 g PO TIDAC RF: 0
--- NOTE | 2021-02-16 22:31 | PHA.MEDREC ---
Pharmacy Consult ? Medication Reconciliation Pharmacy has completed the medication reconciliation. Patient reports taking Desmopressin 4 mg daily, last filled 11/27/20 for 0.1 mg 4 tablets daily for urinary incontinence. Reports taking metformin last filled 10/22/2020 and sucralafte TIDAC list filled on 10/31/2020. I will have the AM pharmacist call [place] to verify the patient's prescriptions. Rhina Mejia, PanchitoD
[2021-02-16 22:57] LABS: MANUAL DIFF FLAG NO
[2021-02-16 22:58] LABS: Basophils Percent Auto 0.2 % (0-2); Hemoglobin 13.3 g/dl (14.0-18.0); Imm Gran Abs Auto 0.07 X10*3/uL (0.00-0.03); Imm Gran Pct Auto 0.6 % (0.0-0.4); Lymphocytes Absolute Auto 2.4 X10*3/uL (1.2-4.9); Lymphocytes Percent Auto 19.2 % (20-40); Mean Corpuscular HGB Conc 33.3 g/dl (31.0-36.0); Mean Corpuscular Hemoglobin 27.7 pg (27.0-33.0); Mean Corpuscular Volume 83.2 fL (80-98); Mean Platelet Volume 10.1 fL (9.4-12.4); Monocytes Absolute Auto 1.2 X10*3/uL (0.1-1.2); Monocytes Percent Auto 9.8 % (2-11); Neutrophils Absolute Auto 8.6 X10*3/uL (2.0-8.3); Neutrophils Percent Auto 70.2 % (45-73); Platelet Count 216 X10*3/uL (160-400); Red Blood Count 4.81 X10*6/uL (4.60-5.80); Red Cell Distribution Width 15.7 % (11.0-16.0); White Blood Count 12.3 X10*3/uL (4.8-10.8)
[2021-02-16 23:06] LABS: Prothrombin Time 11.3 SEC (9.9-13.0)
[2021-02-16] MEDS: predniSONE 20 MG TABLET PO (23:12)
[2021-02-16 23:14] LABS: Alanine Aminotransferase 8 U/L (0-40); Albumin Level 3.5 g/dL (3.5-5.0); Alkaline Phosphatase 94 U/L (39-117); Anion Gap 14 (12-20); Aspartate Amino Transferase 10 U/L (5-37); Bilirubin Total 0.3 mg/dL (0.0-1.0); Blood Urea Nitrogen 19 mg/dL (9-16); COVID-19 Test Negative (Negative); Calcium 9.5 mg/dL (8.4-10.2); Carbon Dioxide 26 mmol/L (22-29); Chloride 106 mmol/L (96-108); Creatinine Clr Calc Pharmacy 117.5; Estimated Glomerular Filt Rate > 60; Glucose Random 149 mg/dL (60-115); Magnesium 1.9 mg/dL (1.6-2.6); Potassium 3.6 mmol/L (3.3-5.1); Sodium 142 mmol/L (135-145); Total Protein 6.3 g/dL (6.5-8.0)
[2021-02-16 23:17] LABS: B Type Natriuretic Peptide < 10 pg/mL (<100)
--- NOTE | 2021-02-16 23:26 | MHC.CM.ED ---
CM met with patient. A&Ox3. Pleasant. Pt tells CM that his mother, Briana Kirkpatrick (c [phone]) is his court appointed guardian. Pt tells CM that his PCP is Anai Trejo. Pt tells CM that he went to weight management and lost 11 pounds, but missed several appointments and now must reschedule with them to begin treatment again. Pt told CM that he weights 318 pounds. Pt understands that PT will see him in the morning. Pt tells me that [facility] has provided home PT for him and that he has a visiting nurse from [facility] that gives him his medications. CM called pt guardian/mother Briana. Per Briana, she is his guardian and he has a Nav's order for his medications. Pt has long standing mental health history. Pt is Schizophrenic and has been ill for 27 years. Pt was at [facility] in [place] for 1 year and was d/c on 08/11/2020. Pt was in a [facility] in [place] until October and since then has been living in his own apartment. Briana tells me pt has a court date with the housing court and expects he will be evicted from his apartment for panhandling and solicitation. Briana also tells CM that pt has a long standing drug addiction to crack cocaine and she knows he is still using, as she witnessed it 2 weeks ago when bringing groceries to his apartment. CM requested that Briana bring in the guardianship and Nav's order to ED tomorrow. Briana will bring them tomorrow afternoon, as she is caring for her elderly mother and needs to bring her for an appointment. Nora Bourgeois and Rainer MORLEY aware. No referrals placed at this time pending PT recommendations. CM will follow for d/c needs.
[2021-02-16] MEDS: oxyCODONE HCl Immed Release 5 MG TABLET PO (23:48)
[2021-02-17 00:04] LABS: Lactic Acid 1.7 mmol/L (0.5-2.0)
[2021-02-17] MEDS: NaPROXEN 500 MG TABLET PO (01:18)
[2021-02-17] MEDS: Cyclobenzaprine HCl 10 MG TABLET PO ×2 (01:19→10:08)
--- NOTE | 2021-02-17 02:10 | PC.NURSE ---
patient ambulating to nurses desk with use of walker, patient became verbally hostile towards staff when told he cant have anymore jello, patient is calm and cooperative with primary nurse.
--- NOTE | 2021-02-17 02:13 | PC.NURSE ---
PATIENT IS UP AND WALKING TO THE NURSES STATION, YELLING AND CURSING AT STAFF. RAISING HIS VOICE AND YELLING THAT ITS MEAL TIME AND PATIENT NEEDS TO HAVE A MEAL FOR HIM. INFORMED HIM THAT THE KITCHEN WAS CLOSED, CONTINUED DOWN THE EM TOWARDS STAFF WITH ONLY THE ASSIST OF HIS WALKER. PATIENT IS STEADY AND ABLE TO USE ASSISTIVE DEVICE. PROVIDER MADE AWARE AND WITNESSING PATIENTS BEHAVIORS AND AMBULATING THROUGHOUT THE HALLS. ESCORTED BACK TO HIS BED AND GIVEN SNACK, INFORMING PATIENT BREAKFAST IS SERVED AROUND 7 AM.
[2021-02-17 02:34] VITALS: BP 143/73; PULSE 78; RESP 18; TEMP 37.1; O2SAT 98
[2021-02-17] MEDS: oxyCODONE HCl Immed Release 5 MG TABLET PO (07:34)
--- NOTE | 2021-02-17 07:53 | PC.NURSE ---
Assumed care of patient. Pt is up, ambulating with a walker. Pt medicated for complaints of hip pain. Pt waiting for a PT eval.
[2021-02-17 08:43] VITALS: BP 143/73; PULSE 78; O2SAT 98
[2021-02-17] MEDS: predniSONE 20 MG TABLET PO (09:11)
[2021-02-17 09:28] LABS: Appearance Urine CLEAR; Color Urine YELLOW; Glucose Urine UA NEG (NEG); Leukocyte Esterase Urine NEG (NEG); Nitrite Urine NEG (NEG); PH 6.5 (5.0-8.0); Urine Blood NEG (NEG); Urine Ketones NEG (NEG); Urine Protein NEG (NEG-TRACE)
[2021-02-17 09:45] LABS: Amphetamine Screen Urine Not Detected (Not Detect); Barbiturates, Urine Not Detected (Not Detect); Benzodiazepines Screen Urine Not Detected (Not Detect); Cannabinoid Screen Urine Not Detected (Not Detect); Cocaine Screen Urine POSITIVE (Not Detect); Fentanyl, urine Not Detected (Not Detect); Opiate Screen Urine Not Detected (Not Detect); Phencyclidine Screen Urine Not Detected (Not Detect)
--- NOTE | 2021-02-17 09:49 | MHC.CM.ED ---
Patient remains in ER. Copy of guardianship and Nav's order obtained from [employer] [place] office. Physical therapy eval completed. Short term rehab is recommended. Anticipate patient will be difficult to place. Referral broadcasted within 25 miles of patient's home residence, with all facilities contracted with patient's insurance. Patient is active with [facility] for [facility]. Referral made via [facility] for copy of patient's med list. Continue to monitor for d/c needs.
[2021-02-17] MEDS: Topiramate 25 MG TABLET PO (10:08)
[2021-02-17] MEDS: Omeprazole 20 MG CAPSULE.DR PO (10:08)
[2021-02-17] MEDS: metFORMIN HCl 1,000 MG TABLET 1000 MG PO (10:08)
[2021-02-17] MEDS: Sucralfate 1 GM TABLET PO (10:08)
--- NOTE | 2021-02-17 10:44 | MHC.CARE ---
CARE Team meets with pt in ED 19H. Pt is here with medical complaint, however, has an extensive mental health hx. He currently has a legal guardian and is on a alvarez order; pt has a documented hx of schizophrenia. Pt is resting in bed, and engages easily with CARE Team. His affect is euthymic, speech and eye contact are within normal limits. He complains of hip pain. He self reported a hx of bipolar disorder, with last inpt psychiatric admission approx 2 years ago at [facility]. Pt cannot recall what precipitated this last admission. He states that he has been compliant with medications and states that he feels good mentally. He denies any depression, or mood instability of any kind. He denies AVH, thought content appears WNL, with one exception of pt stating that psycho babies are after you. Pt then laughed and stated he was joking. He denies SI, and denies any hx of past attempts. He denies HI, and denies any past violence toward others. He denies having any current legal issues. Pt states that he does not currently have a therapist or psychiatrist, and he would be open to having these services. Pt is on board with the plan for rehab, and denies needing any further mental health intervention at this time. Pt appears to be at his baseline of functioning, given extensive chart review. Pt is known to CARE Team. Pt does not meet criteria for inpatient psychiatric level of care at this time. CARE Team recommends that pt work with the case mangagement team on placement in rehab. Recommendations were communicated with Karl Mcpherson RN.
--- NOTE | 2021-02-17 13:06 | MHC.CM.ED ---
Received notification from [employer] that patient has been walking out of the ER, outside to smoke cigarettes. Insurance will not authorize rehab if he is able to ambulate that far. Spoke with patient's mother/guardian, Briana via telephone at [phone]. Daily is aware of above information. Briana is concerned because patient has a substance abuse issues. T/W explained insurance would not authorize rehab in a facility if patient was able to ambulate that far. Also explained no facility would offer a bed if patient was so defiant will facility rules. Catalina from recovery team saw patient. Patient denies having substance abuse issues. T/W met with patient to explain insurance would not authorize rehab at a facility. Patient stated But I can't walk because of my hips! T/W explained patient has been ambulating all over ER and outside. Patient states he still can't walk. Patient informed he will be discharged home with resumption of services through [facility]. Patient started using profanity towards T/W. , Rachel GRIGSBY, Filiberto RN and patient's mother/guardian Briana aware. Continue to monitor for d/c needs.
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
--- NOTE | 2021-02-17 13:31 | MHC.RECOVRN ---
Met with pt after request from CM and hx cocaine use disorder. Pts UDS positive for cocaine. Pt states I don't do drugs. I don't even drink alcohol. I had a Starr someone gave me that was laced with cocaine. Pt denies ROSELIA or need for tx/supports. CM aware. T/w available as needed.
== END 2021-02-17 13:57 | disposition home or self-care (01) ==
PROVIDERS: Nurse Practitioner Family; Physician Assistant Medical; Emergency Provider Internal Medicine; PCP Internal Medicine
DX: M16.0 Bilateral primary osteoarthritis of hip (principal); M17.0 Bilateral primary osteoarthritis of knee; F14.90 Cocaine use, unspecified, uncomplicated; I10 Essential (primary) hypertension; E11.9 Type 2 diabetes mellitus without complications; F25.9 Schizoaffective disorder, unspecified; F43.10 Post-traumatic stress disorder, unspecified; Z79.899 Other long term (current) drug therapy; Z91.81 History of falling; Z20.822 Contact with and (suspected) exposure to COVID-19
CPT/HCPCS: 36415; 73522; 73560; 80053; 80307; 81003; 83605; 83735; 83880; 85025; 85610; 87040; 87635; 93005; 97162; 99284; 99285

== ENCOUNTER 2021-02-22 23:20 | Emergency (ER) | payer OTHER, SELFPAY ==
--- NOTE | 2021-02-22 23:25 | ED_ITS ---
HPI - Extremity Problem General Chief complaint: Extremity Problem Stated complaint: bilateral hip pain Time Seen by Provider: 02/22/21 23:23 Source: patient Mode of arrival: EMS History of Present Illness HPI Narrative: Patient history of schizophrenia PTSD chronic arthritis, depression, diabetes, hypertension, morbid obesity been here multiple times for multiple complaints last time was here on 02/17 and discharged home for osteoarthritis of bilateral hips was walking in the ER with walker without difficulty today comes by ambulance for same pain said he could not get the medication for pain last time was on the wheelchair outside the house no recent fall Related Data Home Medications Medication Instructions Recorded Confirmed citalopram 20 mg tablet 20 mg PO DAILY 10/15/20 02/16/21 desmopressin 0.1 mg tablet 0.4 mg PO DAILY 10/15/20 02/17/21 metformin 1,000 mg tablet 1,000 mg PO BID 10/15/20 02/17/21 paliperidone palmitate 156 mg/mL 156 mg IM Q30D 10/15/20 02/16/21 intramuscular syringe (Invega Sustenna) sucralfate 1 gram tablet 1 g PO TIDAC 10/20/20 02/16/21 omeprazole 20 mg capsule,delayed 1 cap PO DAILY@0630 12/02/20 02/16/21 release topiramate 25 mg tablet 25 tab PO BID 12/02/20 02/16/21 oxycodone-acetaminophen 10 mg-325 1 tab PO TID PRN 02/16/21 02/16/21 mg tablet Previous Rx's Medication Instructions Recorded prednisone 20 mg tablet 20 mg PO DAILY 5 Days #5 tab 11/07/20 cyclobenzaprine 10 mg tablet 10 mg PO TID PRN #14 tab 02/05/21 naproxen 500 mg tablet 500 mg PO BID PRN 14 Days #20 tab 02/05/21 albuterol sulfate 90 mcg/actuation 2 puff INHALATION Q4-6H PRN #8.5 g 02/13/21 aerosol inhaler (ProAir HFA) oxycodone 5 mg tablet 5 mg PO Q6H PRN #20 tab 02/23/21 Allergies Allergy/AdvReac Type Severity Reaction Status Date / Time fish derived [fish] Allergy Severe Anaphylaxis Verified 02/10/21 20:51 haloperidol [From Haldol] Allergy Severe Seizure Verified 02/10/21 20:51 shellfish derived Allergy Severe SWELLING Verified 02/10/21 20:51 [SHELLFISH DERIVED] WITH DIFFICULTY BREATHING pork derived (porcine) AdvReac Intermediate swelling Verified 02/10/21 20:51 garlic AdvReac Mild VOMITING Verified 02/10/21 20:51 Review of Systems Review of Systems: Yes all other systems are reviewed and are negative PMF Past Medical History Medical History Anxiety Bipolar 1 disorder Degenerative disc disease Depression Diabetes Diabetes type 2, controlled Diverticulosis Hip problem HTN (hypertension) Obese Osteoarthritis PTSD (post-traumatic stress disorder) Surgical History H/O elbow surgery History of surgery of head Hx of cholecystectomy Family History Family History Mother Hx of cholecystectomy Hypertension A-fib Father No problems noted. Brother No problems noted. Brother No problems noted. Son No problems noted. Social History Social History Alcohol intake: current Alcohol intake frequency: holidays/special occasions only Patient Tobacco Use Status: Current everyday Tobacco user Tobacco use type: Cigarette Cigarettes Per Day: 17 Substance Use Type: Marijuana Advance Directives: Yes Advance Directives on File: Yes Advance Directives Date on File: 02/17/21 Physical Exam Vital Signs: Vital Signs: Last Vital Signs Temp 98.9 F 02/22/21 23:33 Pulse 107 H 02/22/21 23:33 Resp 20 02/22/21 23:33 BP 117/69 02/22/21 23:33 Pulse Ox 97 02/22/21 23:33 Body Mass Index 46.9 Appearance: Alert. Oriented X3. No acute distress. Eyes: No pallor icterus ENT: Pharynx normal. Oral Mucosa moist Neck: Normal inspection. Neck supple. CVS: Normal heart rate and rhythm. Pulses normal. Respiratory: No respiratory distress. Equal air entry bilateral, no wheezi ng/rales/rhonchi Abdomen: Soft and nontender. Bowel sounds are present, no mass palpable, no CVA tenderness Skin: Skin warm and dry. Normal skin color. Normal skin turgor. Extremities: No lower extremity edema. No calf tenderness diffuse pain bilateral hip good range of movement Neuro: Oriented X 3. No motor deficit. No sensory deficit.No cerebellar signs , cranial nerves II-XII intact MDM - Extremity (Nontraumatic) MDM Narrative Medical decision making narrative: Patient with chronic osteoarthritis been here multiple times x-ray shows arthritis able to walk with walker and has a wheelchair at home advised to follow-up with orthopedics Discharge Plan Discharge Clinical Impression: Osteoarthritis Qualifiers: Osteoarthritis location: hip Osteoarthritis type: primary Laterality: bilateral Qualified Code(s): M16.0 - Bilateral primary osteoarthritis of hip Patient Disposition: Home, Self-Care Instructions: Osteoarthritis (ED) Additional Instructions: Take pain medications as advised Follow-up with orthopedics Use walker for ambulation Prescriptions: New oxycodone 5 mg tablet 5 mg PO Q6H PRN (Reason: Pain, Severe) Qty: 20 RF: 0 No Action prednisone 20 mg tablet 20 mg PO DAILY 5 Days Qty: 5 RF: 0 omeprazole 20 mg capsule,delayed release(DR/EC) 1 cap PO DAILY@0630 RF: 0 topiramate 25 mg tablet 25 tab PO BID RF: 0 albuterol sulfate [ProAir HFA] 90 mcg/actuation HFA aerosol inhaler 2 puff inhalation Q4-6H PRN (Reason: Wheezing) Qty: 8.5 RF: 0 oxycodone-acetaminophen 10-325 mg tablet 1 tab PO TID PRN (Reason: Pain) RF: 0 naproxen 500 mg tablet 500 mg PO BID PRN (Reason: pain) 14 Days Qty: 20 RF: 0 cyclobenzaprine 10 mg tablet 10 mg PO TID PRN (Reason: pain) Qty: 14 RF: 0 desmopressin 0.1 mg tablet 0.4 mg PO DAILY RF: 0 metformin 1,000 mg tablet 1,000 mg PO BID RF: 0 citalopram 20 mg tablet 20 mg PO DAILY RF: 0 Invega Sustenna 156 mg/mL syringe 156 mg IM Q30D RF: 0 sucralfate 1 gram tablet 1 g PO TIDAC RF: 0 Referrals: Jett Foster MD [Physician] - 1 week
[2021-02-22 23:33] VITALS: BP 117/69; BP 139/86; PULSE 107; PULSE 124; RESP 20; TEMP 37.2; O2SAT 97; O2SAT 98; BMI 46.9
[2021-02-22] MEDS: oxyCODONE HCl Immed Release 5 MG TABLET 10 MG PO (23:46)
== END 2021-02-23 02:13 | disposition home or self-care (01) ==
PROVIDERS: Emergency Provider Internal Medicine
DX: M16.0 Bilateral primary osteoarthritis of hip (principal); F43.10 Post-traumatic stress disorder, unspecified; I10 Essential (primary) hypertension; E11.9 Type 2 diabetes mellitus without complications; F32.9 Major depressive disorder, single episode, unspecified; F41.9 Anxiety disorder, unspecified; E66.01 Morbid (severe) obesity due to excess calories; Z68.42 Body mass index [BMI] 45.0-49.9, adult; F25.0 Schizoaffective disorder, bipolar type; Z79.899 Other long term (current) drug therapy
CPT/HCPCS: 99283

== ENCOUNTER 2021-02-25 02:12 | Emergency (ER) | payer OTHER, SELFPAY ==
[2021-02-25 02:25] VITALS: BP 138/82; BP 178/112; PULSE 112; PULSE 95; RESP 15; TEMP 37.1; O2SAT 100; O2SAT 98; BMI 45.1
--- NOTE | 2021-02-25 03:45 | ED.GENADULT ---
HPI - General Adult General Chief complaint: Headache Stated complaint: WEAKNESS Time Seen by Provider: 02/25/21 03:45 Source: patient Mode of arrival: EMS History of Present Illness HPI narrative: 45-year-old male who arrives via EMS for initial request on assistance in getting both the patient and his [place] patient[place]. Patient then stated that he had a headache, hip pain, and weakness and requested medical evaluation. Patient denies any new cough, shortness of breath, fever, chills, chest pain/palpitations, abdominal discomfort. Related Data Home Medications Medication Instructions Recorded Confirmed citalopram 20 mg tablet 20 mg PO DAILY 10/15/20 02/16/21 desmopressin 0.1 mg tablet 0.4 mg PO DAILY 10/15/20 02/17/21 metformin 1,000 mg tablet 1,000 mg PO BID 10/15/20 02/17/21 paliperidone palmitate 156 mg/mL 156 mg IM Q30D 10/15/20 02/16/21 [facility] sucralfate 1 gram tablet 1 g PO TIDAC 10/20/20 02/16/21 omeprazole 20 mg capsule,delayed 1 cap PO DAILY@0630 12/02/20 02/16/21 release topiramate 25 mg tablet 25 tab PO BID 12/02/20 02/16/21 oxycodone-acetaminophen 10 mg-325 1 tab PO TID PRN 02/16/21 02/16/21 mg tablet Previous Rx's Medication Instructions Recorded prednisone 20 mg tablet 20 mg PO DAILY 5 Days #5 tab 11/07/20 cyclobenzaprine 10 mg tablet 10 mg PO TID PRN #14 tab 02/05/21 naproxen 500 mg tablet 500 mg PO BID PRN 14 Days #20 tab 02/05/21 albuterol sulfate 90 mcg/actuation 2 puff INHALATION Q4-6H PRN #8.5 g 02/13/21 aerosol inhaler (ProAir HFA) oxycodone 5 mg tablet 5 mg PO Q6H PRN #20 tab 02/23/21 Allergies Allergy/AdvReac Type Severity Reaction Status Date / Time fish derived [fish] Allergy Severe Anaphylaxis Verified 02/10/21 20:51 haloperidol [From Haldol] Allergy Severe Seizure Verified 02/10/21 20:51 shellfish derived Allergy Severe SWELLING Verified 02/10/21 20:51 [SHELLFISH DERIVED] WITH DIFFICULTY BREATHING pork derived (porcine) AdvReac Intermediate swelling Verified 02/10/21 20:51 garlic AdvReac Mild VOMITING Verified 02/10/21 20:51 Review of Systems Review of Systems: Pertinent positives and negatives as stated in HPI 10 point review of symptoms is otherwise negative. PMFSH Past Medical History Source: nursing notes reviewed Medical History Anxiety Bipolar 1 disorder Degenerative disc disease Depression Diabetes Diabetes type 2, controlled Diverticulosis Hip problem HTN (hypertension) Obese Osteoarthritis PTSD (post-traumatic stress disorder) Surgical History H/O elbow surgery History of surgery of head Hx of cholecystectomy Family History Family History Mother Hx of cholecystectomy Hypertension A-fib Father No problems noted. Brother No problems noted. Brother No problems noted. Son No problems noted. Social History Social History Alcohol intake: never Patient Tobacco Use Status: Current everyday Tobacco user Tobacco use type: Cigarette Cigarettes Per Day: 17 Use of substances other than those prescribed or required for medical reasons: Yes Substance Use Type: Marijuana Substance Use Frequency: Daily Advance Directives: Yes Advance Directives on File: Yes Advance Directives Date on File: 02/17/21 Physical Exam Vital Signs: Vital Signs: Last Vital Signs Temp 98.7 F 02/25/21 02:25 Pulse 95 02/25/21 02:25 Resp 15 02/25/21 02:25 BP 138/82 02/25/21 02:25 Pulse Ox 98 02/25/21 02:25 Body Mass Index 45.1 VITAL SIGNS: Reviewed. GENERAL: Well developed, well nourished, in no acute distress. HEAD: Normocephalic/atraumatic EYES: PERRLA, EOMI OROPHARYNX: no oral lesions noted, posterior pharynx clear NECK: Supple, no adenopathy LUNGS: Normal breath sounds. No adventitious sounds or accessory muscle use. SpO2<98> CARDIOVASCULAR: Regular rate and rhythm without noted murmurs, no JVD or lower extremity edema. ABDOMEN: Obese, Soft, non-tender, non-distended with bowel sounds. MUSCULOSKELETAL: Hip pain without deformities, or effusions noted on gross inspection. EXTREMITIES: No cyanosis, clubbing or edema. SKIN: Inspection of the skin reveals no rashes NEUROLOGIC: Alert and oriented x 4. Strength and sensation to light touch were grossly intact x 4. Course Course Course Narrative: 45-year-old male with history and clinical presentation of multiple visits in the emergency room with most recent extensive workup on which was otherwise noted to be benign. Patient refusing point of care glucose as well as other investigations. Review of vital signs are stable and patient ready for discharge, but did not wish to leave. Patient is very belligerent and security escorted patient from the emergency room. Discharge Plan Discharge Clinical Impression: Osteoarthritis Patient Disposition: Home, Self-Care Instructions: Osteoarthritis (ED), Arthritis (ED) Additional Instructions: Return for worsening symptoms. Prescriptions: No Action prednisone 20 mg tablet 20 mg PO DAILY 5 Days Qty: 5 RF: 0 omeprazole 20 mg capsule,delayed release(DR/EC) 1 cap PO DAILY@0630 RF: 0 topiramate 25 mg tablet 25 tab PO BID RF: 0 albuterol sulfate [ProAir HFA] 90 mcg/actuation HFA aerosol inhaler 2 puff inhalation Q4-6H PRN (Reason: Wheezing) Qty: 8.5 RF: 0 oxycodone-acetaminophen 10-325 mg tablet 1 tab PO TID PRN (Reason: Pain) RF: 0 naproxen 500 mg tablet 500 mg PO BID PRN (Reason: pain) 14 Days Qty: 20 RF: 0 cyclobenzaprine 10 mg tablet 10 mg PO TID PRN (Reason: pain) Qty: 14 RF: 0 oxycodone 5 mg tablet 5 mg PO Q6H PRN (Reason: Pain, Severe) Qty: 20 RF: 0 desmopressin 0.1 mg tablet 0.4 mg PO DAILY RF: 0 metformin 1,000 mg tablet 1,000 mg PO BID RF: 0 citalopram 20 mg tablet 20 mg PO DAILY RF: 0 Invega Sustenna 156 mg/mL syringe 156 mg IM Q30D RF: 0 sucralfate 1 gram tablet 1 g PO TIDAC RF: 0 Interventions: ED Discharge Assessment Last Done: 02/25/21 05:34
--- NOTE | 2021-02-25 04:22 | PC.NURSE ---
pt refusing poc, MD aware.
--- NOTE | 2021-02-25 06:19 | PC.NURSE ---
Pt provided with DC paperwork and escorted by security to the waiting room. Pt has a transportation company that he arranges transport home with. Pt verbally aggressive with staff during discharge, yelling and swearing, noncompliant with care. Pt calling 911 from the stating to [facility] that he was discharged without transportation home. This RN explaining to [facility] that he has a transportation company that takes him home, per pt, they do not start until 0800. Pt refusing to wait in the [facility] until 0800 to obtain transportation home. This RN discussing with hospice patient care secretary chair van transportation home. Pt awaiting in 19H for EMS at this time. Pt provided with food/drink and warm blankets while waiting for EMS.
== END 2021-02-25 08:07 | disposition home or self-care (01) ==
PROVIDERS: Emergency Provider Student in an Organized Health Care Education/Training Program
DX: M19.90 Unspecified osteoarthritis, unspecified site (principal); E11.9 Type 2 diabetes mellitus without complications; I10 Essential (primary) hypertension
CPT/HCPCS: 99283; 99284

== ENCOUNTER 2021-03-14 09:29 | Emergency (ER) | payer OTHER, SELFPAY ==
--- NOTE | ~2021-03-14 | XR_ITS ---
EXAMINATION: XR WRIST, LEFT CLINICAL INFORMATION: Left wrist injury. COMPARISON: None TECHNIQUE: 4 views of the left wrist are acquired. FINDINGS: There is no evidence of acute fracture or dislocation. There is suggestion of exostosis/osseous projection from the radial and anterior aspect of the scaphoid. The remainder of the visualized osseous structures are unremarkable. No evidence of significant degenerative changes. No evidence of soft tissue air or radiopaque foreign body. XR/XR hand wrist LT IMPRESSION: No acute abnormality in the left wrist.
[2021-03-14 09:55] VITALS: BP 140/80; BP 161/96; PULSE 90; PULSE 94; RESP 16; O2SAT 98; BMI 46.9
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
== END 2021-03-14 12:30 | disposition home or self-care (01) ==
PROVIDERS: Emergency Provider Emergency Medicine Emergency Medical Services
DX: S63.502A Unspecified sprain of left wrist, initial encounter (principal); E11.9 Type 2 diabetes mellitus without complications; I10 Essential (primary) hypertension; X50.9XXA Other and unspecified overexertion or strenuous movements or postures, initial encounter; Y93.9 Activity, unspecified; Y92.239 Unspecified place in hospital as the place of occurrence of the external cause; Y99.9 Unspecified external cause status
CPT/HCPCS: 73110; 73130; 99283

== ENCOUNTER 2021-03-16 23:03 | Emergency (ER) | payer OTHER, SELFPAY ==
[2021-03-16 23:12] VITALS: BP 145/80; BP 150/80; PULSE 115; PULSE 120; TEMP 37; O2SAT 98; BMI 47.7
--- NOTE | 2021-03-16 23:25 | ED.GENADULT ---
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 Related Data Home Medications Medication Instructions Recorded Confirmed citalopram 20 mg tablet 20 mg PO DAILY 10/15/20 02/16/21 desmopressin 0.1 mg tablet 0.4 mg PO DAILY 10/15/20 02/17/21 metformin 1,000 mg tablet 1,000 mg PO BID 10/15/20 02/17/21 paliperidone palmitate 156 mg/mL 156 mg IM Q30D 10/15/20 02/16/21 intramuscular syringe (Invega Sustenna) sucralfate 1 gram tablet 1 g PO TIDAC 10/20/20 02/16/21 omeprazole 20 mg capsule,delayed 1 cap PO DAILY@0630 12/02/20 02/16/21 release topiramate 25 mg tablet 25 tab PO BID 12/02/20 02/16/21 oxycodone-acetaminophen 10 mg-325 1 tab PO TID PRN 02/16/21 02/16/21 mg tablet Previous Rx's Medication Instructions Recorded prednisone 20 mg tablet 20 mg PO DAILY 5 Days #5 tab 11/07/20 cyclobenzaprine 10 mg tablet 10 mg PO TID PRN #14 tab 02/05/21 naproxen 500 mg tablet 500 mg PO BID PRN 14 Days #20 tab 02/05/21 albuterol sulfate 90 mcg/actuation 2 puff INHALATION Q4-6H PRN #8.5 g 02/13/21 aerosol inhaler (ProAir HFA) oxycodone 5 mg tablet 5 mg PO Q6H PRN #20 tab 02/23/21 acetaminophen 500 mg tablet 1,000 mg PO QID PRN #20 tab 03/14/21 oxycodone 5 mg tablet 5 mg PO Q6H PRN #7 tab 03/14/21 oxycodone 5 mg tablet 5 mg PO Q8H PRN #7 tab 03/16/21 Allergies Allergy/AdvReac Type Severity Reaction Status Date / Time fish derived [fish] Allergy Severe Anaphylaxis Verified 02/10/21 20:51 haloperidol [From Haldol] Allergy Severe Seizure Verified 02/10/21 20:51 shellfish derived Allergy Severe SWELLING Verified 02/10/21 20:51 [SHELLFISH DERIVED] WITH DIFFICULTY BREATHING pork derived (porcine) AdvReac Intermediate swelling Verified 02/10/21 20:51 garlic AdvReac Mild VOMITING Verified 02/10/21 20:51 Review of Systems Review of Systems: All other systems are reviewed and are negative Constitutional: Reports as per HPI and Reports no additional constitutional complaints Eyes: Reports as per HPI and Reports no additional eye complaints Reports system reviewed and no additional complaints, except as documented Cardiovascular: Reports as per HPI and Reports no additional cardiovascular complaints Respiratory: Reports as per HPI and Reports no additional respiratory complaints Gastrointestinal: Reports as per HPI and Reports no additional gastrointestinal complaints Genitourinary: Reports no additional female genitourinary complaints Musculoskeletal: Reports no additional musculoskeletal complaints Skin/Breast: Reports system reviewed and no additional complaints, except as docu Psychiatric: Reports no additional psychiatric complaints Endocrine: Reports no additional endocrine complaints Hematologic/Lymphatic: Reports no additional hematologic/lymphatic complaints Allergic/Immunologic: Reports no additional allergic/immunologic complaints Reports system reviewed and no additional complaints, except as documented and Reports Abnormal speech present [facility] Past Medical History Medical History Anxiety Bipolar 1 disorder Degenerative disc disease Depression Diabetes Diabetes type 2, controlled Diverticulosis Hip problem HTN (hypertension) Obese Osteoarthritis PTSD (post-traumatic stress disorder) Surgical History H/O elbow surgery History of surgery of head Hx of cholecystectomy Family History Family History Mother Hx of cholecystectomy Hypertension A-fib Father No problems noted. Brother No problems noted. Brother No problems noted. Son No problems noted. Social History Social History Alcohol intake: never Patient Tobacco Use Status: Current everyday Tobacco user Tobacco use type: Cigarette Cigarettes Per Day: 17 Substance Use Type: Marijuana Advance Directives: Yes Advance Directives on File: Yes Advance Directives Date on File: 02/17/21 Physical Exam Vital Signs: Vital Signs: Last Vital Signs Temp 98.6 F 03/16/21 23:12 Pulse 115 H 03/16/21 23:12 BP 145/80 H 03/16/21 23:12 Pulse Ox 98 03/16/21 23:12 Body Mass Index 47.7 vital signs have been reviewed as appeared to be correct. Blood pressure Elevatedl. Heart rate elevated. Respiration rate normal. Temperature normal. Oxygen saturation normal. Appearance: Alert. Oriented X3. No acute distress. obese Head: Normal external exam. Normocephalic. Atraumatic. No Osorio signs noted. No raccoon eyes noted Eyes: PERRLA. EOMI. Conjunctiva and sclera normal. Eyelids normal. ENT: TM's Normal. Pharynx normal. Uvula midline. Moist mucous membranes. No trismus noted. No drooling noted. No muffled voice noted. Neck: Normal inspection. Neck supple. FROM. No adenopathy. Thyroid Normal. No meningeal signs. No neck mass noted. CVS: Normal heart rate and rhythm. Heart sound normal. No murmurs noted. Pulses normal throughout. Respiratory: No respiratory distress. Painless inspiration. Breath sounds normal. No wheezes/rales/rhonchi noted. Chest nontender. No accessory muscle usage noted or decreased air movement noted. Abdomen: Soft and nontender. Bowel sounds normal in all 4 quadrants. No distention noted. No organomegaly noted. No visible injury noted. Back: No CVA tenderness. Full range of motion noted. Skin: Skin warm and dry. Normal skin color. Normal skin turgor. No rashes/lesions/lacerations noted. Extremities: bilateral hips exam: No deformity, no step-off. Neuro: Oriented X 3. Cranial nerve exam: II-XII are grossly intact No motor deficit. No sensory deficit. Reflexes normal. Course Course Course Narrative: acute on chronic bilateral hip pain due to degenerative disease to both hips. as discussed with the patient to follow-up with his orthopedic doctor and in patient was encouraged to work with his primary doctor to lose weight in order to perform the surgery. Will prescribe few pills of oxycodone (as patient stated this is the only thing control his pain). Discharge Plan Discharge Clinical Impression: Obese, Osteoarthritis Patient Disposition: Home, Self-Care Instructions: Osteoarthritis (ED) Prescriptions: New oxycodone 5 mg tablet 5 mg PO Q8H PRN (Reason: pain) Qty: 7 RF: 0 No Action prednisone 20 mg tablet 20 mg PO DAILY 5 Days Qty: 5 RF: 0 omeprazole 20 mg capsule,delayed release(DR/EC) 1 cap PO DAILY@0630 RF: 0 topiramate 25 mg tablet 25 tab PO BID RF: 0 albuterol sulfate [ProAir HFA] 90 mcg/actuation HFA aerosol inhaler 2 puff inhalation Q4-6H PRN (Reason: Wheezing) Qty: 8.5 RF: 0 oxycodone-acetaminophen 10-325 mg tablet 1 tab PO TID PRN (Reason: Pain) RF: 0 acetaminophen 500 mg tablet 1,000 mg PO QID PRN (Reason: pain) Qty: 20 RF: 0 oxycodone 5 mg tablet 5 mg PO Q6H PRN (Reason: pain) Qty: 7 RF: 0 naproxen 500 mg tablet 500 mg PO BID PRN (Reason: pain) 14 Days Qty: 20 RF: 0 cyclobenzaprine 10 mg tablet 10 mg PO TID PRN (Reason: pain) Qty: 14 RF: 0 oxycodone 5 mg tablet 5 mg PO Q6H PRN (Reason: Pain, Severe) Qty: 20 RF: 0 desmopressin 0.1 mg tablet 0.4 mg PO DAILY RF: 0 metformin 1,000 mg tablet 1,000 mg PO BID RF: 0 citalopram 20 mg tablet 20 mg PO DAILY RF: 0 Invega Sustenna 156 mg/mL syringe 156 mg IM Q30D RF: 0 sucralfate 1 gram tablet 1 g PO TIDAC RF: 0 Referrals: Jett Foster MD [Physician] - 2 days Physician,Niki J [Primary Care Provider] - 2 days
[2021-03-17] MEDS: oxyCODONE HCl Immed Release 5 MG TABLET PO (01:15)
== END 2021-03-17 01:33 | disposition home or self-care (01) ==
PROVIDERS: Emergency Provider Emergency Medicine
DX: M16.0 Bilateral primary osteoarthritis of hip (principal); M25.552 Pain in left hip; M25.551 Pain in right hip; E66.9 Obesity, unspecified; E11.9 Type 2 diabetes mellitus without complications; I10 Essential (primary) hypertension
CPT/HCPCS: 99283

== ENCOUNTER 2021-07-18 08:22 | Emergency (ER) | payer OTHER, SELFPAY ==
[2021-07-18] VITALS (7 sets, daily range): BP systolic 146–172; BP diastolic 82–104; PULSE 88–112; RESP 13–21; O2SAT 88–100; BMI 50.2
--- NOTE | ~2021-07-18 | CT_ITS ---
EXAMINATION: CT ABDOMEN AND PELVIS WITH CONTRAST CLINICAL INFORMATION: Abdominal pain COMPARISON: Previous CT of the abdomen and pelvis most recent January 2021 TECHNIQUE: Multidetector volumetric images were obtained from the superior aspect of the liver through the pubic symphysis following administration 85 mL of Omnipaque 350 intravenous contrast. Sagittal and coronal reformatted images were obtained on the technologist's workstation. Oral contrast: Yes This CT examination was performed using dose optimization techniques as appropriate, variously including the following: *Automated exposure control *Adjustment of mA and/or kV according to patient size (this includes techniques or standardized protocols for targeted exams where dose is matched to indication/reason for exam; i.e. extremities or head) *Use of iterative reconstruction technique DLP: 1965 mGy-cm FINDINGS: LUNG BASES: The visualized lung bases are unremarkable. LIVER, GALLBLADDER, AND BILIARY TREE: The liver is normal in size and shape. There may be mild fatty infiltration of the liver. No focal hepatic lesion or biliary ductal dilatation is present. The gallbladder is unremarkable with no evidence of radiopaque gallstones, gallbladder wall thickening, or obvious pericholecystic inflammatory changes. PANCREAS: Unremarkable. SPLEEN: Unremarkable. ADRENAL GLANDS: Unremarkable. KIDNEYS AND URETERS: There is a small cyst in the upper pole of the right kidney. The kidneys are otherwise unremarkable. BLADDER: Unremarkable. GASTROINTESTINAL TRACT: The small and large bowel are unremarkable. The appendix is unremarkable. ABDOMINAL WALL: No significant hernia is appreciated. LYMPH NODES: Normal. VASCULAR: Unremarkable. PELVIC VISCERA: Unremarkable. OSSEOUS STRUCTURES: There is severe arthritis at both hip joints. CT/CT abdomen pelvis w con IMPRESSION: No acute findings. Severe arthritis at both hip joints. Question mild fatty infiltration of the liver. Small right renal cyst. Fleischner guidelines were followed.
--- NOTE | 2021-07-18 08:45 | ED.ABDPAIN ---
HPI - Abdominal Pain General Chief Complaint: Abdominal Pain Stated Complaint: LT SIDED ABD PAIN,N/V Time Seen by Provider: 07/18/21 08:42 Source: patient Mode of arrival: EMS Limitations: no limitations History of Present Illness HPI narrative: This is a 46 years old patient with history of schizoaffective disorder, anxiety, obesity, bilateral DJD of the hip will comes from the intermediate with a chief complaint of abdominal pain localized in the left upper left lower quadrant. There is no nausea no vomiting no fever no other systemic symptoms MD elicited complaint: abdominal pain Pertinent past history: other (Obesity) Onset (ago): hour(s) (6) Pain Consistency: constant Location: LUQ, LLQ and L flank Severity: moderate Radiation: none Migration to: no migration Exacerbating factors: nothing Related Data Home Medications Medication Instructions Recorded Confirmed citalopram 20 mg tablet 20 mg PO DAILY 10/15/20 02/16/21 desmopressin 0.1 mg tablet 0.4 mg PO DAILY 10/15/20 02/17/21 metformin 1,000 mg tablet 1,000 mg PO BID 10/15/20 02/17/21 paliperidone palmitate 156 mg/mL 156 mg IM Q30D 10/15/20 02/16/21 intramuscular syringe (Invega Sustenna) sucralfate 1 gram tablet 1 g PO TIDAC 10/20/20 02/16/21 omeprazole 20 mg capsule,delayed 1 cap PO DAILY@0630 12/02/20 02/16/21 release topiramate 25 mg tablet 25 tab PO BID 12/02/20 02/16/21 oxycodone-acetaminophen 10 mg-325 1 tab PO TID PRN 02/16/21 02/16/21 mg tablet Previous Rx's Medication Instructions Recorded prednisone 20 mg tablet 20 mg PO DAILY 5 Days #5 tab 11/07/20 cyclobenzaprine 10 mg tablet 10 mg PO TID PRN #14 tab 02/05/21 naproxen 500 mg tablet 500 mg PO BID PRN 14 Days #20 tab 02/05/21 albuterol sulfate 90 mcg/actuation 2 puff INHALATION Q4-6H PRN #8.5 g 02/13/21 aerosol inhaler (ProAir HFA) oxycodone 5 mg tablet 5 mg PO Q6H PRN #20 tab 02/23/21 acetaminophen 500 mg tablet 1,000 mg PO QID PRN #20 tab 03/14/21 oxycodone 5 mg tablet 5 mg PO Q6H PRN #7 tab 03/14/21 oxycodone 5 mg tablet 5 mg PO Q8H PRN #7 tab 03/16/21 Allergies Allergy/AdvReac Type Severity Reaction Status Date / Time fish derived [fish] Allergy Severe Anaphylaxis Verified 02/10/21 20:51 haloperidol [From Haldol] Allergy Severe Seizure Verified 02/10/21 20:51 shellfish derived Allergy Severe SWELLING Verified 02/10/21 20:51 [SHELLFISH DERIVED] WITH DIFFICULTY BREATHING pork derived (porcine) AdvReac Intermediate swelling Verified 02/10/21 20:51 garlic AdvReac Mild VOMITING Verified 02/10/21 20:51 Review of Systems Review of Systems Yes all other systems are reviewed and are negative Constitutional: Denies fever(s) Gastrointestinal: Denies diarrhea, Denies loose stools and Denies nausea PMFSH Past Medical History Medical History Anxiety Bipolar 1 disorder Degenerative disc disease Depression Diabetes Diabetes type 2, controlled Diverticulosis Hip problem HTN (hypertension) Obese Osteoarthritis PTSD (post-traumatic stress disorder) Surgical History H/O elbow surgery History of surgery of head Hx of cholecystectomy Family History Family History Mother Hx of cholecystectomy Hypertension A-fib Father No problems noted. Brother No problems noted. Brother No problems noted. Son No problems noted. Social History Social History Alcohol intake: never Patient Tobacco Use Status: Never used Tobacco Tobacco use type: Cigarette Cigarettes Per Day: 17 Use of substances other than those prescribed or required for medical reasons: No Substance Use Type: Marijuana Advance Directives: No Advance Directives Information Provided: No Advance Directives Date on File: 02/17/21 Physical Exam ED Vital Signs: Vital Signs - 24 hr 07/18/21 08:36 07/18/21 09:08 07/18/21 09:30 Pulse Rate 110 H 109 H Respiratory Rate 19 20 21 H Blood Pressure 171/101 H 146/82 H Pulse Oximetry 96 94 07/18/21 11:38 07/18/21 11:41 07/18/21 11:59 Pulse Rate 112 H 108 H 88 Respiratory Rate 13 15 Blood Pressure 154/99 H 154/99 H Pulse Oximetry 100 07/18/21 12:01 Pulse Rate 88 Respiratory Rate 20 Blood Pressure 154/99 H Pulse Oximetry 95 BMI result Body Mass Index 50.2 Const General: cooperative and no acute distress Nutritional Appearance: well nourished and overweight Orientation/consciousness: patient oriented x3 Limitations: no limitations HENMT Head: Yes normal to inspection Face and sinus: Yes normal facial exam Mouth: Normal oral and palatal mucosa present Throat: Yes posterior oropharynx normal Neck Neck: Yes normal visual inspection and Yes full ROM Chest Chest palpation & inspection: normal inspection of the chest Resp Effort & Inspection: normal respiratory effort Auscultation: clear to auscultation bilaterally Cardio Jugular venous distension: no JVD Rate: regular rate Rhythm: regular rhythm GI Inspection: Yes normal to inspection Palpation (GI): Soft to palpation, not firm, nontender and no guarding Percussion: Yes normal to percussion Skin General skin exam: no rashes or lesions noted and elasticity normal Neuro General: patient oriented x3 Course Reevaluation(s) Reevaluation #1: Patient was re-examined the noontime a his abdomen is obese, soft no tenderness no peritoneal signs, his CT scan of the abdomen and pelvis was read by the radiologist as no acute disease this was a test with IV contrast. His lipase is normal his white count was noted to be mildly elevated but reviewing his medical record he always has mildly elevated WBC. At this point will discharge the patient back to the intermediate, his vital signs are stable. MDM - Abdominal Pain Lab Data Result diagrams: 07/18/21 09:55 07/18/21 09:55 Labs: Lab Results 07/18/21 07/18/21 Range/Units 09:55 09:55 WBC 12.6 H (4.8-10.8) X10*3/uL RBC 5.18 (4.60-5.80) X10*6/uL Hgb 14.0 (14.0-18.0) g/dl Hct 43.7 (42.0-52.0) % MCV 84.4 (80.0-98.0) fL MCH 27.0 (27.0-33.0) pg MCHC 32.0 (31.0-36.0) g/dl RDW 15.9 (11.0-16.0) % Plt Count 269 (160-400) X10*3/uL MPV 10.1 (9.4-12.4) fL Immature Gran % (Auto) 0.8 H (0.0-0.4) % Neut % (Auto) 88.1 H (45-73) % Lymph % (Auto) 6.8 L (20-40) % Ford % (Auto) 4.0 (2-11) % Eos % (Auto) 0.0 (0-4) % Baso % (Auto) 0.3 (0-2) % Lymph # (Auto) 0.9 L (1.2-4.9) X10*3/uL Ford # (Auto) 0.5 (0.1-1.2) X10*3/uL Eos # (Auto) 0.0 (0.0-0.4) X10*3/uL Baso # (Auto) 0.0 (0.0-0.2) X10*3/uL Abs Immat Gran (auto) 0.10 H (0.00-0.03) X10*3/uL Absolute Neuts (auto) 11.1 H (2.0-8.3) x10*3/uL Absolute Nucleated RBC 0.000 (0.0-0.012) X10*3/uL Nucleated RBC % (auto) 0.0 (0.0-0.2) /100WBC Sodium 139 (135-145) mmol/L Potassium 4.2 (3.3-5.1) mmol/L Chloride 104 (96-108) mmol/L Carbon Dioxide 25 (22-29) mmol/L Anion Gap 14 (12-20) BUN 15 (9-16) mg/dL Creatinine 0.97 (0.5-1.4) mg/dL Estim Creat Clear Calc 137.1 Estimated GFR > 60 Random Glucose 182 H (60-115) mg/dL Calcium 9.5 (8.4-10.2) mg/dL Total Bilirubin 0.4 (0.0-1.0) mg/dL AST 10 (5-37) U/L ALT 12 (0-40) U/L Alkaline Phosphatase 97 (39-117) U/L Total Protein 7.7 D (6.5-8.0) g/dL Albumin 4.0 (3.5-5.0) g/dL Lipase 13 (8-78) U/L Imaging Data CT scan - abdomen: Radiologist's impression: iltration of the liver. No focal hepatic lesion or biliary ductal dilatation is present. The gallbladder is unremarkable with no evidence of radiopaque gallstones, gallbladder wall thickening, or obvious pericholecystic inflammatory changes.? PANCREAS: Unremarkable.? SPLEEN: Unremarkable.? ADRENAL GLANDS: Unremarkable.? KIDNEYS AND URETERS: There is a small cyst in the upper pole of the right kidney. The kidneys are otherwise unremarkable.? BLADDER: Unremarkable.? GASTROINTESTINAL TRACT: The small and large bowel are unremarkable. The appendix is unremarkable.? ABDOMINAL WALL: No significant hernia is appreciated.? LYMPH NODES: Normal. VASCULAR: Unremarkable. PELVIC VISCERA: Unremarkable.? OSSEOUS STRUCTURES: There is severe arthritis at both hip joints. CT/CT abdomen pelvis w con IMPRESSION: No acute findings. Severe arthritis at both hip joints. Question mild fatty infiltration of the liver. Small right renal cyst. ? Fleischner guidelines were followe Discharge Plan Discharge Clinical Impression: Abdominal pain Patient Disposition: Home, Self-Care Instructions: Abdominal Pain (ED) Prescriptions: No Action prednisone 20 mg tablet 20 mg PO DAILY 5 Days Qty: 5 0RF omeprazole 20 mg capsule,delayed release(DR/EC) 1 cap PO DAILY@0630 0RF topiramate 25 mg tablet 25 tab PO BID 0RF albuterol sulfate [ProAir HFA] 90 mcg/actuation HFA aerosol inhaler 2 puff inhalation Q4-6H PRN (Reason: Wheezing) Qty: 8.5 0RF oxycodone-acetaminophen 10-325 mg tablet 1 tab PO TID PRN (Reason: Pain) 0RF acetaminophen 500 mg tablet 1,000 mg PO QID PRN (Reason: pain) Qty: 20 0RF oxycodone 5 mg tablet 5 mg PO Q6H PRN (Reason: pain) Qty: 7 0RF oxycodone 5 mg tablet 5 mg PO Q8H PRN (Reason: pain) Qty: 7 0RF naproxen 500 mg tablet 500 mg PO BID PRN (Reason: pain) 14 Days Qty: 20 0RF cyclobenzaprine 10 mg tablet 10 mg PO TID PRN (Reason: pain) Qty: 14 0RF oxycodone 5 mg tablet 5 mg PO Q6H PRN (Reason: Pain, Severe) Qty: 20 0RF desmopressin 0.1 mg tablet 0.4 mg PO DAILY 0RF metformin 1,000 mg tablet 1,000 mg PO BID 0RF citalopram 20 mg tablet 20 mg PO DAILY 0RF Invega Sustenna 156 mg/mL syringe 156 mg IM Q30D 0RF sucralfate 1 gram tablet 1 g PO TIDAC 0RF Referrals: Physician,Unknown J [Primary Care Provider] - 2 days
[2021-07-18] MEDS: ondansetron HCL 4 MG/2 ML VIAL IVPUSH (09:08)
[2021-07-18] MEDS: Morphine Sulfate 4 MG/ML CARTRIDGE IVPUSH (09:08)
[2021-07-18] MEDS: LORazepam 2 MG/ML VIAL 0.5 MG IVPUSH (09:09)
[2021-07-18 09:59] LABS: MANUAL DIFF FLAG NO
[2021-07-18 10:03] LABS: Basophils Percent Auto 0.3 % (0-2); Hematocrit 43.7 % (42.0-52.0); Imm Gran Pct Auto 0.8 % (0.0-0.4); Lymphocytes Absolute Auto 0.9 X10*3/uL (1.2-4.9); Lymphocytes Percent Auto 6.8 % (20-40); Mean Corpuscular Volume 84.4 fL (80.0-98.0); Mean Platelet Volume 10.1 fL (9.4-12.4); Monocytes Absolute Auto 0.5 X10*3/uL (0.1-1.2); Neutrophils Absolute Auto 11.1 x10*3/uL (2.0-8.3); Neutrophils Percent Auto 88.1 % (45-73); Platelet Count 269 X10*3/uL (160-400); Red Blood Count 5.18 X10*6/uL (4.60-5.80); Red Cell Distribution Width 15.9 % (11.0-16.0); White Blood Count 12.6 X10*3/uL (4.8-10.8)
[2021-07-18 10:22] LABS: Alanine Aminotransferase 12 U/L (0-40); Alkaline Phosphatase 97 U/L (39-117); Anion Gap 14 (12-20); Aspartate Amino Transferase 10 U/L (5-37); Bilirubin Total 0.4 mg/dL (0.0-1.0); Blood Urea Nitrogen 15 mg/dL (9-16); Calcium 9.5 mg/dL (8.4-10.2); Carbon Dioxide 25 mmol/L (22-29); Chloride 104 mmol/L (96-108); Creatinine Clr Calc Pharmacy 137.1; Estimated Glomerular Filt Rate > 60; Glucose Random 182 mg/dL (60-115); Lipase 13 U/L (8-78); Potassium 4.2 mmol/L (3.3-5.1); Sodium 139 mmol/L (135-145); Total Protein 7.7 g/dL (6.5-8.0)
[2021-07-18] MEDS: iohexoL 350 MG/ML 100 ML INFUS..BTL IV (10:45)
[2021-07-18] MEDS: Ketorolac Tromethamine 15 MG/ML VIAL IVPUSH (12:06)
== END 2021-07-18 13:13 | disposition home or self-care (01) ==
PROVIDERS: Emergency Provider Emergency Medicine
DX: R10.9 Unspecified abdominal pain (principal); E11.9 Type 2 diabetes mellitus without complications; I10 Essential (primary) hypertension; F43.10 Post-traumatic stress disorder, unspecified
CPT/HCPCS: 36415; 74177; 80053; 83690; 85025; 96374; 96375; 99284; J1885; J2060; J2270; J2405; Q9967

== ENCOUNTER 2021-07-23 00:39 | Emergency (ER) | payer OTHER, SELFPAY ==
--- NOTE | ~2021-07-23 | XR_ITS ---
EXAMINATION: XR ABDOMEN KUB CLINICAL INDICATION: Discomfort COMPARISON: CT dated 07/18/2021 TECHNIQUE: 3 views of the abdomen. FINDINGS: Nonobstructive bowel gas pattern. No unusual soft tissue calcifications. Severe degenerative changes of the bilateral hips with bilateral coxa plana, worse on the left bulky marginal osteophytes with subchondral sclerosis. XR/XR KUB IMPRESSION: No evidence of obstruction.
--- NOTE | ~2021-07-23 | CT_ITS ---
EXAMINATION: CT ABDOMEN AND PELVIS WITH CONTRAST CLINICAL INFORMATION: Right flank pain COMPARISON: 07/18/2021 TECHNIQUE: Multidetector volumetric images were obtained from the superior aspect of the liver through the pubic symphysis following administration 85 mL of Omnipaque 350 intravenous contrast. Sagittal and coronal reformatted images were obtained on the technologist's workstation. Oral contrast: No This CT examination was performed using dose optimization techniques as appropriate, variously including the following: *Automated exposure control *Adjustment of mA and/or kV according to patient size (this includes techniques or standardized protocols for targeted exams where dose is matched to indication/reason for exam; i.e. extremities or head) *Use of iterative reconstruction technique DLP: 1392 mGy-cm FINDINGS: LUNG BASES: The visualized lung bases are unremarkable. LIVER, GALLBLADDER, AND BILIARY TREE: The liver is normal in size, shape, and attenuation. No focal hepatic lesion or biliary ductal dilatation is present. Cholecystectomy. PANCREAS: Unremarkable. SPLEEN: Unremarkable. ADRENAL GLANDS: Unremarkable. KIDNEYS AND URETERS: The kidneys are normal in size, shape, and attenuation. Subcentimeter right renal cyst is benign and requires no further follow-up. No hydronephrosis, hydroureter, or calculi seen. No perinephric stranding. BLADDER: Unremarkable. GASTROINTESTINAL TRACT: The small and large bowel are unremarkable. The appendix is unremarkable. ABDOMINAL WALL: No significant hernia is appreciated. LYMPH NODES: Normal. VASCULAR: Unremarkable. PELVIC VISCERA: Unremarkable. OSSEOUS STRUCTURES: Severe bilateral hip arthrosis with complete obliteration of the joint spaces, subchondral sclerosis, subchondral cystic changes and bulky marginal osteophytes with bilateral coxa plana. CT/CT abdomen pelvis w con IMPRESSION: No acute findings within the abdomen or pelvis to explain the patient's symptomatology.
[2021-07-23 01:01] VITALS: BP 162/84; BP 170/80; PULSE 104; PULSE 95; RESP 24; O2SAT 97; O2SAT 98; BMI 48.4
--- NOTE | 2021-07-23 01:15 | ED.ABDPAIN ---
HPI - Abdominal Pain General Chief Complaint: Abdominal Pain Stated Complaint: NAUSEA Time Seen by Provider: 07/23/21 00:47 Source: patient Mode of arrival: EMS History of Present Illness HPI narrative: 46-year-old male who presents via EMS from [facility] with complaints of epigastric pain and nausea and vomiting and reports a history of diverticulitis but denies any diarrhea or urinary symptoms and denies any fever or chills. Patient states that the pain is very similar to what he experienced a few days ago when he was evaluated at that time with lab work as well as a CT scan. Related Data Home Medications Medication Instructions Recorded Confirmed citalopram 20 mg tablet 20 mg PO DAILY 10/15/20 02/16/21 desmopressin 0.1 mg tablet 0.4 mg PO DAILY 10/15/20 02/17/21 metformin 1,000 mg tablet 1,000 mg PO BID 10/15/20 02/17/21 paliperidone palmitate 156 mg/mL 156 mg IM Q30D 10/15/20 02/16/21 intramuscular syringe (Invega Sustenna) sucralfate 1 gram tablet 1 g PO TIDAC 10/20/20 02/16/21 omeprazole 20 mg capsule,delayed 1 cap PO DAILY@0630 12/02/20 02/16/21 release topiramate 25 mg tablet 25 tab PO BID 12/02/20 02/16/21 oxycodone-acetaminophen 10 mg-325 1 tab PO TID PRN 02/16/21 02/16/21 mg tablet Previous Rx's Medication Instructions Recorded prednisone 20 mg tablet 20 mg PO DAILY 5 Days #5 tab 11/07/20 cyclobenzaprine 10 mg tablet 10 mg PO TID PRN #14 tab 02/05/21 naproxen 500 mg tablet 500 mg PO BID PRN 14 Days #20 tab 02/05/21 albuterol sulfate 90 mcg/actuation 2 puff INHALATION Q4-6H PRN #8.5 g 02/13/21 aerosol inhaler (ProAir HFA) oxycodone 5 mg tablet 5 mg PO Q6H PRN #20 tab 02/23/21 acetaminophen 500 mg tablet 1,000 mg PO QID PRN #20 tab 03/14/21 oxycodone 5 mg tablet 5 mg PO Q6H PRN #7 tab 11/20/21 oxycodone 5 mg tablet 5 mg PO Q8H PRN #7 tab 03/16/21 sucralfate 100 mg/mL oral 10 ml PO BID #420 ml 07/23/21 suspension (Carafate) Allergies Allergy/AdvReac Type Severity Reaction Status Date / Time fish derived [fish] Allergy Severe Anaphylaxis Verified 07/23/21 01:07 haloperidol [From Haldol] Allergy Severe Seizure Verified 07/23/21 01:07 shellfish derived Allergy Severe SWELLING Verified 07/23/21 01:07 [SHELLFISH DERIVED] WITH DIFFICULTY BREATHING pork derived (porcine) AdvReac Intermediate swelling Verified 07/23/21 01:07 garlic AdvReac Mild VOMITING Verified 07/23/21 01:07 Review of Systems Review of Systems Pertinent positives and negatives as stated in HPI and 10 point review of systems is otherwise negative. [facility] Past Medical History Source: nursing notes reviewed Medical History Anxiety Bipolar 1 disorder Degenerative disc disease Depression Diabetes Diabetes type 2, controlled Diverticulosis Hip problem HTN (hypertension) Obese Osteoarthritis PTSD (post-traumatic stress disorder) Surgical History H/O elbow surgery History of surgery of head Hx of cholecystectomy Family History Family History Mother Hx of cholecystectomy Hypertension A-fib Father No problems noted. Brother No problems noted. Brother No problems noted. Son No problems noted. Social History Social History Alcohol intake: never Patient Tobacco Use Status: Never used Tobacco Tobacco use type: Cigarette Cigarettes Per Day: 17 Substance Use Type: Marijuana Advance Directives: No Advance Directives Date on File: 02/17/21 Physical Exam ED Vital Signs: Vital Signs - 24 hr 07/23/21 01:01 Pulse Rate 104 H Respiratory Rate 24 H Blood Pressure 162/84 H Pulse Oximetry 97 BMI result Body Mass Index 48.4 VITAL SIGNS: Reviewed. GENERAL: Elevated BMI, in moderate distress. HEAD: Normocephalic/atraumatic EYES: PERRLA, EOMI EARS: Ext canals without abnormality OROPHARYNX: no oral lesions noted, posterior pharynx clear LUNGS: Normal breath sounds. No adventitious sounds or accessory muscle use. SpO2<97> CARDIOVASCULAR: Regular rate and rhythm without noted murmurs ABDOMEN: Examination limited by body habitus, Soft, non-distended with bowel sounds. SKIN: Inspection of the skin reveals no rashes NEUROLOGIC: Alert and oriented x 4. Strength and sensation to light touch were grossly intact x 4. Course Course Course Narrative: 46-year-old male, known to the emergency room, and urinated on himself upon arrival. Suspect that patient may be experiencing significant gastritis and/or ulcer like symptoms given the absence of infectious symptoms such as fever or chills and recent full workup which was otherwise negative for acute findings. Patient received IV fluids as well as antiemetic and a GI cocktail the latter of which he tolerated well. Patient specifically asks for morphine and on review of all investigations thus far there are no acute findings to suggest SBO or diverticulitis. On re-evaluation patient is noted to be resting comfortably and received additional medication for his stomach. On review of all investigations to include KUB there are no acute findings to suggest diverticulitis, bowel obstruction, pancreatitis, DKA, HHS. All results discussed with the patient at bedside and he was otherwise discharged home in stable condition. MDM - Abdominal Pain Lab Data Result diagrams: 07/23/21 01:39 07/23/21 02:02 Labs: Lab Results 07/23/21 07/23/21 Range/Units 01:39 02:02 WBC 12.5 H (4.8-10.8) X10*3/uL RBC 5.22 (4.60-5.80) X10*6/uL Hgb 14.1 (14.0-18.0) g/dl Hct 43.7 (42.0-52.0) % MCV 83.7 (80.0-98.0) fL MCH 27.0 (27.0-33.0) pg MCHC 32.3 (31.0-36.0) g/dl RDW 15.8 (11.0-16.0) % Plt Count 242 (160-400) X10*3/uL MPV 9.8 (9.4-12.4) fL Immature Gran % (Auto) 0.6 H (0.0-0.4) % Neut % (Auto) 85.0 H (45-73) % Lymph % (Auto) 8.8 L (20-40) % [place] % (Auto) 5.3 (2-11) % Eos % (Auto) 0.0 (0-4) % Baso % (Auto) 0.3 (0-2) % Lymph # (Auto) 1.1 L (1.2-4.9) X10*3/uL [place] # (Auto) 0.7 (0.1-1.2) X10*3/uL Eos # (Auto) 0.0 (0.0-0.4) X10*3/uL Baso # (Auto) 0.0 (0.0-0.2) X10*3/uL Abs Immat Gran (auto) 0.08 H (0.00-0.03) X10*3/uL Absolute Neuts (auto) 10.6 H (2.0-8.3) x10*3/uL Absolute Nucleated RBC 0.000 (0.0-0.012) X10*3/uL Nucleated RBC % (auto) 0.0 (0.0-0.2) /100WBC Sodium 140 (135-145) mmol/L Potassium 4.0 (3.3-5.1) mmol/L Chloride 102 (96-108) mmol/L Carbon Dioxide 26 (22-29) mmol/L Anion Gap 16 (12-20) BUN 11 (9-16) mg/dL Creatinine 0.96 (0.5-1.4) mg/dL Estim Creat Clear Calc 123.4 Estimated GFR > 60 Random Glucose 186 H (60-115) mg/dL Calcium 9.4 (8.4-10.2) mg/dL Total Bilirubin 0.3 (0.0-1.0) mg/dL AST 9 (5-37) U/L ALT 15 (0-40) U/L Alkaline Phosphatase 96 (39-117) U/L Total Protein 7.3 (6.5-8.0) g/dL Albumin 3.9 (3.5-5.0) g/dL Lipase 13 (8-78) U/L Discharge Plan Discharge Clinical Impression: Obese, HTN (hypertension), Osteoarthritis, Gastritis Patient Disposition: Home, Self-Care Instructions: Gastritis (ED), Diet for Stomach Ulcers and Gastritis (ED) Additional Instructions: 1. Resume all home medications as prescribed. 2. You have been started on a medication that should significantly help you with your epigastric pain that you have been experiencing. 3. There are no acute findings today to suggest that you have diverticulitis or a blockage. 4. Recommend possible follow-up with Gastroenterology, a referral has been provided to you below. 5. Follow-up with your primary care provider in the next 2-3 days for re-evaluation. Return to the ER for worsening symptoms. Prescriptions: New sucralfate [Carafate] 100 mg/mL suspension 10 ml PO BID Qty: 420 0RF No Action prednisone 20 mg tablet 20 mg PO DAILY 5 Days Qty: 5 0RF omeprazole 20 mg capsule,delayed release(DR/EC) 1 cap PO DAILY@0630 0RF topiramate 25 mg tablet 25 tab PO BID 0RF albuterol sulfate [ProAir HFA] 90 mcg/actuation HFA aerosol inhaler 2 puff inhalation Q4-6H PRN (Reason: Wheezing) Qty: 8.5 0RF oxycodone-acetaminophen 10-325 mg tablet 1 tab PO TID PRN (Reason: Pain) 0RF acetaminophen 500 mg tablet 1,000 mg PO QID PRN (Reason: pain) Qty: 20 0RF oxycodone 5 mg tablet 5 mg PO Q6H PRN (Reason: pain) Qty: 7 0RF oxycodone 5 mg tablet 5 mg PO Q8H PRN (Reason: pain) Qty: 7 0RF naproxen 500 mg tablet 500 mg PO BID PRN (Reason: pain) 14 Days Qty: 20 0RF cyclobenzaprine 10 mg tablet 10 mg PO TID PRN (Reason: pain) Qty: 14 0RF oxycodone 5 mg tablet 5 mg PO Q6H PRN (Reason: Pain, Severe) Qty: 20 0RF desmopressin 0.1 mg tablet 0.4 mg PO DAILY 0RF metformin 1,000 mg tablet 1,000 mg PO BID 0RF citalopram 20 mg tablet 20 mg PO DAILY 0RF Invega Sustenna 156 mg/mL syringe 156 mg IM Q30D 0RF sucralfate 1 gram tablet 1 g PO TIDAC 0RF
[2021-07-23] MEDS: ondansetron HCL 4 MG/2 ML VIAL IVPUSH (01:44)
[2021-07-23 01:46] LABS: Basophils Percent Auto 0.3 % (0-2); Hematocrit 43.7 % (42.0-52.0); Hemoglobin 14.1 g/dl (14.0-18.0); Imm Gran Abs Auto 0.08 X10*3/uL (0.00-0.03); Imm Gran Pct Auto 0.6 % (0.0-0.4); Lymphocytes Absolute Auto 1.1 X10*3/uL (1.2-4.9); Lymphocytes Percent Auto 8.8 % (20-40); MANUAL DIFF FLAG NO; Mean Corpuscular HGB Conc 32.3 g/dl (31.0-36.0); Mean Corpuscular Volume 83.7 fL (80.0-98.0); Mean Platelet Volume 9.8 fL (9.4-12.4); Monocytes Absolute Auto 0.7 X10*3/uL (0.1-1.2); Monocytes Percent Auto 5.3 % (2-11); Neutrophils Absolute Auto 10.6 x10*3/uL (2.0-8.3); Platelet Count 242 X10*3/uL (160-400); Red Blood Count 5.22 X10*6/uL (4.60-5.80); Red Cell Distribution Width 15.8 % (11.0-16.0); White Blood Count 12.5 X10*3/uL (4.8-10.8)
[2021-07-23] MEDS: Lidocaine HCl Viscous 2 % 15 ML SOLUTION 10 ML MUCOUS MEM (02:16)
[2021-07-23] MEDS: Magnesium Hydrox/Alum Hydrox 30 ML ORAL.SUSP PO (02:16)
[2021-07-23 02:29] LABS: Alanine Aminotransferase 15 U/L (0-40); Albumin Level 3.9 g/dL (3.5-5.0); Alkaline Phosphatase 96 U/L (39-117); Anion Gap 16 (12-20); Aspartate Amino Transferase 9 U/L (5-37); Bilirubin Total 0.3 mg/dL (0.0-1.0); Blood Urea Nitrogen 11 mg/dL (9-16); Calcium 9.4 mg/dL (8.4-10.2); Carbon Dioxide 26 mmol/L (22-29); Chloride 102 mmol/L (96-108); Creatinine Clr Calc Pharmacy 123.4; Estimated Glomerular Filt Rate > 60; Glucose Random 186 mg/dL (60-115); Lipase 13 U/L (8-78); Sodium 140 mmol/L (135-145); Total Protein 7.3 g/dL (6.5-8.0)
[2021-07-23] MEDS: Ketorolac Tromethamine 30 MG/ML VIAL 15 MG IVPUSH (02:45)
[2021-07-23] MEDS: Sucralfate Oral Suspension 1 GM/10 ML ORAL.SUSP PO (02:46)
[2021-07-23 03:22] VITALS: BP 176/117; PULSE 113; RESP 24; O2SAT 98
[2021-07-23 04:10] VITALS: RESP 18
[2021-07-23] MEDS: fentaNYL citrate/PF 100 MCG/2 ML VIAL 25 MCG IVPUSH (04:10)
[2021-07-23] MEDS: iohexoL 350 MG/ML 100 ML INFUS..BTL 97 ML IV (04:37)
[2021-07-23 05:57] VITALS: BP 117/105; PULSE 91; RESP 20; O2SAT 95
== END 2021-07-23 06:17 | disposition home or self-care (01) ==
PROVIDERS: Emergency Provider Student in an Organized Health Care Education/Training Program
DX: K29.70 Gastritis, unspecified, without bleeding (principal); E66.9 Obesity, unspecified; I10 Essential (primary) hypertension; R10.13 Epigastric pain; M19.90 Unspecified osteoarthritis, unspecified site; E11.9 Type 2 diabetes mellitus without complications; F17.200 Nicotine dependence, unspecified, uncomplicated; F12.90 Cannabis use, unspecified, uncomplicated; Z79.899 Other long term (current) drug therapy
CPT/HCPCS: 36415; 74018; 74177; 80053; 83690; 85025; 96374; 96375; 99284; J1885; J2405; J3010; Q9967

== ENCOUNTER 2021-07-25 06:00 | Emergency (ER) | payer OTHER, SELFPAY ==
--- NOTE | ~2021-07-25 | CT_ITS ---
EXAMINATION: CT ABDOMEN AND PELVIS WITHOUT CONTRAST CLINICAL INFORMATION: Left lower quadrant pain COMPARISON: CT abdomen pelvis 07/23/2021 TECHNIQUE: Multidetector volumetric imaging was performed from the superior aspect of the liver through the pubic symphysis. Sagittal and coronal reformatted images were obtained on the technologist's workstation. This CT examination was performed using dose optimization techniques as appropriate, variously including the following: *Automated exposure control *Adjustment of mA and/or kV according to patient size (this includes techniques or standardized protocols for targeted exams where dose is matched to indication/reason for exam; i.e. extremities or head) *Use of iterative reconstruction technique DLP: 1455 mGy-cm FINDINGS: Visualized lung bases demonstrate atelectasis. The liver is normal in size but demonstrates diffusely decreased attenuation suggesting hepatic steatosis. The gallbladder is not visualized and presumed to be surgically absent. The pancreas, spleen and right adrenal gland are unremarkable. Minimal diffuse hypertrophy of the left adrenal gland. Symmetrically sized kidneys. No renal calculi or hydronephrosis of either kidney. Normal caliber loops of small and large bowel. Normal appendix. Normal caliber abdominal aorta. No gross retroperitoneal lymphadenopathy. The bladder is normal in appearance. The prostate gland is normal in size. No gross free pelvic fluid. No inguinal lymphadenopathy. Severe degenerative changes of both hips again demonstrated. There are mild degenerative changes of the spine. Old healed right lateral rib fractures. CT/CT abdomen pelvis wo con IMPRESSION: -No CT evidence for acute abnormality within the abdomen or pelvis. -Diffusely decreased liver attenuation suggesting hepatic steatosis. Correlation with liver enzymes recommended. Fleischner guidelines were followed.
[2021-07-25 06:09] VITALS: BP 167/94; PULSE 100; O2SAT 97
[2021-07-25 06:12] VITALS: BP 167/103; PULSE 104; RESP 24; O2SAT 95; BMI 50.5
[2021-07-25 06:17] VITALS: PULSE 112; RESP 16; O2SAT 97
--- NOTE | 2021-07-25 06:33 | ED.ABDPAIN ---
HPI - Abdominal Pain General Chief Complaint: Abdominal Pain Stated Complaint: abd pain Time Seen by Provider: 07/25/21 06:06 Source: patient and old records reviewed Mode of arrival: ambulatory Limitations: no limitations History of Present Illness MD elicited complaint: abdominal pain Pertinent past history: diverticulitis Onset (ago): hour(s) (3am) Pain Consistency: constant Location: LUQ and LLQ Severity: severe Quality: stabbing Radiation: none Migration to: no migration Exacerbating factors: movement Relieving factors: nothing Context: history of similar episodes Associated symptoms: nausea and vomiting Related Data Home Medications Medication Instructions Recorded Confirmed citalopram 20 mg tablet 20 mg PO DAILY 10/15/20 02/16/21 desmopressin 0.1 mg tablet 0.4 mg PO DAILY 10/15/20 02/17/21 metformin 1,000 mg tablet 1,000 mg PO BID 10/15/20 02/17/21 paliperidone palmitate 156 mg/mL 156 mg IM Q30D 10/15/20 02/16/21 intramuscular syringe (Invega Sustenna) sucralfate 1 gram tablet 1 g PO TIDAC 10/20/20 02/16/21 omeprazole 20 mg capsule,delayed 1 cap PO DAILY@0630 12/02/20 02/16/21 release topiramate 25 mg tablet 25 tab PO BID 12/02/20 02/16/21 oxycodone-acetaminophen 10 mg-325 1 tab PO TID PRN 02/16/21 02/16/21 mg tablet Previous Rx's Medication Instructions Recorded prednisone 20 mg tablet 20 mg PO DAILY 5 Days #5 tab 11/07/20 cyclobenzaprine 10 mg tablet 10 mg PO TID PRN #14 tab 02/05/21 naproxen 500 mg tablet 500 mg PO BID PRN 14 Days #20 tab 02/05/21 albuterol sulfate 90 mcg/actuation 2 puff INHALATION Q4-6H PRN #8.5 g 02/13/21 aerosol inhaler (ProAir HFA) oxycodone 5 mg tablet 5 mg PO Q6H PRN #20 tab 02/23/21 acetaminophen 500 mg tablet 1,000 mg PO QID PRN #20 tab 03/14/21 oxycodone 5 mg tablet 5 mg PO Q6H PRN #7 tab 11/20/21 oxycodone 5 mg tablet 5 mg PO Q8H PRN #7 tab 03/16/21 sucralfate 100 mg/mL oral 10 ml PO BID #420 ml 07/23/21 suspension (Carafate) ondansetron 4 mg disintegrating 4 mg PO Q8H PRN #20 tab 07/25/21 tablet Allergies Allergy/AdvReac Type Severity Reaction Status Date / Time fish derived [fish] Allergy Severe Anaphylaxis Verified 07/23/21 01:07 haloperidol [From Haldol] Allergy Severe Seizure Verified 07/23/21 01:07 shellfish derived Allergy Severe SWELLING Verified 07/23/21 01:07 [SHELLFISH DERIVED] WITH DIFFICULTY BREATHING pork derived (porcine) AdvReac Intermediate swelling Verified 07/23/21 01:07 garlic AdvReac Mild VOMITING Verified 07/23/21 01:07 Review of Systems Review of Systems Constitutional : No Weight loss, No Fever, No Chills ENT/Mouth : No sore throat, No Rhinorrhea Eyes: No Swelling, No Redness Cardiovascular : No Chest Pain, No SOB, NoEdema Respiratory : No Cough, No Sputum, No Wheezing Gastrointestinal : Positive Nausea, Positive Vomiting, no Diarrhea, positive abdominal Pain, No Hematochezia, No Melena Genitourinary : No Dysuria, No Urinary Frequency, No Hematuria, No Urgency Musculoskeletal : No joint pain, No Myalgias, No Joint Swelling Skin : No Skin Lesions, No rash Neuro : No Weakness, No Numbness, No Dizziness, No Headache Psych : No Anxiety/Panic, No Depression Heme/Lymph: No Bruising, No Lymphadenopathy Endocrine : No Polyuria, No Polydipsia All other systems reviewed and are negative. [facility] Past Medical History Attestation statement: The following information was validated with the patient. Medical History Anxiety Bipolar 1 disorder Degenerative disc disease Depression Diabetes Diabetes type 2, controlled Diverticulosis Hip problem HTN (hypertension) Obese Osteoarthritis PTSD (post-traumatic stress disorder) Surgical History H/O elbow surgery History of surgery of head Hx of cholecystectomy Family History Family History Mother Hx of cholecystectomy Hypertension A-fib Father No problems noted. Brother No problems noted. Brother No problems noted. Son No problems noted. Social History Social History Alcohol intake: never Patient Tobacco Use Status: Never used Tobacco Tobacco use type: Cigarette Cigarettes Per Day: 17 Substance Use Type: Marijuana Advance Directives: No Advance Directives Date on File: 02/17/21 Physical Exam ED Vital Signs: Vital Signs - 24 hr 07/25/21 06:12 07/25/21 06:17 07/25/21 06:40 Temperature 97.8 F Pulse Rate 104 H 112 H Respiratory Rate 24 H 16 16 Blood Pressure 167/103 H Pulse Oximetry 95 97 99 BMI result Body Mass Index 50.5 Appearance: Alert. Oriented X3. No acute distress. Eyes: Pupils equal, round and reactive to light. ENT: Pharynx normal. Neck: Normal inspection. Neck supple. CVS: Normal heart rate and rhythm. Pulses normal. Respiratory: No respiratory distress. Breath sounds normal. Abdomen: Soft and obese, moderate ttp in L mid abdomen no rebound Skin: Skin warm and dry. Normal skin color. Normal skin turgor. Extremities: No lower extremity edema. No calf ttp Neuro: Oriented X 3. No motor deficit. No sensory deficit. Course Course Course Narrative: CT scan negative, labs negative, refusing COVID swab, repeat visits with negative CT scans again discussed findings with patient normal labs negative lactic CT scan negative - similar workup 07/23 - he is again asking for IV morphine for pain I explained his workup is negative and that he can have tylenol if he would like he is very upset we are not giving him morphine at this time. MDM - Abdominal Pain MDM Narrative Medical decision making narrative: 46 yo male with hx of PTSD, osteoarthritis, DM, depression, HTN, bipolar disorder, BMI, schizoaffective, diverticulitis, here with c/o L sided abdominal pain and n/v at this time he had to be woken up has very large abdomen on exam. Will obtain labs, UA, CT scan for diverticulitis. Attempt oral medications. He is asking for IV morphine on exam. Dispo per results and findings. Differential Diagnosis Differential diagnosis: Likely abdominal pain, constipation, diverticulitis and renal colic; Unlikely aortic dissection or acute appendicitis Lab Data Result diagrams: 07/25/21 08:29 07/25/21 08:29 Labs: Lab Results 07/25/21 07/25/21 07/25/21 Range/Units 08:29 08:29 08:29 WBC 11.5 H (4.8-10.8) X10*3/uL RBC 5.27 (4.60-5.80) X10*6/uL Hgb 14.3 (14.0-18.0) g/dl Hct 44.8 (42.0-52.0) % MCV 85.0 (80.0-98.0) fL MCH 27.1 (27.0-33.0) pg MCHC 31.9 (31.0-36.0) g/dl RDW 15.9 (11.0-16.0) % Plt Count 257 (160-400) X10*3/uL MPV 10.5 (9.4-12.4) fL Immature Gran % (Auto) 0.7 H (0.0-0.4) % Neut % (Auto) 80.8 H (45-73) % Lymph % (Auto) 12.0 L (20-40) % [place] % (Auto) 6.2 (2-11) % Eos % (Auto) 0.0 (0-4) % Baso % (Auto) 0.3 (0-2) % Lymph # (Auto) 1.4 (1.2-4.9) X10*3/uL [place] # (Auto) 0.7 (0.1-1.2) X10*3/uL Eos # (Auto) 0.0 (0.0-0.4) X10*3/uL Baso # (Auto) 0.0 (0.0-0.2) X10*3/uL Abs Immat Gran (auto) 0.08 H (0.00-0.03) X10*3/uL Absolute Neuts (auto) 9.3 H (2.0-8.3) x10*3/uL Absolute Nucleated RBC 0.000 (0.0-0.012) X10*3/uL Nucleated RBC % (auto) 0.0 (0.0-0.2) /100WBC Sodium 140 (135-145) mmol/L Potassium 4.3 (3.3-5.1) mmol/L Chloride 103 (96-108) mmol/L Carbon Dioxide 29 (22-29) mmol/L Anion Gap 12 (12-20) BUN 10 (9-16) mg/dL Creatinine 1.03 (0.5-1.4) mg/dL Estim Creat Clear Calc 129.6 Estimated GFR > 60 Random Glucose 160 H (60-115) mg/dL Lactic Acid 1.3 (0.5-2.0) mmol/L Calcium 9.7 (8.4-10.2) mg/dL Magnesium 2.1 (1.6-2.6) mg/dL Total Bilirubin 0.5 (0.0-1.0) mg/dL Direct Bilirubin 0.2 (0.0-0.5) mg/dL AST 10 (5-37) U/L ALT 12 (0-40) U/L Alkaline Phosphatase 95 (39-117) U/L Total Protein 7.5 (6.5-8.0) g/dL Albumin 4.0 (3.5-5.0) g/dL Lipase 11 (8-78) U/L Discharge Plan Discharge Clinical Impression: Abdominal pain Qualifiers: Abdominal location: left lower quadrant Qualified Code(s): R10.32 - Left lower quadrant pain Patient Disposition: Home, Self-Care Instructions: Abdominal Pain (ED) Additional Instructions: return to ED for any worsening symptoms or concerns CT scan normal labs normal Prescriptions: New ondansetron 4 mg tablet,disintegrating 4 mg PO Q8H PRN (Reason: nausea and vomiting) Qty: 20 0RF No Action prednisone 20 mg tablet 20 mg PO DAILY 5 Days Qty: 5 0RF omeprazole 20 mg capsule,delayed release(DR/EC) 1 cap PO DAILY@0630 0RF topiramate 25 mg tablet 25 tab PO BID 0RF albuterol sulfate [ProAir HFA] 90 mcg/actuation HFA aerosol inhaler 2 puff inhalation Q4-6H PRN (Reason: Wheezing) Qty: 8.5 0RF oxycodone-acetaminophen 10-325 mg tablet 1 tab PO TID PRN (Reason: Pain) 0RF acetaminophen 500 mg tablet 1,000 mg PO QID PRN (Reason: pain) Qty: 20 0RF oxycodone 5 mg tablet 5 mg PO Q6H PRN (Reason: pain) Qty: 7 0RF oxycodone 5 mg tablet 5 mg PO Q8H PRN (Reason: pain) Qty: 7 0RF sucralfate [Carafate] 100 mg/mL suspension 10 ml PO BID Qty: 420 0RF naproxen 500 mg tablet 500 mg PO BID PRN (Reason: pain) 14 Days Qty: 20 0RF cyclobenzaprine 10 mg tablet 10 mg PO TID PRN (Reason: pain) Qty: 14 0RF oxycodone 5 mg tablet 5 mg PO Q6H PRN (Reason: Pain, Severe) Qty: 20 0RF desmopressin 0.1 mg tablet 0.4 mg PO DAILY 0RF metformin 1,000 mg tablet 1,000 mg PO BID 0RF citalopram 20 mg tablet 20 mg PO DAILY 0RF Invega Sustenna 156 mg/mL syringe 156 mg IM Q30D 0RF sucralfate 1 gram tablet 1 g PO TIDAC 0RF Referrals: Physician,Unknown J [Primary Care Provider] - 2 days (if not better)
[2021-07-25 06:40] VITALS: RESP 16; TEMP 36.6; O2SAT 99
[2021-07-25] MEDS: Lidocaine HCl Viscous 2 % 15 ML SOLUTION MUCOUS MEM (07:25)
[2021-07-25] MEDS: Magnesium Hydrox/Alum Hydrox 30 ML ORAL.SUSP 15 ML PO (07:25)
[2021-07-25] MEDS: Ondansetron ODT 4 MG TAB.RAPDIS TRANSLINGU (07:27)
[2021-07-25] MEDS: Morphine Sulfate Immed Release 15 MG TABLET PO (07:27)
[2021-07-25 08:33] LABS: MANUAL DIFF FLAG NO
[2021-07-25 08:45] LABS: Basophils Percent Auto 0.3 % (0-2); Hematocrit 44.8 % (42.0-52.0); Hemoglobin 14.3 g/dl (14.0-18.0); Imm Gran Abs Auto 0.08 X10*3/uL (0.00-0.03); Imm Gran Pct Auto 0.7 % (0.0-0.4); Lymphocytes Absolute Auto 1.4 X10*3/uL (1.2-4.9); Mean Corpuscular HGB Conc 31.9 g/dl (31.0-36.0); Mean Corpuscular Hemoglobin 27.1 pg (27.0-33.0); Mean Platelet Volume 10.5 fL (9.4-12.4); Monocytes Absolute Auto 0.7 X10*3/uL (0.1-1.2); Monocytes Percent Auto 6.2 % (2-11); Neutrophils Absolute Auto 9.3 x10*3/uL (2.0-8.3); Neutrophils Percent Auto 80.8 % (45-73); Platelet Count 257 X10*3/uL (160-400); Red Blood Count 5.27 X10*6/uL (4.60-5.80); Red Cell Distribution Width 15.9 % (11.0-16.0); White Blood Count 11.5 X10*3/uL (4.8-10.8)
[2021-07-25 08:55] LABS: Lactic Acid 1.3 mmol/L (0.5-2.0)
[2021-07-25 09:01] LABS: Alanine Aminotransferase 12 U/L (0-40); Alkaline Phosphatase 95 U/L (39-117); Anion Gap 12 (12-20); Aspartate Amino Transferase 10 U/L (5-37); Bilirubin Direct 0.2 mg/dL (0.0-0.5); Bilirubin Total 0.5 mg/dL (0.0-1.0); Blood Urea Nitrogen 10 mg/dL (9-16); Calcium 9.7 mg/dL (8.4-10.2); Carbon Dioxide 29 mmol/L (22-29); Chloride 103 mmol/L (96-108); Creatinine Clr Calc Pharmacy 129.6; Estimated Glomerular Filt Rate > 60; Glucose Random 160 mg/dL (60-115); Lipase 11 U/L (8-78); Magnesium 2.1 mg/dL (1.6-2.6); Potassium 4.3 mmol/L (3.3-5.1); Sodium 140 mmol/L (135-145); Total Protein 7.5 g/dL (6.5-8.0)
--- NOTE | 2021-07-25 09:21 | PC.NURSE ---
pt yelling out im in pain, i want more morphine . provider at bedside to discuss normal image and laboratory findings. provider educating pt about necessity for narcotic pain medication. pt educated about discharge planning. pt asking to be sent home.
== END 2021-07-25 11:03 | disposition home or self-care (01) ==
PROVIDERS: Emergency Provider Emergency Medicine
DX: R10.32 Left lower quadrant pain (principal); R11.2 Nausea with vomiting, unspecified; E11.9 Type 2 diabetes mellitus without complications; I10 Essential (primary) hypertension
CPT/HCPCS: 36415; 74176; 80048; 80076; 83605; 83690; 83735; 85025; 99284

== ENCOUNTER 2021-09-01 20:13 | Emergency (ER) | payer OTHER, SELFPAY ==
[2021-09-01 20:19] VITALS: BP 120/90; PULSE 110; O2SAT 96
[2021-09-01 21:19] VITALS: BP 140/85; PULSE 100; RESP 16; TEMP 36; O2SAT 99; BMI 47.2
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
--- NOTE | 2021-09-01 22:44 | ED.GENADULT ---
HPI - General Adult General Chief complaint: Extremity Problem Stated complaint: hip pain Time Seen by Provider: 09/01/21 22:18 Source: patient Mode of arrival: ambulatory Limitations: no limitations Related Data Home Medications Medication Instructions Recorded Confirmed citalopram 20 mg tablet 20 mg PO DAILY 10/15/20 02/16/21 desmopressin 0.1 mg tablet 0.4 mg PO DAILY 10/15/20 02/17/21 metformin 1,000 mg tablet 1,000 mg PO BID 10/15/20 02/17/21 paliperidone palmitate 156 mg/mL 156 mg IM Q30D 10/15/20 02/16/21 intramuscular syringe (Invega Sustenna) sucralfate 1 gram tablet 1 g PO TIDAC 10/20/20 02/16/21 omeprazole 20 mg capsule,delayed 1 cap PO DAILY@0630 12/02/20 02/16/21 release topiramate 25 mg tablet 25 tab PO BID 12/02/20 02/16/21 oxycodone-acetaminophen 10 mg-325 1 tab PO TID PRN 02/16/21 02/16/21 mg tablet Previous Rx's Medication Instructions Recorded prednisone 20 mg tablet 20 mg PO DAILY 5 Days #5 tab 11/07/20 cyclobenzaprine 10 mg tablet 10 mg PO TID PRN #14 tab 02/05/21 naproxen 500 mg tablet 500 mg PO BID PRN 14 Days #20 tab 02/05/21 albuterol sulfate 90 mcg/actuation 2 puff INHALATION Q4-6H PRN #8.5 g 02/13/21 aerosol inhaler (ProAir HFA) oxycodone 5 mg tablet 5 mg PO Q6H PRN #20 tab 02/23/21 acetaminophen 500 mg tablet 1,000 mg PO QID PRN #20 tab 03/14/21 oxycodone 5 mg tablet 5 mg PO Q6H PRN #7 tab 03/14/21 oxycodone 5 mg tablet 5 mg PO Q8H PRN #7 tab 03/16/21 sucralfate 100 mg/mL oral 10 ml PO BID #420 ml 07/23/21 suspension (Carafate) ondansetron 4 mg disintegrating 4 mg PO Q8H PRN #20 tab 07/25/21 tablet Allergies Allergy/AdvReac Type Severity Reaction Status Date / Time fish derived [fish] Allergy Severe Anaphylaxis Verified 07/23/21 01:07 haloperidol [From Haldol] Allergy Severe Seizure Verified 07/23/21 01:07 shellfish derived Allergy Severe SWELLING Verified 07/23/21 01:07 [SHELLFISH DERIVED] WITH DIFFICULTY BREATHING pork derived (porcine) AdvReac Intermediate swelling Verified 07/23/21 01:07 garlic AdvReac Mild VOMITING Verified 07/23/21 01:07 PMF Past Medical History Medical History Anxiety Bipolar 1 disorder Degenerative disc disease Depression Diabetes Diabetes type 2, controlled Diverticulosis Hip problem HTN (hypertension) Obese Osteoarthritis PTSD (post-traumatic stress disorder) Surgical History H/O elbow surgery History of surgery of head Hx of cholecystectomy Family History Family History Mother Hx of cholecystectomy Hypertension A-fib Father No problems noted. Brother No problems noted. Brother No problems noted. Son No problems noted. Social History Social History Alcohol intake: never Patient Tobacco Use Status: Never used Tobacco Tobacco use type: Cigarette Cigarettes Per Day: 17 Substance Use Type: Marijuana Advance Directives Date on File: 02/17/21 Physical Exam ED Vital Signs: Vital Signs - 24 hr 09/01/21 21:19 Temperature 96.8 F Pulse Rate 100 Respiratory Rate 16 Blood Pressure 140/85 H Pulse Oximetry 99 BMI result Body Mass Index 47.2 Discharge Plan Discharge Prescriptions: No Action prednisone 20 mg tablet 20 mg PO DAILY 5 Days Qty: 5 0RF omeprazole 20 mg capsule,delayed release(DR/EC) 1 cap PO DAILY@0630 0RF topiramate 25 mg tablet 25 tab PO BID 0RF albuterol sulfate [ProAir HFA] 90 mcg/actuation HFA aerosol inhaler 2 puff inhalation Q4-6H PRN (Reason: Wheezing) Qty: 8.5 0RF oxycodone-acetaminophen 10-325 mg tablet 1 tab PO TID PRN (Reason: Pain) 0RF acetaminophen 500 mg tablet 1,000 mg PO QID PRN (Reason: pain) Qty: 20 0RF oxycodone 5 mg tablet 5 mg PO Q6H PRN (Reason: pain) Qty: 7 0RF oxycodone 5 mg tablet 5 mg PO Q8H PRN (Reason: pain) Qty: 7 0RF sucralfate [Carafate] 100 mg/mL suspension 10 ml PO BID Qty: 420 0RF ondansetron 4 mg tablet,disintegrating 4 mg PO Q8H PRN (Reason: nausea and vomiting) Qty: 20 0RF naproxen 500 mg tablet 500 mg PO BID PRN (Reason: pain) 14 Days Qty: 20 0RF cyclobenzaprine 10 mg tablet 10 mg PO TID PRN (Reason: pain) Qty: 14 0RF oxycodone 5 mg tablet 5 mg PO Q6H PRN (Reason: Pain, Severe) Qty: 20 0RF desmopressin 0.1 mg tablet 0.4 mg PO DAILY 0RF metformin 1,000 mg tablet 1,000 mg PO BID 0RF citalopram 20 mg tablet 20 mg PO DAILY 0RF Invega Sustenna 156 mg/mL syringe 156 mg IM Q30D 0RF sucralfate 1 gram tablet 1 g PO TIDAC 0RF
--- NOTE | 2021-09-01 23:11 | PC.NURSE ---
Pt LWT from room.
== END 2021-09-01 23:11 | disposition left against medical advice (07) ==
PROVIDERS: Emergency Provider Emergency Medicine
DX: M25.551 Pain in right hip (principal); M25.552 Pain in left hip; Z79.899 Other long term (current) drug therapy
CPT/HCPCS: 99281; 99282

== ENCOUNTER 2021-09-01 23:18 | Emergency (ER) | payer OTHER, SELFPAY ==
--- NOTE | ~2021-09-01 | XR_ITS ---
EXAMINATION: XR BILATERAL HIPS WITH AP PELVIS CLINICAL INFORMATION: Bilateral hip pain COMPARISON: 02/16/2021 TECHNIQUE: AP view of the pelvis and single views of each hip were obtained. FINDINGS: There is no fracture or dislocation. There are severe degenerative changes of both hips. Narrowing of the joint space with flattening of the femoral heads. Prominent osteophytes with subchondral sclerosis. The pelvic rim is intact. Sacroiliac joints and pubic symphysis are intact. Normal bowel gas pattern. XR/XR hip BI w PEL1V IMPRESSION: Severe degenerative changes of both hips. This is similar to prior.
[2021-09-01 23:42] VITALS: BP 140/85; PULSE 100; RESP 16; TEMP 36; O2SAT 99; BMI 47.2
--- NOTE | 2021-09-02 00:20 | ED_ITS ---
HPI - Extremity Problem General Chief complaint: Extremity Problem Stated complaint: Hip pain Time Seen by Provider: 09/02/21 00:04 Source: EMS Mode of arrival: EMS Limitations: no limitations History of Present Illness HPI Narrative: Patient comes to the emergency room complaining of chronic bilateral hip pain. Patient states that he would like to get back in [place]. Reports no falls, no new issues. Per EMS, patient was picked up at the corner of [facility]. Brought to the emergency room here at [facility]. When patient was called in, patient did not answer. Patient took our wheel chair, went to buy cigarettes. Patient did not feel like wheeling himself back, called EMS and brought him back to the emergency room along with our wheelchair Related Data Home Medications Medication Instructions Recorded Confirmed citalopram 20 mg tablet 20 mg PO DAILY 10/15/20 02/16/21 desmopressin 0.1 mg tablet 0.4 mg PO DAILY 10/15/20 02/17/21 metformin 1,000 mg tablet 1,000 mg PO BID 10/15/20 02/17/21 paliperidone palmitate 156 mg/mL 156 mg IM Q30D 10/15/20 02/16/21 intramuscular syringe (Invega Sustenna) sucralfate 1 gram tablet 1 g PO TIDAC 10/20/20 02/16/21 omeprazole 20 mg capsule,delayed 1 cap PO DAILY@0630 12/02/20 02/16/21 release topiramate 25 mg tablet 25 tab PO BID 12/02/20 02/16/21 oxycodone-acetaminophen 10 mg-325 1 tab PO TID PRN 02/16/21 02/16/21 mg tablet Previous Rx's Medication Instructions Recorded prednisone 20 mg tablet 20 mg PO DAILY 5 Days #5 tab 11/07/20 cyclobenzaprine 10 mg tablet 10 mg PO TID PRN #14 tab 02/05/21 naproxen 500 mg tablet 500 mg PO BID PRN 14 Days #20 tab 02/05/21 albuterol sulfate 90 mcg/actuation 2 puff INHALATION Q4-6H PRN #8.5 g 02/13/21 aerosol inhaler (ProAir HFA) oxycodone 5 mg tablet 5 mg PO Q6H PRN #20 tab 02/23/21 acetaminophen 500 mg tablet 1,000 mg PO QID PRN #20 tab 03/14/21 oxycodone 5 mg tablet 5 mg PO Q6H PRN #7 tab 03/14/21 oxycodone 5 mg tablet 5 mg PO Q8H PRN #7 tab 03/16/21 sucralfate 100 mg/mL oral 10 ml PO BID #420 ml 07/23/21 suspension (Carafate) ondansetron 4 mg disintegrating 4 mg PO Q8H PRN #20 tab 07/25/21 tablet Allergies Allergy/AdvReac Type Severity Reaction Status Date / Time fish derived [fish] Allergy Severe Anaphylaxis Verified 09/02/21 00:23 haloperidol [From Haldol] Allergy Severe Seizure Verified 09/02/21 00:23 shellfish derived Allergy Severe SWELLING Verified 09/02/21 00:23 [SHELLFISH DERIVED] WITH DIFFICULTY BREATHING pork derived (porcine) AdvReac Intermediate swelling Verified 09/02/21 00:23 garlic AdvReac Mild VOMITING Verified 09/02/21 00:23 Review of Systems Review of Systems: Constitutional : No Weight loss, No Fever, No Chills, No Night Sweats, No Fatigue, No Malaise ENT/Mouth : No Hearing loss, No Ear Pain, No Nasal Congestion, No Sinus Pain, No Hoarseness, No sore throat, No Rhinorrhea, No Swallowing Difficulty Eyes: No Eye Pain, No Swelling, No Redness, No Foreign Body, No Discharge, No Vision Changes Cardiovascular : No Chest Pain, No SOB, No Dyspnea on Exertion, No Orthopnea, No Edema, No Palpitations Respiratory : No Cough, No Sputum, No Wheezing, No Smoke Exposure, No Dyspnea Gastrointestinal : No Nausea, No Vomiting, No Diarrhea, No Constipation, No abdominal Pain, No Hematochezia, No Melena Genitourinary : no irregular bleeding, No Dysuria, No Urinary Frequency, No Hematuria, No Urinary Incontinence, No Urgency, No Flank Pain, No Urinary Flow Changes, No Hesitancy Musculoskeletal : Complaining of chronic bilateral hip pain, No Myalgias, No Joint Swelling Skin : No Skin Lesions, No rash Neuro : No Weakness, No Numbness, No Paresthesias, No Loss of Consciousness, No Dizziness, No Headache Psych : No Anxiety/Panic, No Depression, No SI/HI/AH/VH, No Social Issues, Heme/Lymph: No Bruising, No Bleeding,No Lymphadenopathy Endocrine : No Polyuria, No Polydipsia, No Temperature Intolerance [facility] Past Medical History Medical History Anxiety Bipolar 1 disorder Degenerative disc disease Depression Diabetes Diabetes type 2, controlled Diverticulosis Hip problem HTN (hypertension) Obese Osteoarthritis PTSD (post-traumatic stress disorder) Surgical History H/O elbow surgery History of surgery of head Hx of cholecystectomy Family History Family History Mother Hx of cholecystectomy Hypertension A-fib Father No problems noted. Brother No problems noted. Brother No problems noted. Son No problems noted. Social History Social History Alcohol intake: never Patient Tobacco Use Status: Never used Tobacco Tobacco use type: Cigarette Cigarettes Per Day: 17 Substance Use Type: Marijuana Advance Directives: No Advance Directives Date on File: 02/17/21 Physical Exam Vital Signs: Vital Signs: Last Vital Signs Temp 96.8 F 09/01/21 23:42 Pulse 100 09/01/21 23:42 Resp 16 09/01/21 23:42 BP 140/85 H 09/01/21 23:42 Pulse Ox 99 09/01/21 23:42 BMI result Body Mass Index 47.2 Const: Other: Appearance: Alert. Oriented X3. No acute distress. Morbidly obese Eyes: Pupils equal, round and reactive to light. ENT: Pharynx normal. Neck: Normal inspection. Neck supple. No lymph nodes noted. No crepitus CVS: Normal heart rate and rhythm. Pulses normal. Normal S1 and S2 Respiratory: No respiratory distress. Breath sounds normal. No Wheezing. No rales Abdomen: Soft and nontender. No rigidity. No distention. Skin: Skin warm and dry. Normal skin color. Normal skin turgor. Extremities: No lower extremity edema. Patient has a walker, able to stand Neuro: Oriented X 3. No motor deficit. No sensory deficit. Moving all extremities. No slurred speech. CN 2 through 12 grossly intact Psych: calm, cooperative, normal affect Course Course Course Narrative: X-rays pending. Case management and physical therapy pending Physician observation started 00:45 MDM - Extremity (Nontraumatic) Imaging Data Bilateral hip x-rays: Radiologist's impression: FINDINGS: There is no fracture or dislocation. There are severe degenerative changes of both hips. Narrowing of the joint space with flattening of the femoral heads. Prominent osteophytes with subchondral sclerosis. The pelvic rim is intact. Sacroiliac joints and pubic symphysis are intact. Normal bowel gas pattern. XR/XR hip BI w PEL1V IMPRESSION: Severe degenerative changes of both hips. This is similar to prior. Discharge Plan Discharge Clinical Impression: Chronic hip pain Patient Disposition: Still a Patient Prescriptions: No Action prednisone 20 mg tablet 20 mg PO DAILY 5 Days Qty: 5 0RF omeprazole 20 mg capsule,delayed release(DR/EC) 1 cap PO DAILY@0630 0RF topiramate 25 mg tablet 25 tab PO BID 0RF albuterol sulfate [ProAir HFA] 90 mcg/actuation HFA aerosol inhaler 2 puff inhalation Q4-6H PRN (Reason: Wheezing) Qty: 8.5 0RF oxycodone-acetaminophen 10-325 mg tablet 1 tab PO TID PRN (Reason: Pain) 0RF acetaminophen 500 mg tablet 1,000 mg PO QID PRN (Reason: pain) Qty: 20 0RF oxycodone 5 mg tablet 5 mg PO Q6H PRN (Reason: pain) Qty: 7 0RF oxycodone 5 mg tablet 5 mg PO Q8H PRN (Reason: pain) Qty: 7 0RF sucralfate [Carafate] 100 mg/mL suspension 10 ml PO BID Qty: 420 0RF ondansetron 4 mg tablet,disintegrating 4 mg PO Q8H PRN (Reason: nausea and vomiting) Qty: 20 0RF naproxen 500 mg tablet 500 mg PO BID PRN (Reason: pain) 14 Days Qty: 20 0RF cyclobenzaprine 10 mg tablet 10 mg PO TID PRN (Reason: pain) Qty: 14 0RF oxycodone 5 mg tablet 5 mg PO Q6H PRN (Reason: Pain, Severe) Qty: 20 0RF desmopressin 0.1 mg tablet 0.4 mg PO DAILY 0RF metformin 1,000 mg tablet 1,000 mg PO BID 0RF citalopram 20 mg tablet 20 mg PO DAILY 0RF Invega Sustenna 156 mg/mL syringe 156 mg IM Q30D 0RF sucralfate 1 gram tablet 1 g PO TIDAC 0RF
--- NOTE | 2021-09-02 01:12 | PC.NURSE ---
Per MD, plan for CM per pt request.
[2021-09-02 01:56] VITALS: BP 118/72; PULSE 84; RESP 16; O2SAT 100
[2021-09-02 02:18] LABS: COVID-19 Test Negative (Negative)
[2021-09-02 06:24] VITALS: BP 113/61; PULSE 88; TEMP 36.4; O2SAT 95
[2021-09-02 08:27] LABS: Glucose, Whole Blood 116 mg/dL (60-115)
--- NOTE | 2021-09-02 10:33 | PHA.MEDREC ---
Pharmacy Consult ? Medication Reconciliation Pharmacy has completed the medication reconciliation. Patient refused to wake up to speak about his medication. Phone number for his mother is EMR does not work. Med rec based on claim history. Will need to F/U on last Invega dose. Rhina Mejia, PharmD
--- NOTE | 2021-09-02 11:22 | MHC.CM.ED ---
Addendum entered by Jie Mcpherson 09/02/21 11:27: [facility] is unable to accept patient back. He is a corporate denial. Original Note: Case management consult received overnight. Patient came to ER due to hip pain. Patient needs hip surgery. However, orthopedics will not operate until patient loses weight. Physical therapy eval completed. Short term rehab is being recommended. Patient is well known to case management. Patient's PCP is Idalmis Paul. Patient is active with [facility]. Patient was at [facility] from 06/30/2021-07/31/2021. Patient was Covid positive on 06/01/2021. Patient received Moderna vaccine on 06/25/2021.Patient weighh 320lbs. Anticipate patient will be difficult to place due to vaccine status and weight. Referral broadcasted within 20 miles of patient's residence to all facilities contracted with [facility] via [employer]. Patient's mother, Briana, is her guardian. Continue to monitor for d/c needs.
[2021-09-02 11:45] VITALS: BP 100/66; PULSE 88; RESP 16; O2SAT 95
[2021-09-02] MEDS: Escitalopram Oxalate 20 MG TABLET PO (11:49)
[2021-09-02] MEDS: Omeprazole 20 MG CAPSULE.DR PO (11:49)
[2021-09-02] MEDS: metFORMIN HCl 1,000 MG TABLET 1000 MG PO ×2 (11:50→20:48)
[2021-09-02] MEDS: Metoprolol Succinate ER 25 MG TAB.ER.24H PO (11:50)
[2021-09-02] MEDS: cloNIDine HCL 0.2 MG TABLET PO ×2 (11:50→20:48)
[2021-09-02] MEDS: Furosemide 20 MG TABLET PO (11:50)
[2021-09-02] MEDS: Topiramate 25 MG TABLET PO ×2 (11:50→20:48)
[2021-09-02 12:23] LABS: Amphetamine Screen Urine Not Detected (Not Detect); Barbiturates, Urine Not Detected (Not Detect); Benzodiazepines Screen Urine Not Detected (Not Detect); Cannabinoid Screen Urine Not Detected (Not Detect); Cocaine Screen Urine Not Detected (Not Detect); Fentanyl, urine Not Detected (Not Detect); Opiate Screen Urine POSITIVE (Not Detect); Phencyclidine Screen Urine Not Detected (Not Detect)
--- NOTE | 2021-09-02 13:20 | MHC.CM.ED ---
Patient remains in ER. No bed offers have been made yet. Referral broadcasted within 100 miles of patient's home to all facilities that are contracted with patient's insurance. 72 referrals have been made. Continue to monitor for d/c needs.
[2021-09-02 15:48] VITALS: BP 105/67; PULSE 89; RESP 18; O2SAT 96
[2021-09-02 19:15] VITALS: RESP 17; O2SAT 98
--- NOTE | 2021-09-02 21:20 | PC.NURSE ---
pt given a sandwich and cranberry juice per request. resting in bed at this time
[2021-09-02 21:38] VITALS: RESP 16
[2021-09-03 03:12] VITALS: BP 149/86; PULSE 73; RESP 18; O2SAT 99
[2021-09-03 06:10] VITALS: BP 117/75; PULSE 79; RESP 15; O2SAT 97
--- NOTE | 2021-09-03 06:13 | PC.NURSE ---
this RN went to medicate pt with AM omeprazole. pt was told that the HOB needs to be elevated so that he can take the medication, pt agreeable, while raising HOB pt stated, thats enough! this RN explained that pt needs to be more upright rather than supine to take medication. pt stated, no dont put my head any higher explained to pt that this RN was not comfortable giving him medication lying down as it is a choking hazard. pt stated, fine I wont take it MD Goss notified. pt resting in bed at this time
--- NOTE | 2021-09-03 09:07 | MHC.CM.ED ---
Patient remains in ER. 74 referals have been made. No bed offers yet. Will reach out to facilities that haven't responded in [employer]. Continue to monitor for d/c needs.
[2021-09-03] MEDS: Topiramate 25 MG TABLET PO (09:23)
[2021-09-03] MEDS: Furosemide 20 MG TABLET PO (09:23)
[2021-09-03] MEDS: cloNIDine HCL 0.2 MG TABLET PO (09:23)
[2021-09-03] MEDS: metFORMIN HCl 1,000 MG TABLET 1000 MG PO (09:23)
[2021-09-03] MEDS: Escitalopram Oxalate 20 MG TABLET PO (09:23)
[2021-09-03] MEDS: Omeprazole 20 MG CAPSULE.DR PO (09:23)
[2021-09-03] MEDS: Metoprolol Succinate ER 25 MG TAB.ER.24H PO (09:25)
[2021-09-03] MEDS: Ibuprofen 800 MG TABLET PO (10:22)
--- NOTE | 2021-09-03 12:41 | PC.NURSE ---
report obtained from dalia, patient a&ox3, sitting at bedside, c/o hip pain, call franklin within reach, no distress noted, will continue to monitor
--- NOTE | 2021-09-03 13:51 | PC.NURSE ---
patient requested cell phone to be charged, it was brought to the secretaries desk to be charged per his request
--- NOTE | 2021-09-03 14:11 | PC.NURSE ---
patient a&ox3, pt continues to ask for food, and assorted items and is demanding when they are not brought to him immediately, patient has been spoken to about [facility] while he awaits jail placement.
[2021-09-03 15:33] VITALS: BP 128/90; PULSE 95; RESP 16; TEMP 36.6; O2SAT 96
--- NOTE | 2021-09-03 16:22 | PC.NURSE ---
patient spoke with case management and is not wanting to wait in the ED for placement, provider was notified and patient to discharge home with self care.
--- NOTE | 2021-09-03 20:42 | MHC.CM.ED ---
CM met with patient at 1630. Pt is upset that STR has not been found for him yet. Referrals have been place 100 miles. Pt is very difficult to place secondary to morbid obesity, >320 lbs, expulsion from [facility] and all facilities associated with them for behaviors, and not being fully vaccinated. CM told pt there are still several facilities in [facility] that have not yet responded. Pt states last time he waited for 7 days at [facility] and then they could not find a STR and he left. Pt states he will leave and stay at a hotel. Pt has his luggage bag and is ready to leave. CM spoke with Renetta GÓMEZ regarding conversation. Pt will be d/c home as requested.
== END 2021-09-03 16:24 | disposition home or self-care (01) ==
PROVIDERS: Nurse Practitioner Family; Emergency Provider Emergency Medicine; PCP Internal Medicine
DX: M25.551 Pain in right hip (principal); M25.552 Pain in left hip; F17.210 Nicotine dependence, cigarettes, uncomplicated; Z20.822 Contact with and (suspected) exposure to COVID-19; Z71.6 Tobacco abuse counseling; Z79.899 Other long term (current) drug therapy
CPT/HCPCS: 73521; 80307; 82947; 87635; 97162; 99285

== ENCOUNTER 2021-09-03 20:33 | Emergency (ER) | payer OTHER, SELFPAY ==
--- NOTE | 2021-09-03 22:08 | PC.NURSE ---
spoke with Susi and pt was seen camilo today and to follow up with his HCP pt when home and came back to seek a shelter. pt choose earlier to leave. no services in 100 miles. pt will be leaving after his diner is delivered.
== END 2021-09-03 22:25 | disposition left against medical advice (07) ==
PROVIDERS: Emergency Provider Emergency Medicine
DX: M25.551 Pain in right hip (principal); M25.552 Pain in left hip

== ENCOUNTER 2021-09-04 05:13 | Emergency (ER) | payer OTHER, SELFPAY ==
[2021-09-04 06:09] VITALS: BP 139/87; PULSE 90; RESP 16; TEMP 36.3; O2SAT 98; BMI 46.5
--- NOTE | 2021-09-04 07:47 | ED_ITS ---
HPI - Extremity Problem General Chief complaint: Extremity Problem Stated complaint: hip pain Time Seen by Provider: 09/04/21 07:46 Source: patient and old records reviewed Mode of arrival: EMS Limitations: no limitations History of Present Illness MD Complaint: other (homeless chronic hip pain wants a place to stay) Onset (ago): year(s) Pain Consistency: constant Location: left, right and lower extremity Quality: aching and dull Radiation: none Relieving factors: immobilization and rest Exacerbating factors: weight bearing and walking Associated symptoms: denies other symptoms Context: other (chronic hip degenerative disease, homelessness) Related Data Home Medications Medication Instructions Recorded Confirmed citalopram 20 mg tablet 40 mg PO DAILY 10/15/20 09/02/21 metformin 1,000 mg tablet 1,000 mg PO BID 10/15/20 09/02/21 paliperidone palmitate 156 mg/mL 156 mg IM Q30D 10/15/20 09/02/21 intramuscular syringe (Invega Sustenna) omeprazole 20 mg capsule,delayed 1 cap PO DAILY@0630 12/02/20 09/02/21 release topiramate 25 mg tablet 25 mg PO BID 12/02/20 09/02/21 acetaminophen 325 mg tablet 650 mg PO Q6H PRN 09/02/21 09/02/21 aluminum-mag hydroxide-simethicone 10 ml PO TID PRN 09/02/21 09/02/21 200 mg-200 mg-20 mg/5 mL oral susp (Gaye-Lanta) clonidine HCl 0.2 mg tablet 1 tab PO BID 09/02/21 09/02/21 furosemide 20 mg tablet 1 tab PO DAILY 09/02/21 09/02/21 gabapentin 400 mg capsule 1 cap PO TID 09/02/21 09/02/21 metoprolol succinate 25 mg 1 tab PO DAILY 09/02/21 09/02/21 tablet,extended release 24 hr morphine 15 mg immediate release 1 tab PO TID PRN 09/02/21 09/02/21 tablet Previous Rx's Medication Instructions Recorded cyclobenzaprine 10 mg tablet 10 mg PO TID PRN #14 tab 02/05/21 albuterol sulfate 90 mcg/actuation 2 puff INHALATION Q4-6H PRN #8.5 g 02/13/21 aerosol inhaler (ProAir HFA) Allergies Allergy/AdvReac Type Severity Reaction Status Date / Time fish derived [fish] Allergy Severe Anaphylaxis Verified 09/02/21 00:23 haloperidol [From Haldol] Allergy Severe Seizure Verified 09/02/21 00:23 shellfish derived Allergy Severe SWELLING Verified 09/02/21 00:23 [SHELLFISH DERIVED] WITH DIFFICULTY BREATHING pork derived (porcine) AdvReac Intermediate swelling Verified 09/02/21 00:23 garlic AdvReac Mild VOMITING Verified 09/02/21 00:23 Review of Systems Review of Systems: Constitutional : No Fever, No Chills ENT/Mouth : No Ear Pain, No Hoarseness, No sore throat Eyes: No Eye Pain, No Swelling, No Redness, No Foreign Body Cardiovascular : No Chest Pain, No SOB Respiratory : No Cough, No Dyspnea Gastrointestinal : No Nausea, No Vomiting, No Diarrhea, No abdominal Pain Genitourinary : No Dysuria, No Hematuria Musculoskeletal : positive joint pain, No Myalgias, No Joint Swelling Skin : No Skin lacerations, No rash Neuro : No Weakness, No Numbness, No Loss of Consciousness, No Dizziness, No Headache Psych : No Anxiety/Panic, No Depression Heme/Lymph: no easy bruising, no Lymphadenopathy Endocrine : No Polyuria, No Polydipsia All other systems reviewed and are negative PMFSH Past Medical History Attestation statement: The following information was validated with the patient. Source: old records reviewed Medical History Anxiety Bipolar 1 disorder Degenerative disc disease Depression Diabetes Diabetes type 2, controlled Diverticulosis Hip problem HTN (hypertension) Obese Osteoarthritis PTSD (post-traumatic stress disorder) Surgical History H/O elbow surgery History of surgery of head Hx of cholecystectomy Family History Family History Mother Hx of cholecystectomy Hypertension A-fib Father No problems noted. Brother No problems noted. Brother No problems noted. Son No problems noted. Social History Social History Alcohol intake: never Patient Tobacco Use Status: Never used Tobacco Tobacco use type: Cigarette Cigarettes Per Day: 17 Substance Use Type: Marijuana Advance Directives: No Advance Directives Information Provided: Yes Advance Directives Date on File: 02/17/21 Physical Exam Vital Signs: Vital Signs: Last Vital Signs Temp 97.4 F 09/04/21 06:09 Pulse 90 09/04/21 06:09 Resp 16 09/04/21 06:09 BP 139/87 09/04/21 06:09 Pulse Ox 98 09/04/21 06:09 BMI result Body Mass Index 46.5 Appearance: Alert. Oriented X3. No acute distress. Sitting in wheelchair Eyes: Pupils equal, round and reactive to light. Eyes are blood shot ENT: Pharynx normal. Neck: Normal inspection. Neck supple. CVS: Normal heart rate and rhythm. Pulses normal. Respiratory: No respiratory distress. Breath sounds normal. Abdomen: Soft and non-tender. Skin: Skin warm and dry. Normal skin color. Normal skin turgor. Extremities: No lower extremity edema. Neuro: Oriented X 3. No motor deficit. No sensory deficit. Course Course Course Narrative: Patient placed in physician observation at 822am. The indication for observation is that the patient needs more time to see if CM can help with placement. At this time the patient is well developed well nourished, lungs clear, CV RRR, abd nontender, neuro is intact. Physician observation ended at 1153am Patient seen and cleared by CARE team. exhausted all efforts for placement, given long term information. NAD, lungs clear, CV RRR, Abd nontender, Neuro intact. Disposition is for home. MDM - Extremity (Nontraumatic) MDM Narrative Medical decision making narrative: 46 yo male with hx of PTSD, arthritis, HTN, DM, depression, obesity with known advanced degenerative changes of both hips here requesting placement for homelessness and inability to get around due to chronic hip issues. Was just medically cleared and search in place by CM but has poor behaviors and facilities have declined him. Will obtain drug screen and COVID swab. Notify CM. Patient aware they will try briefly but he cannot stay in ED for prolonged time at this point. Lab Data Labs: Lab Results 09/04/21 Range/Units 08:00 COVID-19 (THI) Negative (Negative) COVID-19 Clin Com See Note Discharge Plan Discharge Clinical Impression: Chronic hip pain, bilateral Patient Disposition: Home, Self-Care Instructions: Hip Pain (ED) Additional Instructions: return to ED for any worsening symptoms or concerns Prescriptions: No Action omeprazole 20 mg capsule,delayed release(DR/EC) 1 cap PO DAILY@0630 0RF topiramate 25 mg tablet 25 mg PO BID 0RF albuterol sulfate [ProAir HFA] 90 mcg/actuation HFA aerosol inhaler 2 puff inhalation Q4-6H PRN (Reason: Wheezing) Qty: 8.5 0RF acetaminophen 325 mg tablet 650 mg PO Q6H PRN (Reason: Pain) 0RF gabapentin 400 mg capsule 1 cap PO TID 0RF clonidine HCl 0.2 mg tablet 1 tab PO BID 0RF furosemide 20 mg tablet 1 tab PO DAILY 0RF metoprolol succinate 25 mg tablet extended release 24 hr 1 tab PO DAILY 0RF alum-mag hydroxide-simeth [Gaye-Lanta] 200-200-20 mg/5 mL suspension 10 ml PO TID PRN (Reason: Acid Reflux) 0RF morphine 15 mg tablet 1 tab PO TID PRN (Reason: Pain) 0RF cyclobenzaprine 10 mg tablet 10 mg PO TID PRN (Reason: pain) Qty: 14 0RF metformin 1,000 mg tablet 1,000 mg PO BID 0RF citalopram 20 mg tablet 40 mg PO DAILY 0RF Invega Sustenna 156 mg/mL syringe 156 mg IM Q30D 0RF Print Language: [place]
[2021-09-04 08:25] LABS: COVID-19 Test Negative (Negative)
[2021-09-04] MEDS: Ibuprofen 600 MG TABLET PO (09:02)
--- NOTE | 2021-09-04 12:14 | MHC.CM.ED ---
Received case management consult from Dr Mares. Patient was in the ER and left yesterday. He was waiting for STR placement. However, due to no bed availability due to his weight, he left. He apparently slept on the lawn of [facility] and then called EMS this morning when he woke up. He is again requesting STR. Patient weighs 320lbs. He was at [facility] in June 2021. He is a corporate denial from all of their facilities. Patient also has a history of leaving facilities AMA and being non-compliant with medication. Referral broadcasted within 200 miles to all facilities contracted with [facility]. No bed offers have been made. It is unlikely there will be any bed offers. Dr Mares is aware and will discharge patient.
== END 2021-09-04 12:23 | disposition home or self-care (01) ==
PROVIDERS: Emergency Provider Emergency Medicine
DX: M25.551 Pain in right hip (principal); M25.552 Pain in left hip; G89.29 Other chronic pain; E11.9 Type 2 diabetes mellitus without complications; I10 Essential (primary) hypertension; Z79.84 Long term (current) use of oral hypoglycemic drugs; Z79.891 Long term (current) use of opiate analgesic; Z79.899 Other long term (current) drug therapy; Z59.02 Unsheltered homelessness; Z20.822 Contact with and (suspected) exposure to COVID-19
CPT/HCPCS: 87635; 99283

== ENCOUNTER 2022-12-02 08:50 | Inpatient (IN) | payer OTHER, SELFPAY ==
[2022-12-02] VITALS (7 sets, daily range): BP systolic 104–144; BP diastolic 0–99; PULSE 102–120; RESP 14–182; TEMP 36.4–36.9; O2SAT 84–99; BMI 53.2
--- NOTE | ~2022-12-02 | XR_ITS ---
EXAMINATION: XR CHEST CLINICAL INFORMATION: Cough. COMPARISON: 02/13/2021 TECHNIQUE: 2 views of the chest were obtained. FINDINGS: The lungs are moderately expanded. No focal consolidation. No pleural effusion. Cardiac silhouette is unchanged. Multiple old right sided rib fractures with pleural thickening. XR/XR chest 2V IMPRESSION: No acute abnormality.
--- NOTE | ~2022-12-02 | CT_ITS ---
EXAMINATION: CT ABDOMEN AND PELVIS WITH CONTRAST CLINICAL INFORMATION: Abdominal pain. Nausea and vomiting. COMPARISON: 07/25/2021, 07/23/2021 and 07/18/2021 TECHNIQUE: Multidetector volumetric images were obtained from the superior aspect of the liver through the pubic symphysis following administration 85 mL of Omnipaque 350 intravenous contrast. Sagittal and coronal reformatted images were obtained on the technologist's workstation. Oral contrast: No This CT examination was performed using dose optimization techniques as appropriate, variously including the following: *Automated exposure control *Adjustment of mA and/or kV according to patient size (this includes techniques or standardized protocols for targeted exams where dose is matched to indication/reason for exam; i.e. extremities or head) *Use of iterative reconstruction technique DLP: 1811 mGy-cm FINDINGS: Motion artifact technically degrades image quality. LUNG BASES: No pleural or pericardial effusion. LIVER, GALLBLADDER, AND BILIARY TREE: The liver is decreased in attenuation. No biliary ductal dilatation is present. The gallbladder is nonvisualized. PANCREAS: Unremarkable. SPLEEN: Unremarkable. ADRENAL GLANDS: Unremarkable. KIDNEYS AND URETERS: The kidneys are lobulated in contour. There is heterogeneous enhancement pattern. Evaluation is limited by motion artifact. There is a questionable solid mass in the interpolar region of the left kidney measuring 4.6 x 3.1 cm on image 61 of series 7. No hydronephrosis. Nonspecific perinephric stranding. BLADDER: Decompressed. GASTROINTESTINAL TRACT: No small bowel obstruction. Appendix is unremarkable. ABDOMINAL WALL: No significant hernia is appreciated. LYMPH NODES: No bulky abdominal or pelvic lymphadenopathy. VASCULAR: Normal caliber abdominal aorta. PELVIC VISCERA: The prostate gland and seminal vesicles are unremarkable. OSSEOUS STRUCTURES: Severe degenerative changes of bilateral hips. CT/CT abdomen pelvis w IV con IMPRESSION: Limited study due to motion artifact. Possible solid enhancing mass interpolar region of the left kidney measuring 4.6 x 3.1 cm. The appearance is more notable on the coronal images. MRI is recommended for further characterization.
--- NOTE | 2022-12-02 09:11 | ECG_ITS ---
Test Reason : TACHY Blood Pressure : / mmHG Vent. Rate : 114 BPM Atrial Rate : 114 BPM P-R Int : 142 ms QRS Dur : 090 ms QT Int : 346 ms P-R-T Axes : 076 076 058 degrees QTc Int : 476 ms Sinus tachycardia Otherwise normal ECG When compared with ECG of 16-FEB-2021 22:31, No significant change was found Referred By: Nguyen Ritchie Electronically Signed By:Antelmo Moore
--- NOTE | 2022-12-02 09:11 | ED.GENADULT ---
HPI - General Adult General Chief complaint: General Medical Stated complaint: Body pain Time Seen by Provider: 12/02/22 09:11 Source: patient and EMS Mode of arrival: EMS Limitations: no limitations History of Present Illness HPI narrative: Patient is a 47 year old assigned male at with a history of bilateral chronic hip pain, HTN, bipolar disorder, anxiety, and schizoaffective disorder presenting to the emergency department today with feeling generally unwell with abdominal pain and dizziness. Patient states that he was just seen at [facility] yesterday where he left against medical advice despite being told he is septic. Patient states that he was not sure where the infectious source was for this sepsis diagnosis. Patient denies any lightheadedness, nausea, vomiting, fever, chills, blurry vision, double vision, loss of vision, chest pain, difficulty breathing, shortness of breath, back pain, night sweats, pain with urination, increased urinary frequency, increased urinary urgency, blood in his urine or stool, syncope or a near syncopal episode, recent trauma or falls, bowel incontinence, bladder incontinence, bowel retention, bladder retention, or any other complaints at this time. Onset (ago): day(s) Location: abdomen Radiation: non-radiation Severity: mild Severity scale (1-10): 4 Quality: aching and dull Pain Consistency: constant Relieving factors: none Exacerbating factors: none Associated symptoms: denies other symptoms Treatments prior to arrival: none Related Data Home Medications Medication Instructions Recorded Confirmed amoxicillin 875 mg-potassium 1 tab PO BID 12/02/22 12/02/22 clavulanate 125 mg tablet Allergies Allergy/AdvReac Type Severity Reaction Status Date / Time fish derived [fish] Allergy Severe Anaphylaxis Verified 09/02/21 00:23 haloperidol [From Haldol] Allergy Severe Seizure Verified 09/02/21 00:23 shellfish derived Allergy Severe SWELLING Verified 09/02/21 00:23 [SHELLFISH DERIVED] WITH DIFFICULTY BREATHING pork derived (porcine) AdvReac Intermediate swelling Verified 09/02/21 00:23 garlic AdvReac Mild VOMITING Verified 09/02/21 00:23 Review of Systems Constitutional: Constitutional: Reports no additional constitutional complaints, Denies chills, Denies fever(s) and Denies night sweats Eyes: Eyes: Reports no additional eye complaints, Denies blurry vision, Denies change in vision, Denies diplopia, Denies eye discharge, Denies loss of vision and Denies eye pain ENT: Denies dizziness Cardiovascular: Cardiovascular: Reports no additional cardiovascular complaints, Denies chest pain, Denies lightheadedness, Denies Loss of Consciousness and Denies dyspnea Respiratory: Respiratory: Reports no additional respiratory complaints and Denies dyspnea Gastrointestinal: Gastrointestinal: Reports no additional gastrointestinal complaints, Reports abdominal pain, Denies melena, Denies hematochezia, Denies change in bowel habits and Denies change in stool character Genitourinary: Genitourinary: Reports no additional male genitourinary complaints, Denies hematuria, Denies oliguria, Denies difficulty urinating, Denies dysuria, Denies urinary frequency, Denies urinary hesitancy, Denies urinary incontinence and Denies urinary urgency Musculoskeletal: Musculoskeletal: Reports no additional musculoskeletal complaints, Denies numbness and Denies tingling Neurologic: Denies dizziness, Denies loss of vision, Denies numbness and Denies tingling Psychiatric: Psychiatric: Reports no additional psychiatric complaints Endocrine: Endocrine: Reports no additional endocrine complaints Hematologic/Lymphatic: Hematologic/Lymphatic: Reports no additional hematologic/lymphatic complaints Allergic/Immunologic: Allergic/Immunologic: Reports no additional allergic/immunologic complaints PMF Past Medical History Attestation statement: The following information was validated with the patient. Source: old records reviewed and nursing notes reviewed Medical History Anxiety Bipolar 1 disorder BMI 45.0-49.9, adult Degenerative disc disease Depression Diabetes Diabetes type 2, controlled Diverticulosis Hip problem HTN (hypertension) Morbid obesity due to excess calories Obese Osteoarthritis Preoperative examination PTSD (post-traumatic stress disorder) Shortness of breath Surgical History H/O elbow surgery History of surgery of head Hx of cholecystectomy Family History Family History Mother Hx of cholecystectomy Hypertension A-fib Father No problems noted. Brother No problems noted. Brother No problems noted. Son No problems noted. Social History Social History Alcohol intake: current Alcohol intake frequency: 3 or more drinks per day Patient Tobacco Use Status: Never used Tobacco Tobacco use type: Cigarette Cigarettes Per Day: 17 Smoked in Last 30 Days: No Use of substances other than those prescribed or required for medical reasons: Yes Substance Use Type: Marijuana Last Used Substance: Days (ago) Advance Directives: No Advance Directives Information Provided: Yes Advance Directives Date on File: 02/17/21 Physical Exam ED Vital Signs: Vital Signs - 24 hr 12/02/22 09:09 12/02/22 11:15 12/02/22 13:37 Temperature 98.5 F 97.8 F Pulse Rate 116 H 115 H 120 H Respiratory Rate 15 22 H 20 Blood Pressure 144/99 H 113/75 Pulse Oximetry 84 L 95 88 L Oxygen Delivery Method Room Air Room Air 12/02/22 16:00 Temperature 98.2 F Pulse Rate 114 H Respiratory Rate 14 Blood Pressure 104/57 L Pulse Oximetry 87 L Oxygen Delivery Method Room Air BMI result Body Mass Index 53.2 Const General: cooperative, no acute distress, alert and awake Nutritional Appearance: well nourished Orientation/consciousness: patient oriented x3 Limitations: no limitations HENMT Head: Yes normal to inspection and Yes atraumatic Ears: hearing grossly normal bilaterally and external ears normal General nose exam: Normal external nose present, no nasal discharge noted and no epistaxis Face and sinus: Yes normal facial exam, No abrasion and No laceration Mouth: Normal oral and palatal mucosa present, no drooling and no muffled voice Eyes General: appearance normal, both eyes and all related structures Periorbital: periorbital findings normal Eyelids: Yes eyelids normal Conjunctivae: conjunctivae normal Pupils: Equal, round and reactive pupils present EOM: EOMs intact bilaterally Neck Neck: Yes normal visual inspection, Yes full ROM and Yes no lymphadenopathy Chest Chest palpation & inspection: normal inspection of the chest Resp Effort & Inspection: normal respiratory effort and able to speak in complete sentences Auscultation: clear to auscultation bilaterally Cardio Rate: tachycardic Rhythm: regular rhythm GI Inspection: Yes normal to inspection Palpation (GI): Soft to palpation, not firm, Tenderness to palpation present (GI) other, no guarding and not rigid Neuro General: patient oriented x3 and moves all extremities Cranial nerves: Yes Equal, round and reactive pupils present Cognition (Neuro): normal cognition Motor exam (neuro): 5/5 motor strength present throughout Sensory Exam: Normal double simultaneous stimulation for sensation Coordination: [id number] test normal Extrem General: Yes normal to inspection, Yes full ROM and Yes capillary refill normal Psych Appearance: grossly normal Mental Status: mental status grossly normal Affect: normal affect Attitude: cooperative Thought process: Normal thought process present Thought content: Normal thought content present Insight: Good insight present (Psych) Medications Administered Discontinued Medications Generic Name Dose Route Start Last Admin Trade Name Rosenda PRN Reason Stop Dose Admin Ceftriaxone Sodium 1 gm/ 50 mls @ 100 mls/hr 12/02/22 12:22 12/02/22 14:20 Sodium Chloride IV 12/02/22 12:51 0 mls/hr ONCE ONE Infusion Iohexol 100 ml 12/02/22 13:11 12/02/22 13:12 Iohexol 350 Mg/Ml 100 Ml Infus..Btl IV 12/02/22 13:12 85 ml ONCE ONE Administration Medical Decision Making Medical Decision Making [facility] Narrative: Patient is a 47 year old assigned male at with a history of bilateral chronic hip pain, HTN, bipolar disorder, anxiety, and schizoaffective disorder presenting to the emergency department today with dizziness and abdominal pain. Patient's physical exam was as noted in the physical exam portion of this note. Patient continually desaturated to the low 80% range however, the patient adamantly refuses to wear oxygen. Patient's blood work showed an elevated WBC count of 16.4 but the rest of the patient's labs were grossly normal. Patient's urine is pending at this time. Patient's EKG showed sinus tachycardia. Patient's chest x-ray was read as negative however, compared to his previous here, the left upper lobe appears more hazy. Question infiltrate. Patient's abdomen / pelvis CT showed a solid enhancing mass to the interpolar region of the left kidney measuring 4.6 x 3.1cm. Rad recommends MRI for further characterization. I reviewed the records from the patient's most recent visit at [facility] (12/01/2022) which shows results from a CT PE study that was negative for any emboli. I spoke to the hospitalist team who agreed to admission. Covered the patient with IV rocephin. Patient is not considered septic (@1620). I explained my physical exam findings as well as all test results to the patient. I answered all questions asked by the patient. Patient verbalized understanding and agreement with this treatment plan and admission. Differential Diagnosis Differential Diagnoses: The differential diagnosis associated with the presentation includes Kidney mass Pneumonia Kidney abscess Admission/Observation Consideration of admission/observation: Escalation of care including admission/observation considered Patient to be admitted. Consult Healthcare Provider Management of the patient was discussed with: Hospitalist (agreed to admission as noted.) Lab Data [facility] Lab Attestation statement: I reviewed the patient's lab results. My interpretation of these results is in the MDM portion of this note. 12/02/22 11:49 12/02/22 11:49 Labs: Lab Results 12/02/22 12/02/22 12/02/22 Range/Units 10:24 11:49 11:49 WBC 16.4 H (4.8-10.8) X10*3/uL RBC 4.69 (4.60-5.80) X10*6/uL Hgb 12.0 L (14.0-18.0) g/dl Hct 38.2 L (42.0-52.0) % MCV 81.4 (80.0-98.0) fL MCH 25.6 L (27.0-33.0) pg MCHC 31.4 (31.0-36.0) g/dl RDW 17.3 H (11.0-16.0) % Plt Count 261 (160-400) X10*3/uL MPV 10.7 (9.4-12.4) fL Immature Gran % (Auto) 0.8 H (0.0-0.4) % Neut % (Auto) 81.6 H (45-73) % Lymph % (Auto) 9.7 L (20-40) % [place] % (Auto) 7.4 (2-11) % Eos % (Auto) 0.0 (0-4) % Baso % (Auto) 0.5 (0-2) % Lymph # (Auto) 1.6 (1.2-4.9) X10*3/uL [place] # (Auto) 1.2 (0.1-1.2) X10*3/uL Eos # (Auto) 0.0 (0.0-0.4) X10*3/uL Baso # (Auto) 0.1 (0.0-0.2) X10*3/uL Abs Immat Gran (auto) 0.13 H (0.00-0.03) X10*3/uL Absolute Neuts (auto) 13.4 H (2.0-8.3) x10*3/uL Absolute Nucleated RBC 0.000 (0.0-0.012) X10*3/uL Nucleated RBC % (auto) 0.0 (0.0-0.2) /100WBC Sodium 138 (135-145) mmol/L Potassium 3.9 (3.3-5.1) mmol/L Chloride 98 (96-108) mmol/L Carbon Dioxide 32 H (22-29) mmol/L Anion Gap 12 (12-20) BUN 9 (9-16) mg/dL Creatinine 1.03 (0.5-1.4) mg/dL Estim Creat Clear Calc 128.2 Estimated GFR > 60 POC Glucose 291 H (60-115) mg/dL Random Glucose 291 H (60-115) mg/dL Lactic Acid (0.5-2.0) mmol/L Calcium 9.0 D (8.4-10.2) mg/dL Magnesium 1.7 (1.6-2.6) mg/dL Total Bilirubin 0.2 (0.0-1.0) mg/dL AST 12 (5-37) U/L ALT 17 (0-40) U/L Alkaline Phosphatase 90 (39-117) U/L Troponin I High Sens (<3.5-35.0) ng/L Total Protein 7.0 (6.5-8.0) g/dL Albumin 3.1 L (3.5-5.0) g/dL Urine Color Urine Appearance Urine pH (5.0-9.0) Ur Specific [place] (1.005-1.025) Urine Protein (Neg-Trace) mg/dL Urine Glucose (UA) (Negative) mg/dL Urine Ketones (Negative) mg/dL Urine Blood (Negative) Urine Nitrite (Negative) Ur Leukocyte Esterase (Negative) Ethyl Alcohol mg/dL 12/02/22 12/02/22 12/02/22 Range/Units 11:49 11:49 11:49 WBC (4.8-10.8) X10*3/uL RBC (4.60-5.80) X10*6/uL Hgb (14.0-18.0) g/dl Hct (42.0-52.0) % MCV (80.0-98.0) fL MCH (27.0-33.0) pg MCHC (31.0-36.0) g/dl RDW (11.0-16.0) % Plt Count (160-400) X10*3/uL MPV (9.4-12.4) fL Immature Gran % (Auto) (0.0-0.4) % Neut % (Auto) (45-73) % Lymph % (Auto) (20-40) % [place] % (Auto) (2-11) % Eos % (Auto) (0-4) % Baso % (Auto) (0-2) % Lymph # (Auto) (1.2-4.9) X10*3/uL [place] # (Auto) (0.1-1.2) X10*3/uL Eos # (Auto) (0.0-0.4) X10*3/uL Baso # (Auto) (0.0-0.2) X10*3/uL Abs Immat Gran (auto) (0.00-0.03) X10*3/uL Absolute Neuts (auto) (2.0-8.3) x10*3/uL Absolute Nucleated RBC (0.0-0.012) X10*3/uL Nucleated RBC % (auto) (0.0-0.2) /100WBC Sodium (135-145) mmol/L Potassium (3.3-5.1) mmol/L Chloride (96-108) mmol/L Carbon Dioxide (22-29) mmol/L Anion Gap (12-20) BUN (9-16) mg/dL Creatinine (0.5-1.4) mg/dL Estim Creat Clear Calc Estimated GFR POC Glucose (60-115) mg/dL Random Glucose (60-115) mg/dL Lactic Acid 1.4 (0.5-2.0) mmol/L Calcium (8.4-10.2) mg/dL Magnesium (1.6-2.6) mg/dL Total Bilirubin (0.0-1.0) mg/dL AST (5-37) U/L ALT (0-40) U/L Alkaline Phosphatase (39-117) U/L Troponin I High Sens 4.0 (<3.5-35.0) ng/L Total Protein (6.5-8.0) g/dL Albumin (3.5-5.0) g/dL Urine Color Urine Appearance Urine pH (5.0-9.0) Ur Specific [place] (1.005-1.025) Urine Protein (Neg-Trace) mg/dL Urine Glucose (UA) (Negative) mg/dL Urine Ketones (Negative) mg/dL Urine Blood (Negative) Urine Nitrite (Negative) Ur Leukocyte Esterase (Negative) Ethyl Alcohol < 10 mg/dL 12/02/22 Range/Units 15:10 WBC (4.8-10.8) X10*3/uL RBC (4.60-5.80) X10*6/uL Hgb (14.0-18.0) g/dl Hct (42.0-52.0) % MCV (80.0-98.0) fL MCH (27.0-33.0) pg MCHC (31.0-36.0) g/dl RDW (11.0-16.0) % Plt Count (160-400) X10*3/uL MPV (9.4-12.4) fL Immature Gran % (Auto) (0.0-0.4) % Neut % (Auto) (45-73) % Lymph % (Auto) (20-40) % [place] % (Auto) (2-11) % Eos % (Auto) (0-4) % Baso % (Auto) (0-2) % Lymph # (Auto) (1.2-4.9) X10*3/uL [place] # (Auto) (0.1-1.2) X10*3/uL Eos # (Auto) (0.0-0.4) X10*3/uL Baso # (Auto) (0.0-0.2) X10*3/uL Abs Immat Gran (auto) (0.00-0.03) X10*3/uL Absolute Neuts (auto) (2.0-8.3) x10*3/uL Absolute Nucleated RBC (0.0-0.012) X10*3/uL Nucleated RBC % (auto) (0.0-0.2) /100WBC Sodium (135-145) mmol/L Potassium (3.3-5.1) mmol/L Chloride (96-108) mmol/L Carbon Dioxide (22-29) mmol/L Anion Gap (12-20) BUN (9-16) mg/dL Creatinine (0.5-1.4) mg/dL Estim Creat Clear Calc Estimated GFR POC Glucose (60-115) mg/dL Random Glucose (60-115) mg/dL Lactic Acid (0.5-2.0) mmol/L Calcium (8.4-10.2) mg/dL Magnesium (1.6-2.6) mg/dL Total Bilirubin (0.0-1.0) mg/dL AST (5-37) U/L ALT (0-40) U/L Alkaline Phosphatase (39-117) U/L Troponin I High Sens (<3.5-35.0) ng/L Total Protein (6.5-8.0) g/dL Albumin (3.5-5.0) g/dL Urine Color Yellow Urine Appearance Clear Urine pH 6.5 (5.0-9.0) Ur Specific [place] >= 1.030 H (1.005-1.025) Urine Protein 100 (2+) H (Neg-Trace) mg/dL Urine Glucose (UA) Negative (Negative) mg/dL Urine Ketones Negative (Negative) mg/dL Urine Blood Negative (Negative) Urine Nitrite Negative (Negative) Ur Leukocyte Esterase Negative (Negative) Ethyl Alcohol mg/dL Independent Interpretation I performed an independent interpretation of an: EKG, Plain X-Ray and CT Scan Interpretation: My interpretation is in agreement with the radiologist's impression of these imaging studies. EXAMINATION: XR CHEST CLINICAL INFORMATION: Cough. COMPARISON: 02/13/2021 TECHNIQUE: 2 views of the chest were obtained. FINDINGS: The lungs are moderately expanded. No focal consolidation. No pleural effusion. Cardiac silhouette is unchanged. Multiple old right sided rib fractures with pleural thickening. XR/XR chest 2V IMPRESSION: No acute abnormality. Dictated By: Dariela Ward MD Signed By: Electronically signed by Dariela Ward MD 12/02/22 1001 EXAMINATION: CT ABDOMEN AND PELVIS WITH CONTRAST? CLINICAL INFORMATION: Abdominal pain. Nausea and vomiting.? COMPARISON: 07/25/2021, 07/23/2021 and 07/18/2021 TECHNIQUE: Multidetector volumetric images were obtained from the superior aspect of the liver through the pubic symphysis following administration 85 mL of Omnipaque 350 intravenous contrast. Sagittal and coronal reformatted images were obtained on the technologist's workstation.? Oral contrast: No This CT examination was performed using dose optimization techniques as appropriate, variously including the following: *Automated exposure control *Adjustment of mA and/or kV according to patient size (this includes techniques or standardized protocols for targeted exams where dose is matched to indication/reason for exam; i.e. extremities or head) *Use of iterative reconstruction technique DLP: 1811 mGy-cm FINDINGS: Motion artifact technically degrades image quality. LUNG BASES: No pleural or pericardial effusion.? LIVER, GALLBLADDER, AND BILIARY TREE: The liver is decreased in attenuation. No biliary ductal dilatation is present. The gallbladder is nonvisualized.? PANCREAS: Unremarkable.? SPLEEN: Unremarkable.? ADRENAL GLANDS: Unremarkable.? KIDNEYS AND URETERS: The kidneys are lobulated in contour. There is heterogeneous enhancement pattern. Evaluation is limited by motion artifact. There is a questionable solid mass in the interpolar region of the left kidney measuring 4.6 x 3.1 cm on image 61 of series 7. No hydronephrosis. Nonspecific perinephric stranding.? BLADDER: Decompressed.? GASTROINTESTINAL TRACT: No small bowel obstruction. Appendix is unremarkable. ABDOMINAL WALL: No significant hernia is appreciated.? LYMPH NODES: No bulky abdominal or pelvic lymphadenopathy. VASCULAR: Normal caliber abdominal aorta. PELVIC VISCERA: The prostate gland and seminal vesicles are unremarkable.? OSSEOUS STRUCTURES: Severe degenerative changes of bilateral hips.? CT/CT abdomen pelvis w IV con IMPRESSION: Limited study due to motion artifact. Possible solid enhancing mass interpolar region of the left kidney measuring 4.6 x 3.1 cm. The appearance is more notable on the coronal images. MRI is recommended for further characterization. Dictated By: Dariela Ward MD Signed By: Electronically signed by Dariela Ward MD 12/02/22 1359 Vent. Rate: 114 BPM ? ? Atrial Rate: 114 BPM P-R Int: 142 ms? QRS Dur: 090 ms QT Int: 346 ms ? ? ? P-R-T Axes: 076 076 058 degrees QTc Int: 476 ms ? Sinus tachycardia Otherwise normal ECG When compared with ECG of 16-FEB-2021 22:31, No significant change was found DD/ 0922 Radiology Impression Discussion of test interpretation with radiology: I have reviewed the radiologist's reading. Independent Historian Clinical information obtained from an independent historian. History obtained from or confirmed by: EMS (EMS provided additional history and confirmed the history provided by the patient.) External Record Review External record reviewed: Outside ED record (reviewed [facility] records from 12/01/2022) Chronic Conditions Patient?s care impacted by: Hypertension Critical Care Time Critical Care Time Critical Care Time: Yes Total Critical Care Time: 40 Attestation: I spent 40 minutes of Critical Care Time with this patient. This does not include time spent on separately reported billable procedures. Discharge Plan Discharge Clinical Impression: Elevated WBC count, Hypoxia, Kidney mass Patient Disposition: Admitted As Inpatient Prescriptions: No Action amoxicillin-pot clavulanate 875-125 mg tablet 1 tab PO BID
--- NOTE | 2022-12-02 09:55 | PC.NURSE ---
pt BIBA, EMS reports pt was found on the ground in [place] of a [place] [facility], ETOH. pt reports last drink was yesterday afternoon. pt reported lowering himself to the ground. pt c/o abd/groin pain, body aches for 1hr 7/10, chills, SOB. pt reports going to [facility] yesterday and leaving AMA after dx of sepsis. given amoxicillin. pt presents flushed, slightly diaphoretic on his face, tachycardia 116, low O2 84-89%. pt adamantly refusing to wear O2, said he was not on it last time so will not wear it now'. Sheila GÓMEZ aware. this RN noted 2 wounds posterior on bilat thighs: L side open, 2 inch in diameter, no pus, inflammation, drainage or redness noted. R side closed.
--- NOTE | 2022-12-02 10:03 | MHC.EDTECH ---
washed and cleaned patient. Total bed change, rona garza, patient c/o pain everywhere with full assist to move.
--- NOTE | 2022-12-02 10:13 | PC.NURSE ---
pt O2 dropped to 75%, this RN explained to pt that he was hypoxic and needed to take the blanket off his face and sit up in bed. pt agreed to wear O2 at this time. O2 went up to 96% on 2L NC. pt aware of plan at this time
--- NOTE | 2022-12-02 10:25 | PC.NURSE ---
POC 291
[2022-12-02 10:28] LABS: Glucose, Whole Blood 291 mg/dL (60-115)
--- NOTE | 2022-12-02 10:57 | PC.NURSE ---
pt verbally unhappy, unable to obtain IV at this time after 2 RNs attempted. Nguyen GÓMEZ in to see pt. pt now appears slightly more calm and willing to have IV placed.
--- NOTE | 2022-12-02 11:34 | PC.NURSE ---
this RN in to see pt. unable to awake pt. pt laying with head turned to the left, NC with 2L at 94%. pt did not respond to verbal stimuli nor multiple sternal rubs by RN. in to assess. pt awoke extremely upset and agitated and swearing at MD. pt a/o x4 at this time. pt aware or plan of care
[2022-12-02 11:58] LABS: MANUAL DIFF FLAG NO
--- NOTE | 2022-12-02 12:01 | PC.NURSE ---
20G IV placed right forearm, labs drawn.
[2022-12-02 12:05] LABS: Basophils Absolute Auto 0.1 X10*3/uL (0.0-0.2); Basophils Percent Auto 0.5 % (0-2); Hematocrit 38.2 % (42.0-52.0); Imm Gran Abs Auto 0.13 X10*3/uL (0.00-0.03); Imm Gran Pct Auto 0.8 % (0.0-0.4); Lymphocytes Absolute Auto 1.6 X10*3/uL (1.2-4.9); Lymphocytes Percent Auto 9.7 % (20-40); Mean Corpuscular HGB Conc 31.4 g/dl (31.0-36.0); Mean Corpuscular Hemoglobin 25.6 pg (27.0-33.0); Mean Corpuscular Volume 81.4 fL (80.0-98.0); Mean Platelet Volume 10.7 fL (9.4-12.4); Monocytes Absolute Auto 1.2 X10*3/uL (0.1-1.2); Monocytes Percent Auto 7.4 % (2-11); Neutrophils Absolute Auto 13.4 x10*3/uL (2.0-8.3); Neutrophils Percent Auto 81.6 % (45-73); Platelet Count 261 X10*3/uL (160-400); Red Blood Count 4.69 X10*6/uL (4.60-5.80); Red Cell Distribution Width 17.3 % (11.0-16.0); White Blood Count 16.4 X10*3/uL (4.8-10.8)
[2022-12-02 12:17] LABS: Ethanol < 10 mg/dL; Lactic Acid 1.4 mmol/L (0.5-2.0)
[2022-12-02 12:18] LABS: Alanine Aminotransferase 17 U/L (0-40); Albumin Level 3.1 g/dL (3.5-5.0); Alkaline Phosphatase 90 U/L (39-117); Anion Gap 12 (12-20); Aspartate Amino Transferase 12 U/L (5-37); Bilirubin Total 0.2 mg/dL (0.0-1.0); Blood Urea Nitrogen 9 mg/dL (9-16); Carbon Dioxide 32 mmol/L (22-29); Chloride 98 mmol/L (96-108); Creatinine Clr Calc Pharmacy 128.2; Estimated Glomerular Filt Rate > 60; Glucose Random 291 mg/dL (60-115); Magnesium 1.7 mg/dL (1.6-2.6); Potassium 3.9 mmol/L (3.3-5.1); Sodium 138 mmol/L (135-145)
[2022-12-02] MEDS: iohexoL 350 MG/ML 100 ML INFUS..BTL IV (13:12)
--- NOTE | 2022-12-02 13:45 | MHC.EDTECH ---
pt refusing oxygen at this time, RN aware
[2022-12-02] MEDS: cefTRIAXone sodium 1 GM in 0.9 % Sodium Chloride 50 ML IV (14:00)
--- NOTE | 2022-12-02 14:30 | PC.NURSE ---
pt did not receive total amount of abx d/t pt disconnecting himself. estimated 40 out of 50 ml received. MD sawyer
--- NOTE | 2022-12-02 14:55 | PC.NURSE ---
pt disconnected himself from his IV abx. wanted to leave. RICO Cedillo in to see pt. pt now agrees to stay. pt aware of plan.
--- NOTE | 2022-12-02 15:20 | PHA.MEDREC ---
Addendum entered by Rhina Mejia RPh 12/02/22 17:27: Spoke with RICO Arreola. While patient could not confirm any medication he would like me to add his medications he is suppose to be on. Called [facility] to confirm directions and update list. Unsure when the list time patient took any of the medications. Emerita aware unknown time meds were taken. Original Note: Pharmacy Consult ? Medication Reconciliation Pharmacy has completed the medication reconciliation. Spoke to patient to confirm meds. Patient was very somnolent and didn't want to engage in a conversation. Patient told me to look it up in the computer and said let me fucking sleep . Only medication patient confirmed was the Augmentin previously sent to their [facility] pharmacy on 12/01/22. [facility] to see if patient was on any other medications. [facility] stated that patient had multiple medications sent over to their pharmacy, but were never picked up. [facility] stated only medication patient sent out with was Augmentin before they left AMA.
[2022-12-02 15:26] LABS: Appearance Urine Clear; Color Urine Yellow; Glucose Urine UA Negative (Negative); Leukocyte Esterase Urine Negative (Negative); Nitrite Urine Negative (Negative); PH 6.5 (5.0-9.0); Specific Gravity - Urine >= 1.030 (1.005-1.025); UMIC TRIGGER UACC YES; Urine Blood Negative (Negative); Urine Ketones Negative (Negative); Urine Protein 100 (2+) mg/dL (Neg-Trace)
--- NOTE | 2022-12-02 16:06 | PM.IMHP ---
History of Present Illness Date of Service: 12/02/22 Attending physician on admission: Soledad Fishman Chief Complaint: Abdominal pain, dizziness Pt is a 47-year-old male with a PMH significant for?HTN, HLD, CHF unspecified, unspecified diabetes type 2, bilateral chronic hip pain, bipolar disorder, and schizoaffective disorder who presents to the ED with?2-3 days of shortness of breath, cough, and generalized weakness. Patient alert and oriented but minimally cooperative with HPI and physical exam. Patient states that he has been ?not feeling well? for the past couple of days and initially refuses to further clarify. Pt eventually reports having a productive cough, SOB, nausea but no vomiting. Has been experiencing chest and abdominal pain associated with coughing. Says at one point he just ?lay on the floor? d/t to feeling weak and tired. Denies falling or losing consciousness. No polyuria or dysuria. Patient initially presented to [facility] emergency department with the symptoms last night but left AMA despite being told he was septic because he got tired of being in the hospital. Pt lives alone but states he has been having increasing difficulty getting around and taking care of himself. Inquires after home services. Of note, pt with multiple comorbidities but seemingly noncompliant with his home medications for an unknown period of time. In the ED patient was afebrile but tachycardic up to 120, tachypneic to 22, slightly hypertensive at 144/99, and satting 84% on RA. Labs were significant for leukocytosis of 16.4, H&H 12.0/38.2. Renal function baseline. Electrolytes WNL. Lactic acid WNL at 1.4. Hepatic function WNL. Troponin 4.0. UA negative for UTI. CXR showed no acute abnormality. CT?of abdomen and pelvis limited due to motion artifact but showed possible solid enhancing mass on the interpolar region of the left kidney measuring 4.6 x 3.1 cm, recommend MRI for further characterization. EKG demonstrated sinus tachycardia of rate of 114 with no evidence of ST elevations or depressions. Pt was treated with ceftriaxone. Pt will be admitted to the hospital for treatment further evaluation acute hypoxic respiratory failure in the setting likely pulmonary infection. Review of Systems Review of Systems: Shortness of breath Productive cough Generalized weakness Chest and abdominal pain with coughing Denies chest pressure, palpitations PMFSH Medical History Anxiety Bipolar 1 disorder BMI 45.0-49.9, adult Degenerative disc disease Depression Diabetes Diabetes type 2, controlled Diverticulosis Hip problem HTN (hypertension) Morbid obesity due to excess calories Obese Osteoarthritis Preoperative examination PTSD (post-traumatic stress disorder) Shortness of breath Family History Mother Hx of cholecystectomy Hypertension A-fib Father No problems noted. Brother No problems noted. Brother No problems noted. Son No problems noted. Surgical History H/O elbow surgery History of surgery of head Hx of cholecystectomy Social History Household Members: Other Housing: Homeless Do you presently have visiting nurse or other home services: No Alcohol intake: current Alcohol intake frequency: 3 or more drinks per day Patient Tobacco Use Status: Current everyday Tobacco user Tobacco use type: Cigarette Cigarettes Per Day: 7 Smoked in Last 30 Days: Yes Patient Interested in Nicotine Replacement: No Use of substances other than those prescribed or required for medical reasons: Yes Substance Use Type: Marijuana Substance Use Frequency: Weekly Last Used Substance: Days (ago) Currently Displaying Signs/Symptoms of Drug Intoxication Withdrawal: No Any prior treatment program specific to substance use: No Have you been hit, kicked, punched, or otherwise hurt by someone within the past year? If so, by whom?: No Do you feel safe in your current relationship?: No Current Relationship Is there a partner from a previous relationship who is making you feel unsafe now?: No Are you made to feel afraid or neglected: No [facility] Healthcare Practices: n/a Advance Directives: No Advance Directives Information Provided: Yes Advance Directives Date on File: 02/17/21 Do you have thoughts of harming others: None Do you have a plan to hurt others: No Plan Recently lost weight without trying: No Eating poorly because of decreased appetite: No Nutrition Risks: No Nutritional Risk Poor oral hygiene: No Meds Allergies Allergy/AdvReac Type Severity Reaction Status Date / Time fish derived [fish] Allergy Severe Anaphylaxis Verified 09/02/21 00:23 haloperidol [From Haldol] Allergy Severe Seizure Verified 09/02/21 00:23 shellfish derived Allergy Severe SWELLING Verified 09/02/21 00:23 [SHELLFISH DERIVED] WITH DIFFICULTY BREATHING pork derived (porcine) AdvReac Intermediate swelling Verified 09/02/21 00:23 garlic AdvReac Mild VOMITING Verified 09/02/21 00:23 Active Medications: Current Medications Sodium Chloride (Ns) 1,000 mls @ 999 mls/hr IV .Q1H1M GARETT Stop: 12/02/22 17:00 Pharmacy Consult (Consult Rx Perform Med Rec) 1 each MISCELLANE ONCE PRN PRN Reason: Consult order Home Medications Medication Instructions Recorded Confirmed Last Taken Type albuterol sulfate 90 mcg/actuation 2 puff inhalation Q4H PRN 12/02/22 12/02/22 Unknown History aerosol inhaler (Ventolin HFA) Shortness Of Breath amoxicillin 875 mg-potassium 1 tab PO BID 12/02/22 12/02/22 12/01/22 History clavulanate 125 mg tablet clonidine HCl 0.2 mg tablet 0.2 mg PO TID 12/02/22 12/02/22 Unknown History cyclobenzaprine 5 mg tablet 5 mg PO TID PRN Muscle Spasm 12/02/22 12/02/22 Unknown History furosemide 40 mg tablet 40 mg PO DAILY 12/02/22 12/02/22 Unknown History gabapentin 300 mg capsule 600 mg PO TID 12/02/22 12/02/22 Unknown History insulin aspart U-100 100 unit/mL 2 unit subcut TID 12/02/22 12/02/22 Unknown History (3 mL) subcutaneous pen (Novolog FlexPen U-100 Insulin aspart) insulin glargine 100 unit/mL (3 25 unit subcut BEDTIME 12/02/22 12/02/22 Unknown History mL) subcutaneous pen (Lantus Solostar U-100 Insulin) losartan 25 mg tablet 25 mg PO DAILY 12/02/22 12/02/22 Unknown History metformin 1,000 mg tablet 1,000 mg PO BID 12/02/22 12/02/22 Unknown History metoprolol tartrate 25 mg tablet 25 mg PO BID 12/02/22 12/02/22 Unknown History pantoprazole 40 mg tablet,delayed 40 mg PO DAILY 12/02/22 12/02/22 Unknown History release Physical Exam Vital Signs and Narrative: Vital Signs: Last Vital Signs Temp 97.8 F 12/02/22 13:37 Pulse 120 H 12/02/22 13:37 Resp 20 12/02/22 13:37 BP 113/75 12/02/22 13:37 Pulse Ox 88 L 12/02/22 13:37 O2 Del Method Room Air 12/02/22 13:37 BMI result Body Mass Index 53.2 Constitutional: Alert, in no acute distress. Mental Status: Oriented to person, place and time. Eyes: Pupils are equal, round, and reactive to light. Ear, Nose, and Throat: Oropharynx clear, mucous membranes moist. Ears and nose without deformities. Trachea midline. Respiratory: Difficult to appreciate breath sounds d/t body habitus. Cardiovascular: S1, S2 regular. No murmurs, rubs, or gallops. Gastrointestinal: Abdomen soft, non-tender, obese. +bowel sounds. Neurologic: Cranial nerves II-XII are grossly intact bilaterally. No focal neurological deficits. Moves all extremities spontaneously. Skin: No rashes or lesions noted. Musculoskeletal: No cyanosis or clubbing. Extremities: No edema. Psychiatric: Irritable, minimally cooperative. Results Labs 12/02/22 11:49 12/02/22 11:49 Labs: Laboratory Results - last 24 hr 12/02/22 12/02/22 12/02/22 10:24 11:49 11:49 MCV 81.4 MCH 25.6 L MCHC 31.4 RDW 17.3 H Plt Count 261 MPV 10.7 Immature Gran % (Auto) 0.8 H Neut % (Auto) 81.6 H Lymph % (Auto) 9.7 L Dixie % (Auto) 7.4 Eos % (Auto) 0.0 Baso % (Auto) 0.5 Lymph # (Auto) 1.6 Dixie # (Auto) 1.2 Eos # (Auto) 0.0 Baso # (Auto) 0.1 Abs Immat Gran (auto) 0.13 H Absolute Neuts (auto) 13.4 H Absolute Nucleated RBC 0.000 Nucleated RBC % (auto) 0.0 Anion Gap 12 Estim Creat Clear Calc 128.2 Estimated GFR > 60 POC Glucose 291 H Random Glucose 291 H Lactic Acid Calcium 9.0 D Magnesium 1.7 Total Bilirubin 0.2 AST 12 ALT 17 Alkaline Phosphatase 90 Total Protein 7.0 Albumin 3.1 L Urine Color Urine Appearance Urine pH Ur Specific Smock Urine Protein Urine Glucose (UA) Urine Ketones Urine Blood Urine Nitrite Ur Leukocyte Esterase Ethyl Alcohol 12/02/22 12/02/22 12/02/22 11:49 11:49 15:10 MCV MCH MCHC RDW Plt Count MPV Immature Gran % (Auto) Neut % (Auto) Lymph % (Auto) Dixie % (Auto) Eos % (Auto) Baso % (Auto) Lymph # (Auto) Dixie # (Auto) Eos # (Auto) Baso # (Auto) Abs Immat Gran (auto) Absolute Neuts (auto) Absolute Nucleated RBC Nucleated RBC % (auto) Anion Gap Estim Creat Clear Calc Estimated GFR POC Glucose Random Glucose Lactic Acid 1.4 Calcium Magnesium Total Bilirubin AST ALT Alkaline Phosphatase Total Protein Albumin Urine Color Yellow Urine Appearance Clear Urine pH 6.5 Ur Specific Smock >= 1.030 H Urine Protein 100 (2+) H Urine Glucose (UA) Negative Urine Ketones Negative Urine Blood Negative Urine Nitrite Negative Ur Leukocyte Esterase Negative Ethyl Alcohol < 10 Imaging Radiologist's Impressions: Impressions Chest X-Ray 12/02/22 09:46 IMPRESSION: No acute abnormality. Abdomen/Pelvis CT 12/02/22 12:56 IMPRESSION: Limited study due to motion artifact. Possible solid enhancing mass interpolar region of the left kidney measuring 4.6 x 3.1 cm. The appearance is more notable on the coronal images. MRI is recommended for further characterization. Assessment and Plan (1) Hypoxia: Status: Acute Plan Pt is a 47-year-old male with a PMH significant for?HTN, HLD, CHF unspecified, unspecified diabetes type 2, bilateral chronic hip pain, bipolar disorder, and schizoaffective disorder who presents to the ED with?2-3 days of shortness of breath, cough, and generalized weakness. Patient alert and oriented but minimally cooperative with HPI and physical exam. Pt was treated with ceftriaxone. Pt will be admitted to the hospital for treatment further evaluation acute hypoxic respiratory failure in the setting likely pulmonary infection. Acute hypoxic respiratory failure in the setting of likely pulmonary infection Patient initially presented to the ED satting at 84% O2 on RA, patient not on home O2 Bacterial versus viral versus reactive Meets sepsis criteria: WBC, tachycardia, tachypnea. Lactic acid WNL at 1.4 Patient received IVF and ceftriaxone in ED Will continue to cover empirically with ceftriaxone, started 12/02/2022 Check respiratory panel Follow cultures Titrate O2 <92%, wean as tolerated Monitor respiratory status HTN Continue home meds Hx of CHF, unspecified Continue furosemide Insulin-dependent diabetes type [address] sliding scale insulin, Lantus Diabetic diet GERD PPI Obesity class III Encourage weight loss PT evaluation Social Work evaluation Full Code Attending:?Dr. Fishman DVT Prophylaxis: Lovenox Pt will require a hospitalization of at least two nights for treatment of? with . Time Spent With Patient Time: Total time managing care of this patient today ____ minutes. Quality Stroke Does the patient have a stroke diagnosis?: No VTE Prior VTE?: No VTE Risk Level:: Medical - moderate - high VTE Device Contraindication: Treatment Not Indicated VTE Drug Contraindication: N/A - Med Ordered
--- NOTE | 2022-12-02 16:17 | MHC.EDTECH ---
PATIENT REFUSED TO WEAR OXYGEN ,PROVIDER AWARE [facility] AND [facility] .
--- NOTE | 2022-12-02 16:32 | PM.EVENT ---
Event Note Date of Service: 12/02/22 Event Note: the patient was seen and evaluated with RICO Hyatt. I agree with his note, assessment and plan with the following. A 47 years old male with PMH of HTN, Bipolar, anxiety, schizoaffective, homeless who presents to the hospital with reported weakness, cough and generally unwell. He reports feeling unwell for the last few days with increase weakness, cough, difficulties breathing and nausea. denies any headache, LOC, falls, fever, vomiting, diarrhea or urinary symptoms. Leukocytosis infectious; bacterial vs viral or Reactive check resp viral panel empiric Ceftriaxone for now PT eval SW consult Rest of evaluations by RICO note. Time Spent With Patient Time: Total time managing care of this patient today ____ minutes.
[2022-12-02 17:01] LABS: Bacteria Urine None Seen (None Seen); Hyaline Casts Urine 0-2 /LPF (0-2); RBC Urine 0-2 /HPF (0-2); Squamous Epithelial Cell Urine 0-2 /HPF (0-2); WBC Urine 0-5 /HPF (0-5)
[2022-12-02 17:25] LABS: VBG Base Excess 5.9 mmol/L; VBG HCO3 32 mmol/L (22-26); VBG pCO2 56 mmHg; VBG pH 7.37 (7.32-7.43); VBG pO2 58 mmHg
[2022-12-02 17:27] LABS: Venous Blood Gas Refer to POC result
--- NOTE | 2022-12-02 19:06 | PC.NURSE ---
this Rn spoke to pt's mother with his permission to inform her of infection and mass in kidney. she reports pt is homeless and has mental health issues and involved with [facility], mother is hoping he will receive more help to get into a specialized mental and nursing facility. mother is aware of the plan for admission.
--- NOTE | 2022-12-02 19:11 | PC.NURSE ---
mother's phone number: [employer] [phone]
--- NOTE | 2022-12-02 20:09 | MHC.EDTECH ---
patient refused to wear oxygen ,rn tiarra aware ,patient bp is high patient refused to have it recheck ,rn aware ,patient drank 720 ml juice .
[2022-12-02] MEDS: Insulin Lispro 100 UNIT/ML 3 ML VIAL SUBCUT (21:01)
[2022-12-02] MEDS: Insulin Glargine,Hum.rec.anlog 100 UNIT/ML 10 ML VIAL 19 UNIT SUBCUT (21:01)
[2022-12-02] MEDS: cloNIDine HCL 0.2 MG TABLET PO (21:02)
[2022-12-02] MEDS: Metoprolol Tartrate 25 MG TABLET PO (21:02)
[2022-12-02 21:03] LABS: Glucose, Whole Blood 278 mg/dL (60-115)
[2022-12-03] VITALS: BP 125/71; PULSE 88; RESP 14; TEMP 36.5; O2SAT 94
[2022-12-03] MEDS: Acetaminophen 325 MG TABLET 650 MG PO (02:10)
[2022-12-03 03:36] VITALS: BP 132/67; PULSE 85; RESP 18; TEMP 36.8; O2SAT 94
[2022-12-03 04:54] LABS: IDNOW Serial# BCCEAD1C
[2022-12-03 04:55] LABS: COVID-19 Test Negative (Negative)
[2022-12-03 07:14] LABS: Hematocrit 40.4 % (42.0-52.0); Hemoglobin 12.3 g/dl (14.0-18.0); Mean Corpuscular HGB Conc 30.4 g/dl (31.0-36.0); Mean Corpuscular Hemoglobin 25.5 pg (27.0-33.0); Mean Corpuscular Volume 83.8 fL (80.0-98.0); Platelet Count 269 X10*3/uL (160-400); Red Blood Count 4.82 X10*6/uL (4.60-5.80); Red Cell Distribution Width 17.5 % (11.0-16.0)
[2022-12-03 07:34] LABS: Anion Gap 10 (12-20); Blood Urea Nitrogen 8 mg/dL (9-16); Calcium 9.4 mg/dL (8.4-10.2); Carbon Dioxide 34 mmol/L (22-29); Chloride 100 mmol/L (96-108); Creatinine Clr Calc Pharmacy 130.8; Estimated Glomerular Filt Rate > 60; Glucose Random 231 mg/dL (60-115); Potassium 4.3 mmol/L (3.3-5.1); Sodium 140 mmol/L (135-145)
[2022-12-03 07:50] VITALS: BP 130/79; PULSE 98; RESP 20; TEMP 36.4; O2SAT 92
[2022-12-03 07:56] LABS: Glucose, Whole Blood 218 mg/dL (60-115)
[2022-12-03] MEDS: cloNIDine HCL 0.2 MG TABLET PO (08:11)
[2022-12-03] MEDS: Furosemide 40 MG TABLET PO (08:11)
[2022-12-03] MEDS: Omeprazole 20 MG CAPSULE.DR PO (08:11)
[2022-12-03] MEDS: Insulin Lispro 100 UNIT/ML 3 ML VIAL SUBCUT (08:12)
[2022-12-03] MEDS: Losartan Potassium 25 MG TABLET PO (08:12)
[2022-12-03] MEDS: 0.9 % Sodium Chloride Flush 3 ML SYRINGE IVFLUSH (08:12)
[2022-12-03] MEDS: Metoprolol Tartrate 25 MG TABLET PO (08:12)
[2022-12-03 09:30] LABS: Adenovirus PCR Not Detected (Not Detect.); Bordetella parapertussis PCR Not Detected (Not Detect.); Bordetella pertussis PCR Not Detected (Not Detect.); Chlamydia pneumoniae PCR Not Detected (Not Detect.); Coronavirus 229E PCR Not Detected (Not Detect.); Coronavirus HKU1 PCR Not Detected (Not Detect.); Coronavirus NL63 PCR Not Detected (Not Detect.); Coronavirus OC43 PCR Not Detected (Not Detect.); Human metapneumovirus PCR Not Detected (Not Detect.); Influenza A PCR Not Detected (Not Detect.); Influenza B PCR Not Detected (Not Detect.); Mycoplasma pneumoniae PCR Not Detected (Not Detect.); Parainfluenza 1 PCR Not Detected (Not Detect.); Parainfluenza 2 PCR Not Detected (Not Detect.); Parainfluenza 3 PCR Not Detected (Not Detect.); Parainfluenza 4 PCR Not Detected (Not Detect.); RSV PCR Not Detected (Not Detect.); Rhino/Enterovirus PCR Not Detected (Not Detect.); SARS-CoV-2 PCR Not Detected (Not Detect.)
--- NOTE | 2022-12-03 09:54 | PC.NURSE ---
When in to see the pt. at 8am, upon entering the room pt. was noticeably agitated stating that he wanted his breakfast immediately and that he wanted to leave to go outside for a cigarette. I informed that pt. that breakfast would be coming soon and that he was not able to go outside for a cigarette. Pt. then agreed to take his morning medications and stated that he was going to wait for breakfast. 20 minutes later the pt. was seen wheeling out of his room stating that he was going to look for his breakfast. One of the aids on the floor then stopped him and he stated that he was going to the elevators to go outside for a cigarette. I explained to him before he got into the elevator that if he was to go outside he would then have to reenter through the emergency department. The pt. was very frustrated by this response and stated that he was going to leave AMA and that we were keeping him as a prisoner. We went back to his room, i removed the IV and [place] cath along with tele monitor. Pt. was then informed on the paperwork that was to be signed to leave AMA and pt. then refused to sign AMA form stating that we were kicking him out. pt. was taken outside via his wheelchair with the help of patient observer.
--- NOTE | 2022-12-03 11:04 | P.DS_ITS ---
DS: Providers Provider Date of Service: 12/03/22 Date of admission: 12/02/22 16:59 Primary care physician: Unknown Physician DS: Diagnosis Discharge Diagnosis (1) Hypoxia: Status: Acute (2) Elevated WBC count: Status: Acute (3) Kidney mass: Status: Acute DS: Summary Hospital Course Hospital Course: The patient was admitted for monitoring of hypoxia and elevated WBCs. A Kidney mass was noted that requires evaluation. He did not want to wait for evaluation and left the hospital AMA. Time Spent with Patient Time attestation: Total time managing care of this patient today ____ minutes. Discharge coordination time: Less than 30 minutes Quality: Safe Use of Opioids Does Pt have an Active Cancer Diagnosis on the Problem List?: No Quality: Stroke Does the patient have a stroke diagnosis?: No Physical Exam Vital Signs: Vital Signs: Last Vital Signs Temp 97.6 F 12/03/22 07:50 Pulse 98 12/03/22 07:50 Resp 20 12/03/22 07:50 BP 130/79 12/03/22 07:50 Pulse Ox 92 12/03/22 07:50 O2 Del Method Room Air 12/03/22 07:50 O2 Flow Rate 2 12/03/22 03:36 BMI result Body Mass Index 53.2 Const: Other: AMA DS: Data Data Completed and Pending Labs on day of discharge: Laboratory Results - last 24 hr 12/02/22 12/02/22 12/02/22 11:49 11:49 11:49 WBC 16.4 H RBC 4.69 Hgb 12.0 L Hct 38.2 L MCV 81.4 MCH 25.6 L MCHC 31.4 RDW 17.3 H Plt Count 261 MPV 10.7 Immature Gran % (Auto) 0.8 H Neut % (Auto) 81.6 H Lymph % (Auto) 9.7 L [place] % (Auto) 7.4 Eos % (Auto) 0.0 Baso % (Auto) 0.5 Lymph # (Auto) 1.6 [place] # (Auto) 1.2 Eos # (Auto) 0.0 Baso # (Auto) 0.1 Abs Immat Gran (auto) 0.13 H Absolute Neuts (auto) 13.4 H Absolute Nucleated RBC 0.000 Nucleated RBC % (auto) 0.0 VBG pH VBG pCO2 VBG pO2 VBG HCO3 VBG O2 Saturation VBG Base Excess Sodium 138 Potassium 3.9 Chloride 98 Carbon Dioxide 32 H Anion Gap 12 BUN 9 Creatinine 1.03 Estim Creat Clear Calc 128.2 Estimated GFR > 60 POC Glucose Random Glucose 291 H Lactic Acid Calcium 9.0 D Magnesium 1.7 Total Bilirubin 0.2 AST 12 ALT 17 Alkaline Phosphatase 90 Troponin I High Sens 4.0 Total Protein 7.0 Albumin 3.1 L Urine Color Urine Appearance Urine pH Ur Specific [place] Urine Protein Urine Glucose (UA) Urine Ketones Urine Blood Urine Nitrite Ur Leukocyte Esterase Urine RBC Urine WBC Ur Squamous Epith Cells Urine Bacteria Hyaline Casts Ethyl Alcohol Respiratory Panel [place] Adenovirus (Rapid PCR) B.pert (TEM-PCR) B.parapertussis DNA PCR C. pneumoniae DNA (PCR) Coronavirus OC43 (PCR) Coronavirus HKU1 (PCR) Coronavirus 229E (PCR) COVID-19 (THI) COVID-19 Clin Com Coronavirus NL63 (PCR) Human Metapneumovir PCR Influenza A (RT-PCR) Influenza B (RT-PCR) M. pneumoniae (PCR) Parainfluenza 1 (PCR) Parainfluenza 2 (PCR) Parainfluenza 3 (PCR) Parainfluenza 4 (PCR) RSV (PCR) Entero/Rhino (PCR) SARS-CoV-2 RNA (RT-PCR) 12/02/22 12/02/22 12/02/22 11:49 11:49 11:50 WBC RBC Hgb Hct MCV MCH MCHC RDW Plt Count MPV Immature Gran % (Auto) Neut % (Auto) Lymph % (Auto) [place] % (Auto) Eos % (Auto) Baso % (Auto) Lymph # (Auto) [place] # (Auto) Eos # (Auto) Baso # (Auto) Abs Immat Gran (auto) Absolute Neuts (auto) Absolute Nucleated RBC Nucleated RBC % (auto) VBG pH VBG pCO2 VBG pO2 VBG HCO3 VBG O2 Saturation VBG Base Excess Sodium Potassium Chloride Carbon Dioxide Anion Gap BUN Creatinine Estim Creat Clear Calc Estimated GFR POC Glucose Random Glucose Lactic Acid 1.4 Calcium Magnesium Total Bilirubin AST ALT Alkaline Phosphatase Troponin I High Sens Total Protein Albumin Urine Color Urine Appearance Urine pH Ur Specific [place] Urine Protein Urine Glucose (UA) Urine Ketones Urine Blood Urine Nitrite Ur Leukocyte Esterase Urine RBC Urine WBC Ur Squamous Epith Cells Urine Bacteria Hyaline Casts Ethyl Alcohol < 10 Respiratory Panel [place] Adenovirus (Rapid PCR) B.pert (TEM-PCR) B.parapertussis DNA PCR C. pneumoniae DNA (PCR) Coronavirus OC43 (PCR) Coronavirus HKU1 (PCR) Coronavirus 229E (PCR) COVID-19 (THI) Negative COVID-19 Clin Com See Note Coronavirus NL63 (PCR) Human Metapneumovir PCR Influenza A (RT-PCR) Influenza B (RT-PCR) M. pneumoniae (PCR) Parainfluenza 1 (PCR) Parainfluenza 2 (PCR) Parainfluenza 3 (PCR) Parainfluenza 4 (PCR) RSV (PCR) Entero/Rhino (PCR) SARS-CoV-2 RNA (RT-PCR) 12/02/22 12/02/22 12/02/22 15:10 17:14 17:48 WBC RBC Hgb Hct MCV MCH MCHC RDW Plt Count MPV Immature Gran % (Auto) Neut % (Auto) Lymph % (Auto) [place] % (Auto) Eos % (Auto) Baso % (Auto) Lymph # (Auto) [place] # (Auto) Eos # (Auto) Baso # (Auto) Abs Immat Gran (auto) Absolute Neuts (auto) Absolute Nucleated RBC Nucleated RBC % (auto) VBG pH 7.37 VBG pCO2 56 VBG pO2 58 VBG HCO3 32 H VBG O2 Saturation 88.0 VBG Base Excess 5.9 Sodium Potassium Chloride Carbon Dioxide Anion Gap BUN Creatinine Estim Creat Clear Calc Estimated GFR POC Glucose Random Glucose Lactic Acid Calcium Magnesium Total Bilirubin AST ALT Alkaline Phosphatase Troponin I High Sens Total Protein Albumin Urine Color Yellow Urine Appearance Clear Urine pH 6.5 Ur Specific [place] >= 1.030 H Urine Protein 100 (2+) H Urine Glucose (UA) Negative Urine Ketones Negative Urine Blood Negative Urine Nitrite Negative Ur Leukocyte Esterase Negative Urine RBC 0-2 Urine WBC 0-5 Ur Squamous Epith Cells 0-2 Urine Bacteria None Seen Hyaline Casts 0-2 Ethyl Alcohol Respiratory Panel [place] See Note Adenovirus (Rapid PCR) Not Detected B.pert (TEM-PCR) Not Detected B.parapertussis DNA PCR Not Detected C. pneumoniae DNA (PCR) Not Detected Coronavirus OC43 (PCR) Not Detected Coronavirus HKU1 (PCR) Not Detected Coronavirus 229E (PCR) Not Detected COVID-19 (THI) COVID-19 Clin Com Coronavirus NL63 (PCR) Not Detected Human Metapneumovir PCR Not Detected Influenza A (RT-PCR) Not Detected Influenza B (RT-PCR) Not Detected M. pneumoniae (PCR) Not Detected Parainfluenza 1 (PCR) Not Detected Parainfluenza 2 (PCR) Not Detected Parainfluenza 3 (PCR) Not Detected Parainfluenza 4 (PCR) Not Detected RSV (PCR) Not Detected Entero/Rhino (PCR) Not Detected SARS-CoV-2 RNA (RT-PCR) Not Detected 12/02/22 12/03/22 12/03/22 20:38 06:52 06:52 WBC 12.0 H RBC 4.82 Hgb 12.3 L Hct 40.4 L MCV 83.8 MCH 25.5 L MCHC 30.4 L RDW 17.5 H Plt Count 269 MPV 11.0 Immature Gran % (Auto) Neut % (Auto) Lymph % (Auto) [place] % (Auto) Eos % (Auto) Baso % (Auto) Lymph # (Auto) [place] # (Auto) Eos # (Auto) Baso # (Auto) Abs Immat Gran (auto) Absolute Neuts (auto) Absolute Nucleated RBC 0.000 Nucleated RBC % (auto) 0.0 VBG pH VBG pCO2 VBG pO2 VBG HCO3 VBG O2 Saturation VBG Base Excess Sodium 140 Potassium 4.3 Chloride 100 Carbon Dioxide 34 H Anion Gap 10 L BUN 8 L Creatinine 1.01 Estim Creat Clear Calc 130.8 Estimated GFR > 60 POC Glucose 278 H Random Glucose 231 H Lactic Acid Calcium 9.4 Magnesium Total Bilirubin AST ALT Alkaline Phosphatase Troponin I High Sens Total Protein Albumin Urine Color Urine Appearance Urine pH Ur Specific [place] Urine Protein Urine Glucose (UA) Urine Ketones Urine Blood Urine Nitrite Ur Leukocyte Esterase Urine RBC Urine WBC Ur Squamous Epith Cells Urine Bacteria Hyaline Casts Ethyl Alcohol Respiratory Panel [place] Adenovirus (Rapid PCR) B.pert (TEM-PCR) B.parapertussis DNA PCR C. pneumoniae DNA (PCR) Coronavirus OC43 (PCR) Coronavirus HKU1 (PCR) Coronavirus 229E (PCR) COVID-19 (THI) COVID-19 Clin Com Coronavirus NL63 (PCR) Human Metapneumovir PCR Influenza A (RT-PCR) Influenza B (RT-PCR) M. pneumoniae (PCR) Parainfluenza 1 (PCR) Parainfluenza 2 (PCR) Parainfluenza 3 (PCR) Parainfluenza 4 (PCR) RSV (PCR) Entero/Rhino (PCR) SARS-CoV-2 RNA (RT-PCR) 12/03/22 07:49 WBC RBC Hgb Hct MCV MCH MCHC RDW Plt Count MPV Immature Gran % (Auto) Neut % (Auto) Lymph % (Auto) [place] % (Auto) Eos % (Auto) Baso % (Auto) Lymph # (Auto) [place] # (Auto) Eos # (Auto) Baso # (Auto) Abs Immat Gran (auto) Absolute Neuts (auto) Absolute Nucleated RBC Nucleated RBC % (auto) VBG pH VBG pCO2 VBG pO2 VBG HCO3 VBG O2 Saturation VBG Base Excess Sodium Potassium Chloride Carbon Dioxide Anion Gap BUN Creatinine Estim Creat Clear Calc Estimated GFR POC Glucose 218 H Random Glucose Lactic Acid Calcium Magnesium Total Bilirubin AST ALT Alkaline Phosphatase Troponin I High Sens Total Protein Albumin Urine Color Urine Appearance Urine pH Ur Specific [place] Urine Protein Urine Glucose (UA) Urine Ketones Urine Blood Urine Nitrite Ur Leukocyte Esterase Urine RBC Urine WBC Ur Squamous Epith Cells Urine Bacteria Hyaline Casts Ethyl Alcohol Respiratory Panel [place] Adenovirus (Rapid PCR) B.pert (TEM-PCR) B.parapertussis DNA PCR C. pneumoniae DNA (PCR) Coronavirus OC43 (PCR) Coronavirus HKU1 (PCR) Coronavirus 229E (PCR) COVID-19 (THI) COVID-19 Clin Com Coronavirus NL63 (PCR) Human Metapneumovir PCR Influenza A (RT-PCR) Influenza B (RT-PCR) M. pneumoniae (PCR) Parainfluenza 1 (PCR) Parainfluenza 2 (PCR) Parainfluenza 3 (PCR) Parainfluenza 4 (PCR) RSV (PCR) Entero/Rhino (PCR) SARS-CoV-2 RNA (RT-PCR) Discharge Plan Discharge Patient Disposition: Left Against Medical Advice Discharge Diagnosis: AMA Referrals: Physician,Unknown J [Primary Care Provider] - 1 Week Discharge Medications: No Action amoxicillin-pot clavulanate 875-125 mg tablet 1 tab PO BID furosemide 40 mg tablet 40 mg PO DAILY clonidine HCl 0.2 mg tablet 0.2 mg PO TID pantoprazole 40 mg tablet,delayed release (DR/EC) 40 mg PO DAILY metformin 1,000 mg tablet 1,000 mg PO BID losartan 25 mg tablet 25 mg PO DAILY gabapentin 300 mg capsule 600 mg PO TID albuterol sulfate [Ventolin HFA] 90 mcg/actuation HFA aerosol inhaler 2 puff inhalation Q4H PRN (Reason: Shortness Of Breath) insulin aspart U-100 [Novolog FlexPen U-100 Insulin] 100 unit/mL (3 mL) insulin pen 2 unit subcut TID cyclobenzaprine 5 mg tablet 5 mg PO TID PRN (Reason: Muscle Spasm) metoprolol tartrate 25 mg Tablet 25 mg PO BID insulin glargine [Lantus Solostar U-100 Insulin] 100 unit/mL (3 mL) insulin pen 25 unit subcut BEDTIME Discharge Orders: Discharge Order (Routine); Ordered 12/03/22 Ordered By: Soledad Fishman Care Plan Goals: . Health Concerns: . Plan of Treatment: . Assessment: . Discharge Date/Time: 12/03/22 09:30
== END 2022-12-03 09:30 | disposition left against medical advice (07) | DRG 193 ==
LOC: HO.ED 16:31 → HO.EDOVER 17:17 → HO.IMC 19:17
PROVIDERS: Physician Assistant Medical; Admitting Provider Student in an Organized Health Care Education/Training Program; Emergency Provider Student in an Organized Health Care Education/Training Program; Visit Provider Student in an Organized Health Care Education/Training Program
DX: J18.9 Pneumonia, unspecified organism (principal); J96.01 Acute respiratory failure with hypoxia; Z68.43 Body mass index [BMI] 50.0-59.9, adult; F31.9 Bipolar disorder, unspecified; F41.9 Anxiety disorder, unspecified; E11.9 Type 2 diabetes mellitus without complications; E66.01 Morbid (severe) obesity due to excess calories; F17.210 Nicotine dependence, cigarettes, uncomplicated; N28.89 Other specified disorders of kidney and ureter; I11.0 Hypertensive heart disease with heart failure; Z71.6 Tobacco abuse counseling; K21.9 Gastro-esophageal reflux disease without esophagitis; I50.9 Heart failure, unspecified; D72.829 Elevated white blood cell count, unspecified; Z20.822 Contact with and (suspected) exposure to COVID-19; Z59.02 Unsheltered homelessness; Z79.4 Long term (current) use of insulin; Z79.84 Long term (current) use of oral hypoglycemic drugs; Z79.899 Other long term (current) drug therapy
CPT/HCPCS: 36415; 71046; 74177; 80048; 80053; 80307; 81001; 82803; 82947; 83605; 83735; 84484; 85025; 85027; 87040; 87633; 87635; 93005; 99285; J0696; Q9967

== ENCOUNTER → 2022-12-02 09:11 | Outpatient (BNV) | payer OTHER, SELFPAY | PROVIDERS: Admitting Provider Student in an Organized Health Care Education/Training Program; Emergency Provider Student in an Organized Health Care Education/Training Program; Visit Provider Internal Medicine Cardiovascular Disease | DX: R00.0 Tachycardia, unspecified (principal) | CPT/HCPCS: 93010 ==

== ENCOUNTER → 2022-12-02 10:03 | Outpatient (BNV) | payer OTHER, SELFPAY | PROVIDERS: Emergency Provider Student in an Organized Health Care Education/Training Program; Visit Provider Student in an Organized Health Care Education/Training Program | DX: J96.01 Acute respiratory failure with hypoxia (principal); D72.829 Elevated white blood cell count, unspecified; N28.89 Other specified disorders of kidney and ureter; Z53.29 Procedure and treatment not carried out because of patient's decision for other reasons | CPT/HCPCS: 99223; 99238; 99499 ==

== ENCOUNTER 2023-09-28 19:28 | Emergency (ER) | payer MEDICARE, MEDICAID, SELFPAY ==
--- NOTE | 2023-09-28 19:32 | ECG_ITS ---
Test Reason : TACHYCARDIA Blood Pressure : / mmHG Vent. Rate : 125 BPM Atrial Rate : 125 BPM P-R Int : 136 ms QRS Dur : 088 ms QT Int : 318 ms P-R-T Axes : 079 092 027 degrees QTc Int : 458 ms Sinus tachycardia Rightward axis Borderline ECG When compared with ECG of 02-DEC-2022 09:22, T wave inversion now evident in Inferior leads Referred By: Generic ED Physician Electronically Signed By:JESUS SUN MD
[2023-09-28 19:41] VITALS: BP 148/82; PULSE 136; O2SAT 91
[2023-09-28 19:43] LABS: Glucose, Whole Blood 242 mg/dL (60-115)
[2023-09-28 19:44] VITALS: BP 137/85; PULSE 124; RESP 20; TEMP 36.8; O2SAT 91; BMI 56.1
[2023-09-28 20:19] LABS: Mean Corpuscular HGB Conc 31.5 g/dl (31.0-36.0); SCAN SMEAR FLAG 1
[2023-09-28 20:21] LABS: Basophils Absolute Auto 0.1 X10*3/uL (0.0-0.2); Basophils Percent Auto 0.6 % (0-2); Hematocrit 42.9 % (42.0-52.0); Hemoglobin 13.5 g/dl (14.0-18.0); Imm Gran Abs Auto 0.08 X10*3/uL (0.00-0.03); Imm Gran Pct Auto 0.4 % (0.0-0.4); Lymphocytes Absolute Auto 1.6 X10*3/uL (1.2-4.9); Lymphocytes Percent Auto 8.9 % (20-40); MANUAL DIFF FLAG SCAN; Mean Corpuscular Hemoglobin 23.7 pg (27.0-33.0); Mean Corpuscular Volume 75.4 fL (80.0-98.0); Mean Platelet Volume 10.5 fL (9.4-12.4); Monocytes Absolute Auto 1.4 X10*3/uL (0.1-1.2); Neutrophils Absolute Auto 14.8 x10*3/uL (2.0-8.3); Neutrophils Percent Auto 82.1 % (45-73); Platelet Count 297 X10*3/uL (160-400); Red Blood Count 5.69 X10*6/uL (4.60-5.80); Red Cell Distribution Width 20.6 % (11.0-16.0)
[2023-09-28 20:23] LABS: PLT ABN DIST 1
[2023-09-28 20:34] LABS: Alanine Aminotransferase 7 U/L (0-40); Albumin Level 3.5 g/dL (3.5-5.0); Alkaline Phosphatase 148 U/L (39-117); Anion Gap 16 (12-20); Aspartate Amino Transferase 14 U/L (5-37); Bilirubin Total 0.3 mg/dL (0.0-1.0); Blood Urea Nitrogen 18 mg/dL (9-16); Calcium 9.8 mg/dL (8.4-10.2); Carbon Dioxide 25 mmol/L (22-29); Chloride 102 mmol/L (96-108); Estimated Glomerular Filt Rate > 60; Glucose Random 260 mg/dL (60-115); Potassium 3.9 mmol/L (3.3-5.1); Sodium 139 mmol/L (135-145); Total Protein 7.9 g/dL (6.5-8.0)
[2023-09-28 20:36] LABS: Troponin-I High Sensitivity 3.2 ng/L (<3.5-35.0)
--- NOTE | 2023-09-28 21:09 | ED_ITS ---
HPI - General Adult General Chief complaint: General Medical Stated complaint: SI, FEELING UNWELL, TACHY Time Seen by Provider: 09/28/23 21:08 Source: patient Mode of arrival: EMS Limitations: no limitations History of Present Illness ED Provider: Dr. Eagle Reeder HPI narrative: 47 year old male with a history of bilateral chronic hip pain, HTN, bipolar disorder, anxiety, and schizoaffective disorder presenting to the emergency department today left-sided headache, jaw pain, abdominal pain and ?failure to thrive ?. Patient told me that he was at [facility] and was being evaluated for possible respite placement that he fell in the hospital and struck the left side of his head and jaw. It is that he had a CT scan of his brain but did not wait for the results and left against medical advice. He states that the social media manager was going to get him placed in some type of facility since he was no longer able to take care of himself. States that he has no glucometer and he can not check his blood sugars. Patient states that when he left [facility] he took a bus to [place]. When he got to [place] he then called an ambulance and was brought here to the emergency department for evaluation. Patient's point of care glucose by EMS was 308 but the patient told paramedics that he would taken a dose of insulin prior to calling the ambulance. EMS reported an elevated heart rate of 140, O2 saturation of 91% on room air. Patient reported to the paramedics that he was feeling helpless and he was having suicidal ideation without a specific plan to injure himself. Related Data Home Medications ?Medication ?Instructions ?Recorded ?Confirmed albuterol sulfate 90 mcg/actuation 2 puff inhalation Q4H PRN 12/02/22 12/02/22 aerosol inhaler (Ventolin HFA) Shortness Of Breath amoxicillin 875 mg-potassium 1 tab PO BID 12/02/22 12/02/22 clavulanate 125 mg tablet clonidine HCl 0.2 mg tablet 0.2 mg PO TID 12/02/22 12/02/22 cyclobenzaprine 5 mg tablet 5 mg PO TID PRN Muscle Spasm 12/02/22 12/02/22 furosemide 40 mg tablet 40 mg PO DAILY 12/02/22 12/02/22 gabapentin 300 mg capsule 600 mg PO TID 12/02/22 12/02/22 insulin aspart U-100 100 unit/mL 2 unit subcut TID 12/02/22 12/02/22 (3 mL) subcutaneous pen (Novolog FlexPen U-100 Insulin aspart) insulin glargine 100 unit/mL (3 25 unit subcut BEDTIME 12/02/22 12/02/22 mL) subcutaneous pen (Lantus Solostar U-100 Insulin) losartan 25 mg tablet 25 mg PO DAILY 12/02/22 12/02/22 metformin 1,000 mg tablet 1,000 mg PO BID 12/02/22 12/02/22 metoprolol tartrate 25 mg tablet 25 mg PO BID 12/02/22 12/02/22 pantoprazole 40 mg tablet,delayed 40 mg PO DAILY 12/02/22 12/02/22 release Allergies Allergy/AdvReac Type Severity Reaction Status Date / Time fish derived [fish] Allergy Severe Anaphylaxis Verified 09/28/23 19:50 haloperidol [From Haldol] Allergy Severe Seizure Verified 09/28/23 19:50 shellfish derived Allergy Severe SWELLING Verified 09/28/23 19:50 [SHELLFISH DERIVED] WITH DIFFICULTY BREATHING pork derived (porcine) AdvReac Intermediate swelling Verified 09/28/23 19:50 garlic AdvReac Mild VOMITING Verified 09/28/23 19:50 Review of Systems 2 Review of Systems: Yes all other systems are reviewed and are negative PMF Past Medical History Medical History Anxiety Bipolar 1 disorder BMI 45.0-49.9, adult Degenerative disc disease Depression Diabetes Diabetes type 2, controlled Diverticulosis Hip problem HTN (hypertension) Morbid obesity due to excess calories Obese Osteoarthritis Preoperative examination PTSD (post-traumatic stress disorder) Shortness of breath Surgical History H/O elbow surgery History of surgery of head Hx of cholecystectomy Family History Family History Mother Hx of cholecystectomy Hypertension A-fib Father No problems noted. Brother No problems noted. Brother No problems noted. Son No problems noted. Social History Social History Household Members: Other Housing: Homeless Do you presently have visiting nurse or other home services: No Unable to assess alcohol history related to: Refusing to respond Alcohol intake: current Alcohol intake frequency: 3 or more drinks per day Patient Tobacco Use Status: Current everyday Tobacco user Tobacco use type: Cigarette Cigarettes Per Day: 7 Smoked in Last 30 Days: No Use of substances other than those prescribed or required for medical reasons: Refusing to respond Substance Use Type: Marijuana Advance Directives: No Advance Directives Information Provided: No Advance Directives Date on File: 02/17/21 Physical Exam ED Vital Signs: Vital Signs - 24 hr 09/28/23 19:44 09/28/23 22:32 09/29/23 00:56 Temperature 98.2 F 97.7 F 0 F L Pulse Rate 124 H 119 H 0 L Respiratory Rate 20 22 H 0 L Blood Pressure 137/85 107/78 0/0 L Pulse Oximetry 91 L 96 0 L Oxygen Delivery Method Room Air Nasal Cannula Oxygen Flow Rate 3 BMI result Body Mass Index 56.1 Vital signs revealed an elevated heart rate of 124, O2 saturation was 91% on room air. Exam: General: Awake, alert , patient has outbursts of yelling and then calms down. Head: Normocephalic, atraumatic EENT: PERRL, Lids normal, sclera normal, conjunctiva normal, nose normal , ears normal, throat without erythema or exudates Neck: Supple, no adenopathy Lung: breath sounds symmetric, no wheezing, rales or rhonchi Chest: symmetric movement, nontender Heart: regular rate and rhythm, normal S1, S2 no murmurs or rubs Abdomen: soft, moderate epigastric tenderness, no rebound, no voluntary or involuntary guarding Back: no vertebral tenderness, no CVAT Extremities: no deformities, moves all extremities symmetrically Neuro: Awake, alert, oriented, normal speech, cranial nerves intact, moves all extremities symmetrically Psych: Patient has outbursts where he is yelling but then he calms calm and cooperative Medications Administered Discontinued Medications Generic Name Dose Route Start Last Admin Trade Name Freq PRN Reason Stop Dose Admin Famotidine 20 mg 09/28/23 21:54 09/28/23 22:02 Famotidine 20 Mg Tablet PO 09/28/23 21:55 20 mg ONCE ONE Administration Ondansetron HCl 4 mg 09/28/23 21:54 09/28/23 22:02 Ondansetron Hcl 4 Mg/2 Ml Vial IVPUSH 09/28/23 21:55 4 mg ONCE ONE Administration Tramadol HCl 50 mg 09/28/23 21:54 09/28/23 22:02 Tramadol Hcl 50 Mg Tablet PO 09/28/23 21:55 50 mg ONCE ONE Administration Medical Decision Making Medical Decision Making MDM Narrative: 47 year old male with a history of bilateral chronic hip pain, HTN, bipolar disorder, anxiety, and schizoaffective disorder presenting to the emergency department today left-sided headache, jaw pain, abdominal pain and ?failure to thrive ?. Patient reports that he was at [facility] earlier and fell while he was in the hospital. He states that he had a CT scan of his head but he did not stay for the result and signed out against medical advice, took a bus to [place] and called an ambulance when he arrived in [place] so that he can be seen this facility. Patient is complaining of left-sided headache, jaw pain and abdominal pain. Patient was noted to have a high glucose by the paramedics but he reported taking insulin prior to coming to [place]. He states that he is suicidal but does not have a plan. Vital signs did reveal an elevated heart rate. Exam did reveal epigastric abdominal tenderness otherwise was unremarkable. Differential diagnosis: ?Includes but is not limited to closed head injury, concussion, depression, anxiety, suicidal ideation, electrolyte abnormalities, hyperglycemia, anemia Following evaluation was ordered: CBC, CMP, ethanol level, urinalysis, drug screen urine, troponin, EKG, Patient was initially treated with the following: Pepcid 20 mg orally, Zofran 4 mg IV, tramadol 50 mg orally Course: 23:42 My interpretation patient's laboratory evaluation is as follows: WBC elevated 18 is in with 82 neutrophils. Patient has had similar elevations in his WBC in the past. BUN elevated 18. Glucose elevated 260. Alk-phos elevated 148. Troponin was detectable but not elevated at 3.2. Urinalysis was positive for protein and positive for glucose. Microscopic revealed no WBCs and no bacteria. Urinalysis was positive for cocaine and marijuana. Ethanol was below detectable limits. The patient is medically cleared for evaluation by our care team. 00:42 The patient states that he has no longer suicidal. Again he became irritated and started yelling at staff. He states that he wants to be Section 35 and I did tell him that this is not a process that can happen tonight and I can only happened when the courts are open. He states that he wants to leave and go to the police department and they will put him on a Section 35. At this time the patient is not homicidal or suicidal and he will be discharged Admission/Observation Consideration of admission/observation: Escalation of care including admission/observation considered Lab Data MDM Lab Attestation statement: I reviewed the patient's lab results. 09/28/23 19:58 09/28/23 19:58 Labs: Lab Results 09/28/23 09/28/23 09/28/23 Range/Units 19:38 19:58 21:11 WBC 18.0 H (4.8-10.8) X10*3/uL RBC 5.69 (4.60-5.80) X10*6/uL Hgb 13.5 L (14.0-18.0) g/dl Hct 42.9 (42.0-52.0) % MCV 75.4 L (80.0-98.0) fL MCH 23.7 L (27.0-33.0) pg MCHC 31.5 (31.0-36.0) g/dl RDW 20.6 H (11.0-16.0) % Plt Count 297 (160-400) X10*3/uL MPV 10.5 (9.4-12.4) fL Immature Gran % (Auto) 0.4 (0.0-0.4) % Neut % (Auto) 82.1 H (45-73) % Lymph % (Auto) 8.9 L (20-40) % [place] % (Auto) 8.0 (2-11) % Eos % (Auto) 0.0 (0-4) % Baso % (Auto) 0.6 (0-2) % Lymph # (Auto) 1.6 (1.2-4.9) X10*3/uL [place] # (Auto) 1.4 H (0.1-1.2) X10*3/uL Eos # (Auto) 0.0 (0.0-0.4) X10*3/uL Baso # (Auto) 0.1 (0.0-0.2) X10*3/uL Abs Immat Gran (auto) 0.08 H (0.00-0.03) X10*3/uL Absolute Neuts (auto) 14.8 H (2.0-8.3) x10*3/uL Absolute Nucleated RBC 0.000 (0.0-0.012) X10*3/uL Nucleated RBC % (auto) 0.0 (0.0-0.2) /100WBC Smear Tech's Comments VERIFIED Sodium 139 (135-145) mmol/L Potassium 3.9 (3.3-5.1) mmol/L Chloride 102 (96-108) mmol/L Carbon Dioxide 25 (22-29) mmol/L Anion Gap 16 (12-20) BUN 18 H (9-16) mg/dL Creatinine 1.21 (0.5-1.4) mg/dL Estim Creat Clear Calc 115.0 Estimated GFR > 60 POC Glucose 242 H (60-115) mg/dL Random Glucose 260 H (60-115) mg/dL Calcium 9.8 (8.4-10.2) mg/dL Total Bilirubin 0.3 (0.0-1.0) mg/dL AST 14 (5-37) U/L ALT 7 (0-40) U/L Alkaline Phosphatase 148 H (39-117) U/L Troponin I High Sens 3.2 (<3.5-35.0) ng/L Total Protein 7.9 (6.5-8.0) g/dL Albumin 3.5 (3.5-5.0) g/dL Urine Color Yellow Urine Appearance Clear Urine pH 5.5 (5.0-9.0) Ur Specific [place] 1.020 (1.005-1.025) Urine Protein 100 (2+) H (Neg-Trace) mg/dL Urine Glucose (UA) 250 H (Negative) mg/dL Urine Ketones Negative (Negative) mg/dL Urine Blood Negative (Negative) Urine Nitrite Negative (Negative) Ur Leukocyte Esterase Negative (Negative) Urine RBC 0-2 (0-2) /HPF Urine WBC 0-5 (0-5) /HPF Ur Squamous Epith Cells 0-2 (0-2) /HPF Urine Bacteria None Seen (None Seen) Hyaline Casts 3-5 (0-2) /LPF Urine Opiates Screen Not Detected (Not Detect) Ur Buprenorphine Scrn Not Detected (Not Detect) ng/mL Ur Oxycodone Screen Not Detected (Not Detect) ng/mL Urine Methadone Screen Not Detected (Not Detect) ng/mL Urine Fentanyl Screen Not Detected (Not Detect) Ur Barbiturates Screen Not Detected (Not Detect) Ur Phencyclidine Scrn Not Detected (Not Detect) Ur Amphetamines Screen Not Detected (Not Detect) U Benzodiazepines Scrn Not Detected (Not Detect) Urine Cocaine Screen POSITIVE H (Not Detect) U Marijuana (THC) Screen POSITIVE H (Not Detect) Ethyl Alcohol < 10 mg/dL Independent Interpretation I performed an independent interpretation of an: EKG Interpretation: My independent interpretation patient's 12 EKG done at 19:33 hours is as follows, sinus tachycardia with a rate of 25, normal IL interval, QRS duration QTC interval, no ST segment elevation, no ST segment depression, no significant T-wave abnormalities, no PACs, no PVCs. Chronic Conditions Patient?s care impacted by: Other (Schizophrenia) Discharge Plan Discharge Clinical Impression: Gastritis, Acute hyperglycemia Patient Disposition: Home, Self-Care Additional Instructions: Continue taking medications as prescribed by your providers. Follow-up with your doctor in 2 days. Please return to the emergency department if your symptoms get worse or if you develop any symptoms that are concerning to you. Prescriptions: No Action amoxicillin-pot clavulanate 875-125 mg tablet 1 tab PO BID furosemide 40 mg tablet 40 mg PO DAILY clonidine HCl 0.2 mg tablet 0.2 mg PO TID pantoprazole 40 mg tablet,delayed release (DR/EC) 40 mg PO DAILY metformin 1,000 mg tablet 1,000 mg PO BID losartan 25 mg tablet 25 mg PO DAILY gabapentin 300 mg capsule 600 mg PO TID albuterol sulfate [Ventolin HFA] 90 mcg/actuation HFA aerosol inhaler 2 puff inhalation Q4H PRN (Reason: Shortness Of Breath) insulin aspart U-100 [Novolog FlexPen U-100 Insulin] 100 unit/mL (3 mL) insulin pen 2 unit subcut TID cyclobenzaprine 5 mg tablet 5 mg PO TID PRN (Reason: Muscle Spasm) metoprolol tartrate 25 mg Tablet 25 mg PO BID insulin glargine [Lantus Solostar U-100 Insulin] 100 unit/mL (3 mL) insulin pen 25 unit subcut BEDTIME Interventions: ED Discharge Assessment Last Done: 09/29/23 00:56 Discharge Date/Time: 09/29/23 00:58 Print Language: Persian
[2023-09-28 21:10] LABS: SLIDE REVIEW VERIFIED
[2023-09-28 21:26] LABS: Appearance Urine Clear; Color Urine Yellow; Glucose Urine UA 250 mg/dL (Negative); Leukocyte Esterase Urine Negative (Negative); Nitrite Urine Negative (Negative); PH 5.5 (5.0-9.0); UMIC TRIGGER UACC YES; Urine Blood Negative (Negative); Urine Ketones Negative (Negative); Urine Protein 100 (2+) mg/dL (Neg-Trace)
[2023-09-28 21:27] LABS: Amphetamine Screen Urine Not Detected (Not Detect); Barbiturates, Urine Not Detected (Not Detect); Benzodiazepines Screen Urine Not Detected (Not Detect); Buprenorphine Scr Not Detected (Not Detect); Cannabinoid Screen Urine POSITIVE (Not Detect); Cocaine Screen Urine POSITIVE (Not Detect); Fentanyl, urine Not Detected (Not Detect); Methadone Screen, Urine Not Detected (Not Detect); Opiate Screen Urine Not Detected (Not Detect); Oxycodone Screen Urine Not Detected (Not Detect); Phencyclidine Screen Urine Not Detected (Not Detect)
[2023-09-28 21:31] LABS: Bacteria Urine None Seen (None Seen); Squamous Epithelial Cell Urine 0-2 /HPF (0-2); WBC Urine 0-5 /HPF (0-5)
[2023-09-28 21:45] LABS: RBC Urine 0-2 /HPF (0-2)
--- NOTE | 2023-09-28 21:46 | PC.NURSE ---
per MD pt is not SI and no sitter required.
[2023-09-28] MEDS: Famotidine 20 MG TABLET PO (22:02)
[2023-09-28] MEDS: traMADoL HCL 50 MG TABLET PO (22:02)
[2023-09-28] MEDS: ondansetron HCL 4 MG/2 ML VIAL IVPUSH (22:02)
[2023-09-28 22:31] LABS: Ethanol < 10 mg/dL
[2023-09-28 22:32] VITALS: BP 107/78; PULSE 119; RESP 22; TEMP 36.5; O2SAT 96
--- NOTE | 2023-09-28 23:54 | MHC.EDTECH ---
PT REFUSED COVID SWAB.
[2023-09-29 00:56] VITALS: BP 0/0; PULSE 0; RESP 0; TEMP -17.7; TEMP 0; O2SAT 0
== END 2023-09-29 00:58 | disposition home or self-care (01) ==
PROVIDERS: Emergency Provider Emergency Medicine Emergency Medical Services
DX: K29.70 Gastritis, unspecified, without bleeding (principal); E11.65 Type 2 diabetes mellitus with hyperglycemia; R45.851 Suicidal ideations; F25.0 Schizoaffective disorder, bipolar type; F43.10 Post-traumatic stress disorder, unspecified; F41.9 Anxiety disorder, unspecified; I10 Essential (primary) hypertension; R06.02 Shortness of breath; Z79.4 Long term (current) use of insulin; Z79.84 Long term (current) use of oral hypoglycemic drugs; Z79.899 Other long term (current) drug therapy; F17.210 Nicotine dependence, cigarettes, uncomplicated; F12.90 Cannabis use, unspecified, uncomplicated
CPT/HCPCS: 36415; 80053; 80307; 81001; 82947; 84484; 85025; 93005; 99285; J2405

== ENCOUNTER → 2023-09-28 19:32 | Outpatient (BNV) | payer MEDICARE, MEDICAID, SELFPAY | PROVIDERS: Emergency Provider Emergency Medicine Emergency Medical Services; Visit Provider Internal Medicine Cardiovascular Disease | DX: R00.0 Tachycardia, unspecified (principal) | CPT/HCPCS: 93010 ==

== ENCOUNTER 2023-10-26 11:50 | Emergency (ER) | payer MEDICARE, MEDICAID, SELFPAY ==
[2023-10-26] VITALS (7 sets, daily range): BP systolic 109–137; BP diastolic 67–81; PULSE 100–123; RESP 14–22; TEMP 36.7–37; O2SAT 91–98; BMI 51.7
--- NOTE | 2023-10-26 12:14 | ED_ITS ---
HPI - General Adult General Chief complaint: General Medical Stated complaint: PAIN ALL OVER PER EMS Time Seen by Provider: 10/26/23 12:07 History of Present Illness ED Provider: Dr. Cortez HPI narrative: 48 y/o M patient; PMH HTN, T2DM, bipolar type 1, schizoaffective disorder, morbid obesity; presents via EMS. The patient himself states he has sickle cell disease and was recently treated at a hospital in [place]. He states he was transferred by ambulance to this hospital for social work resources. He states he is unable to care for himself at home. EMS reported patient was found on the street having called EMS for generalized pain and generalized weakness. Of note patient records from this hospital reviewed without prior diagnosis of sickle cell noted. Patient is noted to have been incontinent of urine. Patient with discharge paperwork from [facility]. Noted to have been admitted for agitation and failure to thrive. Utox was positive for cocaine. He was provided out-patient homeless and substance abuse resources. Of note he was tachycardic to to 115 at time of discharge on 10/25/2023. Related Data Home Medications ?Medication ?Instructions ?Recorded ?Confirmed albuterol sulfate 90 mcg/actuation 2 puff inhalation Q4H PRN 12/02/22 12/02/22 aerosol inhaler (Ventolin HFA) Shortness Of Breath amoxicillin 875 mg-potassium 1 tab PO BID 12/02/22 12/02/22 clavulanate 125 mg tablet clonidine HCl 0.2 mg tablet 0.2 mg PO TID 12/02/22 12/02/22 cyclobenzaprine 5 mg tablet 5 mg PO TID PRN Muscle Spasm 12/02/22 12/02/22 furosemide 40 mg tablet 40 mg PO DAILY 12/02/22 12/02/22 gabapentin 300 mg capsule 600 mg PO TID 12/02/22 12/02/22 insulin aspart U-100 100 unit/mL 2 unit subcut TID 12/02/22 12/02/22 (3 mL) subcutaneous pen (Novolog FlexPen U-100 Insulin aspart) insulin glargine 100 unit/mL (3 25 unit subcut BEDTIME 12/02/22 12/02/22 mL) subcutaneous pen (Lantus Solostar U-100 Insulin) losartan 25 mg tablet 25 mg PO DAILY 12/02/22 12/02/22 metformin 1,000 mg tablet 1,000 mg PO BID 12/02/22 12/02/22 metoprolol tartrate 25 mg tablet 25 mg PO BID 12/02/22 12/02/22 pantoprazole 40 mg tablet,delayed 40 mg PO DAILY 12/02/22 12/02/22 release Allergies Allergy/AdvReac Type Severity Reaction Status Date / Time fish derived [fish] Allergy Severe Anaphylaxis Verified 10/26/23 12:17 haloperidol [From Haldol] Allergy Severe Seizure Verified 10/26/23 12:17 shellfish derived Allergy Severe SWELLING Verified 10/26/23 12:17 [SHELLFISH DERIVED] WITH DIFFICULTY BREATHING pork derived (porcine) AdvReac Intermediate swelling Verified 10/26/23 12:17 garlic AdvReac Mild VOMITING Verified 10/26/23 12:17 Review of Systems 2 Review of Systems: Yes all other systems are reviewed and are negative PMFSH Past Medical History Attestation statement: The following information was validated with the patient. Source: old records reviewed Medical History Diabetes type 2, controlled Hip problem Osteoarthritis HTN (hypertension) PTSD (post-traumatic stress disorder) Depression Anxiety Diverticulosis BMI 45.0-49.9, adult Morbid obesity due to excess calories Shortness of breath Preoperative examination Obese Bipolar 1 disorder Degenerative disc disease Diabetes Surgical History History of surgery of head Hx of cholecystectomy H/O elbow surgery Family History Family History Mother Hx of cholecystectomy Hypertension A-fib Father No problems noted. Brother No problems noted. Brother No problems noted. Son No problems noted. Social History Social History Household Members: Other Housing: Homeless Do you presently have visiting nurse or other home services: No Unable to assess alcohol history related to: Refusing to respond Alcohol intake: current Alcohol intake frequency: 3 or more drinks per day Patient Tobacco Use Status: Current everyday Tobacco user Tobacco use type: Cigarette Cigarettes Per Day: 7 Substance Use Type: Marijuana Advance Directives: No Advance Directives Information Provided: Yes Advance Directives Date on File: 02/17/21 Do you have a plan to hurt others: No Plan Physical Exam ED Vital Signs: Vital Signs - 24 hr 10/26/23 12:15 10/26/23 12:16 10/26/23 14:00 Temperature 98.6 F 98.2 F 98.2 F Pulse Rate 116 H 104 H 104 H Respiratory Rate 22 H 14 22 H Blood Pressure 123/81 137/80 136/80 Pulse Oximetry 94 91 L 98 Oxygen Delivery Method Room Air Room Air Room Air BMI result Body Mass Index 51.7 Patient is afebrile, tachycardic, and normotensive. Const General: cooperative Orientation/consciousness: patient oriented x3 HENMT Head: Yes atraumatic Eyes General: appearance normal, both eyes and all related structures Pupils: Equal, round and reactive pupils present EOM: EOMs intact bilaterally Neck Neck: Yes normal visual inspection, Yes full ROM, Yes supple and No tender Chest Chest palpation & inspection: normal inspection of the chest and normal palpation of entire chest wall Resp Effort & Inspection: normal respiratory effort, able to speak in complete sentences, no cough and no respiratory distress Auscultation: clear to auscultation bilaterally Cardio Rate: regular rate Rhythm: regular rhythm Peripheral pulses: Peripheral pulses 2+ throughout GI Inspection: Yes normal to inspection, No Abdominal wall edema, No distended and Yes obesity Palpation (GI): Soft to palpation, not firm, nontender, no guarding and not rigid Auscultation: normal bowel sounds General: Yes no CVA tenderness Back/Spine/Pelvis Back: no CVA tenderness Neuro General: patient oriented x3 Cranial nerves: Yes Equal, round and reactive pupils present Course Course Course Narrative: Patient is afebrile, tachycardic, and normotensive. Will obtain screening EKG and basic labs. Will requested case management consultation. Reevaluation(s) Reevaluation #1: Patient is known to case management. He has a guardianship and Nav's order with mother/guardian Briana Kirkpatrick ([phone]). Call placed but went to voicemail. Laboratory studies reviewed. CBC reassuring with baseline mild anemia. Sodium corrects to 135 due to hyperglycemia. Bicarb 22. Anion gap 16. Glucose 310. Suspect hyperglycemia & mild dehydration - providing 1L IVF and 8 units insulin glargine. Remainder of labs unremarkable. Spoke with patient's legal guardian - states he has been homeless, going from hospital to hospital. Patient's guardian informed he is being discharged from the hospital. Repeat glucose 184. Plan: Discharge to home with PCP follow up Return precautions given Medications Administered Discontinued Medications Generic Name Dose Route Start Last Admin Trade Name Rosenda PRN Reason Stop Dose Admin Sodium Chloride 1,000 mls @ 999 mls/hr 10/26/23 12:30 10/26/23 14:21 Ns IV 10/26/23 13:30 999 mls/hr .Q1H1M GARETT Administration Insulin Human Lispro 8 unit 10/26/23 13:26 10/26/23 14:18 Insulin Lispro 100 Unit/Ml 3 Ml Vial SUBCUT 10/26/23 13:27 8 unit ONCE ONE Administration Medical Decision Making Lab Data 10/26/23 13:00 10/26/23 13:00 Labs: Lab Results 10/26/23 10/26/23 Range/Units 13:00 16:25 WBC 12.3 H (4.8-10.8) X10*3/uL RBC 5.22 (4.60-5.80) X10*6/uL Hgb 13.1 L (14.0-18.0) g/dl Hct 40.8 L (42.0-52.0) % MCV 78.2 L (80.0-98.0) fL MCH 25.1 L (27.0-33.0) pg MCHC 32.1 (31.0-36.0) g/dl RDW 18.6 H (11.0-16.0) % Plt Count 223 (160-400) X10*3/uL MPV 10.6 (9.4-12.4) fL Immature Gran % (Auto) 0.5 H (0.0-0.4) % Neut % (Auto) 78.3 H (45-73) % Lymph % (Auto) 10.6 L (20-40) % [place] % (Auto) 10.1 (2-11) % Eos % (Auto) 0.0 (0-4) % Baso % (Auto) 0.5 (0-2) % Lymph # (Auto) 1.3 (1.2-4.9) X10*3/uL [place]y # (Auto) 1.2 (0.1-1.2) X10*3/uL Eos # (Auto) 0.0 (0.0-0.4) X10*3/uL Baso # (Auto) 0.1 (0.0-0.2) X10*3/uL Abs Immat Gran (auto) 0.06 H (0.00-0.03) X10*3/uL Absolute Neuts (auto) 9.6 H (2.0-8.3) x10*3/uL Absolute Nucleated RBC 0.000 (0.0-0.012) X10*3/uL Nucleated RBC % (auto) 0.0 (0.0-0.2) /100WBC Absolute Retic 0.068 (0.026-0.095) X10*6/uL Percent Retic 1.3 (0.5-1.8) % Immature Retic Fraction 10.2 (2.3-13.4) % Retic Hgb Equivalent 30.6 (30.0-35.0) pg Sodium 132 L (135-145) mmol/L Potassium 4.3 (3.3-5.1) mmol/L Chloride 98 (96-108) mmol/L Carbon Dioxide 22 (22-29) mmol/L Anion Gap 16 (12-20) BUN 12 (9-16) mg/dL Creatinine 1.18 (0.5-1.4) mg/dL Estim Creat Clear Calc 112.2 Estimated GFR > 60 POC Glucose 184 H (60-115) mg/dL Random Glucose 310 H (60-115) mg/dL Calcium 9.6 (8.4-10.2) mg/dL Total Bilirubin 0.5 (0.0-1.0) mg/dL Direct Bilirubin 0.2 (0.0-0.5) mg/dL AST 14 (5-37) U/L ALT 16 (0-40) U/L Alkaline Phosphatase 131 H (39-117) U/L Total Protein 7.6 (6.5-8.0) g/dL Albumin 3.7 (3.5-5.0) g/dL Lipase 9 (8-78) U/L Ethyl Alcohol < 10 mg/dL Independent Interpretation I performed an independent interpretation of an: EKG Interpretation: ST 112BPM without ischemic changes, QTc 458. Discharge Plan Discharge Clinical Impression: Hyperglycemia, Dehydration Patient Disposition: Home, Self-Care Instructions: Dehydration (ED), Diabetic Hyperglycemia (ED) Additional Instructions: As we discussed, you were seen today and found to have elevated glucose level with signs of mild dehydration. You need to take your diabetic medications, stop using cocaine, and follow up with your PCP within the next 2 - 3 days. Prescriptions: No Action amoxicillin-pot clavulanate 875-125 mg tablet 1 tab PO BID furosemide 40 mg tablet 40 mg PO DAILY clonidine HCl 0.2 mg tablet 0.2 mg PO TID pantoprazole 40 mg tablet,delayed release (DR/EC) 40 mg PO DAILY metformin 1,000 mg tablet 1,000 mg PO BID losartan 25 mg tablet 25 mg PO DAILY gabapentin 300 mg capsule 600 mg PO TID albuterol sulfate [Ventolin HFA] 90 mcg/actuation HFA aerosol inhaler 2 puff inhalation Q4H PRN (Reason: Shortness Of Breath) insulin aspart U-100 [Novolog FlexPen U-100 Insulin] 100 unit/mL (3 mL) insulin pen 2 unit subcut TID cyclobenzaprine 5 mg tablet 5 mg PO TID PRN (Reason: Muscle Spasm) metoprolol tartrate 25 mg Tablet 25 mg PO BID insulin glargine [Lantus Solostar U-100 Insulin] 100 unit/mL (3 mL) insulin pen 25 unit subcut BEDTIME Referrals: [facility] [Primary Care Provider] - 2 days Print Language: Croatian
--- NOTE | 2023-10-26 12:15 | ECG_ITS ---
Test Reason : ARRYTHMIA Blood Pressure : / mmHG Vent. Rate : 112 BPM Atrial Rate : 112 BPM P-R Int : 142 ms QRS Dur : 090 ms QT Int : 336 ms P-R-T Axes : 075 091 027 degrees QTc Int : 458 ms Sinus tachycardia Rightward axis Cannot rule out Anterior infarct , age undetermined Abnormal ECG When compared with ECG of 28-SEP-2023 19:33, No significant change was found Referred By: Yoselyn Cortez Electronically Signed By:MARGUERITE SIMS
[2023-10-26 13:04] LABS: MANUAL DIFF FLAG NO
--- NOTE | 2023-10-26 13:07 | MHC.EDTECH ---
EKG obtained at 1300, pt tolerated well.
[2023-10-26 13:09] LABS: Basophils Absolute Auto 0.1 X10*3/uL (0.0-0.2); Basophils Percent Auto 0.5 % (0-2); Hematocrit 40.8 % (42.0-52.0); Hemoglobin 13.1 g/dl (14.0-18.0); Imm Gran Abs Auto 0.06 X10*3/uL (0.00-0.03); Imm Gran Pct Auto 0.5 % (0.0-0.4); Lymphocytes Absolute Auto 1.3 X10*3/uL (1.2-4.9); Lymphocytes Percent Auto 10.6 % (20-40); Mean Corpuscular HGB Conc 32.1 g/dl (31.0-36.0); Mean Corpuscular Hemoglobin 25.1 pg (27.0-33.0); Mean Corpuscular Volume 78.2 fL (80.0-98.0); Mean Platelet Volume 10.6 fL (9.4-12.4); Monocytes Absolute Auto 1.2 X10*3/uL (0.1-1.2); Monocytes Percent Auto 10.1 % (2-11); Neutrophils Absolute Auto 9.6 x10*3/uL (2.0-8.3); Neutrophils Percent Auto 78.3 % (45-73); Platelet Count 223 X10*3/uL (160-400); Red Blood Count 5.22 X10*6/uL (4.60-5.80); Red Cell Distribution Width 18.6 % (11.0-16.0); White Blood Count 12.3 X10*3/uL (4.8-10.8)
[2023-10-26 13:20] LABS: Alanine Aminotransferase 16 U/L (0-40); Albumin Level 3.7 g/dL (3.5-5.0); Alkaline Phosphatase 131 U/L (39-117); Anion Gap 16 (12-20); Aspartate Amino Transferase 14 U/L (5-37); Bilirubin Direct 0.2 mg/dL (0.0-0.5); Bilirubin Total 0.5 mg/dL (0.0-1.0); Blood Urea Nitrogen 12 mg/dL (9-16); Calcium 9.6 mg/dL (8.4-10.2); Carbon Dioxide 22 mmol/L (22-29); Chloride 98 mmol/L (96-108); Creatinine Clr Calc Pharmacy 112.2; Estimated Glomerular Filt Rate > 60; Glucose Random 310 mg/dL (60-115); Potassium 4.3 mmol/L (3.3-5.1); Sodium 132 mmol/L (135-145); Total Protein 7.6 g/dL (6.5-8.0)
[2023-10-26 13:49] LABS: Lipase 9 U/L (8-78)
[2023-10-26] MEDS: Insulin Lispro 100 UNIT/ML 3 ML VIAL 8 UNIT SUBCUT (14:18)
[2023-10-26] MEDS: 0.9 % Sodium Chloride 1,000 ML 999 ML IV (14:21)
--- NOTE | 2023-10-26 14:21 | PC.NURSE ---
iv inserted, labs drawn, pt medicated per order. pt difficult stick
[2023-10-26 14:35] LABS: Immature Retic Fraction 10.2 % (2.3-13.4); Retic HGB Equivalent 30.6 pg (30.0-35.0); Reticulocytes Absolute 0.068 X10*6/uL (0.026-0.095)
[2023-10-26 14:36] LABS: Reticulocyte Percent 1.3 % (0.5-1.8)
[2023-10-26 14:41] LABS: Ethanol < 10 mg/dL
--- NOTE | 2023-10-26 14:56 | MHC.EDTECH ---
pt vital signs checked at 1400, pt sleeping, no questions asked.
--- NOTE | 2023-10-26 16:16 | MHC.CM.ED ---
Addendum entered by Sharon Valentine 10/26/23 16:48: Offered to feed patient. Pt refused, swearing at this . Original Note: Pt has been medically cleared. Per Dr. Cortez, patients mother/guardian says he has been from hospital to hospital. he has been like this for 30 years. She will not take him to her home. He was discharged from [facility] yesterday and was supposed to go to a prison there and then call her. Attempted to give patient handouts on shelters, detox and recovery information, Pt refused. Swearing. States he has sickle cell and we are wrong. Provider aware. States patient is cleared for discharge. Primary RN aware. [facility] listing with his discharge paperwork. Dr. Cortez is aware and patient is cleared for discharge. spoke with Briana Kirkpatrick,mother guardian, she will not take him. He can be discharged to the streets. She tells that he was at [facility] for over a month and had a bed at the [facility] in [place]. Pt never went there. Briana states he has been like this for 30 years. She states he will use drugs and then return. Again, she is agreeable to discharge with prison list. Primary RN aware.
[2023-10-26 16:29] LABS: Glucose, Whole Blood 184 mg/dL (60-115)
--- NOTE | 2023-10-26 16:41 | PC.NURSE ---
pt to discharge with assistance of security, security has been called
== END 2023-10-26 19:44 | disposition home or self-care (01) ==
PROVIDERS: Emergency Provider Emergency Medicine
DX: E11.65 Type 2 diabetes mellitus with hyperglycemia (principal); E86.0 Dehydration; R53.1 Weakness; R32 Unspecified urinary incontinence; I10 Essential (primary) hypertension; E66.9 Obesity, unspecified; Z68.43 Body mass index [BMI] 50.0-59.9, adult; Z59.00 Homelessness unspecified; Z79.899 Other long term (current) drug therapy
CPT/HCPCS: 36415; 80048; 80076; 80307; 82947; 83690; 85025; 85045; 93005; 96360; 99284

== ENCOUNTER → 2023-10-26 12:15 | Outpatient (BNV) | payer MEDICARE, MEDICAID, SELFPAY | PROVIDERS: Emergency Provider Emergency Medicine; Visit Provider Internal Medicine | DX: R00.0 Tachycardia, unspecified (principal); R94.31 Abnormal electrocardiogram [ECG] [EKG] | CPT/HCPCS: 93010 ==

== ENCOUNTER 2024-02-29 12:56 | Emergency (ER) | payer MEDICARE, MEDICAID, SELFPAY ==
[2024-02-29 13:02] VITALS: BP 138/60; PULSE 106; O2SAT 98
[2024-02-29 13:06] VITALS: BP 155/86; PULSE 112; RESP 19; TEMP 36.6; O2SAT 97; BMI 52.1
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
--- NOTE | 2024-02-29 13:42 | PC.NURSE ---
pt covered in dried feces and cleaned and was cooperative
--- NOTE | 2024-02-29 14:22 | ED.GENADULT ---
HPI - General Adult General Chief complaint: Psychiatric Symptoms Stated complaint: CP/OVERED IN FECES/SECTION 12/RESTRAINED Time Seen by Provider: 02/29/24 14:21 Source: patient and EMS Mode of arrival: EMS Limitations: no limitations History of Present Illness ED Provider: Nguyen Ritchie PA-C HPI narrative: Patient is a 48 year old assigned male at with a history of bipolar disorder, HTN, depression, anxiety, PTSD, DM, and schizoaffective disorder presenting to the emergency department today with suicidal and homicidal ideations after eating his own feces and drinking his own urine. Patient denies any dizziness, lightheadedness, abdominal pain, nausea, vomiting, fever, chills, blurry vision, double vision, loss of vision, chest pain, difficulty breathing, shortness of breath, back pain, night sweats, pain with urination, increased urinary frequency, increased urinary urgency, blood in his urine or stool, syncope or a near syncopal episode, recent trauma or falls, bowel incontinence, bladder incontinence, or any other complaints at this time. Relieving factors: none Exacerbating factors: none Associated symptoms: denies other symptoms Treatments prior to arrival: none Related Data Home Medications ?Medication ?Instructions ?Recorded ?Confirmed albuterol sulfate 90 mcg/actuation 2 puff inhalation Q4H PRN 12/02/22 02/29/24 aerosol inhaler (Ventolin HFA) Shortness Of Breath insulin glargine 100 unit/mL (3 15 unit subcut DAILY 12/02/22 03/01/24 mL) subcutaneous pen (Lantus Solostar U-100 Insulin) pantoprazole 40 mg tablet,delayed 40 mg PO BID@0630,1630 12/02/22 03/01/24 release alogliptin 25 mg tablet (Nesina) 25 mg PO DAILY 02/29/24 03/01/24 amlodipine 5 mg tablet 5 mg PO DAILY 02/29/24 02/29/24 chlorpromazine 25 mg tablet 100 mg PO BID 02/29/24 02/29/24 clonidine HCl 0.2 mg tablet 0.1 mg PO BID 02/29/24 02/29/24 dextromethorphan-guaifenesin 10 10 ml PO Q6H PRN Cough 02/29/24 02/29/24 mg-100 mg/5 mL oral syrup folic acid 1 mg tablet 1 mg PO DAILY 02/29/24 02/29/24 gabapentin 400 mg capsule 800 mg PO TID 02/29/24 02/29/24 lamotrigine 25 mg tablet 25 mg PO DAILY 02/29/24 02/29/24 multivitamin with minerals-folic 1 tab PO DAILY 02/29/24 02/29/24 acid 400 mcg tablet, extended release paliperidone palmitate 234 mg/1.5 234 mg IM Q28D 02/29/24 03/01/24 mL intramuscular syringe (Invega Sustenna) polyethylene glycol 3350 17 gram 17 g PO DAILY PRN Constipation 02/29/24 02/29/24 oral powder packet (Miralax) sennosides 8.6 mg capsule (senna) 8.6 mg PO DAILY PRN Constipation 02/29/24 02/29/24 insulin regular human 100 unit/mL 1 sliding scale dose subcut 03/01/24 03/01/24 injection solution (Humulin R USEASDIRECTD Regular U-100 Insulin) insulin regular human 100 unit/mL 15 unit subcut TIDAC 03/01/24 03/01/24 injection solution (Humulin R Regular U-100 Insulin) Allergies Allergy/AdvReac Type Severity Reaction Status Date / Time fish derived [fish] Allergy Severe Anaphylaxis Verified 02/29/24 13:08 shellfish derived Allergy Severe SWELLING Verified 02/29/24 13:08 [SHELLFISH DERIVED] WITH DIFFICULTY BREATHING pork derived (porcine) AdvReac Intermediate swelling Verified 02/29/24 13:08 garlic AdvReac Mild VOMITING Verified 02/29/24 13:08 Review of Systems Constitutional: Constitutional: Reports no additional constitutional complaints, Denies chills, Denies fever(s) and Denies night sweats Eyes: Eyes: Reports no additional eye complaints, Denies blurry vision, Denies change in vision, Denies diplopia, Denies eye discharge, Denies loss of vision and Denies eye pain ENT: Denies dizziness Cardiovascular: Cardiovascular: Reports no additional cardiovascular complaints, Denies chest pain, Denies lightheadedness, Denies Loss of Consciousness and Denies dyspnea Respiratory: Respiratory: Reports no additional respiratory complaints and Denies dyspnea Gastrointestinal: Gastrointestinal: Reports no additional gastrointestinal complaints, Denies abdominal pain, Denies melena, Denies hematochezia, Denies change in bowel habits and Denies change in stool character Genitourinary: Genitourinary: Reports no additional male genitourinary complaints, Denies hematuria, Denies oliguria, Denies difficulty urinating, Denies dysuria, Denies urinary frequency, Denies urinary hesitancy, Denies urinary incontinence and Denies urinary urgency Musculoskeletal: Musculoskeletal: Reports no additional musculoskeletal complaints, Denies numbness and Denies tingling Neurologic: Denies dizziness, Denies loss of vision, Denies numbness and Denies tingling Psychiatric: Psychiatric: Reports homicidal ideation and Reports suicidal ideation Endocrine: Endocrine: Reports no additional endocrine complaints Hematologic/Lymphatic: Hematologic/Lymphatic: Reports no additional hematologic/lymphatic complaints Allergic/Immunologic: Allergic/Immunologic: Reports no additional allergic/immunologic complaints PMF Past Medical History Attestation statement: The following information was validated with the patient. Source: old records reviewed and nursing notes reviewed Medical History Diabetes type 2, controlled Hip problem Osteoarthritis HTN (hypertension) PTSD (post-traumatic stress disorder) Depression Anxiety Diverticulosis BMI 45.0-49.9, adult Morbid obesity due to excess calories Shortness of breath Preoperative examination Obese Bipolar 1 disorder Degenerative disc disease Diabetes Surgical History History of surgery of head Hx of cholecystectomy H/O elbow surgery Family History Family History Mother Hx of cholecystectomy Hypertension A-fib Father No problems noted. Brother No problems noted. Brother No problems noted. Son No problems noted. Social History Social History Household Members: Other Housing: Homeless Do you presently have visiting nurse or other home services: No Unable to assess alcohol history related to: Refusing to respond Alcohol intake: never Patient Tobacco Use Status: Current everyday Tobacco user Tobacco use type: Cigarette Cigarettes Per Day: 7 Smoked in Last 30 Days: Yes Use of substances other than those prescribed or required for medical reasons: Refusing to respond Substance Use Type: Marijuana Advance Directives: No Advance Directives Date on File: 02/17/21 Do you have a plan to hurt others: Feasible Physical Exam ED Vital Signs: Vital Signs - 24 hr 03/04/24 08:46 03/04/24 08:58 03/05/24 03:57 Temperature 98.8 F 98.2 F Pulse Rate 117 H 120 H 111 H Respiratory Rate 18 19 16 Blood Pressure 119/69 119/78 127/61 Pulse Oximetry 95 93 94 Oxygen Delivery Method Room Air Room Air Room Air BMI result Body Mass Index 52.1 Const General: cooperative, no acute distress, alert and awake Nutritional Appearance: well nourished Orientation/consciousness: patient oriented x3 Limitations: no limitations HENMT Head: Yes normal to inspection and Yes atraumatic Ears: hearing grossly normal bilaterally and external ears normal General nose exam: Normal external nose present, no nasal discharge noted and no epistaxis Face and sinus: Yes normal facial exam, No abrasion and No laceration Mouth: Normal oral and palatal mucosa present, no drooling and no muffled voice Eyes General: appearance normal, both eyes and all related structures Periorbital: periorbital findings normal Eyelids: Yes eyelids normal Conjunctivae: conjunctivae normal Pupils: Equal, round and reactive pupils present EOM: EOMs intact bilaterally Neck Neck: Yes normal visual inspection, Yes full ROM and Yes no lymphadenopathy Chest Chest palpation & inspection: normal inspection of the chest Resp Effort & Inspection: normal respiratory effort and able to speak in complete sentences GI Inspection: Yes normal to inspection Neuro General: patient oriented x3 and moves all extremities Cranial nerves: Yes Equal, round and reactive pupils present Cognition (Neuro): normal cognition Extrem General: Yes normal to inspection, Yes full ROM and Yes capillary refill normal Psych Appearance: grossly normal Mental Status: mental status grossly normal Affect: normal affect Attitude: cooperative Thought process: Normal thought process present Thought content: Normal thought content present Insight: Good insight present (Psych) Course Course Course Narrative: 03/02/24 11:39 Physician observation continued. Patient repeatedly threatening staff, attempting to assault staff while being moved from stretcher onto hospital bed, and placed in restraints. Ativan and zyprexa ordered. Staff at bedside. 03/04/24--0733-- physician observation continued. VSS, NAD. Patient does not meet inpatient psych criteria. Case management continues to follow for disposition. Senior management involved. Will continue to monitor for discharge needs Reevaluation(s) Reevaluation #1: And [facility] have accepted care of the patient and signed out pending labs. The patient will be admitted for inpatient psych, there was a needle stick involved we will try to obtain labs from him, he is high-risk. We have collected labs, his behavior starting to escalate, he is known to be quite aggressive. We will be medicating with droperidol and Ativan IM. placing ED med restraint order Time: 17:51 Reevaluation #2: DR. Kelly's progress note: I was called to room 1 because the patient is unresponsive and acting weird, patient had breakfast contain for known history of pork allergy, as per the police detention attendant accompanying the patient he was fine till 1/2 hour ago after he ate a pork patient is unresponsive, rolling his eyes up twitching his eyelids, no tonic-clonic seizure, patient is unresponsive, airway was patent with no stridor, oxygen saturation 100% on room air, blood pressure was was stable, blood sugar was 400. Patient with history anxiety/PTSD / psychosis /pseudoseizures??. Patient was given 2 mg of Ativan, patient now is responsive, crying. will continue monitoring the patient. Patient stated that he did not take his lamotrigine for seizure for the last 4 days however was given this morning will give 1 extra dose of Lamictal, patient now is AAO x3. Time: 09:23 Reevaluation #3: [id number] 03/05/24 -- POC glucose over night 483. lispro and lantus given with improvement. med rec reviewed and completed. no acute over night events per nursing notes. patient has remained tachycardic throughout stay - vitals otherwise wnl. physician observation continued. Medications Administered Generic Name Dose Route Start Last Admin Trade Name Freq PRN Reason Stop Dose Admin Amlodipine Besylate 5 mg 03/01/24 09:00 03/04/24 08:49 Amlodipine Besylate 5 Mg Tablet PO 5 mg DAILY GARETT Administration Protocol Chlorpromazine HCl 100 mg 03/03/24 11:13 03/04/24 09:02 Chlorpromazine Hcl 100 Mg Tablet PO 100 mg TID PRN Administration agitation Clonidine HCl 0.1 mg 03/01/24 09:00 03/05/24 02:27 Clonidine Hcl 0.1 Mg Tablet PO 0.1 mg BID GARETT Administration Protocol Divalproex Sodium 1,000 mg 03/03/24 11:20 03/05/24 02:32 Divalproex Sodium 500 Mg Tablet. PO 1,000 mg BID GARETT Administration Folic Acid 1 mg 03/01/24 09:00 03/04/24 08:50 Folic Acid 1 Mg Tablet PO 1 mg DAILY GARETT Administration Gabapentin 800 mg 03/01/24 09:00 03/05/24 02:27 Gabapentin 400 Mg Capsule PO 800 mg TID GARETT Administration Guaifenesin/Dextromethorphan 10 ml 02/29/24 22:28 03/03/24 20:49 Guaifenesin Dm 100/10/5 Ml 5 Ml Syrup PO 10 ml Q6H PRN Administration Cough Haloperidol 10 mg 03/03/24 21:00 03/05/24 02:27 Haloperidol 5 Mg Tablet PO 10 mg BID GARETT Administration Insulin Glargine 15 unit 03/01/24 21:00 03/05/24 02:31 Insulin Glargine,Hum.Rec.Anlog 100 Unit/Ml 10 Ml Vial SUBCUT 15 unit BEDTIME GARETT Administration Insulin Human Lispro 0 unit 02/29/24 21:00 03/05/24 02:28 Insulin Lispro 100 Unit/Ml 3 Ml Vial SUBCUT 10 unit QIDACHS [facility] Administration Protocol Lorazepam 1 mg 03/04/24 21:32 03/05/24 02:32 Lorazepam 1 Mg Tablet PO 1 mg TID PRN Administration anxiety/restlessness Multivitamins/Vitamin C 1 tab 03/01/24 09:00 03/04/24 08:50 Multivitamin Tablet PO 1 tab DAILY [facility] Administration Omeprazole 20 mg 03/01/24 06:30 03/05/24 06:28 Omeprazole 20 Mg Capsule. PO Not Given DAILY@0630 [facility] Senna 8.6 mg 03/04/24 09:00 03/04/24 08:50 Sennosides 8.6 Mg Tablet PO 8.6 mg DAILY [facility] Administration Discontinued Medications Generic Name Dose Route Start Last Admin Trade Name Freq PRN Reason Stop Dose Admin Chlorpromazine HCl 100 mg 03/01/24 09:00 03/02/24 08:22 Chlorpromazine Hcl 100 Mg Tablet PO Not Given BID [facility] Chlorpromazine HCl 100 mg 02/29/24 23:28 03/01/24 00:25 Chlorpromazine Hcl 100 Mg Tablet PO 02/29/24 23:29 Not Given ONCE ONE Chlorpromazine HCl 100 mg 03/02/24 16:15 03/03/24 09:08 Chlorpromazine Hcl 100 Mg Tablet PO 100 mg TID GARETT Administration Clonidine HCl 0.1 mg 02/29/24 23:28 03/01/24 00:23 Clonidine Hcl 0.1 Mg Tablet PO 02/29/24 23:29 0.1 mg ONCE ONE Administration Protocol Diphenhydramine HCl 50 mg 03/01/24 06:26 03/01/24 06:40 Diphenhydramine Hcl 50 Mg/Ml Vial IM 03/01/24 06:27 50 mg ONCE ONE Administration Gabapentin 800 mg 02/29/24 23:28 03/01/24 00:22 Gabapentin 600 Mg Tablet PO 02/29/24 23:29 800 mg ONCE ONE Administration Lamotrigine 25 mg 03/01/24 09:00 03/03/24 09:08 Lamotrigine 25 Mg Tablet PO 25 mg DAILY GARETT Administration Lamotrigine 25 mg 03/03/24 09:22 03/03/24 09:33 Lamotrigine 25 Mg Tablet PO 03/03/24 09:23 25 mg ONCE ONE Administration Lorazepam 4 mg 02/29/24 17:50 02/29/24 18:00 Lorazepam 2 Mg/Ml Vial IM 02/29/24 17:51 4 mg STAT STA Administration Lorazepam 2 mg 03/01/24 06:26 03/01/24 06:40 Lorazepam 2 Mg/Ml Vial IM 03/01/24 06:27 2 mg STAT STA Administration Lorazepam 2 mg 03/01/24 07:45 03/01/24 07:55 Lorazepam 2 Mg/Ml Vial IM 03/01/24 07:46 2 mg STAT STA Administration Lorazepam 2 mg 03/02/24 02:25 03/02/24 02:31 Lorazepam 1 Mg Tablet PO 03/02/24 02:26 2 mg ONCE ONE Administration Lorazepam 2 mg 03/02/24 11:38 03/02/24 11:50 Lorazepam 2 Mg/Ml Vial IM 03/02/24 11:39 2 mg ONCE ONE Administration Lorazepam 2 mg 03/03/24 08:47 03/03/24 08:37 Lorazepam 2 Mg/Ml Vial IM 03/03/24 08:48 2 mg ONCE ONE Administration Lorazepam 2 mg 03/03/24 09:22 03/03/24 09:04 Lorazepam 2 Mg/Ml Vial IM 03/03/24 09:23 2 mg ONCE ONE Administration Lorazepam 1 mg 03/04/24 11:11 03/04/24 11:19 Lorazepam 1 Mg Tablet PO 03/04/24 11:12 1 mg ONCE ONE Administration Lorazepam 1 mg 03/04/24 16:35 03/04/24 16:59 Lorazepam 1 Mg Tablet PO 03/04/24 16:36 1 mg ONCE ONE Administration Olanzapine 10 mg 02/29/24 17:53 02/29/24 18:00 Olanzapine 10 Mg Vial IM 02/29/24 17:54 10 mg STAT STA Administration Olanzapine 10 mg 03/01/24 07:45 03/01/24 07:55 Olanzapine 10 Mg Vial IM 03/01/24 07:46 10 mg STAT STA Administration Olanzapine 10 mg 03/02/24 11:38 03/02/24 11:50 Olanzapine 10 Mg Vial IM 03/02/24 11:39 10 mg STAT STA Administration Ziprasidone 20 mg 03/01/24 06:26 03/01/24 06:39 Ziprasidone Mesylate 20 Mg Vial IM 03/01/24 06:27 20 mg ONCE ONE Administration Medical Decision Making Medical Decision Making MDM Narrative: Patient is a 48 year old assigned male at with a history of bipolar disorder, HTN, depression, anxiety, PTSD, DM, and schizoaffective disorder presenting to the emergency department today with suicidal and homicidal ideations after eating his own feces and drinking his own urine. Patient's physical exam was unremarkable. I explained my physical exam findings as well as all test results to the patient. I answered all questions asked by the patient. Patient was evaluated by the CARE team who recommended inpatient level of psychiatric care. 06:29. Patient yelling, becoming aggressive, patient is to be restrained by the officers at bedside. Also our security guards at bedside. Patient was given IM Benadryl 50 mg, Ativan 2 mg and Geodon 20 mg. Differential Diagnosis Differential Diagnoses: The differential diagnosis associated with the presentation includes Psychosis Inappropriate behavior Acute psychiatric decompensation Admission/Observation Consideration of admission/observation: Escalation of care including admission/observation considered Patient will be inpatient level of psychiatric care - whether that is an admission at this facility or transfer to another appropriate facility. Consult Healthcare Provider Management of the patient was discussed with: Behavioral Health Provider (spoke to the CARE Team as noted in the MDM Rationale portion of this note.) Lab Data 02/29/24 16:12 02/29/24 16:12 Labs: Lab Results 02/29/24 02/29/24 02/29/24 Range/Units 16:12 16:54 22:23 WBC 11.3 H (4.8-10.8) X10*3/uL RBC 4.92 (4.60-5.80) X10*6/uL Hgb 12.8 L (14.0-18.0) g/dl Hct 40.4 L (42.0-52.0) % MCV 82.1 (80.0-98.0) fL MCH 26.0 L (27.0-33.0) pg MCHC 31.7 (31.0-36.0) g/dl RDW 15.9 (11.0-16.0) % Plt Count 202 (160-400) X10*3/uL MPV 10.4 (9.4-12.4) fL Immature Gran % (Auto) 1.0 H (0.0-0.4) % Neut % (Auto) 79.4 H (45-73) % Lymph % (Auto) 12.2 L (20-40) % Woodson % (Auto) 7.0 (2-11) % Eos % (Auto) 0.0 (0-4) % Baso % (Auto) 0.4 (0-2) % Lymph # (Auto) 1.4 (1.2-4.9) X10*3/uL Woodson # (Auto) 0.8 (0.1-1.2) X10*3/uL Eos # (Auto) 0.0 (0.0-0.4) X10*3/uL Baso # (Auto) 0.1 (0.0-0.2) X10*3/uL Abs Immat Gran (auto) 0.11 H (0.00-0.03) X10*3/uL Absolute Neuts (auto) 9.0 H (2.0-8.3) x10*3/uL Absolute Nucleated RBC 0.000 (0.0-0.012) X10*3/uL Nucleated RBC % (auto) 0.0 (0.0-0.2) /100WBC Smear Tech's Comments VERIFIED Sodium 136 (135-145) mmol/L Potassium 4.5 (3.3-5.1) mmol/L Chloride 101 (96-108) mmol/L Carbon Dioxide 26 (22-29) mmol/L Anion Gap 14 (12-20) BUN 22 H (9-16) mg/dL Creatinine 1.17 (0.5-1.4) mg/dL Estim Creat Clear Calc 113.6 Estimated GFR > 60 POC Glucose 323 H (60-115) mg/dL Random Glucose 426 H* (60-115) mg/dL Calcium 9.1 (8.4-10.2) mg/dL Total Bilirubin 0.2 (0.0-1.0) mg/dL AST 19 (5-37) U/L ALT 9 (0-40) U/L Alkaline Phosphatase 107 (39-117) U/L Total Protein 6.8 (6.5-8.0) g/dL Albumin 3.2 L (3.5-5.0) g/dL Urine Color Yellow Urine Appearance Clear Urine pH 7.5 (5.0-9.0) Ur Specific Witherbee 1.020 (1.005-1.025) Urine Protein Trace (Neg-Trace) mg/dL Urine Glucose (UA) >=1000 H (Negative) mg/dL Urine Ketones Negative (Negative) mg/dL Urine Blood Negative (Negative) Urine Nitrite Negative (Negative) Ur Leukocyte Esterase Negative (Negative) Urine RBC 0-2 (0-2) /HPF Urine WBC 0-5 (0-5) /HPF Ur Squamous Epith Cells 0-2 (0-2) /HPF Urine Bacteria None Seen (None Seen) Hyaline Casts 0-2 (0-2) /LPF Salicylates < 5.0 L (15-30) mg/dL Urine Opiates Screen Not Detected (Not Detect) Ur Buprenorphine Scrn Not Detected (Not Detect) ng/mL Ur Oxycodone Screen Not Detected (Not Detect) ng/mL Urine Methadone Screen Not Detected (Not Detect) ng/mL Urine Fentanyl Screen Not Detected (Not Detect) Acetaminophen < 3 (<30) mcg/mL Ur Barbiturates Screen Not Detected (Not Detect) Ur Phencyclidine Scrn Not Detected (Not Detect) Ur Amphetamines Screen Not Detected (Not Detect) U Benzodiazepines Scrn Not Detected (Not Detect) Urine Cocaine Screen Not Detected (Not Detect) U Marijuana (THC) Screen Not Detected (Not Detect) Ethyl Alcohol < 10 mg/dL T.pallidum Ab (EIA) Nonreactive (Nonreactive) COVID-19 (THI) Negative (Negative) COVID-19 Clin Com See Note Hepatitis A IgM Ab Nonreactive (Nonreactive) Hep Bs Antigen Negative (Negative) Hep Bs Antibody NONREACTIVE (Nonreactive) Hep B Core Total Ab Nonreactive (Nonreactive) Hepatitis C Ab (EIA) Nonreactive (Nonreactive) HIV 1&2 Ab/P24 Ag 4thGn Nonreactive (Nonreactive) 03/01/24 03/01/24 03/01/24 Range/Units 08:39 11:57 15:51 WBC (4.8-10.8) X10*3/uL RBC (4.60-5.80) X10*6/uL Hgb (14.0-18.0) g/dl Hct (42.0-52.0) % MCV (80.0-98.0) fL MCH (27.0-33.0) pg MCHC (31.0-36.0) g/dl RDW (11.0-16.0) % Plt Count (160-400) X10*3/uL MPV (9.4-12.4) fL Immature Gran % (Auto) (0.0-0.4) % Neut % (Auto) (45-73) % Lymph % (Auto) (20-40) % Woodson % (Auto) (2-11) % Eos % (Auto) (0-4) % Baso % (Auto) (0-2) % Lymph # (Auto) (1.2-4.9) X10*3/uL Woodson # (Auto) (0.1-1.2) X10*3/uL Eos # (Auto) (0.0-0.4) X10*3/uL Baso # (Auto) (0.0-0.2) X10*3/uL Abs Immat Gran (auto) (0.00-0.03) X10*3/uL Absolute Neuts (auto) (2.0-8.3) x10*3/uL Absolute Nucleated RBC (0.0-0.012) X10*3/uL Nucleated RBC % (auto) (0.0-0.2) /100WBC Smear Tech's Comments Sodium (135-145) mmol/L Potassium (3.3-5.1) mmol/L Chloride (96-108) mmol/L Carbon Dioxide (22-29) mmol/L Anion Gap (12-20) BUN (9-16) mg/dL Creatinine (0.5-1.4) mg/dL Estim Creat Clear Calc Estimated GFR POC Glucose 308 H 210 H 200 H (60-115) mg/dL Random Glucose (60-115) mg/dL Calcium (8.4-10.2) mg/dL Total Bilirubin (0.0-1.0) mg/dL AST (5-37) U/L ALT (0-40) U/L Alkaline Phosphatase (39-117) U/L Total Protein (6.5-8.0) g/dL Albumin (3.5-5.0) g/dL Urine Color Urine Appearance Urine pH (5.0-9.0) Ur Specific Witherbee (1.005-1.025) Urine Protein (Neg-Trace) mg/dL Urine Glucose (UA) (Negative) mg/dL Urine Ketones (Negative) mg/dL Urine Blood (Negative) Urine Nitrite (Negative) Ur Leukocyte Esterase (Negative) Urine RBC (0-2) /HPF Urine WBC (0-5) /HPF Ur Squamous Epith Cells (0-2) /HPF Urine Bacteria (None Seen) Hyaline Casts (0-2) /LPF Salicylates (15-30) mg/dL Urine Opiates Screen (Not Detect) Ur Buprenorphine Scrn (Not Detect) ng/mL Ur Oxycodone Screen (Not Detect) ng/mL Urine Methadone Screen (Not Detect) ng/mL Urine Fentanyl Screen (Not Detect) Acetaminophen (<30) mcg/mL Ur Barbiturates Screen (Not Detect) Ur Phencyclidine Scrn (Not Detect) Ur Amphetamines Screen (Not Detect) U Benzodiazepines Scrn (Not Detect) Urine Cocaine Screen (Not Detect) U Marijuana (THC) Screen (Not Detect) Ethyl Alcohol mg/dL T.pallidum Ab (EIA) (Nonreactive) COVID-19 (THI) (Negative) COVID-19 Clin Com Hepatitis A IgM Ab (Nonreactive) Hep Bs Antigen (Negative) Hep Bs Antibody (Nonreactive) Hep B Core Total Ab (Nonreactive) Hepatitis C Ab (EIA) (Nonreactive) HIV 1&2 Ab/P24 Ag 4thGn (Nonreactive) 03/01/24 03/02/24 03/02/24 Range/Units 21:10 07:28 11:34 WBC (4.8-10.8) X10*3/uL RBC (4.60-5.80) X10*6/uL Hgb (14.0-18.0) g/dl Hct (42.0-52.0) % MCV (80.0-98.0) fL MCH (27.0-33.0) pg MCHC (31.0-36.0) g/dl RDW (11.0-16.0) % Plt Count (160-400) X10*3/uL MPV (9.4-12.4) fL Immature Gran % (Auto) (0.0-0.4) % Neut % (Auto) (45-73) % Lymph % (Auto) (20-40) % Woodson % (Auto) (2-11) % Eos % (Auto) (0-4) % Baso % (Auto) (0-2) % Lymph # (Auto) (1.2-4.9) X10*3/uL Woodson # (Auto) (0.1-1.2) X10*3/uL Eos # (Auto) (0.0-0.4) X10*3/uL Baso # (Auto) (0.0-0.2) X10*3/uL Abs Immat Gran (auto) (0.00-0.03) X10*3/uL Absolute Neuts (auto) (2.0-8.3) x10*3/uL Absolute Nucleated RBC (0.0-0.012) X10*3/uL Nucleated RBC % (auto) (0.0-0.2) /100WBC Smear Tech's Comments Sodium (135-145) mmol/L Potassium (3.3-5.1) mmol/L Chloride (96-108) mmol/L Carbon Dioxide (22-29) mmol/L Anion Gap (12-20) BUN (9-16) mg/dL Creatinine (0.5-1.4) mg/dL Estim Creat Clear Calc Estimated GFR POC Glucose 294 H 315 H 301 H (60-115) mg/dL Random Glucose (60-115) mg/dL Calcium (8.4-10.2) mg/dL Total Bilirubin (0.0-1.0) mg/dL AST (5-37) U/L ALT (0-40) U/L Alkaline Phosphatase (39-117) U/L Total Protein (6.5-8.0) g/dL Albumin (3.5-5.0) g/dL Urine Color Urine Appearance Urine pH (5.0-9.0) Ur Specific Witherbee (1.005-1.025) Urine Protein (Neg-Trace) mg/dL Urine Glucose (UA) (Negative) mg/dL Urine Ketones (Negative) mg/dL Urine Blood (Negative) Urine Nitrite (Negative) Ur Leukocyte Esterase (Negative) Urine RBC (0-2) /HPF Urine WBC (0-5) /HPF Ur Squamous Epith Cells (0-2) /HPF Urine Bacteria (None Seen) Hyaline Casts (0-2) /LPF Salicylates (15-30) mg/dL Urine Opiates Screen (Not Detect) Ur Buprenorphine Scrn (Not Detect) ng/mL Ur Oxycodone Screen (Not Detect) ng/mL Urine Methadone Screen (Not Detect) ng/mL Urine Fentanyl Screen (Not Detect) Acetaminophen (<30) mcg/mL Ur Barbiturates Screen (Not Detect) Ur Phencyclidine Scrn (Not Detect) Ur Amphetamines Screen (Not Detect) U Benzodiazepines Scrn (Not Detect) Urine Cocaine Screen (Not Detect) U Marijuana (THC) Screen (Not Detect) Ethyl Alcohol mg/dL T.pallidum Ab (EIA) (Nonreactive) COVID-19 (THI) (Negative) COVID-19 Clin Com Hepatitis A IgM Ab (Nonreactive) Hep Bs Antigen (Negative) Hep Bs Antibody (Nonreactive) Hep B Core Total Ab (Nonreactive) Hepatitis C Ab (EIA) (Nonreactive) HIV 1&2 Ab/P24 Ag 4thGn (Nonreactive) 03/02/24 03/02/24 03/03/24 Range/Units 18:06 21:25 08:17 WBC (4.8-10.8) X10*3/uL RBC (4.60-5.80) X10*6/uL Hgb (14.0-18.0) g/dl Hct (42.0-52.0) % MCV (80.0-98.0) fL MCH (27.0-33.0) pg MCHC (31.0-36.0) g/dl RDW (11.0-16.0) % Plt Count (160-400) X10*3/uL MPV (9.4-12.4) fL Immature Gran % (Auto) (0.0-0.4) % Neut % (Auto) (45-73) % Lymph % (Auto) (20-40) % Woodson % (Auto) (2-11) % Eos % (Auto) (0-4) % Baso % (Auto) (0-2) % Lymph # (Auto) (1.2-4.9) X10*3/uL Woodson # (Auto) (0.1-1.2) X10*3/uL Eos # (Auto) (0.0-0.4) X10*3/uL Baso # (Auto) (0.0-0.2) X10*3/uL Abs Immat Gran (auto) (0.00-0.03) X10*3/uL Absolute Neuts (auto) (2.0-8.3) x10*3/uL Absolute Nucleated RBC (0.0-0.012) X10*3/uL Nucleated RBC % (auto) (0.0-0.2) /100WBC Smear Tech's Comments Sodium (135-145) mmol/L Potassium (3.3-5.1) mmol/L Chloride (96-108) mmol/L Carbon Dioxide (22-29) mmol/L Anion Gap (12-20) BUN (9-16) mg/dL Creatinine (0.5-1.4) mg/dL Estim Creat Clear Calc Estimated GFR POC Glucose 350 H* 215 H 365 H* (60-115) mg/dL Random Glucose (60-115) mg/dL Calcium (8.4-10.2) mg/dL Total Bilirubin (0.0-1.0) mg/dL AST (5-37) U/L ALT (0-40) U/L Alkaline Phosphatase (39-117) U/L Total Protein (6.5-8.0) g/dL Albumin (3.5-5.0) g/dL Urine Color Urine Appearance Urine pH (5.0-9.0) Ur Specific Witherbee (1.005-1.025) Urine Protein (Neg-Trace) mg/dL Urine Glucose (UA) (Negative) mg/dL Urine Ketones (Negative) mg/dL Urine Blood (Negative) Urine Nitrite (Negative) Ur Leukocyte Esterase (Negative) Urine RBC (0-2) /HPF Urine WBC (0-5) /HPF Ur Squamous Epith Cells (0-2) /HPF Urine Bacteria (None Seen) Hyaline Casts (0-2) /LPF Salicylates (15-30) mg/dL Urine Opiates Screen (Not Detect) Ur Buprenorphine Scrn (Not Detect) ng/mL Ur Oxycodone Screen (Not Detect) ng/mL Urine Methadone Screen (Not Detect) ng/mL Urine Fentanyl Screen (Not Detect) Acetaminophen (<30) mcg/mL Ur Barbiturates Screen (Not Detect) Ur Phencyclidine Scrn (Not Detect) Ur Amphetamines Screen (Not Detect) U Benzodiazepines Scrn (Not Detect) Urine Cocaine Screen (Not Detect) U Marijuana (THC) Screen (Not Detect) Ethyl Alcohol mg/dL T.pallidum Ab (EIA) (Nonreactive) COVID-19 (THI) (Negative) COVID-19 Clin Com Hepatitis A IgM Ab (Nonreactive) Hep Bs Antigen (Negative) Hep Bs Antibody (Nonreactive) Hep B Core Total Ab (Nonreactive) Hepatitis C Ab (EIA) (Nonreactive) HIV 1&2 Ab/P24 Ag 4thGn (Nonreactive) 03/03/24 03/03/24 03/03/24 Range/Units 08:34 12:03 16:30 WBC (4.8-10.8) X10*3/uL RBC (4.60-5.80) X10*6/uL Hgb (14.0-18.0) g/dl Hct (42.0-52.0) % MCV (80.0-98.0) fL MCH (27.0-33.0) pg MCHC (31.0-36.0) g/dl RDW (11.0-16.0) % Plt Count (160-400) X10*3/uL MPV (9.4-12.4) fL Immature Gran % (Auto) (0.0-0.4) % Neut % (Auto) (45-73) % Lymph % (Auto) (20-40) % Woodson % (Auto) (2-11) % Eos % (Auto) (0-4) % Baso % (Auto) (0-2) % Lymph # (Auto) (1.2-4.9) X10*3/uL Woodson # (Auto) (0.1-1.2) X10*3/uL Eos # (Auto) (0.0-0.4) X10*3/uL Baso # (Auto) (0.0-0.2) X10*3/uL Abs Immat Gran (auto) (0.00-0.03) X10*3/uL Absolute Neuts (auto) (2.0-8.3) x10*3/uL Absolute Nucleated RBC (0.0-0.012) X10*3/uL Nucleated RBC % (auto) (0.0-0.2) /100WBC Smear Tech's Comments Sodium (135-145) mmol/L Potassium (3.3-5.1) mmol/L Chloride (96-108) mmol/L Carbon Dioxide (22-29) mmol/L Anion Gap (12-20) BUN (9-16) mg/dL Creatinine (0.5-1.4) mg/dL Estim Creat Clear Calc Estimated GFR POC Glucose 414 H* 414 H* 279 H (60-115) mg/dL Random Glucose (60-115) mg/dL Calcium (8.4-10.2) mg/dL Total Bilirubin (0.0-1.0) mg/dL AST (5-37) U/L ALT (0-40) U/L Alkaline Phosphatase (39-117) U/L Total Protein (6.5-8.0) g/dL Albumin (3.5-5.0) g/dL Urine Color Urine Appearance Urine pH (5.0-9.0) Ur Specific W[place]bee (1.005-1.025) Urine Protein (Neg-Trace) mg/dL Urine Glucose (UA) (Negative) mg/dL Urine Ketones (Negative) mg/dL Urine Blood (Negative) Urine Nitrite (Negative) Ur Leukocyte Esterase (Negative) Urine RBC (0-2) /HPF Urine WBC (0-5) /HPF Ur Squamous Epith Cells (0-2) /HPF Urine Bacteria (None Seen) Hyaline Casts (0-2) /LPF Salicylates (15-30) mg/dL Urine Opiates Screen (Not Detect) Ur Buprenorphine Scrn (Not Detect) ng/mL Ur Oxycodone Screen (Not Detect) ng/mL Urine Methadone Screen (Not Detect) ng/mL Urine Fentanyl Screen (Not Detect) Acetaminophen (<30) mcg/mL Ur Barbiturates Screen (Not Detect) Ur Phencyclidine Scrn (Not Detect) Ur Amphetamines Screen (Not Detect) U Benzodiazepines Scrn (Not Detect) Urine Cocaine Screen (Not Detect) U Marijuana (THC) Screen (Not Detect) Ethyl Alcohol mg/dL T.pallidum Ab (EIA) (Nonreactive) COVID-19 (THI) (Negative) COVID-19 Clin Com Hepatitis A IgM Ab (Nonreactive) Hep Bs Antigen (Negative) Hep Bs Antibody (Nonreactive) Hep B Core Total Ab (Nonreactive) Hepatitis C Ab (EIA) (Nonreactive) HIV 1&2 Ab/P24 Ag 4thGn (Nonreactive) 03/03/24 03/04/24 03/04/24 Range/Units 20:26 08:25 16:11 WBC (4.8-10.8) X10*3/uL RBC (4.60-5.80) X10*6/uL Hgb (14.0-18.0) g/dl Hct (42.0-52.0) % MCV (80.0-98.0) fL MCH (27.0-33.0) pg MCHC (31.0-36.0) g/dl RDW (11.0-16.0) % Plt Count (160-400) X10*3/uL MPV (9.4-12.4) fL Immature Gran % (Auto) (0.0-0.4) % Neut % (Auto) (45-73) % Lymph % (Auto) (20-40) % Woodson % (Auto) (2-11) % Eos % (Auto) (0-4) % Baso % (Auto) (0-2) % Lymph # (Auto) (1.2-4.9) X10*3/uL Woodson # (Auto) (0.1-1.2) X10*3/uL Eos # (Auto) (0.0-0.4) X10*3/uL Baso # (Auto) (0.0-0.2) X10*3/uL Abs Immat Gran (auto) (0.00-0.03) X10*3/uL Absolute Neuts (auto) (2.0-8.3) x10*3/uL Absolute Nucleated RBC (0.0-0.012) X10*3/uL Nucleated RBC % (auto) (0.0-0.2) /100WBC Smear Tech's Comments Sodium (135-145) mmol/L Potassium (3.3-5.1) mmol/L Chloride (96-108) mmol/L Carbon Dioxide (22-29) mmol/L Anion Gap (12-20) BUN (9-16) mg/dL Creatinine (0.5-1.4) mg/dL Estim Creat Clear Calc Estimated GFR POC Glucose 252 H 377 H* 233 H (60-115) mg/dL Random Glucose (60-115) mg/dL Calcium (8.4-10.2) mg/dL Total Bilirubin (0.0-1.0) mg/dL AST (5-37) U/L ALT (0-40) U/L Alkaline Phosphatase (39-117) U/L Total Protein (6.5-8.0) g/dL Albumin (3.5-5.0) g/dL Urine Color Urine Appearance Urine pH (5.0-9.0) Ur Specific Witherbee (1.005-1.025) Urine Protein (Neg-Trace) mg/dL Urine Glucose (UA) (Negative) mg/dL Urine Ketones (Negative) mg/dL Urine Blood (Negative) Urine Nitrite (Negative) Ur Leukocyte Esterase (Negative) Urine RBC (0-2) /HPF Urine WBC (0-5) /HPF Ur Squamous Epith Cells (0-2) /HPF Urine Bacteria (None Seen) Hyaline Casts (0-2) /LPF Salicylates (15-30) mg/dL Urine Opiates Screen (Not Detect) Ur Buprenorphine Scrn (Not Detect) ng/mL Ur Oxycodone Screen (Not Detect) ng/mL Urine Methadone Screen (Not Detect) ng/mL Urine Fentanyl Screen (Not Detect) Acetaminophen (<30) mcg/mL Ur Barbiturates Screen (Not Detect) Ur Phencyclidine Scrn (Not Detect) Ur Amphetamines Screen (Not Detect) U Benzodiazepines Scrn (Not Detect) Urine Cocaine Screen (Not Detect) U Marijuana (THC) Screen (Not Detect) Ethyl Alcohol mg/dL T.pallidum Ab (EIA) (Nonreactive) COVID-19 (THI) (Negative) COVID-19 Clin Com Hepatitis A IgM Ab (Nonreactive) Hep Bs Antigen (Negative) Hep Bs Antibody (Nonreactive) Hep B Core Total Ab (Nonreactive) Hepatitis C Ab (EIA) (Nonreactive) HIV 1&2 Ab/P24 Ag 4thGn (Nonreactive) 03/05/24 03/05/24 03/05/24 Range/Units 01:54 03:54 06:37 WBC (4.8-10.8) X10*3/uL RBC (4.60-5.80) X10*6/uL Hgb (14.0-18.0) g/dl Hct (42.0-52.0) % MCV (80.0-98.0) fL MCH (27.0-33.0) pg MCHC (31.0-36.0) g/dl RDW (11.0-16.0) % Plt Count (160-400) X10*3/uL MPV (9.4-12.4) fL Immature Gran % (Auto) (0.0-0.4) % Neut % (Auto) (45-73) % Lymph % (Auto) (20-40) % Woodson % (Auto) (2-11) % Eos % (Auto) (0-4) % Baso % (Auto) (0-2) % Lymph # (Auto) (1.2-4.9) X10*3/uL Woodson # (Auto) (0.1-1.2) X10*3/uL Eos # (Auto) (0.0-0.4) X10*3/uL Baso # (Auto) (0.0-0.2) X10*3/uL Abs Immat Gran (auto) (0.00-0.03) X10*3/uL Absolute Neuts (auto) (2.0-8.3) x10*3/uL Absolute Nucleated RBC (0.0-0.012) X10*3/uL Nucleated RBC % (auto) (0.0-0.2) /100WBC Smear Tech's Comments Sodium (135-145) mmol/L Potassium (3.3-5.1) mmol/L Chloride (96-108) mmol/L Carbon Dioxide (22-29) mmol/L Anion Gap (12-20) BUN (9-16) mg/dL Creatinine (0.5-1.4) mg/dL Estim Creat Clear Calc Estimated GFR POC Glucose 483 H* 361 H* 288 H (60-115) mg/dL Random Glucose (60-115) mg/dL Calcium (8.4-10.2) mg/dL Total Bilirubin (0.0-1.0) mg/dL AST (5-37) U/L ALT (0-40) U/L Alkaline Phosphatase (39-117) U/L Total Protein (6.5-8.0) g/dL Albumin (3.5-5.0) g/dL Urine Color Urine Appearance Urine pH (5.0-9.0) Ur Specific Witherbee (1.005-1.025) Urine Protein (Neg-Trace) mg/dL Urine Glucose (UA) (Negative) mg/dL Urine Ketones (Negative) mg/dL Urine Blood (Negative) Urine Nitrite (Negative) Ur Leukocyte Esterase (Negative) Urine RBC (0-2) /HPF Urine WBC (0-5) /HPF Ur Squamous Epith Cells (0-2) /HPF Urine Bacteria (None Seen) Hyaline Casts (0-2) /LPF Salicylates (15-30) mg/dL Urine Opiates Screen (Not Detect) Ur Buprenorphine Scrn (Not Detect) ng/mL Ur Oxycodone Screen (Not Detect) ng/mL Urine Methadone Screen (Not Detect) ng/mL Urine Fentanyl Screen (Not Detect) Acetaminophen (<30) mcg/mL Ur Barbiturates Screen (Not Detect) Ur Phencyclidine Scrn (Not Detect) Ur Amphetamines Screen (Not Detect) U Benzodiazepines Scrn (Not Detect) Urine Cocaine Screen (Not Detect) U Marijuana (THC) Screen (Not Detect) Ethyl Alcohol mg/dL T.pallidum Ab (EIA) (Nonreactive) COVID-19 (THI) (Negative) COVID-19 Clin Com Hepatitis A IgM Ab (Nonreactive) Hep Bs Antigen (Negative) Hep Bs Antibody (Nonreactive) Hep B Core Total Ab (Nonreactive) Hepatitis C Ab (EIA) (Nonreactive) HIV 1&2 Ab/P24 Ag 4thGn (Nonreactive) Independent Historian Clinical information obtained from an independent historian. History obtained from or confirmed by: EMS (EMS provided additional history and confirmed the history provided by the patient. ) Discharge Plan Discharge Clinical Impression: Psychosis Patient Disposition: Still a Patient Prescriptions: No Action pantoprazole 40 mg tablet,delayed release (DR/EC) 40 mg PO BID@0630,1630 albuterol sulfate [Ventolin HFA] 90 mcg/actuation HFA aerosol inhaler 2 puff inhalation Q4H PRN (Reason: Shortness Of Breath) insulin glargine [Lantus Solostar U-100 Insulin] 100 unit/mL (3 mL) insulin pen 15 unit subcut DAILY gabapentin 400 mg capsule 800 mg PO TID clonidine HCl 0.2 mg tablet 0.1 mg PO BID chlorpromazine 25 mg tablet 100 mg PO BID amlodipine 5 mg Tablet 5 mg PO DAILY lamotrigine 25 mg Tablet 25 mg PO DAILY folic acid 1 mg Tablet 1 mg PO DAILY alogliptin [Nesina] 25 mg Tablet 25 mg PO DAILY multivit with min-folic acid 400 mcg Tablet Extended Release 1 tab PO DAILY Invega Sustenna 234 mg/1.5 mL Syringe 234 mg IM Q28D polyethylene glycol 3350 [Miralax] 17 gram Powder In Packet 17 g PO DAILY PRN (Reason: Constipation) dextromethorphan-guaifenesin [Robitussin-DM] 10-100 mg/5 mL Syrup 10 ml PO Q6H PRN (Reason: Cough) Rx Instructions: End date 03/02/2024 senna 8.6 mg Capsule 8.6 mg PO DAILY PRN (Reason: Constipation) Humulin R Regular U-100 Insuln 100 unit/mL Solution 1 sliding scale dose SUBCUT USEASDIRECTD Protocol: Insulin Correction Scale Less than or equal to 110 ---- Give (units): 0 111 to 150 Give (units): 0 151 to 200 Give (units): 3 201 to 250 Give (units): 6 251 to 300 Give (units): 9 301 to 350 Give (units): 12 Greater than 350 Give (units): 0 Call MD if Blood Glucose > : 350 Humulin R Regular U-100 Insuln 100 unit/mL Solution 15 unit SUBCUT TIDAC Interventions: [place]-Suicide Risk Severity Scale Last Done: 03/02/24 14:11 Print Language: Bolivian
[2024-02-29 16:18] LABS: Imm Gran Abs Auto 0.11 X10*3/uL (0.00-0.03); PLT CLUMP 1; SCAN SMEAR FLAG 1
[2024-02-29 16:20] LABS: Basophils Absolute Auto 0.1 X10*3/uL (0.0-0.2); Basophils Percent Auto 0.4 % (0-2); Hematocrit 40.4 % (42.0-52.0); Hemoglobin 12.8 g/dl (14.0-18.0); Lymphocytes Absolute Auto 1.4 X10*3/uL (1.2-4.9); Lymphocytes Percent Auto 12.2 % (20-40); MANUAL DIFF FLAG SCAN; Mean Corpuscular HGB Conc 31.7 g/dl (31.0-36.0); Mean Corpuscular Volume 82.1 fL (80.0-98.0); Monocytes Absolute Auto 0.8 X10*3/uL (0.1-1.2); Neutrophils Percent Auto 79.4 % (45-73); Red Blood Count 4.92 X10*6/uL (4.60-5.80); Red Cell Distribution Width 15.9 % (11.0-16.0)
[2024-02-29 16:40] LABS: Acetaminophen LAB < 3 mcg/mL (<30); Salicylate < 5.0 mg/dL (15-30)
[2024-02-29 16:45] LABS: Mean Platelet Volume 10.4 fL (9.4-12.4); Platelet Count 202 X10*3/uL (160-400); SLIDE REVIEW VERIFIED; White Blood Count 11.3 X10*3/uL (4.8-10.8)
[2024-02-29 16:46] LABS: Alanine Aminotransferase 9 U/L (0-40); Albumin Level 3.2 g/dL (3.5-5.0); Alkaline Phosphatase 107 U/L (39-117); Anion Gap 14 (12-20); Aspartate Amino Transferase 19 U/L (5-37); Bilirubin Total 0.2 mg/dL (0.0-1.0); Blood Urea Nitrogen 22 mg/dL (9-16); Calcium 9.1 mg/dL (8.4-10.2); Carbon Dioxide 26 mmol/L (22-29); Chloride 101 mmol/L (96-108); Creatinine Clr Calc Pharmacy 113.6; Estimated Glomerular Filt Rate > 60; Ethanol < 10 mg/dL; Glucose Random 426 mg/dL (60-115); Potassium 4.5 mmol/L (3.3-5.1); Sodium 136 mmol/L (135-145); Total Protein 6.8 g/dL (6.5-8.0)
[2024-02-29 16:50] VITALS: BP 169/79; PULSE 112; RESP 18; TEMP 36.6; O2SAT 95
--- NOTE | 2024-02-29 17:01 | PC.NURSE ---
[facility] [place], [address], on a section 35. Staff at bedside. Staff provided phone number to contact for medical records and med list: Ext: [phone]. Staff to fax records to ED.
[2024-02-29 17:07] LABS: Appearance Urine Clear; Color Urine Yellow; Glucose Urine UA >=1000 mg/dL (Negative); Leukocyte Esterase Urine Negative (Negative); Nitrite Urine Negative (Negative); PH 7.5 (5.0-9.0); UMIC TRIGGER UA YES; Urine Blood Negative (Negative); Urine Ketones Negative (Negative); Urine Protein Trace mg/dL (Neg-Trace)
[2024-02-29 17:16] LABS: COVID-19 Test Negative (Negative); IDNOW Serial# 152EDE1D
[2024-02-29 17:20] LABS: Amphetamine Screen Urine Not Detected (Not Detect); Barbiturates, Urine Not Detected (Not Detect); Benzodiazepines Screen Urine Not Detected (Not Detect); Buprenorphine Scr Not Detected (Not Detect); Cannabinoid Screen Urine Not Detected (Not Detect); Cocaine Screen Urine Not Detected (Not Detect); Fentanyl, urine Not Detected (Not Detect); Methadone Screen, Urine Not Detected (Not Detect); Opiate Screen Urine Not Detected (Not Detect); Oxycodone Screen Urine Not Detected (Not Detect); Phencyclidine Screen Urine Not Detected (Not Detect)
[2024-02-29 17:48] LABS: Bacteria Urine None Seen (None Seen); Hyaline Casts Urine 0-2 /LPF (0-2); RBC Urine 0-2 /HPF (0-2); Squamous Epithelial Cell Urine 0-2 /HPF (0-2); WBC Urine 0-5 /HPF (0-5)
[2024-02-29] MEDS: LORazepam 2 MG/ML VIAL 4 MG IM (18:00)
[2024-02-29] MEDS: OLANZapine 10 MG VIAL IM (18:00)
--- NOTE | 2024-02-29 18:05 | PC.NURSE ---
patient being uncooperative with staff and appointed security guards, patient being sexually inappropriate with female staff. patient received two IM injections in bilat deltoids, medicated per MAR patient swearing and threatening staff.
--- NOTE | 2024-02-29 18:48 | MHC.EDTECH ---
Patient given dinner tray
--- NOTE | 2024-02-29 18:56 | PC.NURSE ---
pt awake and urinated in the floor. when asked, why he didn't use the urinal, pt says, shut the fuck up
[2024-02-29 19:10] VITALS: PULSE 20
--- NOTE | 2024-02-29 19:22 | PC.NURSE ---
report received from Adán MORLEY, assume care of pt at this time
--- NOTE | 2024-02-29 19:49 | PC.NURSE ---
pt cont to yell at staff. Pt agreed to have VS, and then started yelling, because the light was in his eyes, and refused VS. Pt has 2 staff members, with him at this time.
--- NOTE | 2024-02-29 21:15 | PC.NURSE ---
pt up out of the bed, standing beside, the bed. Pt urinated on himself, the bed, and the floor. after getting dry linen on the bed, while the pt was yelling and cussing at staff, pt got back onto the bed, Pt refused to change out of his wet pants. Pt told the tech, trying to help him, to shut the fuck up
--- NOTE | 2024-02-29 21:17 | MHC.EDTECH ---
Patient urinated on floor and self and refused to changed when offered kayla pants and top. Patient bed changed and cleaned
--- NOTE | 2024-02-29 21:18 | MHC.EDTECH ---
Patient refused blood sugar
[2024-02-29 21:52] VITALS: RESP 18
[2024-02-29 22:17] VITALS: BP 155/87; PULSE 116; RESP 20; O2SAT 95
--- NOTE | 2024-02-29 22:25 | PC.NURSE ---
pt cooperatived with tech, he allowed tech to change him into a gown, and allowed VS, and POC. Pt was given some food,
[2024-02-29 22:30] LABS: Glucose, Whole Blood 323 mg/dL (60-115)
[2024-02-29] MEDS: Insulin Lispro 100 UNIT/ML 3 ML VIAL SUBCUT (22:30)
--- NOTE | 2024-02-29 23:46 | PC.NURSE ---
pt is resting quietly at this time, eyes closed, resp with ease, 2 Staff members remain at bedside
[2024-03-01] VITALS (12 sets, daily range): BP systolic 122–163; BP diastolic 78–92; PULSE 100–114; RESP 13–24; TEMP 36.8; O2SAT 92–98
[2024-03-01] MEDS: Gabapentin 600 MG TABLET 800 MG PO (00:22)
[2024-03-01] MEDS: cloNIDine HCL 0.1 MG TABLET PO ×2 (00:23→22:01)
--- NOTE | 2024-03-01 02:12 | PC.NURSE ---
resting quietly, on stretcher, resp with ease, no s/s of acute distress, will cont plan of care
--- NOTE | 2024-03-01 03:23 | PC.NURSE ---
pt cussing and yelling at the staff that came with him
--- NOTE | 2024-03-01 03:54 | PC.NURSE ---
pt cont to tati and cuss at all staff members
[2024-03-01 03:58] LABS: Syphilis Screen Nonreactive (Nonreactive)
[2024-03-01 04:13] LABS: HBS Num1 0.52 mIU/mL (0-7.99); HBc Num1 0.08 S/CO (0.00-0.79); HBsAGNum1 0.31 S/CO (0.00-0.99); HIV AB/AG Nonreactive (Nonreactive); HIV Num 1 0.07 S/CO (0.00-0.99); Hepatitis A Antibody IgM 0.22 Index (0-0.79); Hepatitis B Core Antibody Nonreactive (Nonreactive); Hepatitis B Surface Antigen Negative (Negative); ~HepC Num1 0.09 S/CO (0.00-0.79); ~Hepatitis A Antibody IgM Nonreactive (Nonreactive); ~Hepatitis B Surface Antibody NONREACTIVE (Nonreactive); ~Hepatitis C Antibody Nonreactive (Nonreactive)
--- NOTE | 2024-03-01 05:45 | PC.NURSE ---
pt urinated all over himself, and then started yelling for nurse. This nurse and a tech went in, along with [employer], Pt stood at the end of the bed, and then proceeded to defecate, standing up, and then yelled at staff to clean him up. Pt was given wipes, to wipe himself with. Pt then wanted to sit in the WC, pt was told no. Pt then proceeded, to yell and cuss at staff. [employer] was called to help SS, when pt stood, and started threatening them. Pt was then placed on stretcher, by security. SS placed pt, back on handcuffs to the LL and RA. Pt continued with trying to get out of the cuff, [address] [employer],placed restraints on LA, and RL.
--- NOTE | 2024-03-01 06:10 | MHC.CARE ---
Pt is currently an [facility] Psychiatric bed search. He was assessed by [facility] at [place] and sent here for boarding. CARE team reassessed him last night and he remains a bedsearch and Psych consult.
--- NOTE | 2024-03-01 06:18 | PC.NURSE ---
pt yelling out NURSE, NURSE. Pt requesting restraints off. Pt not being cooperative. continues to yell and cuss at staff
[2024-03-01] MEDS: Ziprasidone Mesylate 20 MG VIAL IM (06:39)
[2024-03-01] MEDS: LORazepam 2 MG/ML VIAL IM ×2 (06:40→07:55)
[2024-03-01] MEDS: diphenhydrAMINE HCL 50 MG/ML VIAL IM (06:40)
--- NOTE | 2024-03-01 06:40 | PC.NURSE ---
pt medicated as ordered, Pt yelled at this nurse, and said, Neyda, when I get out of here, I am going to find you and kill you Kevin Security remains at bedside
--- NOTE | 2024-03-01 07:26 | PC.NURSE ---
report given to Roz MORLEY
[2024-03-01] MEDS: OLANZapine 10 MG VIAL IM (07:55)
--- NOTE | 2024-03-01 08:04 | PC.NURSE ---
Patient attempting to bite and spit at staff, threatening violence.
--- NOTE | 2024-03-01 08:18 | ECG_ITS ---
Test Reason : admission Blood Pressure : / mmHG Vent. Rate : 109 BPM Atrial Rate : 000 BPM P-R Int : 000 ms QRS Dur : 070 ms QT Int : 304 ms P-R-T Axes : 000 044 -15 degrees QTc Int : 409 ms Poor data quality, interpretation may be adversely affected Normal sinus rhythm Possible Inferior infarct , age undetermined Abnormal ECG When compared with ECG of 26-OCT-2023 13:00, QRS duration has decreased ST now depressed in Anterior leads Non-specific change in ST segment in Lateral leads Referred By: Nguyen Ritchie Electronically Signed By:JESUS SUN MD
--- NOTE | 2024-03-01 08:28 | PC.NURSE ---
Med rec faxed to pharmacy.
[2024-03-01 08:43] LABS: Glucose, Whole Blood 308 mg/dL (60-115)
[2024-03-01] MEDS: Insulin Lispro 100 UNIT/ML 3 ML VIAL SUBCUT ×3 (08:45→21:56)
--- NOTE | 2024-03-01 10:38 | PC.NURSE ---
Pt asleep on stretcher, respirations equal/unlabored.
--- NOTE | 2024-03-01 11:25 | PC.NURSE ---
patient yelling out from stretcher asking someone to hit the yellow button on stretcher and take off his cuffs. continues yelling despite RN at bedside and care team personel at bedside to attempt theraputic communication and descalation but pt non cooperative and unwilling to listen.
[2024-03-01 12:07] LABS: Glucose, Whole Blood 210 mg/dL (60-115)
--- NOTE | 2024-03-01 12:15 | PC.NURSE ---
reattempted to give patient oral medications and refused. Patient stated I dont take thorazine, get the gabapentin but not from here. Patient still drowsey and mumbling from previous medication administration.
--- NOTE | 2024-03-01 12:17 | PM.PSYCN ---
History of Present Illness Date of Service: 03/01/2024 Chief Complaint: CP/OVERED IN FECES/SECTION 12/RESTRAINED Discussed with referring provider: Yes Sources of Information: patient interviewed, chart reviewed and crisis/core team assessment reviewed HPI Narrative: Mr. Che is a 48 year-old male with hx of schizoaffective disorder, cocaine and opioid use who was brought from [place] where he was completing section 35 for substance use treatment. It appears pt was at that facility initially from 11/17/2023 to 02/13/24 for tx of substance use. He was released to the streets, quickly relapsed and accidentally overdosed. He was sectioned 35 again on 02/28/2024. He has a long psychiatric hx with multiple psychiatric admissions including admission to [facility] last year for about 8 months or so and released last August in 2022. He was brought from [facility] due to pt defecating on self and in his room. There was question of him eating feces.He also had reported SI and HI, which he denies here. Collateral information from his mother, Briana, who reports pt with long hx of psychosis, paranoia, functionally mother reports he usually in bed, not able to care for himself including defecating and urinating on self. Mother reports he has been homeless for about 3 years. He has had admission to [facility]. Pt seen in the ED. He was mostly sleeping, would briefly open his eyes, but would not engage in conversation. Per RN and staff from [facility], pt has been yelling at staff, throwing trash, verbally abusive towards staff. In terms of medication, he has a Nav's. He received Invega Paliperidone 234mg IM on 02/12. He also has thorazine 100mg po BID. Burch order also includes haldol Past Psychiatric History: Inpt: several in the past, including [facility]. He apparently was at [facility] August 2022- pending collateral information from [facility]. OP: none DMH: case management. Past medication trials: paliperidone, thorazine Medical Evaluation Reviewed: Yes [facility] Medical History Diabetes type 2, controlled Hip problem Osteoarthritis HTN (hypertension) PTSD (post-traumatic stress disorder) Depression Anxiety Diverticulosis BMI 45.0-49.9, adult Morbid obesity due to excess calories Shortness of breath Preoperative examination Obese Bipolar 1 disorder Degenerative disc disease Diabetes Surgical History History of surgery of head Hx of cholecystectomy H/O elbow surgery Diagnostics Vital Signs (24Hr): Vital Signs - 24 hr 02/29/24 13:06 02/29/24 16:50 02/29/24 19:10 Temperature 98 F 97.9 F Pulse Rate 112 H 112 H 20 L Respiratory Rate 19 18 Blood Pressure 155/86 H 169/79 H Pulse Oximetry 97 95 Oxygen Delivery Method Room Air Room Air Oxygen Flow Rate 02/29/24 21:52 02/29/24 22:17 03/01/24 07:25 Temperature Pulse Rate 116 H 100 Respiratory Rate 18 20 22 H Blood Pressure 155/87 H Pulse Oximetry 95 Oxygen Delivery Method Room Air Oxygen Flow Rate 03/01/24 07:40 03/01/24 07:55 03/01/24 08:10 Temperature Pulse Rate 102 H 105 H 102 H Respiratory Rate 20 24 H 16 Blood Pressure Pulse Oximetry Oxygen Delivery Method Oxygen Flow Rate 03/01/24 08:25 03/01/24 08:40 03/01/24 08:41 Temperature Pulse Rate 108 H 114 H 103 H Respiratory Rate 16 22 H 13 Blood Pressure 122/90 H 141/92 H 122/90 H Pulse Oximetry 94 98 96 Oxygen Delivery Method Room Air Nasal Cannula Nasal Cannula Oxygen Flow Rate 2 2 03/01/24 08:55 03/01/24 12:10 Temperature Pulse Rate 111 H 103 H Respiratory Rate 24 H 22 H Blood Pressure 142/78 H 137/87 Pulse Oximetry 98 92 Oxygen Delivery Method Room Air Room Air Oxygen Flow Rate 2 BMI result Body Mass Index 52.1 Labs 02/29/24 16:12 02/29/24 16:12 Labs: Laboratory Results - last 48 hr 02/29/24 02/29/24 02/29/24 16:12 16:54 22:23 WBC 11.3 H RBC 4.92 Hgb 12.8 L Hct 40.4 L MCV 82.1 MCH 26.0 L MCHC 31.7 RDW 15.9 Plt Count 202 MPV 10.4 Immature Gran % (Auto) 1.0 H Neut % (Auto) 79.4 H Lymph % (Auto) 12.2 L [place] % (Auto) 7.0 Eos % (Auto) 0.0 Baso % (Auto) 0.4 Lymph # (Auto) 1.4 [place] # (Auto) 0.8 Eos # (Auto) 0.0 Baso # (Auto) 0.1 Abs Immat Gran (auto) 0.11 H Absolute Neuts (auto) 9.0 H Absolute Nucleated RBC 0.000 Nucleated RBC % (auto) 0.0 Smear Tech's Comments VERIFIED Sodium 136 Potassium 4.5 Chloride 101 Carbon Dioxide 26 Anion Gap 14 BUN 22 H Creatinine 1.17 Estim Creat Clear Calc 113.6 Estimated GFR > 60 POC Glucose 323 H Random Glucose 426 H* Calcium 9.1 Total Bilirubin 0.2 AST 19 ALT 9 Alkaline Phosphatase 107 Total Protein 6.8 Albumin 3.2 L Urine Color Yellow Urine Appearance Clear Urine pH 7.5 Ur Specific [place] 1.020 Urine Protein Trace Urine Glucose (UA) >=1000 H Urine Ketones Negative Urine Blood Negative Urine Nitrite Negative Ur Leukocyte Esterase Negative Urine RBC 0-2 Urine WBC 0-5 Ur Squamous Epith Cells 0-2 Urine Bacteria None Seen Hyaline Casts 0-2 Salicylates < 5.0 L Urine Opiates Screen Not Detected Ur Buprenorphine Scrn Not Detected Ur Oxycodone Screen Not Detected Urine Methadone Screen Not Detected Urine Fentanyl Screen Not Detected Acetaminophen < 3 Ur Barbiturates Screen Not Detected Ur Phencyclidine Scrn Not Detected Ur Amphetamines Screen Not Detected U Benzodiazepines Scrn Not Detected Urine Cocaine Screen Not Detected U Marijuana (THC) Screen Not Detected Ethyl Alcohol < 10 T.pallidum Ab (EIA) Nonreactive COVID-19 (THI) Negative COVID-19 Clin Com See Note Hepatitis A IgM Ab Nonreactive Hep Bs Antigen Negative Hep Bs Antibody NONREACTIVE Hep B Core Total Ab Nonreactive Hepatitis C Ab (EIA) Nonreactive HIV 1&2 Ab/P24 Ag 4thGn Nonreactive 03/01/24 03/01/24 08:39 11:57 WBC RBC Hgb Hct MCV MCH MCHC RDW Plt Count MPV Immature Gran % (Auto) Neut % (Auto) Lymph % (Auto) [place] % (Auto) Eos % (Auto) Baso % (Auto) Lymph # (Auto) [place] # (Auto) Eos # (Auto) Baso # (Auto) Abs Immat Gran (auto) Absolute Neuts (auto) Absolute Nucleated RBC Nucleated RBC % (auto) Smear Tech's Comments Sodium Potassium Chloride Carbon Dioxide Anion Gap BUN Creatinine Estim Creat Clear Calc Estimated GFR POC Glucose 308 H 210 H Random Glucose Calcium Total Bilirubin AST ALT Alkaline Phosphatase Total Protein Albumin Urine Color Urine Appearance Urine pH Ur Specific [place] Urine Protein Urine Glucose (UA) Urine Ketones Urine Blood Urine Nitrite Ur Leukocyte Esterase Urine RBC Urine WBC Ur Squamous Epith Cells Urine Bacteria Hyaline Casts Salicylates Urine Opiates Screen Ur Buprenorphine Scrn Ur Oxycodone Screen Urine Methadone Screen Urine Fentanyl Screen Acetaminophen Ur Barbiturates Screen Ur Phencyclidine Scrn Ur Amphetamines Screen U Benzodiazepines Scrn Urine Cocaine Screen U Marijuana (THC) Screen Ethyl Alcohol T.pallidum Ab (EIA) COVID-19 (THI) COVID-19 Clin Com Hepatitis A IgM Ab Hep Bs Antigen Hep Bs Antibody Hep B Core Total Ab Hepatitis C Ab (EIA) HIV 1&2 Ab/P24 Ag 4thGn Mental Status Exam Mental Status Exam Narrative: MO, male, soiled, disrobbing. minimally cooperative, briefly opened eyes. Medications Medications Current Medications Albuterol Sulfate (Albuterol Sulfate 90 Mcg 8 Gm Inhaler) 2 puff INHALE Q4H PRN PRN Reason: Shortness Of Breath Amlodipine Besylate (Amlodipine Besylate 5 Mg Tablet) 5 mg PO DAILY [facility]; Protocol Last Admin: 03/01/24 10:07 Dose: Not Given Chlorpromazine HCl (Chlorpromazine Hcl 100 Mg Tablet) 100 mg PO BID [facility] Last Admin: 03/01/24 10:39 Dose: Not Given Clonidine HCl (Clonidine Hcl 0.1 Mg Tablet) 0.1 mg PO BID [facility]; Protocol Last Admin: 03/01/24 10:39 Dose: Not Given Folic Acid (Folic Acid 1 Mg Tablet) 1 mg PO DAILY [facility] Last Admin: 03/01/24 10:39 Dose: Not Given Gabapentin (Gabapentin 400 Mg Capsule) 800 mg PO TID [facility] Last Admin: 03/01/24 10:39 Dose: Not Given Glucose (Glucose Gel 15 Gm Gel..Gram.) 15 gm PO Q15M PRN; Protocol PRN Reason: per Hypoglycemia Standing Ord. Guaifenesin/Dextromethorphan (Guaifenesin Dm 100/10/5 Ml 5 Ml Syrup) 10 ml PO Q6H PRN PRN Reason: Cough Dextrose (D10) 250 mls @ 750 mls/hr IV Q15M PRN; Protocol PRN Reason: per Hypoglycemia Standing Ord. Insulin Glargine (Insulin Glargine,Hum.Rec.Anlog 100 Unit/Ml 10 Ml Vial) 15 unit SUBCUT BEDTIME [facility] Insulin Human Lispro (Insulin Lispro 100 Unit/Ml 3 Ml Vial) 0 unit SUBCUT QIDACHS [facility]; Protocol Last Admin: 03/01/24 08:45 Dose: 4 unit Lamotrigine (Lamotrigine 25 Mg Tablet) 25 mg PO DAILY [facility] Last Admin: 03/01/24 10:39 Dose: Not Given Multivitamins/Vitamin C (Multivitamin Tablet) 1 tab PO DAILY [facility] Last Admin: 03/01/24 10:39 Dose: Not Given Non-Formulary Medication (Alogliptin [Nesina]) 25 mg PO DAILY [facility] Omeprazole (Omeprazole 20 Mg Capsule.Dr) 20 mg PO DAILY@0630 [facility] Last Admin: 03/01/24 06:47 Dose: Not Given Paliperidone Palmitate (Paliperidone Palmitate 234 Mg/1.5 Ml Syringe) 234 mg IM Q28D [facility] Polyethylene Glycol (Polyethylene Glycol 3350 17 Gm Powd.Pack) 17 gm PO DAILY PRN PRN Reason: Constipation Senna (Sennosides 8.6 Mg Tablet) 8.6 mg PO DAILY PRN PRN Reason: Constipation Allergies Allergies Allergy/AdvReac Type Severity Reaction Status Date / Time fish derived [fish] Allergy Severe Anaphylaxis Verified 02/29/24 13:08 haloperidol [From Haldol] Allergy Severe Seizure Verified 02/29/24 13:08 shellfish derived Allergy Severe SWELLING Verified 02/29/24 13:08 [SHELLFISH DERIVED] WITH DIFFICULTY BREATHING pork derived (porcine) AdvReac Intermediate swelling Verified 02/29/24 13:08 garlic AdvReac Mild VOMITING Verified 02/29/24 13:08 Assessment & Plan Assessment & Plan (1) Schizoaffective disorder: Status: Acute Code(s): F25.9 - Schizoaffective disorder, unspecified (2) Opioid use disorder: Status: Acute Code(s): F11.90 - Opioid use, unspecified, uncomplicated (3) Personality disorder: Status: Acute Code(s): F60.9 - Personality disorder, unspecified Assessment and Plan: per previous records from [facility] Plan Mr. Che is a 48 year-old male with hx of schizoaffective disorder, opioid use disorder, who currently is under sect 35 for opioid use disorder. He has a long hx of severe chronic psychiatric illness including DMH involvement and prior keno terminal operator psychiatric hospitalization in [facility]. He has been section 35 several times and has been there for periods of 3 months at a time. Collateral information from mother and reviewing of medical records from [facility] (pending collateral information from psychiatrist who treated him at [facility]), it appears that even after long admission, his baseline is very poor as well as ability to function. He mostly in bed, is able to walk and run when he wants but prefers to use wheelchair, there is concern in that sense of behaviorally having others clean after himself. PLAN 1. Doubt inpt admission would significantly change current presentation or level of functioning based on reports from mother. He does need long terms placement in the meanwhile will continue managing medications, and adjusting as needed. 2. may consider switch of paliperidone to haldol. may need mood stabilizer. Total time managing care of this patient today ____ minutes.
--- NOTE | 2024-03-01 12:21 | PC.NURSE ---
Patient cooperative for vitals and blood sugar check but remains uncooperative with keeping oxygen supplementation and monitoring on self. continues to rip off. Oxygen desaturatoins of 85-86% on RA when sleeping. head of bed slight elevated.
--- NOTE | 2024-03-01 14:32 | PHA.MEDREC ---
Addendum entered by Shanti Hurd RPh 03/01/24 14:39: Reviewed by [facility] Original Note: Pharmacy Consult ? Medication Reconciliation Pharmacy reviewed med rec done by nursing with list provided by [facility].
--- NOTE | 2024-03-01 14:54 | MHC.CARE ---
Statewide inpatient bedsearch was conducted for this patientt, however, there are no appropriate beds available at this time. This bedsearch is now exhausted and will resume tomorrow if deemed appropriate. The following facilities declined this patient for admission. [facility] - declined due to aggression [facility] - declined due to aggression; no acute bed at this time
--- NOTE | 2024-03-01 15:42 | PC.NURSE ---
patient even unlabored respirations. NAD. correction officers at bedside. Patient remains in custody. + pulses to right lower extremity and left upper.
--- NOTE | 2024-03-01 15:45 | PC.NURSE ---
patient remains too sedated to swallow medications safety at this time. Vitals WNL. HR 103 BP 147/84 RR 16 SPO2 91% RA
[2024-03-01 15:54] LABS: Glucose, Whole Blood 200 mg/dL (60-115)
--- NOTE | 2024-03-01 16:15 | PC.NURSE ---
Patient sitting at end of bed eating dinner tray and process tech changing bed saturated with urine. officers at bedside to readjust cuffs.
[2024-03-01] MEDS: Gabapentin 400 MG CAPSULE 800 MG PO (18:16)
--- NOTE | 2024-03-01 19:31 | MHC.EDTECH ---
pt given 2 diabetiuc pudding, turkey sandwich, and 2 diabetic zulay larissa per rn
--- NOTE | 2024-03-01 19:56 | MHC.EDTECH ---
pt cleaned, dried, bed changed, and repositioned
--- NOTE | 2024-03-01 20:02 | MHC.EDTECH ---
pt agressive and screaming
[2024-03-01 21:13] LABS: Glucose, Whole Blood 294 mg/dL (60-115)
[2024-03-01] MEDS: Insulin Glargine,Hum.rec.anlog 100 UNIT/ML 10 ML VIAL 15 UNIT SUBCUT (21:55)
--- NOTE | 2024-03-01 22:39 | PC.NURSE ---
Patient shouting rudely to staff and being disrespectful and verbally abusive. Patient provided multiple snacks after dinner, 3 sandwiches, 2 puddings, 2 diet gingerales, jello, crackers, 2 cheese sticks. and still keeps yelling I HAVE THE RIGHT TO EAT BITCH pt educated on diabetic diet and compliance with blood sugars. pt states I DONT GIVE A SHIT, I DIDNT EAT DINNER . pt bedding changed d/t incontinence of urine.
--- NOTE | 2024-03-01 23:07 | PC.NURSE ---
Patient requested to use a restroom to have BM, patient assisted to a w/c by electrical engineering technologist, brought to a restroom and back to ED room. Patient became aggressive with ED staff, shouting, calling ED staff names. Security called to bedside, patient assisted to bed.
[2024-03-02] VITALS (9 sets, daily range): BP systolic 108–137; BP diastolic 70–90; PULSE 95–108; RESP 16–20; TEMP 36.6; O2SAT 89–97
--- NOTE | 2024-03-02 01:20 | PC.NURSE ---
Patient refused Gabapentin [address] Figueroa notified.
--- NOTE | 2024-03-02 01:37 | PC.NURSE ---
Per [place] staff who has been at bed side monitoring patient, patient attempted to put a blanket and a pillow case around his neck. Naresh, ED provider and Mere, charge nurse notified-blanket, pillow case, and behavioral gown removed for safety. [facility] staff at bedside monitoring patient. This RN offered patient Lorazepam PO. Patient refused.
--- NOTE | 2024-03-02 02:04 | PC.NURSE ---
Patient continues to yell and call names [facility] staff and appointed staff from [place].
--- NOTE | 2024-03-02 02:20 | PC.NURSE ---
Patient has been disruptive to other patient's with screaming, yelling, using inappropriate language. Clemencia charge nurse made aware, plan to move patient to ED, room with a door.
[2024-03-02] MEDS: LORazepam 1 MG TABLET 2 MG PO (02:31)
--- NOTE | 2024-03-02 02:43 | PC.NURSE ---
Patient brought to ED 1 with an appointed staff from [place] at bedside. Patient medicated with Lorazepam 2 mg PO with good effect, patient currently resting quietly in a stretcher bed with his eyes closed, RR 16, respirations even and unlabored, not in acute distress.
[2024-03-02 07:32] LABS: Glucose, Whole Blood 315 mg/dL (60-115)
[2024-03-02] MEDS: Gabapentin 400 MG CAPSULE 800 MG PO ×2 (08:09→15:18)
[2024-03-02] MEDS: cloNIDine HCL 0.1 MG TABLET PO (08:09)
[2024-03-02] MEDS: amLODIPine Besylate 5 MG TABLET PO (08:09)
[2024-03-02] MEDS: Omeprazole 20 MG CAPSULE.DR PO (08:09)
[2024-03-02] MEDS: Multivitamin TABLET 1 TAB PO (08:10)
[2024-03-02] MEDS: Insulin Lispro 100 UNIT/ML 3 ML VIAL SUBCUT ×4 (08:10→21:26)
--- NOTE | 2024-03-02 08:18 | PC.NURSE ---
patient cleaned up due to wetting himself. patient covered with one blanket due ligature risk. patient has two appointed guards from [facility] with him at bedside. all ligature items out of reach, patient cuffed to bed by [facility] officers. patient continues to degrade staff around him, VSS, respirations equal and unlabored, patient medicated per MAR. patient has male pad under scrotum for urine collection if wets himself without using urinal. patient urinated 300 cc in urinal. patient ate breakfast tray
--- NOTE | 2024-03-02 09:58 | PC.NURSE ---
patient continues to yell out at staff and guards from [facility]. patient undirectable, remains cuffed by [facility] guards
--- NOTE | 2024-03-02 10:15 | MHC.CM.ED ---
Received case management consult from Dr Mares. Patient cleared from needing inpatient psych. Will need SNF placement. Copy of updated guardianship with right to place uploaded in Medical Record. Will need signed psych consult before placing LTC referrals. Continue to monitor for d/c needs.
[2024-03-02 11:38] LABS: Glucose, Whole Blood 301 mg/dL (60-115)
[2024-03-02] MEDS: OLANZapine 10 MG VIAL IM (11:50)
[2024-03-02] MEDS: LORazepam 2 MG/ML VIAL IM (11:50)
--- NOTE | 2024-03-02 11:55 | PC.NURSE ---
Assumed care of this patient at 1130, during RN to RN handover, patient was being switched to hospital bed by EDTs and Security. Patient was swearing, being verbally abusive to staff, attempting to bite/spit staff during bed exchange architect. Patient continued to scream and threaten staff after redirection by security and security staff with the patient. Patient restrained by 2 hospital locked restraints on L wrist and R ankle handcuffs by hospital security staff and by 2 shackles on R wrist and L ankle. IM medications ordered and given.
--- NOTE | 2024-03-02 13:56 | MHC.CM.ED ---
Spoke with Yadira Green, wellness program administrator at [facility]. Yadira verifies patient was sent to their facility under a section 35 and then was sent to ER under section 12. Yadira made aware that psych does not feel he is inpatient psych appropriate but also not appropriate for [facility]. Yadira also made aware that Sandra from [facility] told Care Team they would be able to assist with getting patient admitted to [facility]. Yadira stated [facility] has always stated the only way to get patient admitted to [facility] or [facility] would be after an inpatient psych admission. If [facility] is able to offer a bed, Yadira would want her staff to transport patient. Legally they are still responsible for patient. Yadira requesting to speak to [facility] child day care provider. Yadira can be reached via telephone at [phone]. [facility] aware and will contact Yadira. Continue to monitor for d/c needs.
--- NOTE | 2024-03-02 14:50 | PC.NURSE ---
bedside security called panic button in room because patient began pulling at wires, cursing at staff. Patient angry lunch has not been delivered to him, lunch has not been delivered to entire ED at this time. Patient trying to negotiate with staff, stating he will be nicer if given food. Patient informed he has already gotten numerous snacks, and lunch will be delivered when it arrives.
--- NOTE | 2024-03-02 15:21 | PC.NURSE ---
Patient very upset, screaming about getting fish for lunch. threw urinal on floor, being verbally aggressive towards staff. Explained to patient that a new lunch can be obtained for him, however he needs to treat the people that are helping him with more respect and screaming less. Informed patient that this RN will be back in 5 minutes w/ his 1500 meds and a sandwich which will be given to him if he able to communicate in a lower and more appropriate tone/volume. Returned 5 minutes later w/ meds and conner, patient able to speak in an more appropriate volume. [facility] accepted.
--- NOTE | 2024-03-02 15:50 | MHC.EDTECH ---
Pt given diet gingeral and 2 diabetic puddings. This Tech provided pt with a bariatric bedside commode for toileting.
--- NOTE | 2024-03-02 17:09 | PC.NURSE ---
Patient sleeping on stretcher at this time, will defer POC/meds until patient is awake/dinner is available.
[2024-03-02] MEDS: chlorproMAZINE HCl 100 MG TABLET PO (18:10)
[2024-03-02 18:11] LABS: Glucose, Whole Blood 350 mg/dL (60-115)
--- NOTE | 2024-03-02 18:17 | PC.NURSE ---
Patient awake, demanding food. Patient had urinated on himself, resulting in urine on bed throughout onto floor. Environmental services called to clean room. Patient's POC 350, medicated per MAR, patient took ordered meds w/o issue. Explained to patient that room, bed, and himself need to get cleaned before food can be consumed. Patient unhappy but understanding. Ages staff security remain at bedside, patient shackled to bed x2 limbs.
--- NOTE | 2024-03-02 18:45 | PC.NURSE ---
Went in to clean patient & deliver dinner, patient sleeping soundly on bed. Dinner will be held aside for him until he has awoken again.
--- NOTE | 2024-03-02 18:58 | MHC.CM.ED ---
Addendum entered by Sharon Valentine 03/02/24 21:36: staff safety discussed. Original Note: Multidisciplinary meeting to discuss patient care and plan. Senior management Annette Loza, Directors Lea Hayden and Gogo Dc professor of psychiatry, Dr. Maxwell, RN CM Diamante Mckeon and Susi JOYNER present. Discussed present behaviors, safe safety and patient plan of care.
--- NOTE | 2024-03-02 20:07 | PC.NURSE ---
Patient woke up and threw a paper pad full of urine at [place] guard. Both guards and this RN informed patient behavior is not acceptable. Patient cleaned up, voided into urinal w. assistance, fresh kayla given to patient. Patient asking demanding food. Patient informed he cannot get unlimited food especially since he is being disrespectful to staff. Patient upset, but seems to understand.
[2024-03-02] MEDS: Insulin Glargine,Hum.rec.anlog 100 UNIT/ML 10 ML VIAL 15 UNIT SUBCUT (21:26)
[2024-03-02 21:32] LABS: Glucose, Whole Blood 215 mg/dL (60-115)
--- NOTE | 2024-03-02 21:33 | PC.NURSE ---
Pt found sleeping soundly on hospital bed, POC 215 medicated per MAR. Patient arousable to name/shake opens one eye and then goes back to sleep, snoring loudly. VSS PM meds not administered at this time as patient cannot safely swallow. blind stitch machine operatorPEYMAN sawyer.
[2024-03-03] VITALS (8 sets, daily range): BP systolic 106–139; BP diastolic 59–84; PULSE 100–116; RESP 12–26; TEMP 35.8; O2SAT 91–100
--- NOTE | 2024-03-03 00:15 | PC.NURSE ---
Assumed care of pt at 2320. Pt in bed resting eyes, closed snoring arousable but falls back to sleep. SPO2 intermittently dropping to 88-89% on room air, pt had one episode of spo2 in the 70's% pt placed on 2L nc, improvement 94% and greater. Placed on monitor. Pt remains sleeping, shackle to R-wrist and L-ankle Police at bedside.
--- NOTE | 2024-03-03 08:19 | MHC.EDTECH ---
patient states he is going to [facility] because we gave him pork, he states he knew it was pork but ate the breakfast . He is currently screaming at staff. RN aware .
--- NOTE | 2024-03-03 08:20 | PC.NURSE ---
POC = 365. Anand Kelly MD aware - MD states to just administer 10U Lispro per protocol.
[2024-03-03 08:23] LABS: Glucose, Whole Blood 365 mg/dL (60-115)
--- NOTE | 2024-03-03 08:27 | PC.NURSE ---
Went to pt.'s room to medicate with 10U Lispro. This RN, bone char operator, and security officers x2 at bedside. Pt. began screaming at RN that he received pork for breakfast and he has an allergy to it. Pt. did eat his entire breakfast tray. This RN apologized to pt. and told pt. that we will monitor him for any signs of allergic reaction. Asked pt. why he ate the pork if he is allergic to it, pt. states that he has the right to eat it anyway. This RN then explained to pt. that he is due to receive his insulin. Pt. states that does not want it. This RN explained the consequences of not taking his insulin. Pt. states that he has the right to refuse and to document it in his medical record as such. Pt. then began calling female flight security specialist pat edwards unprovoked.
--- NOTE | 2024-03-03 08:35 | ECG_ITS ---
Test Reason : TACHY Blood Pressure : / mmHG Vent. Rate : 115 BPM Atrial Rate : 115 BPM P-R Int : 132 ms QRS Dur : 082 ms QT Int : 312 ms P-R-T Axes : 066 086 053 degrees QTc Int : 431 ms Poor data quality, interpretation may be adversely affected Sinus tachycardia Otherwise normal ECG When compared with ECG of 01-MAR-2024 08:19, Borderline criteria for Inferior infarct are no longer Present ST elevation now present in Inferior leads ST no longer depressed in Anterior leads Nonspecific T wave abnormality, improved in Inferior leads Referred By: Nguyen Ritchie Electronically Signed By:JESUS SUN MD
[2024-03-03] MEDS: LORazepam 2 MG/ML VIAL IM ×2 (08:37→09:04)
--- NOTE | 2024-03-03 08:41 | PC.NURSE ---
2mg IM Ativan per verbal orders of Anand Kelly MD administered to pt.'s left deltoid due to sudden unresponsiveness, leg shaking and questionable seizure activity. Many ED staff to bedside, including Anand Kelly MD and Mahendra GÓMEZ
--- NOTE | 2024-03-03 08:42 | PC.NURSE ---
went to room to assist with a stat call to the dr for apparent change in status. pt with apparent seizure activity. VS as follows: 98% RA, 26RR, 130/84, HR 112, POC 414. MD Kelly called for 2mg IM Ativan for seizure activity. Administered by Rosa MORLEY at 0837.
[2024-03-03] MEDS: amLODIPine Besylate 5 MG TABLET PO (09:07)
[2024-03-03] MEDS: cloNIDine HCL 0.1 MG TABLET PO ×2 (09:07→20:42)
[2024-03-03] MEDS: Folic Acid 1 MG TABLET PO (09:07)
[2024-03-03] MEDS: Gabapentin 400 MG CAPSULE 800 MG PO ×3 (09:07→20:42)
[2024-03-03] MEDS: lamoTRIgine 25 MG TABLET PO ×2 (09:08→09:33)
[2024-03-03] MEDS: chlorproMAZINE HCl 100 MG TABLET PO (09:08)
[2024-03-03] MEDS: Multivitamin TABLET 1 TAB PO (09:08)
--- NOTE | 2024-03-03 09:16 | PC.NURSE ---
Incontinence care provided by gear hobber operator and RNs x2. Pt. is requesting a Purewick at this time. Explained to pt. that Purewicks only work for vaginas and it is anatomically impossible for him to have a Purewick. Pt. repeatedly requesting RNs to scratch his ass. Security officers x2 remain at bedside.
[2024-03-03 09:19] LABS: Glucose, Whole Blood 414 mg/dL (60-115)
--- NOTE | 2024-03-03 09:37 | PC.NURSE ---
Pt continues to verbally accost RNs and security. Continually trying to calm pt. Agreed to take his morning meds and medicated per JUN.
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
--- NOTE | 2024-03-03 11:57 | PC.NURSE ---
Guards alerted RN that pt used wires in room to wrap around his neck, guards were able to get them off immediately and take them away
[2024-03-03 12:06] LABS: Glucose, Whole Blood 414 mg/dL (60-115)
--- NOTE | 2024-03-03 12:06 | PC.NURSE ---
notified about high BGL, orders to give 10 units subq of insulin. Pt agreeing to get his insulin this time.
[2024-03-03] MEDS: Insulin Lispro 100 UNIT/ML 3 ML VIAL SUBCUT ×3 (12:13→20:41)
--- NOTE | 2024-03-03 12:17 | PC.NURSE ---
pt refused depakote. pt educated that part of the plan is to start depakote. he said I don't like depakote, it makes me fat and bald . Attempted to educate pt that he is still getting lamictal which he requested but her continued to refuse
--- NOTE | 2024-03-03 13:44 | PC.NURSE ---
Pt noted to desat when sleeping, has sleep apnea but refusing cpap machine. Pt placed on oxymask 10-11L and maintains sats
[2024-03-03 16:34] LABS: Glucose, Whole Blood 279 mg/dL (60-115)
--- NOTE | 2024-03-03 16:37 | PC.NURSE ---
Pt awake. Full bed change done and new linens/ clothing provided due to urine incontinence. Urinal again provided. Room cleaned
[2024-03-03 20:32] LABS: Glucose, Whole Blood 252 mg/dL (60-115)
[2024-03-03] MEDS: Insulin Glargine,Hum.rec.anlog 100 UNIT/ML 10 ML VIAL 15 UNIT SUBCUT (20:40)
[2024-03-03] MEDS: HaloperidoL 5 MG TABLET 10 MG PO (20:41)
[2024-03-03] MEDS: Divalproex Sodium 500 MG TABLET.DR 1000 MG PO (20:42)
[2024-03-03] MEDS: guaiFENesin DM 100/10/5 ML 5 ML SYRUP 10 ML PO (20:49)
--- NOTE | 2024-03-03 21:58 | PC.NURSE ---
Patient refuses to wear CPAP so oxymask at 9L placed on patient to obtain safe oxygen levels while sleeping.
--- NOTE | 2024-03-03 22:35 | PC.NURSE ---
Patient voided onself and the bed, 4 assist to change and cleanse the bed and patient. Patient became verbally aggresive with staff and began swinging. was able to de-escalate and get patient back into bed. Patient is now calm at this time.
--- NOTE | 2024-03-04 01:03 | PC.NURSE ---
Patient incontinent of urine and refusing to let staff change him. Risk of skin break down explained to patient and patient still opted to stay in urine. new pad placed.
[2024-03-04 04:32] VITALS: BP 143/84; PULSE 116; RESP 12; O2SAT 95
--- NOTE | 2024-03-04 04:55 | PC.NURSE ---
patient cleansed and new bedding provided.
[2024-03-04] MEDS: Omeprazole 20 MG CAPSULE.DR PO (05:35)
--- NOTE | 2024-03-04 06:17 | PC.NURSE ---
Patient was assisted out of bed with 2 staff to commode. Patient successfully washed up on commode and transferred self back into bed independently. Condom cath intact
--- NOTE | 2024-03-04 08:30 | PC.NURSE ---
Pt. was incontinent of urine and [place] cath. fell off. Full bed change by ED Techs x2. Pt. is clean and dry, security officers x2 remain at bedside. Pt. states: I'm going to behave today.
[2024-03-04 08:33] LABS: Glucose, Whole Blood 377 mg/dL (60-115)
--- NOTE | 2024-03-04 08:33 | PC.NURSE ---
Pt.'s POC = 377 at this time. 10U Lispro per protocol and [place] Childs notified and aware.
[2024-03-04 08:46] VITALS: BP 119/69; PULSE 117; RESP 18; TEMP 37.1; O2SAT 95
[2024-03-04] MEDS: amLODIPine Besylate 5 MG TABLET PO (08:49)
[2024-03-04] MEDS: Multivitamin TABLET 1 TAB PO (08:50)
[2024-03-04] MEDS: Folic Acid 1 MG TABLET PO (08:50)
[2024-03-04] MEDS: Sennosides 8.6 MG TABLET PO (08:50)
[2024-03-04] MEDS: Insulin Lispro 100 UNIT/ML 3 ML VIAL SUBCUT ×2 (08:51→16:18)
[2024-03-04] MEDS: cloNIDine HCL 0.1 MG TABLET PO (08:51)
[2024-03-04] MEDS: Divalproex Sodium 500 MG TABLET.DR 1000 MG PO (08:51)
[2024-03-04 08:58] VITALS: BP 119/78; PULSE 120; RESP 19; TEMP 36.8; O2SAT 93
[2024-03-04] MEDS: Gabapentin 400 MG CAPSULE 800 MG PO ×2 (09:01→16:18)
[2024-03-04] MEDS: chlorproMAZINE HCl 100 MG TABLET PO (09:02)
[2024-03-04] MEDS: HaloperidoL 5 MG TABLET 10 MG PO (09:40)
[2024-03-04] MEDS: LORazepam 1 MG TABLET PO ×2 (11:19→16:59)
--- NOTE | 2024-03-04 11:21 | PC.NURSE ---
Pt. dosed with one-time dose of Ativan 1mg PO for increased agitation towards female security systems sales representative. Effect of medication pending.
--- NOTE | 2024-03-04 12:04 | PC.NURSE ---
Pt. is napping comfortably at this time. His bed and ish areas are clean and dry. No ligature risks in pt.'s room. Two security officers remain at bedside.
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
--- NOTE | 2024-03-04 13:38 | MHC.CM.PN ---
PT REMAINS IN ED WITH SECURITY PRESENT. PT REMAINS BEHAVIORAL AND AGGRESSIVE. CM WILL CONTINUE TO FOLLOW.
[2024-03-04 16:15] LABS: Glucose, Whole Blood 233 mg/dL (60-115)
--- NOTE | 2024-03-04 16:22 | PC.NURSE ---
Pt. awake from his nap. He has had an overall good day. He is calm, cooperative and polite at this time. Requesting more jello. This RN asked pt. if he feels as though he needs a PRN Thorazine at this time- pt. declines.
--- NOTE | 2024-03-04 17:40 | PC.NURSE ---
Pt. took off hospital gown. Remains naked at this time, refusing to put hospital gown back on. Otherwise cooperative at this time. Requesting a coffee with five creams and five Splendas, two jellos, two puddings.
--- NOTE | 2024-03-04 18:54 | PC.NURSE ---
Pt. with new order for Ativan 1mg PO TID PRN per Mian Galindo MD. Order okayed per Gogo Perez, Psych. OIL HEAT TECHNICIAN.
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
[2024-03-05 01:59] LABS: Glucose, Whole Blood 483 mg/dL (60-115)
[2024-03-05] MEDS: HaloperidoL 5 MG TABLET 10 MG PO ×2 (02:27→10:31)
[2024-03-05] MEDS: Gabapentin 400 MG CAPSULE 800 MG PO ×3 (02:27→17:32)
[2024-03-05] MEDS: cloNIDine HCL 0.1 MG TABLET PO ×2 (02:27→10:34)
[2024-03-05] MEDS: Insulin Lispro 100 UNIT/ML 3 ML VIAL SUBCUT ×4 (02:28→17:31)
[2024-03-05] MEDS: Insulin Glargine,Hum.rec.anlog 100 UNIT/ML 10 ML VIAL 15 UNIT SUBCUT (02:31)
[2024-03-05] MEDS: LORazepam 1 MG TABLET PO (02:32)
[2024-03-05] MEDS: Divalproex Sodium 500 MG TABLET.DR 1000 MG PO ×2 (02:32→10:31)
--- NOTE | 2024-03-05 03:45 | PC.NURSE ---
poc 483. Naresh GÓMEZ made aware, to give lispro 10U and lantus 15U at this time and reassess poc after. pt continues to request radames made aware POC level high and need to control at this time.
[2024-03-05 03:57] VITALS: BP 127/61; PULSE 111; RESP 16; O2SAT 94
--- NOTE | 2024-03-05 06:28 | PC.NURSE ---
pt requesting food, reassured breakfast will be served soon, refused med.
[2024-03-05 06:41] LABS: Glucose, Whole Blood 288 mg/dL (60-115)
[2024-03-05 06:41] LABS: Glucose, Whole Blood 361 mg/dL (60-115)
[2024-03-05 07:38] LABS: Glucose, Whole Blood 368 mg/dL (60-115)
[2024-03-05] MEDS: Multivitamin TABLET 1 TAB PO (10:31)
[2024-03-05] MEDS: Sennosides 8.6 MG TABLET PO (10:32)
[2024-03-05] MEDS: Folic Acid 1 MG TABLET PO (10:33)
[2024-03-05 10:34] VITALS: BP 124/90
[2024-03-05 10:36] VITALS: BP 124/90
[2024-03-05] MEDS: amLODIPine Besylate 5 MG TABLET PO (10:36)
--- NOTE | 2024-03-05 11:05 | MHC.CM.ED ---
Addendum entered by Jie Arguello 03/05/24 12:39: Clinical updates sent to Fernanda Ortega. Original Note: Patient remains in ER. 2 [employer] officers at bedside d/t section 35. Patient seen by [employer] chief operating engineer on Saturday 03/03 and 03/04. Medication recommendations made based off Nav's Order. Continue to monitor for d/c needs.
[2024-03-05 13:27] LABS: Glucose, Whole Blood 321 mg/dL (60-115)
--- NOTE | 2024-03-05 14:48 | MHC.EDTECH ---
Patient very rude demanding a sandwich before allowing vitals signs to be taken. This tech explained to him that I was very willing to get him another sandwich once I completed his vitals . Patient has refused vital signs at this time
[2024-03-05 16:43] LABS: Glucose, Whole Blood 288 mg/dL (60-115)
--- NOTE | 2024-03-05 19:05 | PC.NURSE ---
report received from Juju Herrera RN, assume care of pt at this time
--- NOTE | 2024-03-05 23:19 | PC.NURSE ---
pt resting quietly with eyes closed, resp with ease, no acute distress noted [facility] staff remains in room with pt. will cont plan of care
[2024-03-06 01:00] LABS: Glucose, Whole Blood 194 mg/dL (60-115)
--- NOTE | 2024-03-06 07:11 | PC.NURSE ---
report given to Martha MORLEY
[2024-03-06 07:35] LABS: Glucose, Whole Blood 253 mg/dL (60-115)
[2024-03-06] MEDS: Insulin Lispro 100 UNIT/ML 3 ML VIAL SUBCUT (07:41)
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
--- NOTE | 2024-03-06 09:55 | MHC.EDTECH ---
pt made bowel movement. tech assisted pt with urinal.
[2024-03-06] MEDS: HaloperidoL 5 MG TABLET 10 MG PO (10:47)
[2024-03-06] MEDS: Multivitamin TABLET 1 TAB PO (10:47)
[2024-03-06] MEDS: Divalproex Sodium 500 MG TABLET.DR 1000 MG PO (10:47)
[2024-03-06 10:48] VITALS: BP 150/84
[2024-03-06] MEDS: cloNIDine HCL 0.1 MG TABLET PO (10:48)
[2024-03-06] MEDS: Gabapentin 400 MG CAPSULE 800 MG PO (10:49)
[2024-03-06 10:50] VITALS: BP 150/84
[2024-03-06] MEDS: amLODIPine Besylate 5 MG TABLET PO (10:50)
[2024-03-06 10:51] VITALS: BP 150/84; PULSE 110; RESP 18; TEMP 36.9; O2SAT 98
[2024-03-06] MEDS: Folic Acid 1 MG TABLET PO (10:51)
--- NOTE | 2024-03-06 11:07 | PC.NURSE ---
PT has been calm throughout the morning. No need for physical redirection. Is aware of limits on additional snacks d/t diabetes. Has been given PBJ but knows this is limited. Allowed to have a Pradip at this time as a test of his ability to safely use clothing. Is aware that Pradip will be removed if needed.
--- NOTE | 2024-03-06 11:19 | P.CNPS_ITS ---
History of Present Illness Date of Service: 03/06/2024 Chief Complaint: CP/OVERED IN FECES/SECTION 12/RESTRAINED Requesting physician: Temitope Pérez Discussed with referring provider: Yes Sources of Information: patient interviewed, chart reviewed and crisis/core team assessment reviewed HPI Narrative: Interim Hx: pt has been in more behavioral control. No behavioral incidents for the past 3 days. He is taking medication per astrid's. No side effects noted with haldol. Will give Haldol Dec 100mg IM. He is currently on 10mg po BID- conversion to long acting eventually will be 20 times oral, in divided doses- 200mg IM [id number]. He can have loading dosing of Haldol decanoate 100mg IM weekly for the first 4 weeks, then biweekly 200mg IM. Will continue Paliperidone Invega but eventually may want to try to discontinue if haldol alone is effective. Continue depakote 1000mg po BID. Need to check depakote level (trough level- unfortunately he had morning dose prior to labs. but will check ammonia). Past Psychiatric History: Inpt: several in the past, including aptu. He apparently was at [facility] August 2022- [facility] OP: none DMH: case management. Past medication trials: paliperidone, thorazine [facility] Medical History (Updated 03/06/24 @ 11:45 by Gogo Perez NP) Diabetes type 2, controlled Hip problem Osteoarthritis HTN (hypertension) PTSD (post-traumatic stress disorder) Depression Diverticulosis BMI 45.0-49.9, adult Morbid obesity due to excess calories Shortness of breath Preoperative examination Obese Degenerative disc disease Diabetes Surgical History History of surgery of head Hx of cholecystectomy H/O elbow surgery Diagnostics Vital Signs (24Hr): Vital Signs - 24 hr 03/06/24 10:48 03/06/24 10:50 03/06/24 10:51 Temperature 98.5 F Pulse Rate 110 H Respiratory Rate 18 Blood Pressure 150/84 H 150/84 H 150/84 H Pulse Oximetry 98 Oxygen Delivery Method Room Air BMI result Body Mass Index 52.1 Labs 02/29/24 16:12 02/29/24 16:12 Labs: Laboratory Results - last 48 hr 03/04/24 03/05/24 03/05/24 16:11 01:54 03:54 POC Glucose 233 H 483 H* 361 H* 03/05/24 03/05/24 03/05/24 06:37 07:34 13:22 POC Glucose 288 H 368 H* 321 H 03/05/24 03/06/24 03/06/24 16:40 00:53 07:31 POC Glucose 288 H 194 H 253 H Medications Medications Current Medications Albuterol Sulfate (Albuterol Sulfate 90 Mcg 8 Gm Inhaler) 2 puff INHALE Q4H PRN PRN Reason: Shortness Of Breath Amlodipine Besylate (Amlodipine Besylate 5 Mg Tablet) 5 mg PO DAILY [facility]; Protocol Last Admin: 03/06/24 10:50 Dose: 5 mg Chlorpromazine HCl (Chlorpromazine Hcl 100 Mg Tablet) 100 mg PO TID PRN PRN Reason: agitation Last Admin: 03/04/24 09:02 Dose: 100 mg Clonidine HCl (Clonidine Hcl 0.1 Mg Tablet) 0.1 mg PO BID [facility]; Protocol Last Admin: 03/06/24 10:48 Dose: 0.1 mg Divalproex Sodium (Divalproex Sodium 500 Mg Tablet.Dr) 1,000 mg PO BID [facility] Last Admin: 03/06/24 10:47 Dose: 1,000 mg Folic Acid (Folic Acid 1 Mg Tablet) 1 mg PO DAILY [facility] Last Admin: 03/06/24 10:51 Dose: 1 mg Gabapentin (Gabapentin 400 Mg Capsule) 800 mg PO TID [facility] Last Admin: 03/06/24 10:49 Dose: 800 mg Glucose (Glucose Gel 15 Gm Gel..Gram.) 15 gm PO Q15M PRN; Protocol PRN Reason: per Hypoglycemia Standing Ord. Guaifenesin/Dextromethorphan (Guaifenesin Dm 100/10/5 Ml 5 Ml Syrup) 10 ml PO Q6H PRN PRN Reason: Cough Last Admin: 03/03/24 20:49 Dose: 10 ml Haloperidol (Haloperidol 5 Mg Tablet) 10 mg PO BID [facility] Last Admin: 03/06/24 10:47 Dose: 10 mg Haloperidol Lactate (Haloperidol Lactate 5 Mg/Ml Vial) 10 mg IM BID PRN PRN Reason: if refuses oral haldol per alvarez Dextrose (D10) 250 mls @ 750 mls/hr IV Q15M PRN; Protocol PRN Reason: per Hypoglycemia Standing Ord. Insulin Glargine (Insulin Glargine,Hum.Rec.Anlog 100 Unit/Ml 10 Ml Vial) 15 unit SUBCUT BEDTIME [facility] Last Admin: 03/05/24 22:00 Dose: Not Given Insulin Human Lispro (Insulin Lispro 100 Unit/Ml 3 Ml Vial) 0 unit SUBCUT QIDACHS [facility]; Protocol Last Admin: 03/06/24 07:41 Dose: 6 unit Lorazepam (Lorazepam 1 Mg Tablet) 1 mg PO TID PRN PRN Reason: anxiety/restlessness Last Admin: 03/05/24 02:32 Dose: 1 mg Multivitamins/Vitamin C (Multivitamin Tablet) 1 tab PO DAILY [facility] Last Admin: 03/06/24 10:47 Dose: 1 tab Non-Formulary Medication (Alogliptin [Nesina]) 25 mg PO DAILY [facility] Omeprazole (Omeprazole 20 Mg Capsule.Dr) 20 mg PO DAILY@0630 [facility] Last Admin: 03/06/24 06:43 Dose: Not Given Paliperidone Palmitate (Paliperidone Palmitate 234 Mg/1.5 Ml Syringe) 234 mg IM Q28D [facility] Polyethylene Glycol (Polyethylene Glycol 3350 17 Gm Powd.Pack) 17 gm PO DAILY PRN PRN Reason: Constipation Senna (Sennosides 8.6 Mg Tablet) 8.6 mg PO DAILY [facility] Last Admin: 03/06/24 10:51 Dose: Not Given Allergies Allergies Allergy/AdvReac Type Severity Reaction Status Date / Time fish derived [fish] Allergy Severe Anaphylaxis Verified 02/29/24 13:08 shellfish derived Allergy Severe SWELLING Verified 02/29/24 13:08 [SHELLFISH DERIVED] WITH DIFFICULTY BREATHING pork derived (porcine) AdvReac Intermediate swelling Verified 02/29/24 13:08 garlic AdvReac Mild VOMITING Verified 02/29/24 13:08 Assessment & Plan Assessment & Plan (1) Schizoaffective disorder: Status: Acute Code(s): F25.9 - Schizoaffective disorder, unspecified (2) Personality disorder: Status: Acute Code(s): F60.9 - Personality disorder, unspecified Assessment and Plan: per previous records from [facility] Antisocial personality disorder (3) Opioid use disorder: Status: Acute Code(s): F11.90 - Opioid use, unspecified, uncomplicated Plan Mr. Che is a 48 year-old male with hx of schizoaffective disorder, opioid use disorder, who currently is under sect 35 for opioid use disorder. He has a long hx of severe chronic psychiatric illness including [facility] involvement and prior terminal makeup operator psychiatric hospitalization in [facility]. He has been section 35 several times and has been there for periods of 3 months at a time. Collateral information from mother and reviewing of medical records from [facility] (pending collateral information from psychiatrist who treated him at [facility]), it appears that even after long admission, his baseline is very poor as well as ability to function. He mostly in bed, is able to walk and run when he wants but prefers to use wheelchair, there is concern in that sense of behaviorally having others clean after himself. Astrid's include: thorazine up to 800mg /day; Invega Sustenna 234mg IM [id number]; Invega trinza up to 819mg IM [id number]; Abilify 400mg IM [id number]; loxapine up to 250mg po per day; latuda up to 160mg /day; haldol decanoate 100mg IM [id number] PLAN 03/03--> suspect haldol may be better option for underlying paranoia and psychosis since he has been on paliperidone consistently for abou 4 months now. Haldol is in his astrid's. Continue Invega Sustenna 234mg IM q30 days, and switch thorazine for haldol BID. Will keep thorazine prn for agitation. Monitor Qtc<500ms, K>4, Mg>2. Will add depakote for explosive/aggressive behaviors. 03/04--> continue haldol 10mg po BID- IF REFUSES ORAL, GIVEE HALDOL 10MG IM PER ASTRID'S. Continue depakote, thorazine prn for agitation. If noted dystonia- given lorazepam 2mg IM/benadryl 50mg IM, only then hold/stop HALDOL. appears calmer today. 03/06- pt continues to present in good behavioral control. He has tolerated haldol with no side effects. He is also taking depakote 1000mg po BID. MEDICATIONS: 1. Continue Paliperidone 234mg IM qmontly--> may consider discontinuing it if monotherapy with haldol is effective. Next due 03/12/2024. 2. He is currently taking Haldol 10mg PO BID. Oral dose is equivalent to 20 times IM dose, which will be total of 400mg monthly IM, which would have to be divided in 2 doses of 200mg IM [id number]. To quickly reach a steady plasma level, recommend doing a loading dose of Haldol decanoate 100mg IM given on 03/06/2024--> for loading dose of haldol Dec 100mg IM weekly for 4 weeks, then 200mg IM [id number]. 3. Continue Depakote 1000mg po BID- pending trough levels. 4. Thorazine 100mg po BID was discontinued. Lamictal 25mg po daily also discontinued. 5. Pt to return back to [place] today Total time managing care of this patient today ____ minutes. Guardian/Caregiver educated on: diagnosis Informed Consent: understands
--- NOTE | 2024-03-06 11:39 | MHC.CM.ED ---
Addendum entered by Jie Arguello 03/06/24 14:13: Attempted to notify patient's mother/guardian, Briana, via telephone at [phone] of d/c plan. No answer. Unable to leave a message. Addendum entered by Jie Arguello 03/06/24 13:53: Spoke with Yadira via telephone at [facility]. Yadira aware [facility] originally denied patient. However, they are reviewing new notes. Patient will be difficult to place in SNF because his Nav's Order allows IM meds. [facility] in [place] does not have a bed. Yadira encouraged to reach out to [facility]. List of medications will be provided to Yadira. Original Note: Received notification from [employer] ice cream maker. Patient will receive long acting Haldol and IM ativan 30 mins before transport, but patient can return to [facility]. BLS transport is preferred. [facility] booked for 2pm. Gogo's note will be faxed to [facility]. Patient, Kat MORLEY and Temitope GÓMEZ aware. Continue to monitor for d/c needs.
--- NOTE | 2024-03-06 11:53 | PC.NURSE ---
despite innapropriate language pt was cooperative with lab draw.
[2024-03-06 12:06] LABS: Ammonia 46 umol/L (13-55)
[2024-03-06] MEDS: Haloperidol Decanoate 50 MG/ML VIAL 100 MG IM (12:24)
--- NOTE | 2024-03-06 13:03 | PC.NURSE ---
message left for PEYMAN Bain director at [facility]. Message left to return call.
--- NOTE | 2024-03-06 13:09 | PC.NURSE ---
RN to RN with Jemima Franco at [facility]
[2024-03-06 13:51] LABS: Glucose, Whole Blood 352 mg/dL (60-115)
== END 2024-03-06 14:05 | disposition other institution (70) ==
PROVIDERS: Physician Assistant Medical; Social Worker; Emergency Provider Emergency Medicine; PCP Internal Medicine
DX: F28 Other psychotic disorder not due to a substance or known physiological condition (principal); R45.851 Suicidal ideations; R45.850 Homicidal ideations; R45.6 Violent behavior; F41.9 Anxiety disorder, unspecified; F60.9 Personality disorder, unspecified; F11.90 Opioid use, unspecified, uncomplicated; F25.9 Schizoaffective disorder, unspecified; F43.10 Post-traumatic stress disorder, unspecified; E11.9 Type 2 diabetes mellitus without complications; F17.210 Nicotine dependence, cigarettes, uncomplicated; E66.01 Morbid (severe) obesity due to excess calories; Z68.43 Body mass index [BMI] 50.0-59.9, adult; Z78.1 Physical restraint status; Z11.52 Encounter for screening for COVID-19; Z79.899 Other long term (current) drug therapy; Z79.4 Long term (current) use of insulin
CPT/HCPCS: 36415; 80053; 80143; 80179; 80307; 81001; 82140; 82947; 85025; 86704; 86706; 86709; 86780; 86803; 87340; 87389; 87635; 93005; 96372; 99285; J1200; J1631; J2060; J2359; J3486; S9485

== ENCOUNTER → 2024-02-29 14:12 | Outpatient (BNV) | payer MEDICARE, MEDICAID, SELFPAY | PROVIDERS: Emergency Provider Emergency Medicine; Visit Provider Social Worker | DX: F60.9 Personality disorder, unspecified (principal); F25.9 Schizoaffective disorder, unspecified; F11.90 Opioid use, unspecified, uncomplicated | CPT/HCPCS: 99232; 99285 ==

== ENCOUNTER → 2024-03-01 08:18 | Outpatient (BNV) | payer MEDICARE, MEDICAID, SELFPAY | PROVIDERS: Emergency Provider Emergency Medicine; Visit Provider Internal Medicine Cardiovascular Disease | DX: R94.31 Abnormal electrocardiogram [ECG] [EKG] (principal) | CPT/HCPCS: 93010 ==

== ENCOUNTER → 2024-03-03 08:35 | Outpatient (BNV) | payer MEDICARE, MEDICAID, SELFPAY | PROVIDERS: Emergency Provider Emergency Medicine; Visit Provider Internal Medicine Cardiovascular Disease | DX: R00.0 Tachycardia, unspecified (principal) | CPT/HCPCS: 93010 ==